=== PATIENT | male | born 1955 | race Hispanic/Latino ===

== ENCOUNTER 2017-06-01 12:07 | Day surgery (SDC) | payer BC ==
[2017-05-31 14:52] VITALS: BMI 38.9
[2017-06-01] MEDS ORDERED: Propofol 200 MG/20 ML VIAL ONE (16:36)
[2017-06-01] MEDS ORDERED: Lidocaine 1% PF 5 ML VIAL ONE (16:36)
--- NOTE | 2017-06-01 17:24 | OP ---
DATE OF PROCEDURE: 06/01/2017 PROCEDURE: Esophagogastroduodenoscopy with banding ligation of esophageal varices. PHYSICIAN: Woo Parisi M.D. ANESTHESIA: Given by Anesthesiology department. PREOPERATIVE DIAGNOSES: 1. History of esophageal varices. 2. Cirrhosis. POSTOPERATIVE DIAGNOSES: 1. Grade 2-3 lower esophageal varices. 2. Diffuse portal gastropathy. 3. Hypertrophic folds in the gastric antrum. 4. No gastric varices. PROCEDURE IN DETAIL: Written consent was obtained prior to the procedure. After adequate sedation, the forward-viewing endoscope was advanced down the stomach under direct vision to the third portion of the duodenum. The duodenum including the duodenal bulb appeared normal. Pylorus was patent. Michelle ear erosive hypertrophic exuberant folds were noted in the gastric antrum. Severe diffuse portal gas tropathy was noted. Retroflexion did not show any gastric varices. The esophagogastric junction was noted at approximately 40 cm. A grade II-III esophageal varices in 4 distinct columns were noted fr om GE junction up to 30 cm from the incisors. The endoscope was then removed. The multiband ligator kit was then affixed to the endoscope. Repeat endoscopy was performed. A total of five bands were deployed with good ligation of the varices. There was no complication noted. The patient tolerated the procedure well. ASSESSMENT: 1. Severe portal gastropathy. 2. Grade 2-3 esophageal varices, status post banding ligation. 3. No gastric varices. PLAN: 1. Continue with nadolol. 2. Repeat upper endoscopy in 6 weeks.
== END 2017-06-01 16:00 | disposition home or self-care (01) ==
LOC: SDC 12:07
PROVIDERS: ATTEND Internal Medicine Gastroenterology
PROC: 06L38CZ Occlusion of Esophageal Vein with Extraluminal Device, Via Natural or Artificial Opening Endoscopic (ICD-10-PCS; principal; 2017-06-01)
DX: I85.00 Esophageal varices without bleeding (principal); K74.60 Unspecified cirrhosis of liver; K31.89 Other diseases of stomach and duodenum; B18.2 Chronic viral hepatitis C; I10 Essential (primary) hypertension; E11.9 Type 2 diabetes mellitus without complications; E03.9 Hypothyroidism, unspecified; Z79.4 Long term (current) use of insulin; Z79.899 Other long term (current) drug therapy; Z87.891 Personal history of nicotine dependence
CPT/HCPCS: 36416; J2001; J2704

== ENCOUNTER 2018-09-27 10:00 | Outpatient (CLI) | payer BC ==
--- NOTE | 2018-09-27 10:28 | RAD ---
CHEST 2 VIEWS: Date: 09/27/18 HISTORY: Cough for 2 weeks with dyspnea. COMPARISON: 02/21/13. FINDINGS: Heart size is normal. The lungs are clear. IMPRESSION: No acute intrathoracic disease. Stable from prior study. POS: C
== END 2018-09-27 10:01 | disposition home or self-care (01) ==
LOC: BICRAD 10:00
PROVIDERS: ATTEND Family Medicine
DX: R05 Cough (principal); E11.65 Type 2 diabetes mellitus with hyperglycemia; E03.9 Hypothyroidism, unspecified; I10 Essential (primary) hypertension; Z86.19 Personal history of other infectious and parasitic diseases
CPT/HCPCS: 36415; 71046; 80053; 80061; 82043; 83036; 84443; 85025

== ENCOUNTER 2019-06-27 08:23 | Outpatient (CLI) | payer BC ==
--- NOTE | 2019-06-27 09:11 | ULT ---
Hepatic Doppler ultrasound: 06/27/2019 HISTORY: Cirrhosis, ascites, hepatitis C, abnormal liver function tests TECHNIQUE: Multiplanar grayscale sonographic imaging of the right upper quadrant obtained with Dopple r interrogation of the hepatic and splenic vasculature, including color flow and spectral analysis FINDINGS: Imaged pancreas unremarkable. The hepatic parenchyma is heterogeneous, echogenic, and demonstrates a peripheral lobulated contour, consistent with cirrhosis. Shadowing echogenic gallstones are noted within the gallbladder lumen. Nonspecific gallbladder wall thickening is noted, likely on the basis of hepatocellular disease. If t here is concern for cholecystitis, hepatobiliary scan suggested. Common bile duct measures 2 mm, within normal limits. Main portal vein, right portal vein, left portal vein, hepatic artery, middle hepatic vein, right hep atic vein, and left hepatic vein are patent and demonstrate normal flow direction and waveforms. Inferior vena cava patent and unremarkable as well. Spleen is enlarged measuring at least 19.1 cm. Sp lenic artery and splenic vein are patent and demonstrate appropriate waveforms. The electric motor assembler reports a negative Hidalgo's sign. Trace ascites noted in the right upper quadrant. IMPRESSION: Cirrhotic appearance of the liver. Hepatic and splenic vasculature patent. Splenomegaly s uggest portal hypertension. Gallstones with gallbladder wall thickening as above.
== END 2019-06-27 08:24 | disposition home or self-care (01) ==
LOC: ULT 08:23
PROVIDERS: ATTEND Internal Medicine
DX: K74.60 Unspecified cirrhosis of liver (principal); I85.00 Esophageal varices without bleeding; B18.2 Chronic viral hepatitis C; R18.8 Other ascites; R94.5 Abnormal results of liver function studies; K80.20 Calculus of gallbladder without cholecystitis without obstruction; K82.8 Other specified diseases of gallbladder; R16.1 Splenomegaly, not elsewhere classified
CPT/HCPCS: 76705; 93306

== ENCOUNTER 2019-07-23 09:26 | Observation (INO) | payer BC ==
[2019-07-23 10:00] LABS: #Eosinphils 0.1 thou/uL (0.0-0.7); #Lymphocytes 0.4 thou/uL (1.20-3.40); #Monocytes 0.3 thou/uL (0.11-0.59); #Neutrophils 1.9 thou/uL (1.40-6.50); %Eosinophils 2.4 % (0.0-10.0); %Lymphocytes 15.4 % (21.0-51.0); %Monocytes 10.9 % (0.0-10.0); %Neutrophils 70.4 % (42.0-75.0); Hemoglobin 11.8 g/dL (14.0-18.0); Mean Corpuscular HGB CONC 31.7 g/dL (32.0-36.0); Mean Corpuscular Hemoglobin 30.5 pg (27.0-31.0); Mean Platelet Volume 7.9 fL (7.4-10.4); Platelet Count 58 thou/uL (130-400); RBC Distribution Width 13.9 % (11.5-14.5); Red Blood Cell (RBC) Count 3.87 mill/uL (4.70-6.10); White Blood Cell (WBC) Count 2.6 thou/uL (4.8-10.8)
[2019-07-23 10:08] LABS: ALT (SGPT) 49 U/L (8-55); AST (SGOT) 42 U/L (5-34); Albumin 3.1 g/dL (3.4-4.8); Alkaline Phosphatase 246 U/L (40-110); Anion Gap 11 mmol/L (10-20); BUN (Urea Nitrogen) 45 mg/dL (8.4-25.7); Bilirubin, Total 0.9 mg/dL (0.2-1.2); Calc. Creatinine Clearance 0 mL/min (70-130); Calcium 8.9 mg/dL (7.8-10.44); Carbon Dioxide 23 mmol/L (23-31); Chloride 104 mmol/L (98-107); Estimated GFR-MDRD 57; Globulin 4.6 g/dL (2.4-3.5); Glucose 320 mg/dL (80-115); Potassium 6.2 mmol/L (3.5-5.1); Protein, Total 7.7 g/dL (5.8-8.1); Sodium 132 mmol/L (136-145)
[2019-07-23] MEDS ORDERED: Furosemide 40 MG/4 ML VIAL ONE (11:12)
[2019-07-23 11:19] LABS: Bilirubin Negative (Negative); Blood, Urine Negative (Negative); Clarity Clear (Clear); Glucose, Urine (Dipstick) Normal (Negative); Leukocyte Negative Leu/uL (Negative); Nitrite Negative (Negative); Protein, Urine (Dipstick) Negative (Neg-Trace); Urobilinogen Normal mg/dL (Less than 2)
[2019-07-23] MEDS ORDERED: Ondansetron PF 4 MG/2 ML Vial IVP PRN (12:20)
[2019-07-23] MEDS ORDERED: Acetaminophen 325 MG TAB PO PRN (12:20)
--- NOTE | 2019-07-23 13:50 | PDOC.HHP ---
Hospitalist HPI - History of Present Illness Hyperkalemia History of Present Illness: 64 YO HM with a PMH of liver cirrhosis, chronic untreated Hep C, DM2 who was asked to come to the ER by his PCP due to findings of severe Hyperkalemia of >7.0. Pt apparently was d/c 3 weeks after a diagnosis of sepsis, PNA and endocarditis. He was d/c with a PICC line and has been getting IV abx at home. This will be his 3rd week. He had gone to the PCP for a follow up yday and got some blood work done. Pt was called this morning by his PCP, to come to the ER due to high K levels of about 7. Pt denied any symps however. Upon presentation to our ER, K was 6.2. Pt was therefore admitted for further evaluation and mgt. Hospitalist ROS - Review of Systems Constitutional: denies: fever, chills, sweats, weakness, malaise, other Eyes: denies: pain, vision change, conjunctivae inflammation, eyelid inflammation, redness, other ENT: denies: ear pain, ear discharge, nose pain, nose discharge, nose congestion , mouth pain, mouth swelling, throat pain, throat swelling, other Respiratory: denies: cough, dry, shortness of breath, hemoptysis, SOB with excertion, pleuritic pain, sputum, wheezing, other Cardiovascular: denies: chest pain, palpitations, orthopnea, paroxysmal noc. dyspnea, edema, light headedness, other Gastrointestinal: denies: nausea, vomiting, abdominal pain, diarrhea, constipation, melena, hematochezia, other Genitourinary: denies: dysuria, frequency, incontinence, hematuria, retention, other Musculoskeletal: denies: neck pain, shoulder pain, arm pain, back pain, hand pain, leg pain, foot pain, other Skin: denies: rash, lesions, jody, bruising, other Neurological: denies: weakness, numbness, incoordination, change in speech, confusion, seizures, other Hospitalist History - Past Medical History Infectious Disease: reports: Other (Hep C. Endocarditis.) Endocrine: reports: Diabetes - Family History Family History: reports: hypertension - Social History Smoking Status: Never smoker Alcohol: reports: None Living Situation: With Family Activity level: independent ambulation - Exam General Appearance: NAD, awake alert Eye: PERRL, anicteric sclera ENT: normocephalic atraumatic, moist mucosa Neck: supple, symmetric, no JVD, no thyromegaly, no lymphadenopathy Heart: RRR, no murmur, no gallops, no rubs, normal peripheral pulses Respiratory: CTAB, no wheezes, no rales, no ronchi Gastrointestinal: soft, non-tender, non-distended, normal bowel sounds Extremities: no cyanosis, no clubbing, no edema Skin: no rashes Neurological: cranial nerve grossly intact, no focal deficits Hospitalist Results - Labs Result Diagrams: 07/23/19 09:41 07/23/19 09:41 Lab results: WBC 2.6 thou/uL (4.8-10.8) L 07/23/19 09:41 Hgb 11.8 g/dL (14.0-18.0) L 07/23/19 09:41 Hct 37.1 % (42.0-52.0) L 07/23/19 09:41 MCV 96.0 fL (78.0-98.0) 07/23/19 09:41 Plt Count 58 thou/uL (130-400) L 07/23/19 09:41 Neutrophils % 70.4 % (42.0-75.0) 07/23/19 09:41 Sodium 132 mmol/L (136-145) L 07/23/19 09:41 Potassium 6.2 mmol/L (3.5-5.1) H 07/23/19 09:41 Chloride 104 mmol/L (98-107) 07/23/19 09:41 Carbon Dioxide 23 mmol/L (23-31) 07/23/19 09:41 BUN 45 mg/dL (8.4-25.7) H 07/23/19 09:41 Creatinine 1.28 mg/dL (0.7-1.3) 07/23/19 09:41 Glucose 320 mg/dL (80-115) H 07/23/19 09:41 Calcium 8.9 mg/dL (7.8-10.44) 07/23/19 09:41 Total Bilirubin 0.9 mg/dL (0.2-1.2) 07/23/19 09:41 AST 42 U/L (5-34) H 07/23/19 09:41 ALT 49 U/L (8-55) 07/23/19 09:41 Alkaline Phosphatase 246 U/L (40-110) H 07/23/19 09:41 Troponin I 0.013 ng/mL (< 0.028) 07/23/19 09:41 Serum Total Protein 7.7 g/dL (5.8-8.1) 07/23/19 09:41 Albumin 3.1 g/dL (3.4-4.8) L 07/23/19 09:41 Urine Ketones Negative mg/dL (Negative) 07/23/19 11:05 Urine Blood Negative (Negative) 07/23/19 11:05 Urine Nitrite Negative (Negative) 07/23/19 11:05 Ur Leukocyte Esterase Negative Alvaro/uL (Negative) 07/23/19 11:05 Hospitalist H&P A/P - Problem (1) Hyperkalemia Code(s): E87.5 - HYPERKALEMIA Status: Acute Assessment and Plan: Likely due to high dose Aldactone. Pt will be given Kayexalate. Will monitor K levels. Will also decrease dose of Aldactone to 50 mg daily. (2) Ascites due to alcoholic cirrhosis Code(s): K70.31 - ALCOHOLIC CIRRHOSIS OF LIVER WITH ASCITES Status: Acute Assessment and Plan: Will get USS paracentesis (3) Endocarditis Code(s): I38 - ENDOCARDITIS, VALVE UNSPECIFIED Status: Acute Qualifiers: Endocarditis type: infective Infective endocarditis organism: bacterial Chronicity: acute Qualified Code(s): I33.0 - Acute and subacute infective endocarditis Assessment and Plan: Pt was diagnosed with endocarditis 3 weeks ago and is still on abx for this. Will cont abx while in patient. (4) Diabetes Code(s): E11.9 - TYPE 2 DIABETES MELLITUS WITHOUT COMPLICATIONS Status: Acute Qualifiers: Diabetes mellitus type: type 2 Diabetes mellitus chcf insulin use: unspecified paraplanner insulin use status Diabetes mellitus complication status : without complication Qualified Code(s): E11.9 - Type 2 diabetes mellitus without complications Assessment and Plan: Will resume home meds, monitor BG, cover with SSI. (5) Pancytopenia Code(s): D61.818 - OTHER PANCYTOPENIA Status: Acute Assessment and Plan: Likely due to cirrhosis. Will hold anticoagulation. - Plan Plan: PPx: SCDs. CODE: FULL> Dispo: Admit as Observation.
[2019-07-23] MEDS ORDERED: (Dulaglutide [Trulicity] 1.5 MG) SC SCH (15:00)
[2019-07-23] MEDS ORDERED: cefTRIAXone\\ROCEPHIN 2 GM VIAL IVPB SCH (15:00)
[2019-07-23] MEDS ORDERED: Dextrose 50% Abboject 50 ML SYRINGE IVP PRN (15:56)
[2019-07-23] MEDS ORDERED: Dextrose 5% in Water 1,000 ML IV PRN (15:56)
[2019-07-23] MEDS ORDERED: HumaLOG 300 UNITS/3 ML VIAL SC PRN (15:56)
[2019-07-23] MEDS ORDERED: HumuLIN 70/30 (300 UNITS/3 ML VIAL) SC SCH ×2 (16:00→21:00)
[2019-07-23] MEDS: Floranex Packet PO SCH (17:27)
[2019-07-24 05:10] LABS: #Lymphocytes 0.4 thou/uL (1.20-3.40); #Monocytes 0.3 thou/uL (0.11-0.59); #Neutrophils 1.7 thou/uL (1.40-6.50); %Basophils 0.4 % (0.0-1.0); %Eosinophils 2.1 % (0.0-10.0); %Lymphocytes 14.7 % (21.0-51.0); %Monocytes 13.4 % (0.0-10.0); %Neutrophils 69.4 % (42.0-75.0); Hemoglobin 11.3 g/dL (14.0-18.0); Mean Corpuscular HGB CONC 32.4 g/dL (32.0-36.0); Mean Corpuscular Hemoglobin 30.6 pg (27.0-31.0); Mean Corpuscular Volume 94.6 fL (78.0-98.0); Mean Platelet Volume 8.4 fL (7.4-10.4); Platelet Count 58 thou/uL (130-400); RBC Distribution Width 13.9 % (11.5-14.5); Red Blood Cell (RBC) Count 3.69 mill/uL (4.70-6.10); White Blood Cell (WBC) Count 2.4 thou/uL (4.8-10.8)
[2019-07-24 05:23] LABS: Anion Gap 10 mmol/L (10-20); BUN (Urea Nitrogen) 41 mg/dL (8.4-25.7); Calc. Creatinine Clearance 88 mL/min (70-130); Calcium 8.8 mg/dL (7.8-10.44); Carbon Dioxide 25 mmol/L (23-31); Chloride 106 mmol/L (98-107); Estimated GFR-MDRD 79; Glucose 72 mg/dL (80-115); Sodium 136 mmol/L (136-145)
[2019-07-24] MEDS ORDERED: Levothyroxine Sodium 100 MCG TAB PO SCH (06:00)
[2019-07-24] MEDS ORDERED: cefTRIAXone\\ROCEPHIN 2 GM VIAL IVPB SCH (08:00)
[2019-07-24] MEDS: Floranex Packet PO SCH ×2 (08:46→11:54)
[2019-07-24] MEDS ORDERED: metFORMIN 500 MG TAB PO SCH (09:00)
[2019-07-24] MEDS ORDERED: Enoxaparin Sodium 40 MG/0.4 ML SYRINGE SC SCH (09:00)
[2019-07-24] MEDS ORDERED: Nadolol 40 MG TAB PO SCH (09:00)
[2019-07-24] MEDS ORDERED: Furosemide 40 MG TAB PO SCH (09:00)
[2019-07-24] MEDS ORDERED: HumuLIN 70/30 (300 UNITS/3 ML VIAL) SC SCH (09:00)
[2019-07-24 11:45] VITALS: BP 111/58; TEMP 98.2
[2019-07-24 15:06] VITALS: BMI 33.0
--- NOTE | 2019-07-24 15:31 | ULT ---
EXAM: US Abdomen Limited PROVIDED CLINICAL HISTORY: Cirrhosis, ascites. COMPARISON: Hepatic Doppler ultrasound examination on 06/27/2019. FINDINGS: Limited sonographic evaluation of the 4 quadrants of the abdomen as well as in the midline was perfor med. A small to moderate amount of intraperitoneal free fluid is seen in the abdomen. Largest pocket of fluid is seen in the right lower quadrant. Limited visualized portions of the liver demonst rate nodular peripheral contour suggesting cirrhosis. IMPRESSION: 1. Ascites. 2. Cirrhotic appearance of the limited visualized liver.
--- NOTE | 2019-07-25 14:33 | DIS ---
DATE OF ADMISSION: 07/23/2019 DATE OF DISCHARGE: 07/24/2019 HOSPITAL COURSE: Mr. Joe is a 64-year-old male with medical history of liver cirrhosis, chronic untreated hepatitis C, and type 2 diabetes, who was referred by his PCP to the ED because of severe hyperkalemia of greater than 7.0. Upon presentation to the ED, potassium was 6.2, and there were mild EKG changes that were more consistent with hyperkalemia, so he was admitted to the telemetry floor. He was treated for hyperkalemia, which was most likely due to his high dose Aldactone, and potassium level returned to normal limits prior to discharge. The patient was discharged home, asymptomatic with instructions to stop using Aldactone until he sees his primary care physician again. PHYSICAL EXAMINATION: VITAL SIGNS: Unremarkable on exam. GENERAL: He was in no apparent distress. Alert and oriented x3. CARDIAC: Regular rate and rhythm. No murmurs and no gallops. LUNGS: Clear to auscultation bilaterally. No rales, rhonchi, or wheezing. ABDOMEN: Moderately distended. No tenderness. No guarding. Mild ascites. EXTREMITIES: Mild bilateral pitting edema up to knee level. PSYCHIATRIC: Proper affect and mood. Alert and oriented x3. ASSESSMENT AND PLAN: Mr. Joe is a 64-year-old, who presented with hyperkalemia due to high Aldactone dosage. 1. Hyperkalemia. a. Due to high dose of Aldactone, the patient was treated and returned within normal limits levels of potassium. b. He was discharged after instructed to stop using Aldactone, pending appointment with PCP. 2. Ascites due to alcoholic cirrhosis. a. The patient had an ultrasound that revealed mild to moderate amount of ascites. b. No suspicion of peritonitis considering elevated white count and no tenderness. c. The patient was discharged with followup with PCP with instructions to return to the ED in case ascitic fluid impedes respiration or he develops abdominal pain for paracentesis. 3. Endocarditis. a. The patient was previously diagnosed with endocarditis as an inpatient, his treatment was continued with antibiotics, he was discharged on the last time. 4. Diabetes. The patient's blood glucose was well controlled with his home medications, which were continued during his inpatient stay. 5. Pancytopenia. a. Likely due to his cirrhosis. b. No overt bleeding and stable hemoglobin levels. Job ID: [id number]
== END 2019-07-24 16:30 | disposition home or self-care (01) ==
LOC: ERS 09:26 → 2SW 13:28
PROVIDERS: ADMIT Hospitalist; ATTEND Emergency Medicine
DX: E87.5 Hyperkalemia (principal); T50.0X5A Adverse effect of mineralocorticoids and their antagonists, initial encounter; K70.31 Alcoholic cirrhosis of liver with ascites; I38 Endocarditis, valve unspecified; E11.9 Type 2 diabetes mellitus without complications; Z79.4 Long term (current) use of insulin; Z79.899 Other long term (current) drug therapy
CPT/HCPCS: 36415; 36416; 76705; 80048; 80053; 81003; 84484; 85025; 93005; 96365; 96374; 96375; G0378; J0696; J1815; J1940

== ENCOUNTER 2020-01-13 07:23 | Outpatient (CLI) | payer BC ==
--- NOTE | 2020-01-13 08:03 | ULT ---
Exam: Hepatic Doppler HISTORY: Cirrhosis. COMPARISON: 06/27/2019, 07/24/2019. TECHNIQUE: Grayscale, color flow, Doppler imaging and spectral waveform analysis of the liver FINDINGS: Heterogeneous liver with nodularity, compatible with cirrhosis. Right hepatic lobe measures 19.7 cm. Spleen is enlarged measuring 18.4 cm. There is evidence of ascites. Pancreas is obscured by bowel gas. Sonographic evidence of cholelithiasis. Gallbladder wall is thickened, measuring 0.4 cm. Negative Mur phy's sign. Common bile duct diameter 0.5 cm. Hepatic Doppler: There is patency and appropriate directional flow of the left hepatic vein, middle h epatic vein, right hepatic vein, main portal vein, left portal vein, right portal vein and hepatic artery. Splenic vein and artery are also patent. IMPRESSION: 1. Hepatosplenomegaly. 2. Sonographic evidence of cholelithiasis without evidence of cholecystitis. 3. Normal hepatic Doppler. 4. Ascites. Transcribed Date/Time: 01/13/2020 8:08 AM
== END 2020-01-13 07:24 | disposition home or self-care (01) ==
LOC: BICULT 07:23
PROVIDERS: ATTEND Internal Medicine Gastroenterology
DX: B18.2 Chronic viral hepatitis C (principal); R18.8 Other ascites; K74.60 Unspecified cirrhosis of liver; E87.5 Hyperkalemia; K80.20 Calculus of gallbladder without cholecystitis without obstruction; R16.2 Hepatomegaly with splenomegaly, not elsewhere classified
CPT/HCPCS: 76705

== ENCOUNTER 2020-01-30 07:17 | Day surgery (SDC) | payer BC ==
[2020-01-29 13:25] VITALS: BMI 30.1
[2020-01-30 07:57] LABS: INR-International Normal Ratio 1.2; PTT 27.1 sec (22.9-36.1); Prothrombin Time 15.3 sec (12.0-14.7)
[2020-01-30 08:20] LABS: #Eosinphils 0.1 thou/uL (0.0-0.7); #Lymphocytes 0.3 thou/uL (1.20-3.40); #Monocytes 0.2 thou/uL (0.11-0.59); #Neutrophils 1.2 thou/uL (1.40-6.50); %Eosinophils 3.1 % (0.0-10.0); %Lymphocytes 17.8 % (21.0-51.0); %Monocytes 13.2 % (0.0-10.0); %Neutrophils 65.9 % (42.0-75.0); Mean Corpuscular HGB CONC 33.2 g/dL (32.0-36.0); Mean Corpuscular Hemoglobin 31.2 pg (27.0-31.0); Platelet Count 46 thou/uL (130-400); RBC Distribution Width 12.9 % (11.5-14.5); Red Blood Cell (RBC) Count 4.16 mill/uL (4.70-6.10); White Blood Cell (WBC) Count 1.8 thou/uL (4.8-10.8)
[2020-01-30 08:22] LABS: MDiff Complete? YES
[2020-01-30 08:24] LABS: Reflex for Review?? NO
[2020-01-30 08:41] VITALS: BP 121/76; TEMP 98.7
[2020-01-30] MEDS ORDERED: Lidocaine 1% PF 5 ML VIAL ONE (08:43)
[2020-01-30] MEDS ORDERED: Sodium Bicarbonate 2.5 MEQ/5 ML VIAL ONE (08:43)
[2020-01-30] MEDS ORDERED: Fentanyl 100 MCG/2 ML VIAL ONE (08:43)
[2020-01-30] MEDS ORDERED: Ondansetron PF 4 MG/2 ML Vial ONE (08:43)
[2020-01-30] MEDS ORDERED: Midazolam HCl 2 mg/2 ml Vial ONE (08:43)
[2020-01-30 09:27] LABS: Platelet Morphology Comment Appears Decreased
[2020-01-30] MEDS ORDERED: Sodium Chloride 0.9% 0 ML ONE (10:25)
--- NOTE | 2020-01-30 12:11 | ULT ---
Ultrasound-guided hepatic biopsy random Moderate sedation: 01/30/2020: HISTORY: 64-year-old male with hepatitis C and cirrhosis presents with rapidly rising liver enzymes after antwon tment for hepatitis C. Evaluate cause of that rapid rise. TECHNIQUE: Signed informed consent obtained. Serum platelets were lower than 50,000. Therefore, one pack of plat elets were infused IV during the procedure and after. Patient requested medication for his anxiety. He immediately prior to the procedure, 1 myelogram Versed was administered IV by radiology nurse, who monitored the patient throughout the procedure and afterwards. Radiologist present during the procedure for more than 20 minutes. Anterior approach selected. Skin over epigastric and prepared and draped in usual sterile fashion. 25-gauge needle used to apply buffered lidocaine superficially. Entire procedure performed under standard sterile technique under ultrasound guidance. 17-gauge intro ducer needle advanced under ultrasound guidance to anterior surface of left lobe of liver, a voiding any free intraperitoneal fluid that was present around the right lobe of liver. Buffered lido gian applied along liver capsule through the introducer needle. 18-gauge biopsy needle advanced in coaxial fashion through the introducer needle. Biopsy gun fired, yielding a 3.3 cm long hepatic tissu e sample, which was placed in formalin. Introducer needle removed. Manual compression applied for 5 minutes. No hemorrhage or any other complication. Patient tolerated the procedure well. FINDINGS: Hepatic margins are diffusely nodular. Hepatic parenchymal echotexture is diffusely heterogeneous and coarse. Small amount of perihepatic free fluid is visualized around the right lobe of liver. Multiple gallstones are noted. Later images demonstrate biopsy needle penetrating at least 3 cm into the left lobe of liver. IMPRESSION: 1.) Successful random hepatic biopsy: 18-gauge 3.3 cm liver core tissue biopsy sample x1. 2. Hepatic cirrhosis. 3. Cholelithiasis. 4.) At least mild ascites.
== END 2020-01-30 13:12 | disposition home or self-care (01) ==
LOC: ULT 07:17
PROVIDERS: ATTEND Internal Medicine Gastroenterology
PROC: BF45ZZZ Ultrasonography of Liver (ICD-10-PCS; principal; 2020-01-30)
PROC: 0FB23ZX Excision of Left Lobe Liver, Percutaneous Approach, Diagnostic (ICD-10-PCS; principal; 2020-01-30)
DX: B17.10 Acute hepatitis C without hepatic coma (principal); B18.2 Chronic viral hepatitis C; K74.60 Unspecified cirrhosis of liver; R18.8 Other ascites; K76.0 Fatty (change of) liver, not elsewhere classified; K80.20 Calculus of gallbladder without cholecystitis without obstruction; I85.10 Secondary esophageal varices without bleeding; J45.909 Unspecified asthma, uncomplicated; E11.9 Type 2 diabetes mellitus without complications; I10 Essential (primary) hypertension; E03.9 Hypothyroidism, unspecified; Z87.891 Personal history of nicotine dependence; Z79.4 Long term (current) use of insulin; Z79.899 Other long term (current) drug therapy
CPT/HCPCS: 36415; 36430; 47000; 76942; 85025; 85610; 85730; 86850; 86900; 86901; 88307; 88313; J2250; J2405; J3010; P9035

== ENCOUNTER 2020-04-16 07:11 | Outpatient (CLI) | payer BC ==
--- NOTE | 2020-04-16 12:31 | MRI ---
MRI ABDOMEN WITH AND WITHOUT IV CONTRAST: HISTORY: Cirrhosis of liver and hepatitis C. FINDINGS: The liver demonstrates an irregular surface consistent with cirrhosis. No enhancing liver mass or ab normal biliary ductal dilatation is seen. There is a 2 cm enhancing lesion in the aly hepatis seen on the arterial images consistent with a reactive lymph node. The spleen is enlarged measuring 22 c m. No portal splenic thrombosis is noted. There is moderate ascites. There are gallstones. There is irregular dilatation of the pancreatic duct with multiple cystic outp uchings of the ductal system with debris in the pancreatic duct. These findings are consistent with sequlae ofchronic pancreatitis. The adrenal glands and kidneys are normal. The bone marrow signal is normal. IMPRESSION: 1. Cirrhosis of the liver without evidence of enhancing mass to suggest HCC. 2. Splenomegaly. 3. Ascites. 4. Chronic pancreatitis. 5. LIRADS 1. POS: [facility]
[2020-04-16] MEDS ORDERED: Magnevist 469MG/ML 20 ML VIAL ONE (14:46)
== END 2020-04-16 07:12 | disposition home or self-care (01) ==
LOC: BICMRI 07:11
PROVIDERS: ATTEND Internal Medicine
DX: B18.2 Chronic viral hepatitis C (principal); K74.60 Unspecified cirrhosis of liver; R94.5 Abnormal results of liver function studies; R16.1 Splenomegaly, not elsewhere classified; R18.8 Other ascites; K85.90 Acute pancreatitis without necrosis or infection, unspecified
CPT/HCPCS: 74183; 82565; A9579

== ENCOUNTER 2020-10-23 22:04 | Emergency (ER) | payer BC | END 2020-10-23 22:56 | disposition home or self-care (01) | LOC: ERS 22:04 | DX: K74.60 Unspecified cirrhosis of liver (principal); R06.02 Shortness of breath; E11.9 Type 2 diabetes mellitus without complications; I10 Essential (primary) hypertension; Z79.899 Other long term (current) drug therapy; Z79.4 Long term (current) use of insulin | CPT/HCPCS: 99283 ==

== ENCOUNTER 2020-10-26 09:23 | Day surgery (SDC) | payer BC ==
[2020-10-23 11:24] VITALS: BMI 32.9
[2020-10-26 10:02] LABS: INR-International Normal Ratio 1.3; PTT 24.5 sec (22.9-36.1)
[2020-10-26] MEDS ORDERED: Lidocaine 1% PF 5 ML VIAL ONE (10:11)
[2020-10-26] MEDS ORDERED: Sodium Bicarbonate 2.5 MEQ/5 ML VIAL ONE (10:11)
[2020-10-26 10:28] LABS: #Eosinphils 0.1 thou/uL (0.0-0.7); #Lymphocytes 0.6 thou/uL (1.20-3.40); #Monocytes 0.5 thou/uL (0.11-0.59); #Neutrophils 4.5 thou/uL (1.40-6.50); %Basophils 0.2 % (0.0-1.0); %Eosinophils 1.1 % (0.0-10.0); %Lymphocytes 11.2 % (21.0-51.0); %Monocytes 8.8 % (0.0-10.0); %Neutrophils 78.8 % (42.0-75.0); Hemoglobin 12.2 g/dL (14.0-18.0); Mean Corpuscular HGB CONC 32.9 g/dL (32.0-36.0); Mean Corpuscular Hemoglobin 29.7 pg (27.0-31.0); Mean Corpuscular Volume 90.4 fL (78.0-98.0); Mean Platelet Volume 7.6 fL (7.4-10.4); Platelet Count 55 thou/uL (130-400); RBC Distribution Width 13.9 % (11.5-14.5); Red Blood Cell (RBC) Count 4.09 mill/uL (4.70-6.10); White Blood Cell (WBC) Count 5.7 thou/uL (4.8-10.8)
[2020-10-26] MEDS ORDERED: Albumin 25% 100 ML ONE (11:54)
[2020-10-26 12:26] LABS: Fluid, Amylase 7 U/L (Not Available); Fluid, Triglycerides 77 mg/dL (Not Available)
[2020-10-26 12:28] LABS: Albumin Less than 1.0 g/dL (3.4-4.8); Protein, Total 1.5 g/dL (5.8-8.1)
[2020-10-26 12:41] LABS: RBC Count-Automated (BF) 4320 /cu.mm; WBC/Nucleated-Auto (BF) 363 uL
[2020-10-26 12:48] LABS: Body Fluid Source Ascites Body Fluid; Tube # EDTA
[2020-10-26 12:49] LABS: BF Color Yellow; Clarity Cloudy/Turbid (Clear)
[2020-10-26 13:18] LABS: BF Segmented Neutrophils 12 %; Cell Count Non Hematic 55 %; Lymphocytes 33 %
[2020-10-26 13:34] VITALS: BP 133/64; TEMP 97.8
== END 2020-10-26 11:20 | disposition home or self-care (01) ==
LOC: ULT 09:23
PROVIDERS: ATTEND Internal Medicine Gastroenterology
DX: K74.60 Unspecified cirrhosis of liver (principal); R18.8 Other ascites; E11.9 Type 2 diabetes mellitus without complications; E03.9 Hypothyroidism, unspecified; E78.5 Hyperlipidemia, unspecified; Z79.4 Long term (current) use of insulin; Z79.899 Other long term (current) drug therapy
CPT/HCPCS: 49083; 82040; 82150; 84155; 84478; 85025; 85060; 85384; 85610; 85730; 87070; 87205; 88112; 88305; 89051; P9047

== ENCOUNTER 2020-11-06 08:09 | Outpatient (CLI) | payer BC ==
[2020-11-06] MEDS ORDERED: Magnevist 469MG/ML 20 ML VIAL ONE (12:00)
== END 2020-11-06 08:10 | disposition home or self-care (01) ==
LOC: BICMRI 08:09
PROVIDERS: ATTEND Internal Medicine
DX: K74.60 Unspecified cirrhosis of liver (principal); R94.5 Abnormal results of liver function studies; R18.8 Other ascites; K76.9 Liver disease, unspecified; K80.20 Calculus of gallbladder without cholecystitis without obstruction; K55.059 Acute (reversible) ischemia of intestine, part and extent unspecified; K86.89 Other specified diseases of pancreas; K76.6 Portal hypertension
CPT/HCPCS: 74183; 82565; A9579

== ENCOUNTER 2020-11-16 09:45 | Day surgery (SDC) | payer BC ==
[2020-11-12 12:28] VITALS: BMI 32.9
[2020-11-16 10:41] LABS: PTT 28.7 sec (22.9-36.1)
[2020-11-16] MEDS ORDERED: Lidocaine 1% PF 5 ML VIAL ONE (11:09)
[2020-11-16] MEDS ORDERED: Albumin 25% 100 ML ONE (11:09)
[2020-11-16] MEDS ORDERED: Sodium Bicarbonate 2.5 MEQ/5 ML VIAL ONE (11:09)
[2020-11-16 12:28] VITALS: BP 117/61; TEMP 98.6
[2020-11-16 13:50] LABS: Fluid, Protein 1.4 g/dL (Not Available)
[2020-11-16 14:16] LABS: RBC Count-Automated (BF) 5653 /cu.mm; WBC/Nucleated-Auto (BF) 176 uL
[2020-11-16 14:26] LABS: BF Color Yellow; Body Fluid Source Ascites Body Fluid; Clarity Cloudy/Turbid (Clear); Tube # EDTA
[2020-11-16 14:42] LABS: BF Segmented Neutrophils 4 %; Cell Count Non Hematic 54 %; Lymphocytes 42 %
== END 2020-11-16 11:45 | disposition home or self-care (01) ==
LOC: ULT 09:45
PROVIDERS: ATTEND Internal Medicine Gastroenterology
PROC: 0W9G3ZX Drainage of Peritoneal Cavity, Percutaneous Approach, Diagnostic (ICD-10-PCS; principal; 2020-11-16)
DX: K74.60 Unspecified cirrhosis of liver (principal); R18.8 Other ascites; E11.9 Type 2 diabetes mellitus without complications; E03.9 Hypothyroidism, unspecified; B18.2 Chronic viral hepatitis C; Z79.4 Long term (current) use of insulin; Z79.899 Other long term (current) drug therapy
CPT/HCPCS: 49083; 82042; 82150; 84157; 84478; 85060; 85384; 85730; 87070; 87205; 88112; 88305; 89051; P9047

== ENCOUNTER 2020-12-03 09:31 | Day surgery (SDC) | payer BC ==
[2020-12-02 13:25] VITALS: BMI 32.9
[2020-12-03] MEDS ORDERED: Sodium Bicarbonate 2.5 MEQ/5 ML VIAL ONE (10:10)
[2020-12-03] MEDS ORDERED: Albumin 25% 100 ML ONE (10:10)
[2020-12-03] MEDS ORDERED: Lidocaine 1% PF 5 ML VIAL ONE (10:10)
[2020-12-03] MEDS ORDERED: Sodium Chloride 0.9% 0 ML ONE (10:17)
[2020-12-03 10:21] LABS: INR-International Normal Ratio 1.1; PTT 26.6 sec (22.9-36.1); Prothrombin Time 14.6 sec (12.0-14.7)
[2020-12-03 10:47] LABS: Eosinophils 3 % (0-10); Hemoglobin 11.8 g/dL (14.0-18.0); Lymphocytes 21 % (21-51); MDiff Complete? YES; Mean Corpuscular HGB CONC 33.4 g/dL (32.0-36.0); Mean Corpuscular Hemoglobin 30.7 pg (27.0-31.0); Mean Platelet Volume 6.9 fL (7.4-10.4); Monocytes 16 % (0-10); Neutrophil 60 % (42-75); Platelet Count 58 thou/uL (130-400); Platelet Morphology Comment Appears Decreased; RBC Distribution Width 15.2 % (11.5-14.5); Red Blood Cell (RBC) Count 3.83 mill/uL (4.70-6.10); White Blood Cell (WBC) Count 2.1 thou/uL (4.8-10.8)
[2020-12-03 13:05] LABS: Fluid, Protein 1.3 g/dL (Not Available)
[2020-12-03 13:40] VITALS: BP 142/72; TEMP 98
[2020-12-03 13:42] LABS: RBC Count-Automated (BF) 5208 /cu.mm; WBC/Nucleated-Auto (BF) 309 uL
[2020-12-03 13:51] LABS: BF Color Yellow; Body Fluid Source Paracentesis Fluid; Clarity Cloudy/Turbid (Clear); Tube # EDTA
[2020-12-03 13:53] LABS: BF Segmented Neutrophils 6 %; Cell Count Non Hematic 55 %; Lymphocytes 39 %
== END 2020-12-03 11:25 | disposition home or self-care (01) ==
LOC: ULT 09:31
PROVIDERS: ATTEND Internal Medicine Gastroenterology
PROC: BW40ZZZ Ultrasonography of Abdomen (ICD-10-PCS; principal; 2020-12-03)
PROC: 0W9G3ZZ Drainage of Peritoneal Cavity, Percutaneous Approach (ICD-10-PCS; principal; 2020-12-03)
DX: K74.60 Unspecified cirrhosis of liver (principal); I85.10 Secondary esophageal varices without bleeding; R18.8 Other ascites; E11.9 Type 2 diabetes mellitus without complications; E03.9 Hypothyroidism, unspecified; E87.5 Hyperkalemia; I38 Endocarditis, valve unspecified; Z79.4 Long term (current) use of insulin; Z79.899 Other long term (current) drug therapy
CPT/HCPCS: 49083; 82042; 82150; 84157; 84478; 85025; 85060; 85384; 85610; 85730; 87070; 87205; 88112; 89051; P9047

== ENCOUNTER 2020-12-24 09:52 | Day surgery (SDC) | payer BC ==
[2020-12-22 13:48] VITALS: BMI 32.9
[2020-12-24] MEDS ORDERED: Sodium Bicarbonate 2.5 MEQ/5 ML VIAL ONE (10:07)
[2020-12-24] MEDS ORDERED: Lidocaine 1% PF 5 ML VIAL ONE (10:07)
[2020-12-24 10:22] LABS: PTT 27.8 sec (22.9-36.1)
[2020-12-24] MEDS ORDERED: Albumin 25% 100 ML ONE (10:32)
[2020-12-24 12:39] VITALS: BP 144/84
[2020-12-24 12:53] LABS: Fluid, Protein 1.3 g/dL (Not Available)
[2020-12-24 14:33] LABS: RBC Count-Automated (BF) 2036 /cu.mm; WBC/Nucleated-Auto (BF) 1371 uL
[2020-12-24 16:25] LABS: BF Color Yellow; Body Fluid Source Paracentesis Fluid; Clarity Hazy (Clear); Tube # EDTA
[2020-12-24 16:28] LABS: BF Segmented Neutrophils 7 %; Cell Count Non Hematic 55 %; Lymphocytes 38 %
== END 2020-12-24 11:35 | disposition home or self-care (01) ==
LOC: ULT 09:52
PROVIDERS: ATTEND Internal Medicine Gastroenterology
PROC: 0W9G3ZZ Drainage of Peritoneal Cavity, Percutaneous Approach (ICD-10-PCS; principal; 2020-12-24)
DX: K74.60 Unspecified cirrhosis of liver (principal); R18.8 Other ascites; E11.9 Type 2 diabetes mellitus without complications; Z79.4 Long term (current) use of insulin; Z79.899 Other long term (current) drug therapy; Z87.891 Personal history of nicotine dependence
CPT/HCPCS: 49083; 82042; 82150; 84157; 84478; 85060; 85384; 85730; 87070; 87205; 89051; P9047

== ENCOUNTER 2021-01-21 10:20 | Day surgery (SDC) | payer BC ==
[2021-01-20 12:55] VITALS: BMI 32.9
[2021-01-21] MEDS ORDERED: Lidocaine 1% PF 5 ML VIAL ONE (10:39)
[2021-01-21] MEDS ORDERED: Sodium Bicarbonate 2.5 MEQ/5 ML VIAL ONE (10:39)
[2021-01-21] MEDS ORDERED: Albumin 25% 100 ML ONE (10:46)
[2021-01-21 11:08] VITALS: BP 127/72; TEMP 97.7
[2021-01-21 13:18] LABS: Protein, Total 1.4 g/dL (5.8-8.1)
[2021-01-21 13:26] LABS: RBC Count-Automated (BF) 6740 /cu.mm; WBC/Nucleated-Auto (BF) 180 uL
[2021-01-21 13:34] LABS: BF Color Pink; Body Fluid Source Ascites Body Fluid; Clarity Hazy (Clear); Tube # EDTA
[2021-01-21 14:14] LABS: BF Segmented Neutrophils 3 %; Cell Count Non Hematic 74 %; Lymphocytes 23 %
== END 2021-01-21 11:55 | disposition home or self-care (01) ==
LOC: ULT 10:20
PROVIDERS: ATTEND Internal Medicine Gastroenterology
PROC: 0W9G3ZX Drainage of Peritoneal Cavity, Percutaneous Approach, Diagnostic (ICD-10-PCS; principal; 2021-01-21)
DX: K74.60 Unspecified cirrhosis of liver (principal); R18.8 Other ascites; E11.9 Type 2 diabetes mellitus without complications; E03.9 Hypothyroidism, unspecified; Z79.4 Long term (current) use of insulin; Z79.899 Other long term (current) drug therapy
CPT/HCPCS: 49083; 82042; 84155; 84478; 85060; 87070; 87205; 88112; 88305; 89051; P9047

== ENCOUNTER 2021-02-05 07:37 | Outpatient (CLI) | payer BC ==
[2021-02-05] MEDS ORDERED: Magnevist 469MG/ML 20 ML VIAL ONE (09:45)
== END 2021-02-05 07:38 | disposition home or self-care (01) ==
LOC: BICMRI 07:37
PROVIDERS: ATTEND Internal Medicine
DX: C22.0 Liver cell carcinoma (principal); R94.5 Abnormal results of liver function studies; R18.8 Other ascites; K80.20 Calculus of gallbladder without cholecystitis without obstruction; K76.9 Liver disease, unspecified; K55.059 Acute (reversible) ischemia of intestine, part and extent unspecified; K76.6 Portal hypertension
CPT/HCPCS: 74183; 82565; A9579

== ENCOUNTER 2021-02-18 09:54 | Day surgery (SDC) | payer BC ==
[2021-02-17 14:01] VITALS: BMI 32.9
[2021-02-18] MEDS ORDERED: Lidocaine 1% PF 5 ML VIAL ONE (10:54)
[2021-02-18] MEDS ORDERED: Sodium Bicarbonate 2.5 MEQ/5 ML VIAL ONE (10:54)
[2021-02-18] MEDS ORDERED: Albumin 25% 25 GM/100 ML BOT IVPB ONE (12:00)
[2021-02-18 12:08] VITALS: BP 123/57
[2021-02-18 14:18] LABS: RBC Count-Automated (BF) 4881 /cu.mm; WBC/Nucleated-Auto (BF) 245 uL
[2021-02-18 14:30] LABS: Body Fluid Source Ascites Body Fluid; Tube # EDTA
[2021-02-18 14:31] LABS: BF Color Yellow; Clarity Hazy (Clear)
[2021-02-18 14:46] LABS: BF Segmented Neutrophils 4 %; Cell Count Non Hematic 61 %; Lymphocytes 35 %
== END 2021-02-18 12:15 | disposition home or self-care (01) ==
LOC: ULT 09:54
PROVIDERS: ATTEND Internal Medicine Gastroenterology
PROC: 0W9G3ZX Drainage of Peritoneal Cavity, Percutaneous Approach, Diagnostic (ICD-10-PCS; principal; 2021-02-18)
DX: B19.20 Unspecified viral hepatitis C without hepatic coma (principal); K74.69 Other cirrhosis of liver; R18.8 Other ascites
CPT/HCPCS: 49083; 84155; 85060; 87070; 87205; 89051; P9047

== ENCOUNTER 2021-02-25 09:17 | Day surgery (SDC) | payer BC ==
[2021-02-24 13:24] VITALS: BMI 31.8
[2021-02-25 11:29] VITALS: BP 137/74; TEMP 97.8
[2021-02-25 12:28] LABS: RBC Count-Automated (BF) 5782 /cu.mm; WBC/Nucleated-Auto (BF) 441 uL
[2021-02-25 12:58] LABS: Body Fluid Source Ascites Body Fluid; Tube # EDTA
[2021-02-25 12:59] LABS: BF Color Yellow; Clarity Hazy (Clear)
[2021-02-25 13:04] LABS: BF Segmented Neutrophils 16 %; Cell Count Non Hematic 52 %; Lymphocytes 32 %
== END 2021-02-25 11:10 | disposition home or self-care (01) ==
LOC: ULT 09:17
PROVIDERS: ATTEND Internal Medicine Gastroenterology
PROC: 0W9G3ZX Drainage of Peritoneal Cavity, Percutaneous Approach, Diagnostic (ICD-10-PCS; principal; 2021-02-25)
DX: K74.60 Unspecified cirrhosis of liver (principal); R18.8 Other ascites; E11.9 Type 2 diabetes mellitus without complications; C22.0 Liver cell carcinoma; E03.9 Hypothyroidism, unspecified; B18.2 Chronic viral hepatitis C; I85.10 Secondary esophageal varices without bleeding; Z87.891 Personal history of nicotine dependence; Z79.4 Long term (current) use of insulin; Z79.899 Other long term (current) drug therapy
CPT/HCPCS: 49083; 84155; 85060; 87070; 87205; 89051

== ENCOUNTER → 2021-03-04 | Day surgery (SDC) | payer BC ==
[2021-03-03 08:41] VITALS: BMI 29.2
[~2021-03-04] MED LIST: Lidocaine 1% PF 5 ML VIAL ONE; Sodium Bicarbonate 2.5 MEQ/5 ML VIAL ONE
[2021-03-04 10:01] LABS: INR-International Normal Ratio 1.3; Prothrombin Time 16.5 sec (12.0-14.7)
[2021-03-04 10:02] LABS: PTT 32.2 sec (22.9-36.1)
[2021-03-04 12:10] VITALS: BP 140/59
[2021-03-04 13:17] LABS: RBC Count-Automated (BF) 5611 /cu.mm; WBC/Nucleated-Auto (BF) 686 uL
[2021-03-04 13:53] LABS: BF Color Pink; Body Fluid Source Ascites Body Fluid; Clarity Hazy (Clear); Tube # EDTA
[2021-03-04 13:57] LABS: BF Segmented Neutrophils 29 %; Cell Count Non Hematic 48 %; Eosinophils 1 %; Lymphocytes 18 %
== END ==
LOC: ULT 09:34
PROVIDERS: ATTEND Internal Medicine Gastroenterology
PROC: 0W9G3ZX Drainage of Peritoneal Cavity, Percutaneous Approach, Diagnostic (ICD-10-PCS; principal; 2021-03-04)
DX: K74.60 Unspecified cirrhosis of liver (principal); R18.8 Other ascites; C22.0 Liver cell carcinoma; B18.2 Chronic viral hepatitis C; E11.9 Type 2 diabetes mellitus without complications; Z87.891 Personal history of nicotine dependence; Z79.4 Long term (current) use of insulin; Z79.899 Other long term (current) drug therapy
CPT/HCPCS: 36415; 49083; 84157; 85060; 85610; 85730; 87070; 87205; 89051; P9047

== ENCOUNTER 2021-03-11 09:42 | Day surgery (SDC) | payer BC ==
[2021-03-10 12:46] VITALS: BMI 32.9
[2021-03-11] MEDS ORDERED: Albumin 25% 100 ML ONE (09:55)
[2021-03-11] MEDS ORDERED: Sodium Bicarbonate 2.5 MEQ/5 ML VIAL ONE (09:55)
[2021-03-11] MEDS ORDERED: Lidocaine 1% PF 5 ML VIAL ONE (09:55)
[2021-03-11] MEDS ORDERED: Albumin 25% 25 GM/100 ML BOT IVPB SCH (11:15)
[2021-03-11 11:26] VITALS: BP 132/60
[2021-03-11 12:38] LABS: Fluid, Amylase 7 U/L (Not Available); Fluid, Triglycerides 27 mg/dL (Not Available)
== END 2021-03-11 11:30 | disposition home or self-care (01) ==
LOC: ULT 09:42
PROVIDERS: ATTEND Internal Medicine Gastroenterology
PROC: 0W9G3ZX Drainage of Peritoneal Cavity, Percutaneous Approach, Diagnostic (ICD-10-PCS; principal; 2021-03-11)
DX: B18.2 Chronic viral hepatitis C (principal); K74.69 Other cirrhosis of liver; R18.8 Other ascites; C22.0 Liver cell carcinoma; E11.9 Type 2 diabetes mellitus without complications; Z87.891 Personal history of nicotine dependence; Z79.4 Long term (current) use of insulin; Z79.899 Other long term (current) drug therapy
CPT/HCPCS: 49083; 82042; 82150; 84155; 84478; 87070; 87205; 88112; 88305; P9047

== ENCOUNTER 2021-03-18 09:47 | Day surgery (SDC) | payer BC ==
[2021-03-17 14:27] VITALS: BMI 32.9
[2021-03-18] MEDS ORDERED: Sodium Bicarbonate 2.5 MEQ/5 ML VIAL ONE (09:53)
[2021-03-18] MEDS ORDERED: Lidocaine 1% PF 5 ML VIAL ONE (09:53)
[2021-03-18] MEDS ORDERED: Albumin 25% 100 ML ONE (09:53)
[2021-03-18 10:43] VITALS: TEMP 97.6
[2021-03-18 11:43] VITALS: BP 136/68
[2021-03-18 12:06] LABS: Albumin Less than 1.0 g/dL (3.4-4.8); Protein, Total 1.4 g/dL (5.8-8.1); Triglycerides 38 mg/dL (Less than 150)
[2021-03-18 12:17] LABS: RBC Count-Automated (BF) 2194 /cu.mm; WBC/Nucleated-Auto (BF) 257 uL
[2021-03-18 12:24] LABS: BF Color Yellow; Body Fluid Source Ascites Body Fluid; Clarity Hazy (Clear); Tube # EDTA
[2021-03-18 13:09] LABS: BF Segmented Neutrophils 16 %; Cell Count Non Hematic 39 %; Lymphocytes 45 %
== END 2021-03-18 11:04 | disposition home or self-care (01) ==
LOC: ULT 09:47
PROVIDERS: ATTEND Internal Medicine Gastroenterology
PROC: 0W9G3ZX Drainage of Peritoneal Cavity, Percutaneous Approach, Diagnostic (ICD-10-PCS; principal; 2021-03-18)
DX: K74.60 Unspecified cirrhosis of liver (principal); R18.8 Other ascites; B18.2 Chronic viral hepatitis C; C22.0 Liver cell carcinoma; E11.9 Type 2 diabetes mellitus without complications; Z87.891 Personal history of nicotine dependence; Z79.4 Long term (current) use of insulin; Z79.899 Other long term (current) drug therapy
CPT/HCPCS: 49083; 82040; 82150; 84155; 84478; 85060; 87070; 87205; 89051; P9047

== ENCOUNTER 2021-03-25 10:12 | Day surgery (SDC) | payer BC ==
[2021-03-25] MEDS ORDERED: Sodium Bicarbonate 2.5 MEQ/5 ML VIAL ONE (10:42)
[2021-03-25] MEDS ORDERED: Lidocaine 1% PF 5 ML VIAL ONE (10:42)
[2021-03-25] MEDS ORDERED: Albumin 25% 100 ML ONE (10:42)
[2021-03-25 11:37] VITALS: TEMP 97.8
[2021-03-25 13:09] LABS: Fluid, Amylase 5 U/L (Not Available); Fluid, Triglycerides 25 mg/dL (Not Available)
[2021-03-25 13:20] LABS: RBC Count-Automated (BF) 2164 /cu.mm; WBC/Nucleated-Auto (BF) 860 uL
[2021-03-25 13:28] VITALS: BP 130/65
[2021-03-25 13:30] LABS: BF Color Yellow; Body Fluid Source Ascites Body Fluid; Clarity Cloudy/Turbid (Clear); Tube # EDTA
[2021-03-25 13:32] LABS: BF Segmented Neutrophils 32 %; Cell Count Non Hematic 49 %; Lymphocytes 19 %
== END 2021-03-25 11:47 | disposition home or self-care (01) ==
LOC: ULT 10:12
PROVIDERS: ATTEND Internal Medicine Gastroenterology
PROC: 0W9G3ZZ Drainage of Peritoneal Cavity, Percutaneous Approach (ICD-10-PCS; principal; 2021-03-25)
DX: K74.60 Unspecified cirrhosis of liver (principal); R18.8 Other ascites; I85.10 Secondary esophageal varices without bleeding; C78.7 Secondary malignant neoplasm of liver and intrahepatic bile duct; E11.9 Type 2 diabetes mellitus without complications; Z98.890 Other specified postprocedural states; Z79.4 Long term (current) use of insulin; Z79.899 Other long term (current) drug therapy; Z87.891 Personal history of nicotine dependence
CPT/HCPCS: 49083; 82042; 82150; 84157; 84478; 85060; 87070; 87205; 89051; P9047

== ENCOUNTER 2021-04-01 09:51 | Day surgery (SDC) | payer BC ==
[2021-03-31 16:39] VITALS: BMI 32.9
[2021-04-01] MEDS ORDERED: Albumin 25% 100 ML ONE (10:08)
[2021-04-01] MEDS ORDERED: Sodium Bicarbonate 2.5 MEQ/5 ML VIAL ONE (10:08)
[2021-04-01] MEDS ORDERED: Lidocaine 1% PF 5 ML VIAL ONE (10:09)
[2021-04-01 12:06] VITALS: BP 120/86; TEMP 97.8
[2021-04-01 13:51] LABS: Protein, Total 1.4 g/dL (5.8-8.1)
[2021-04-01 14:04] LABS: RBC Count-Automated (BF) 2856 /cu.mm; WBC/Nucleated-Auto (BF) 1146 uL
[2021-04-01 14:31] LABS: Body Fluid Source Ascites Body Fluid
[2021-04-01 14:32] LABS: BF Color Yellow; Clarity Hazy (Clear); Tube # EDTA
[2021-04-01 15:08] LABS: BF Segmented Neutrophils 45 %; Cell Count Non Hematic 34 %; Lymphocytes 19 %
== END 2021-04-01 11:25 | disposition home or self-care (01) ==
LOC: ULT 09:51
PROVIDERS: ATTEND Internal Medicine Gastroenterology
PROC: 0W9G3ZX Drainage of Peritoneal Cavity, Percutaneous Approach, Diagnostic (ICD-10-PCS; principal; 2021-04-01)
DX: K74.60 Unspecified cirrhosis of liver (principal); R18.8 Other ascites; C22.0 Liver cell carcinoma; K80.20 Calculus of gallbladder without cholecystitis without obstruction; E11.9 Type 2 diabetes mellitus without complications; Z79.4 Long term (current) use of insulin; Z87.891 Personal history of nicotine dependence; Z79.899 Other long term (current) drug therapy
CPT/HCPCS: 49083; 82042; 82150; 84155; 84478; 85060; 87070; 87205; 88112; 88305; 89051; P9047

== ENCOUNTER 2021-04-08 09:55 | Day surgery (SDC) | payer BC ==
[2021-04-08] MEDS ORDERED: Lidocaine 1% PF 5 ML VIAL ONE (10:11)
[2021-04-08] MEDS ORDERED: Sodium Bicarbonate 2.5 MEQ/5 ML VIAL ONE (10:11)
[2021-04-08] MEDS ORDERED: Sodium Chloride 0.9% 20 ML ONE (10:12)
[2021-04-08 10:18] LABS: INR-International Normal Ratio 1.3; Prothrombin Time 16.2 sec (12.0-14.7)
[2021-04-08 10:22] LABS: #Lymphocytes 0.3 thou/uL (1.20-3.40); #Monocytes 0.3 thou/uL (0.11-0.59); %Basophils 0.3 % (0.0-1.0); %Eosinophils 1.5 % (0.0-10.0); %Lymphocytes 12.2 % (21.0-51.0); %Monocytes 11.3 % (0.0-10.0); %Neutrophils 74.7 % (42.0-75.0); Hemoglobin 12.4 g/dL (14.0-18.0); Mean Corpuscular Hemoglobin 30.2 pg (27.0-31.0); Mean Corpuscular Volume 88.9 fL (78.0-98.0); Mean Platelet Volume 6.9 fL (7.4-10.4); Platelet Count 63 thou/uL (130-400); RBC Distribution Width 17.3 % (11.5-14.5); White Blood Cell (WBC) Count 2.6 thou/uL (4.8-10.8)
[2021-04-08 12:27] VITALS: BP 122/76; TEMP 98.4; BMI 329.4
[2021-04-08 13:21] LABS: RBC Count-Automated (BF) 889 /cu.mm; WBC/Nucleated-Auto (BF) 356 uL
[2021-04-08 13:29] LABS: BF Color Yellow; Body Fluid Source Paracentesis Fluid; Clarity Hazy (Clear); Tube # EDTA
[2021-04-08 13:32] LABS: BF Segmented Neutrophils 10 %
[2021-04-08 13:33] LABS: Cell Count Non Hematic 50 %; Lymphocytes 40 %
[2021-04-08] MEDS ORDERED: FLU VACC QS2021-22(6MOS UP)/PF 60 MCG/0.5 ML SYRINGE IM ONE (15:30)
[2021-04-09] MEDS ORDERED: FLU VACC QS2021-22(6MOS UP)/PF 60 MCG/0.5 ML SYRINGE IM ONE (13:15)
== END 2021-04-08 11:25 | disposition home or self-care (01) ==
LOC: ULT 09:55
PROVIDERS: ATTEND Internal Medicine Gastroenterology
PROC: 0W9G3ZX Drainage of Peritoneal Cavity, Percutaneous Approach, Diagnostic (ICD-10-PCS; principal; 2021-04-08)
DX: K74.60 Unspecified cirrhosis of liver (principal); R18.8 Other ascites; E03.9 Hypothyroidism, unspecified; E11.9 Type 2 diabetes mellitus without complications; C22.0 Liver cell carcinoma; K80.20 Calculus of gallbladder without cholecystitis without obstruction; Z87.891 Personal history of nicotine dependence; Z79.4 Long term (current) use of insulin; Z79.84 Long term (current) use of oral hypoglycemic drugs; Z79.899 Other long term (current) drug therapy
CPT/HCPCS: 49083; 82042; 85025; 85060; 85610; 85730; 87070; 87205; 89051; 90471; 90686; G0008; J1642

== ENCOUNTER 2021-04-10 11:50 | Inpatient (IN) | payer BC ==
[2021-04-10 13:40] LABS: #Lymphocytes 0.3 thou/uL (1.20-3.40); #Monocytes 0.2 thou/uL (0.11-0.59); #Neutrophils 4.6 thou/uL (1.40-6.50); %Eosinophils 0.2 % (0.0-10.0); %Lymphocytes 6.4 % (21.0-51.0); %Monocytes 4.5 % (0.0-10.0); Hemoglobin 14.3 g/dL (14.0-18.0); Mean Corpuscular HGB CONC 33.7 g/dL (32.0-36.0); Mean Corpuscular Hemoglobin 30.3 pg (27.0-31.0); Mean Corpuscular Volume 89.8 fL (78.0-98.0); Mean Platelet Volume 7.1 fL (7.4-10.4); Platelet Count 80 thou/uL (130-400); RBC Distribution Width 17.7 % (11.5-14.5); Red Blood Cell (RBC) Count 4.72 mill/uL (4.70-6.10); White Blood Cell (WBC) Count 5.1 thou/uL (4.8-10.8)
[2021-04-10] MEDS ORDERED: Morphine 4 MG/ML VIAL ONE (13:42)
[2021-04-10] MEDS ORDERED: Ondansetron PF 4 MG/2 ML Vial ONE (13:42)
[2021-04-10 13:58] LABS: ALT (SGPT) 44 U/L (8-55); AST (SGOT) 40 U/L (5-34); Albumin 2.8 g/dL (3.4-4.8); Alkaline Phosphatase 208 U/L (40-110); Anion Gap 15 mmol/L (10-20); BUN (Urea Nitrogen) 32 mg/dL (8.4-25.7); Bilirubin, Total 2.4 mg/dL (0.2-1.2); Calc. Creatinine Clearance 0 mL/min (70-130); Calcium 8.3 mg/dL (7.8-10.44); Carbon Dioxide 21 mmol/L (23-31); Chloride 101 mmol/L (98-107); Globulin 4.1 g/dL (2.4-3.5); Glucose 256 mg/dL (80-115); Magnesium 1.9 mg/dL (1.6-2.6); Potassium 4.8 mmol/L (3.5-5.1); Protein, Total 6.9 g/dL (5.8-8.1); Sodium 132 mmol/L (136-145)
[2021-04-10 15:30] LABS: RBC Count-Automated (BF) 1169 /cu.mm; WBC/Nucleated-Auto (BF) 9541 uL
[2021-04-10 15:53] LABS: Body Fluid Source Ascites Body Fluid; Tube # EDTA
[2021-04-10 15:54] LABS: BF Color Yellow; Clarity Cloudy/Turbid (Clear)
[2021-04-10 15:58] LABS: BF Segmented Neutrophils 64 %; Cell Count Non Hematic 31 %; Lymphocytes 5 %
[2021-04-10] MEDS ORDERED: cefTRIAXone\\ROCEPHIN 2 GM VIAL ONE (16:37)
[2021-04-10] MEDS ORDERED: Albumin 25% 25 GM/100 ML BOT IVPB SCH (16:45)
[2021-04-10 17:06] LABS: Lactic Acid 2.4 mmol/L (0.5-2.2)
[2021-04-10] MEDS ORDERED: Dextrose 5% in Water 1,000 ML IV PRN (17:28)
[2021-04-10] MEDS ORDERED: Dextrose 50% Abboject 50 ML SYRINGE SLOW IVP PRN (17:28)
[2021-04-10] MEDS ORDERED: HumaLOG 300 UNITS/3 ML VIAL SC PRN (17:28)
[2021-04-10] MEDS ORDERED: Ondansetron PF 4 MG/2 ML Vial IVP PRN (17:32)
[2021-04-10] MEDS ORDERED: Ondansetron ODT 4 MG TAB PO PRN (17:32)
[2021-04-10] MEDS ORDERED: Albuterol Sulfate 2.5 mg/3 ml Neb NEB PRN (17:35)
[2021-04-10] MEDS ORDERED: traMADol HCl 50 MG TAB PO PRN (18:02)
[2021-04-10] MEDS: Albumin 25% 25 GM/100 ML BOT IVPB SCH (21:19)
[2021-04-10 23:24] LABS: SARS-CoV-2 PCR by NAA Not Detected (NotDetected)
[2021-04-11] MEDS ORDERED: Non-Formulary Item 1 EACH (Albuterol Sulfate [Proair Hfa] 8.5 GM Hfa.Aer.Ad) INH PRN (06:53)
[2021-04-11] MEDS ORDERED: Artificial Tear Sol 15 ML BOT EA EYE PRN (06:55)
[2021-04-11] MEDS ORDERED: Sodium Chloride 0.65% Nasal 44 ML BOT EA NARE PRN (06:55)
[2021-04-11] MEDS ORDERED: Senokot S 8.6-50 MG TAB PO PRN (06:55)
[2021-04-11] MEDS ORDERED: Calcium Carbonate 500 MG ChewTAB PO PRN (06:55)
[2021-04-11] MEDS ORDERED: Hydrocerin (Eucerin) Cream 120 gm Jar TOP PRN (06:55)
[2021-04-11] MEDS ORDERED: hydrALAZINE 20 MG/ML VIAL SLOW IVP PRN (06:55)
[2021-04-11] MEDS ORDERED: Loratadine 10 MG TAB PO PRN (06:55)
[2021-04-11] MEDS ORDERED: Cepastat Lozenges 1 LOZ PO PRN (06:55)
[2021-04-11] MEDS ORDERED: GUAIFENESIN SF SOLN 200 MG/10 ML UDCUP PO PRN (06:55)
[2021-04-11] MEDS ORDERED: Albuterol 200 PUFF (6.7GM INHALER) INH PRN (07:04)
[2021-04-11] MEDS: Albumin 25% 25 GM/100 ML BOT IVPB SCH ×3 (08:02→21:37)
[2021-04-11 08:09] LABS: ALT (SGPT) 28 U/L (8-55); AST (SGOT) 17 U/L (5-34); Albumin 2.8 g/dL (3.4-4.8); Alkaline Phosphatase 112 U/L (40-110); Anion Gap 11 mmol/L (10-20); BUN (Urea Nitrogen) 39 mg/dL (8.4-25.7); Bilirubin, Total 2.3 mg/dL (0.2-1.2); Calc. Creatinine Clearance 46 mL/min (70-130); Calcium 7.9 mg/dL (7.8-10.44); Carbon Dioxide 24 mmol/L (23-31); Chloride 95 mmol/L (98-107); Globulin 2.9 g/dL (2.4-3.5); Glucose 544 mg/dL (80-115); Potassium 5.3 mmol/L (3.5-5.1); Protein, Total 5.7 g/dL (5.8-8.1); Sodium 125 mmol/L (136-145)
[2021-04-11 08:15] LABS: #Lymphocytes 0.3 thou/uL (1.20-3.40); #Monocytes 0.3 thou/uL (0.11-0.59); #Neutrophils 4.1 thou/uL (1.40-6.50); %Basophils 0.2 % (0.0-1.0); %Eosinophils 0.2 % (0.0-10.0); %Lymphocytes 6.1 % (21.0-51.0); %Monocytes 7.1 % (0.0-10.0); %Neutrophils 86.3 % (42.0-75.0); Hemoglobin 10.9 g/dL (14.0-18.0); MDiff Complete? YES; Mean Corpuscular Hemoglobin 30.7 pg (27.0-31.0); Platelet Count 35 thou/uL (130-400); Platelet Morphology Comment Appears Decreased; RBC Distribution Width 17.2 % (11.5-14.5); Red Blood Cell (RBC) Count 3.56 mill/uL (4.70-6.10); White Blood Cell (WBC) Count 4.7 thou/uL (4.8-10.8)
[2021-04-11] MEDS ORDERED: Non-Formulary Item 1 EACH (Nadolol [Corgard] 20 MG Tab) PO SCH (09:00)
[2021-04-11] MEDS ORDERED: Prevnar 13-Val Conj/PF 0.5 ML SYRINGE IM ONE (09:00)
[2021-04-11] MEDS ORDERED: Nadolol 40 MG TAB PO SCH (09:00)
[2021-04-11] MEDS ORDERED: Non-Formulary Item 1 EACH (Insulin Aspart Prot/Insuln Asp [Novolog Mix 70-30 Flexpen] 100 SQ SCH (09:00)
[2021-04-11] MEDS ORDERED: Spironolactone 25 MG TAB PO SCH (09:00)
[2021-04-11] MEDS ORDERED: Non-Formulary Item 1 EACH (Spironolactone [Spironolactone] 50 MG Tablet) PO SCH (09:00)
[2021-04-11] MEDS ORDERED: Furosemide 20 MG TAB PO SCH (09:00)
[2021-04-11] MEDS ORDERED: SORAFENIB TOSYLATE 200 MG PO SCH ×2 (09:00)
[2021-04-11] MEDS ORDERED: FLU VACC QS2021-22(6MOS UP)/PF 60 MCG/0.5 ML SYRINGE IM ONE (09:00)
[2021-04-11] MEDS ORDERED: Non-Formulary Item 1 EACH (Spironolactone [Spironolactone] 50 MG) PO SCH (09:00)
[2021-04-11] MEDS: HumuLIN 70/30 (300 UNITS/3 ML VIAL) SC SCH (09:39)
[2021-04-11] MEDS: Ursodiol 300 MG CAP PO SCH (11:00)
[2021-04-11] MEDS: HumaLOG 300 UNITS/3 ML VIAL SC PRN ×2 (12:13→17:12)
[2021-04-11] MEDS: Sodium Chloride 0.9% 1,000 ML IV SCH (13:50)
[2021-04-11] MEDS ORDERED: cefTRIAXone\\ROCEPHIN 1 GM in Sodium Chloride 0.9% 100 ML IVPB SCH (17:00)
[2021-04-11] MEDS ORDERED: Non-Formulary Item 1 EACH (Insulin Aspart [Novolog] 100 UNIT/ML Vial) SQ SCH (21:00)
[2021-04-11] MEDS: HumaLOG 300 UNITS/3 ML VIAL SC SCH (21:37)
[2021-04-11] MEDS: NEXAVAR 200 MG PO SCH (21:39)
[2021-04-12] MEDS: Sodium Chloride 0.9% 1,000 ML IV SCH ×2 (04:18→17:36)
[2021-04-12] MEDS: Levothyroxine Sodium 112 MCG TAB PO SCH (04:54)
[2021-04-12 05:05] LABS: ALT (SGPT) 21 U/L (8-55); AST (SGOT) 16 U/L (5-34); Alkaline Phosphatase 96 U/L (40-110); Anion Gap 6 mmol/L (10-20); BUN (Urea Nitrogen) 32 mg/dL (8.4-25.7); Bilirubin, Total 1.4 mg/dL (0.2-1.2); Calc. Creatinine Clearance 69 mL/min (70-130); Carbon Dioxide 26 mmol/L (23-31); Chloride 102 mmol/L (98-107); Globulin 2.6 g/dL (2.4-3.5); Potassium 4.2 mmol/L (3.5-5.1); Protein, Total 5.6 g/dL (5.8-8.1); Sodium 130 mmol/L (136-145)
[2021-04-12 05:33] LABS: Glucose 58 mg/dL (80-115); Phosphorus 1.5 mg/dL (2.3-4.7)
[2021-04-12] MEDS ORDERED: Electrolyte Replacement Protocol 1 EACH FS PRN (05:58)
[2021-04-12] MEDS: PHOS-NAK 1 PKT PACK PO SCH ×4 (06:09→17:48)
[2021-04-12] MEDS ORDERED: Magnesium 2 GM/50 ML 2 GM in Premix Bag 1 BAG IVPB SCH (06:15)
[2021-04-12 06:33] LABS: Hemoglobin 9.6 g/dL (14.0-18.0); Mean Corpuscular HGB CONC 33.5 g/dL (32.0-36.0); Mean Corpuscular Hemoglobin 30.3 pg (27.0-31.0); Mean Corpuscular Volume 90.5 fL (78.0-98.0); Mean Platelet Volume 7.6 fL (7.4-10.4); Platelet Count 30 thou/uL (130-400); Red Blood Cell (RBC) Count 3.16 mill/uL (4.70-6.10); White Blood Cell (WBC) Count 3.7 thou/uL (4.8-10.8)
[2021-04-12 06:41] LABS: Anisocytosis SLIGHT = 6-15 cells (100X) (0-5/hpf); Band 18 % (5-11); Lymphocytes 6 % (21-51); MDiff Complete? YES; Monocytes 9 % (0-10); Neutrophil 67 % (42-75); Platelet Morphology Comment Appears Decreased
[2021-04-12] MEDS: Cyanocobalamin (Vitamin B-12) 1,000 MCG TAB PO SCH (08:40)
[2021-04-12] MEDS: Multivitamin W/ Minerals 1 TAB PO SCH (08:40)
[2021-04-12] MEDS: Ursodiol 300 MG CAP PO SCH (08:41)
[2021-04-12] MEDS: Thiamine 100 MG TAB PO SCH (08:41)
[2021-04-12] MEDS: HumuLIN 70/30 (300 UNITS/3 ML VIAL) SC SCH (08:41)
[2021-04-12] MEDS: Folic Acid 1 MG TAB PO SCH (08:42)
[2021-04-12] MEDS: NEXAVAR 200 MG PO SCH ×2 (08:43→21:05)
[2021-04-12] MEDS: Albumin 25% 25 GM/100 ML BOT IVPB SCH ×4 (09:40→21:03)
[2021-04-12] MEDS: HumaLOG 300 UNITS/3 ML VIAL SC PRN ×2 (12:04→16:51)
[2021-04-12] MEDS ORDERED: Lidocaine 1% PF 5 ML VIAL ONE (14:00)
[2021-04-12] MEDS ORDERED: Sodium Bicarbonate 2.5 MEQ/5 ML VIAL ONE (14:00)
[2021-04-12 14:33] VITALS: BMI 26.9
[2021-04-12 15:40] LABS: RBC Count-Automated (BF) 5131 /cu.mm; WBC/Nucleated-Auto (BF) 7530 uL
[2021-04-12 15:51] LABS: Body Fluid Source Peritoneal Fluid; Tube # EDTA
[2021-04-12 15:52] LABS: BF Color Yellow; Clarity Cloudy/Turbid (Clear)
[2021-04-12 15:53] LABS: Lymphocytes 3 %
[2021-04-12 15:54] LABS: BF Segmented Neutrophils 48 %; Cell Count Non Hematic 49 %
[2021-04-12] MEDS: HumaLOG 300 UNITS/3 ML VIAL SC SCH (21:04)
[2021-04-13] MEDS: HumaLOG 300 UNITS/3 ML VIAL SC PRN ×2 (00:41→05:25)
[2021-04-13] MEDS: Levothyroxine Sodium 112 MCG TAB PO SCH (05:23)
[2021-04-13 07:04] LABS: Hemoglobin 9.9 g/dL (14.0-18.0); Mean Corpuscular HGB CONC 33.6 g/dL (32.0-36.0); Mean Corpuscular Hemoglobin 30.8 pg (27.0-31.0); Mean Corpuscular Volume 91.5 fL (78.0-98.0); Mean Platelet Volume 7.5 fL (7.4-10.4); Platelet Count 24 thou/uL (130-400); RBC Distribution Width 16.8 % (11.5-14.5); Red Blood Cell (RBC) Count 3.22 mill/uL (4.70-6.10); White Blood Cell (WBC) Count 1.2 thou/uL (4.8-10.8)
[2021-04-13 07:37] LABS: ALT (SGPT) 20 U/L (8-55); AST (SGOT) 17 U/L (5-34); Albumin 3.4 g/dL (3.4-4.8); Alkaline Phosphatase 122 U/L (40-110); Anion Gap 11 mmol/L (10-20); BUN (Urea Nitrogen) 23 mg/dL (8.4-25.7); Bilirubin, Total 1.4 mg/dL (0.2-1.2); Calc. Creatinine Clearance 70 mL/min (70-130); Calcium 7.9 mg/dL (7.8-10.44); Carbon Dioxide 23 mmol/L (23-31); Chloride 100 mmol/L (98-107); Globulin 2.5 g/dL (2.4-3.5); Glucose 278 mg/dL (80-115); Phosphorus 2.3 mg/dL (2.3-4.7); Potassium 4.5 mmol/L (3.5-5.1); Protein, Total 5.9 g/dL (5.8-8.1); Sodium 129 mmol/L (136-145)
[2021-04-13 07:43] LABS: Anisocytosis SLIGHT = 6-15 cells (100X) (0-5/hpf); Band 3 % (5-11); Eosinophils 2 % (0-10); Lymphocytes 12 % (21-51); MDiff Complete? YES; Monocytes 8 % (0-10); Neutrophil 75 % (42-75); Ovalocytes SLIGHT = 2-5 cells (100X) (0-1/hpf); Platelet Morphology Comment Appears Decreased; Polychromasia SLIGHT = 2-3 cells (100X) (0-2/hpf)
[2021-04-13 08:29] VITALS: TEMP 98.3
[2021-04-13] MEDS: Ursodiol 300 MG CAP PO SCH (08:31)
[2021-04-13] MEDS: NEXAVAR 200 MG PO SCH (08:31)
[2021-04-13] MEDS: Folic Acid 1 MG TAB PO SCH (08:31)
[2021-04-13] MEDS: Thiamine 100 MG TAB PO SCH (08:31)
[2021-04-13] MEDS: Multivitamin W/ Minerals 1 TAB PO SCH (08:31)
[2021-04-13] MEDS: Cyanocobalamin (Vitamin B-12) 1,000 MCG TAB PO SCH (08:31)
[2021-04-13] MEDS: HumuLIN 70/30 (300 UNITS/3 ML VIAL) SC SCH (08:32)
[2021-04-13] MEDS: Albumin 25% 25 GM/100 ML BOT IVPB SCH (09:26)
[2021-04-13 11:19] VITALS: BP 120/75
== END 2021-04-13 11:41 | disposition home or self-care (01) | DRG 372 ==
LOC: ERS 11:50 → T4-A 16:45
PROVIDERS: ADMIT Internal Medicine; ATTEND Internal Medicine
PROC: 0W9G3ZX Drainage of Peritoneal Cavity, Percutaneous Approach, Diagnostic (ICD-10-PCS; 2021-04-08)
PROC: 0W9G30Z Drainage of Peritoneal Cavity with Drainage Device, Percutaneous Approach (ICD-10-PCS; principal; 2021-04-12)
DX: K65.2 Spontaneous bacterial peritonitis (principal); E87.1 Hypo-osmolality and hyponatremia; C22.0 Liver cell carcinoma; N17.9 Acute kidney failure, unspecified; D61.818 Other pancytopenia; K80.00 Calculus of gallbladder with acute cholecystitis without obstruction; E11.9 Type 2 diabetes mellitus without complications; K21.9 Gastro-esophageal reflux disease without esophagitis; K70.31 Alcoholic cirrhosis of liver with ascites; E88.09 Other disorders of plasma-protein metabolism, not elsewhere classified; E03.9 Hypothyroidism, unspecified; E86.0 Dehydration; Z20.822 Contact with and (suspected) exposure to COVID-19; E87.5 Hyperkalemia; Z79.4 Long term (current) use of insulin; Z79.899 Other long term (current) drug therapy; Z92.21 Personal history of antineoplastic chemotherapy; Z79.84 Long term (current) use of oral hypoglycemic drugs
CPT/HCPCS: 36415; 36416; 49083; 71045; 80053; 82042; 82140; 82945; 83605; 83735; 83880; 84100; 84157; 85025; 85060; 85610; 85730; 87070; 87077; 87205; 89051; 90471; 90686; 96365; 96375; G0008; J0696; J0744; J1642; J1815; J2270; J2405; J3475; J7050; P9047; U0003; U0005

== ENCOUNTER 2021-04-15 09:19 | Day surgery (SDC) | payer BC ==
[2021-04-15] MEDS ORDERED: Lidocaine 1% PF 5 ML VIAL ONE (10:00)
[2021-04-15] MEDS ORDERED: Sodium Bicarbonate 2.5 MEQ/5 ML VIAL ONE (10:00)
[2021-04-15] MEDS ORDERED: Albumin 25% 100 ML ONE (10:00)
[2021-04-15 13:35] LABS: RBC Count-Automated (BF) 7867 /cu.mm; WBC/Nucleated-Auto (BF) 791 uL
[2021-04-15 13:45] LABS: BF Color Yellow; Body Fluid Source Ascites Body Fluid; Clarity Cloudy/Turbid (Clear); Tube # EDTA
[2021-04-15 14:01] LABS: BF Segmented Neutrophils 17 %; Cell Count Non Hematic 48 %; Eosinophils 2 %; Lymphocytes 31 %
[2021-04-15 16:59] VITALS: BP 140/69
== END 2021-04-15 12:15 | disposition home or self-care (01) ==
LOC: ULT 09:19
PROVIDERS: ATTEND Internal Medicine Gastroenterology
PROC: 0W9G3ZX Drainage of Peritoneal Cavity, Percutaneous Approach, Diagnostic (ICD-10-PCS; principal; 2021-04-15)
DX: K74.60 Unspecified cirrhosis of liver (principal); I85.10 Secondary esophageal varices without bleeding; R18.8 Other ascites; B18.2 Chronic viral hepatitis C; E11.9 Type 2 diabetes mellitus without complications; K80.20 Calculus of gallbladder without cholecystitis without obstruction; Z79.4 Long term (current) use of insulin; Z79.899 Other long term (current) drug therapy; Z87.891 Personal history of nicotine dependence
CPT/HCPCS: 49083; 82042; 85060; 87070; 87205; 89051; P9047

== ENCOUNTER 2021-04-19 09:22 | Day surgery (SDC) | payer BC ==
[2021-04-19] MEDS ORDERED: Lidocaine 1% PF 5 ML VIAL ONE (09:27)
[2021-04-19] MEDS ORDERED: Sodium Bicarbonate 2.5 MEQ/5 ML VIAL ONE (09:27)
[2021-04-19 11:27] VITALS: TEMP 97.8
[2021-04-19 11:43] VITALS: BP 108/48
[2021-04-19 13:24] LABS: RBC Count-Automated (BF) 5246 /cu.mm; WBC/Nucleated-Auto (BF) 375 uL
[2021-04-19 13:38] LABS: Body Fluid Source Ascites Body Fluid; Clarity Cloudy/Turbid (Clear); Tube # EDTA
[2021-04-19 13:39] LABS: BF Color Yellow
[2021-04-19 13:50] LABS: BF Segmented Neutrophils 11 %; Cell Count Non Hematic 56 %; Lymphocytes 33 %
[2021-04-19] MEDS ORDERED: FLU VACC QS2021-22(6MOS UP)/PF 60 MCG/0.5 ML SYRINGE IM ONE (14:00)
== END 2021-04-19 10:32 | disposition home or self-care (01) ==
LOC: ULT 09:22
PROVIDERS: ATTEND Internal Medicine Gastroenterology
PROC: 0W9G3ZZ Drainage of Peritoneal Cavity, Percutaneous Approach (ICD-10-PCS; principal; 2021-04-19)
DX: K74.60 Unspecified cirrhosis of liver (principal); R18.8 Other ascites; C22.0 Liver cell carcinoma; E11.9 Type 2 diabetes mellitus without complications; B18.2 Chronic viral hepatitis C; E03.9 Hypothyroidism, unspecified; Z87.891 Personal history of nicotine dependence; Z79.2 Long term (current) use of antibiotics; Z79.4 Long term (current) use of insulin; Z79.84 Long term (current) use of oral hypoglycemic drugs; Z79.899 Other long term (current) drug therapy
CPT/HCPCS: 49083; 85060; 89051

== ENCOUNTER 2021-04-26 09:16 | Day surgery (SDC) | payer BC ==
[2021-04-23 15:57] VITALS: BMI 27.6
[~2021-04-26 09:16] MED LIST changes: +Albumin 25% 100 ML ONE; -Lidocaine 1% PF 5 ML VIAL ONE; -Sodium Bicarbonate 2.5 MEQ/5 ML VIAL ONE
[2021-04-26] MEDS ORDERED: Albumin 25% 100 ML ONE (10:25)
[2021-04-26] MEDS ORDERED: Sodium Bicarbonate 2.5 MEQ/5 ML VIAL ONE (10:26)
[2021-04-26] MEDS ORDERED: Lidocaine 1% PF 5 ML VIAL ONE (10:26)
[2021-04-26 12:37] VITALS: BP 128/73; TEMP 98.1
[2021-04-26 13:00] LABS: RBC Count-Automated (BF) 3804 /cu.mm; WBC/Nucleated-Auto (BF) 100 uL
[2021-04-26 13:02] LABS: BF Color Pink; Body Fluid Source Ascites Body Fluid; Clarity Cloudy/Turbid (Clear); Tube # EDTA
[2021-04-26 13:35] LABS: Lymphocytes 46 %
[2021-04-26 13:36] LABS: BF Segmented Neutrophils 4 %; Cell Count Non Hematic 50 %
== END 2021-04-26 11:55 | disposition home or self-care (01) ==
LOC: ULT 09:16
PROVIDERS: ATTEND Internal Medicine Gastroenterology
PROC: 0W9G3ZZ Drainage of Peritoneal Cavity, Percutaneous Approach (ICD-10-PCS; principal; 2021-04-26)
DX: K74.60 Unspecified cirrhosis of liver (principal); R18.8 Other ascites; J45.909 Unspecified asthma, uncomplicated; E11.9 Type 2 diabetes mellitus without complications; I10 Essential (primary) hypertension; E03.9 Hypothyroidism, unspecified; C22.0 Liver cell carcinoma; Z79.2 Long term (current) use of antibiotics; Z79.4 Long term (current) use of insulin; Z79.84 Long term (current) use of oral hypoglycemic drugs; Z79.899 Other long term (current) drug therapy
CPT/HCPCS: 49083; 82042; 85060; 87070; 87205; 89051; P9047

== ENCOUNTER 2021-05-03 09:45 | Day surgery (SDC) | payer BC ==
[2021-04-30 09:07] VITALS: BMI 32.9
[2021-05-03] MEDS ORDERED: Lidocaine 1% PF 5 ML VIAL ONE (09:56)
[2021-05-03] MEDS ORDERED: Sodium Bicarbonate 2.5 MEQ/5 ML VIAL ONE (09:56)
[2021-05-03] MEDS ORDERED: Albumin 25% 100 ML ONE (09:57)
[2021-05-03 11:45] VITALS: BP 134/77; TEMP 98
[2021-05-03 12:54] LABS: RBC Count-Automated (BF) 4231 /cu.mm; WBC/Nucleated-Auto (BF) 154 /cu.mm
[2021-05-03 13:04] LABS: BF Color Pink; Body Fluid Source Ascites Body Fluid; Clarity Hazy (Clear); Tube # EDTA
[2021-05-03 13:09] LABS: BF Segmented Neutrophils 11 %; Cell Count Non Hematic 56 %; Eosinophils 1 %; Lymphocytes 32 %
== END 2021-05-03 11:45 | disposition home or self-care (01) ==
LOC: ULT 09:45
PROVIDERS: ATTEND Internal Medicine Gastroenterology
PROC: 0W9G3ZX Drainage of Peritoneal Cavity, Percutaneous Approach, Diagnostic (ICD-10-PCS; principal; 2021-05-03)
DX: K74.60 Unspecified cirrhosis of liver (principal); R18.8 Other ascites; C22.0 Liver cell carcinoma; Z79.2 Long term (current) use of antibiotics; Z79.4 Long term (current) use of insulin; Z79.84 Long term (current) use of oral hypoglycemic drugs; Z79.899 Other long term (current) drug therapy
CPT/HCPCS: 49083; 82042; 85060; 87070; 87205; 89051; P9047

== ENCOUNTER 2021-05-10 08:59 | Day surgery (SDC) | payer BC ==
[2021-05-07 08:37] VITALS: BMI 32.9
[2021-05-10] MEDS ORDERED: Albumin 25% 100 ML ONE (09:57)
[2021-05-10] MEDS ORDERED: Lidocaine 1% PF 5 ML VIAL ONE (09:57)
[2021-05-10] MEDS ORDERED: Sodium Bicarbonate 2.5 MEQ/5 ML VIAL ONE (09:57)
[2021-05-10] MEDS ORDERED: Sodium Chloride 0.9% 10 ML ONE (09:57)
== END 2021-05-10 11:10 | disposition home or self-care (01) ==
LOC: ULT 08:59
PROVIDERS: ATTEND Internal Medicine Gastroenterology
PROC: 0W9G3ZZ Drainage of Peritoneal Cavity, Percutaneous Approach (ICD-10-PCS; principal; 2021-05-10)
DX: K74.60 Unspecified cirrhosis of liver (principal); R18.8 Other ascites; C22.0 Liver cell carcinoma
CPT/HCPCS: 49083; P9047

== ENCOUNTER 2021-05-17 09:02 | Day surgery (SDC) | payer BC ==
[2021-05-14 11:33] VITALS: BMI 27.6
[~2021-05-17 09:02] MED LIST changes: -Albumin 25% 100 ML ONE; +FLU VACC QS2021-22(6MOS UP)/PF 60 MCG/0.5 ML SYRINGE IM ONE
[2021-05-17 09:27] LABS: #Lymphocytes 0.2 thou/uL (1.20-3.40); #Monocytes 0.2 thou/uL (0.11-0.59); #Neutrophils 1.5 thou/uL (1.40-6.50); %Eosinophils 1.5 % (0.0-10.0); %Lymphocytes 11.5 % (21.0-51.0); Hemoglobin 12.2 g/dL (14.0-18.0); Mean Corpuscular HGB CONC 33.9 g/dL (32.0-36.0); Mean Corpuscular Hemoglobin 30.8 pg (27.0-31.0); Mean Platelet Volume 7.5 fL (7.4-10.4); Platelet Count 34 thou/uL (130-400); RBC Distribution Width 16.4 % (11.5-14.5); Red Blood Cell (RBC) Count 3.95 mill/uL (4.70-6.10); White Blood Cell (WBC) Count 1.9 thou/uL (4.8-10.8)
[2021-05-17] MEDS ORDERED: Lidocaine 1% PF 5 ML VIAL ONE (09:33)
[2021-05-17] MEDS ORDERED: Albumin 25% 100 ML ONE (09:33)
[2021-05-17] MEDS ORDERED: Sodium Bicarbonate 2.5 MEQ/5 ML VIAL ONE (09:33)
[2021-05-17 09:44] LABS: INR-International Normal Ratio 1.3; Prothrombin Time 16.1 sec (12.0-14.7)
[2021-05-17 09:45] LABS: PTT 27.6 sec (22.9-36.1)
[2021-05-17] MEDS ORDERED: Sodium Chloride 0.9% 20 ML ONE (10:42)
[2021-05-17 11:47] VITALS: BP 141/79; TEMP 97.7
[2021-05-17 12:19] LABS: RBC Count-Automated (BF) 5710 /cu.mm; WBC/Nucleated-Auto (BF) 91 /cu.mm
[2021-05-17 12:54] LABS: BF Color Pink; Body Fluid Source Ascites Body Fluid; Clarity Cloudy/Turbid (Clear); Tube # EDTA
[2021-05-17 13:00] LABS: BF Segmented Neutrophils 8 %; Cell Count Non Hematic 56 %; Lymphocytes 36 %
== END 2021-05-17 11:20 | disposition home or self-care (01) ==
LOC: ULT 09:02
PROVIDERS: ATTEND Internal Medicine Gastroenterology
PROC: 0W9G3ZX Drainage of Peritoneal Cavity, Percutaneous Approach, Diagnostic (ICD-10-PCS; principal; 2021-05-17)
DX: K74.60 Unspecified cirrhosis of liver (principal); R18.8 Other ascites; C22.0 Liver cell carcinoma; Z87.891 Personal history of nicotine dependence; Z79.2 Long term (current) use of antibiotics; Z79.4 Long term (current) use of insulin; Z79.84 Long term (current) use of oral hypoglycemic drugs; Z79.899 Other long term (current) drug therapy
CPT/HCPCS: 49083; 82042; 85025; 85060; 85610; 85730; 87070; 87205; 89051; P9047

== ENCOUNTER 2021-05-24 09:36 | Day surgery (SDC) | payer BC ==
[2021-05-24] MEDS ORDERED: Sodium Bicarbonate 2.5 MEQ/5 ML VIAL ONE (11:25)
[2021-05-24] MEDS ORDERED: Sodium Chloride 0.9% 10 ML ONE (11:25)
[2021-05-24] MEDS ORDERED: Lidocaine 1% PF 5 ML VIAL ONE (11:25)
[2021-05-24 13:16] VITALS: BP 143/69; TEMP 98
== END 2021-05-24 12:30 | disposition home or self-care (01) ==
LOC: ULT 09:36
PROVIDERS: ATTEND Internal Medicine Gastroenterology
PROC: 0W9G3ZZ Drainage of Peritoneal Cavity, Percutaneous Approach (ICD-10-PCS; principal; 2021-05-24)
DX: K74.60 Unspecified cirrhosis of liver (principal); R18.8 Other ascites; C22.0 Liver cell carcinoma; E11.9 Type 2 diabetes mellitus without complications; Z87.891 Personal history of nicotine dependence; Z79.4 Long term (current) use of insulin; Z79.84 Long term (current) use of oral hypoglycemic drugs; Z79.899 Other long term (current) drug therapy
CPT/HCPCS: 49083

== ENCOUNTER 2021-05-31 09:52 | Day surgery (SDC) | payer BC ==
[2021-05-31] MEDS ORDERED: Albumin 25% 100 ML ONE (10:10)
[2021-05-31] MEDS ORDERED: Sodium Bicarbonate 2.5 MEQ/5 ML VIAL ONE (10:10)
[2021-05-31] MEDS ORDERED: Lidocaine 1% PF 5 ML VIAL ONE (10:10)
[2021-05-31 12:03] VITALS: BP 132/82; TEMP 98.1; BMI 32.9
[2021-05-31 12:14] LABS: RBC Count-Automated (BF) 3294 /cu.mm; WBC/Nucleated-Auto (BF) 55 /cu.mm
[2021-05-31 12:15] LABS: BF Color Yellow; Body Fluid Source Ascites Body Fluid; Clarity Hazy (Clear); Tube # EDTA
[2021-05-31 12:25] LABS: BF Segmented Neutrophils 1 %; Cell Count Non Hematic 76 %; Lymphocytes 23 %
== END 2021-05-31 11:45 | disposition home or self-care (01) ==
LOC: ULT 09:52
PROVIDERS: ATTEND Internal Medicine Gastroenterology
PROC: 0W9G3ZX Drainage of Peritoneal Cavity, Percutaneous Approach, Diagnostic (ICD-10-PCS; principal; 2021-05-31)
DX: K74.60 Unspecified cirrhosis of liver (principal); R18.8 Other ascites; Z79.2 Long term (current) use of antibiotics; Z79.4 Long term (current) use of insulin; Z79.84 Long term (current) use of oral hypoglycemic drugs; Z79.899 Other long term (current) drug therapy
CPT/HCPCS: 49083; 82042; 85060; 87070; 87205; 89051; P9047

== ENCOUNTER 2021-06-07 09:26 | Day surgery (SDC) | payer BC ==
[2021-06-07] MEDS ORDERED: Lidocaine 1% PF 5 ML VIAL ONE (10:13)
[2021-06-07] MEDS ORDERED: Albumin 25% 100 ML ONE (10:13)
[2021-06-07] MEDS ORDERED: Sodium Bicarbonate 2.5 MEQ/5 ML VIAL ONE (10:13)
[2021-06-07] MEDS ORDERED: Albumin 25% 25 GM/100 ML BOT IVPB SCH (10:45)
[2021-06-07 11:50] VITALS: BP 147/79
[2021-06-07 13:19] LABS: RBC Count-Automated (BF) 2956 /cu.mm; WBC/Nucleated-Auto (BF) 119 /cu.mm
[2021-06-07 17:24] LABS: Body Fluid Source Ascites Body Fluid; Tube # EDTA
[2021-06-07 17:25] LABS: BF Color Yellow; Clarity Cloudy/Turbid (Clear)
[2021-06-07 17:28] LABS: BF Segmented Neutrophils 8 %; Cell Count Non Hematic 70 %; Eosinophils 1 %; Lymphocytes 21 %
== END 2021-06-07 11:45 | disposition home or self-care (01) ==
LOC: ULT 09:26
PROVIDERS: ATTEND Internal Medicine Gastroenterology
PROC: 0W9G3ZX Drainage of Peritoneal Cavity, Percutaneous Approach, Diagnostic (ICD-10-PCS; principal; 2021-06-07)
DX: K74.60 Unspecified cirrhosis of liver (principal); R18.8 Other ascites; C22.0 Liver cell carcinoma; E11.9 Type 2 diabetes mellitus without complications; Z79.4 Long term (current) use of insulin; Z79.899 Other long term (current) drug therapy; Z87.891 Personal history of nicotine dependence
CPT/HCPCS: 49083; 85060; 87070; 87205; 89051; P9047

== ENCOUNTER 2021-06-14 09:07 | Day surgery (SDC) | payer BC ==
[2021-06-11 10:57] VITALS: BMI 32.9
[2021-06-14] MEDS ORDERED: Albumin 25% 100 ML ONE (09:13)
[2021-06-14 10:32] VITALS: BP 123/78
[2021-06-14 11:57] LABS: RBC Count-Automated (BF) 1374 /cu.mm; WBC/Nucleated-Auto (BF) 165 /cu.mm
[2021-06-14] MEDS ORDERED: Albumin 25% 25 GM/100 ML BOT IVPB ONE (12:00)
[2021-06-14 12:18] LABS: BF Color Yellow; Body Fluid Source Ascites Body Fluid; Clarity Cloudy/Turbid (Clear); Tube # EDTA
[2021-06-14 12:20] LABS: BF Segmented Neutrophils 3 %; Cell Count Non Hematic 78 %; Lymphocytes 19 %
== END 2021-06-14 10:45 | disposition home or self-care (01) ==
LOC: ULT 09:07
PROVIDERS: ATTEND Internal Medicine Gastroenterology
PROC: 0W9G3ZX Drainage of Peritoneal Cavity, Percutaneous Approach, Diagnostic (ICD-10-PCS; principal; 2021-06-14)
DX: K70.31 Alcoholic cirrhosis of liver with ascites (principal)
CPT/HCPCS: 49083; 85060; 87070; 87205; 89051; P9047

== ENCOUNTER 2021-06-21 09:14 | Day surgery (SDC) | payer BC ==
[2021-06-18 09:08] VITALS: BMI 28.3
[2021-06-21] MEDS ORDERED: Albumin 25% 100 ML ONE (09:53)
[2021-06-21] MEDS ORDERED: Lidocaine 1% PF 5 ML VIAL ONE (09:53)
[2021-06-21] MEDS ORDERED: Sodium Bicarbonate 2.5 MEQ/5 ML VIAL ONE (09:53)
[2021-06-21 10:05] LABS: INR-International Normal Ratio 1.3; Prothrombin Time 16.2 sec (12.0-14.7)
[2021-06-21 10:06] LABS: PTT 30.1 sec (22.9-36.1)
[2021-06-21 10:17] LABS: #Lymphocytes 0.2 thou/uL (1.20-3.40); #Monocytes 0.2 thou/uL (0.11-0.59); #Neutrophils 1.2 thou/uL (1.40-6.50); %Eosinophils 1.1 % (0.0-10.0); %Lymphocytes 13.3 % (21.0-51.0); %Monocytes 14.2 % (0.0-10.0); %Neutrophils 71.4 % (42.0-75.0); Hemoglobin 11.5 g/dL (14.0-18.0); Mean Corpuscular HGB CONC 31.7 g/dL (32.0-36.0); Mean Corpuscular Hemoglobin 29.3 pg (27.0-31.0); Mean Corpuscular Volume 92.3 fL (78.0-98.0); Mean Platelet Volume 7.9 fL (7.4-10.4); Platelet Count 37 thou/uL (130-400); RBC Distribution Width 15.5 % (11.5-14.5); Red Blood Cell (RBC) Count 3.91 mill/uL (4.70-6.10); White Blood Cell (WBC) Count 1.7 thou/uL (4.8-10.8)
[2021-06-21 11:06] VITALS: BP 136/81; TEMP 97.8
[2021-06-21 13:16] LABS: RBC Count-Automated (BF) 2153 /cu.mm; WBC/Nucleated-Auto (BF) 242 /cu.mm
[2021-06-21 13:20] LABS: BF Color Yellow; Body Fluid Source Ascites Body Fluid; Clarity Cloudy/Turbid (Clear); Tube # EDTA
[2021-06-21 14:05] LABS: BF Segmented Neutrophils 3 %; Cell Count Non Hematic 61 %; Lymphocytes 36 %
== END 2021-06-21 10:49 | disposition home or self-care (01) ==
LOC: ULT 09:14
PROVIDERS: ATTEND Internal Medicine Gastroenterology
PROC: 0W9G3ZX Drainage of Peritoneal Cavity, Percutaneous Approach, Diagnostic (ICD-10-PCS; principal; 2021-06-21)
DX: K74.60 Unspecified cirrhosis of liver (principal); R18.8 Other ascites; B18.2 Chronic viral hepatitis C
CPT/HCPCS: 49083; 85025; 85060; 85610; 85730; 87070; 87205; 89051; P9047

== ENCOUNTER 2021-06-28 09:12 | Day surgery (SDC) | payer BC ==
[2021-06-28] MEDS ORDERED: Albumin 25% 100 ML ONE (10:18)
[2021-06-28] MEDS ORDERED: Lidocaine 1% PF 5 ML VIAL ONE (10:18)
[2021-06-28] MEDS ORDERED: Sodium Bicarbonate 2.5 MEQ/5 ML VIAL ONE (10:18)
[2021-06-28] MEDS ORDERED: Albumin 25% 25 GM/100 ML BOT IVPB SCH (11:00)
[2021-06-28 12:19] VITALS: TEMP 97.9
[2021-06-28 12:33] VITALS: BP 135/80
[2021-06-28 14:29] LABS: RBC Count-Automated (BF) 2140 /cu.mm; WBC/Nucleated-Auto (BF) 984 /cu.mm
[2021-06-28 15:23] LABS: BF Color Pink; Body Fluid Source Ascites Body Fluid; Clarity Hazy (Clear); Tube # EDTA
[2021-06-28 15:25] LABS: BF Segmented Neutrophils 33 %; Cell Count Non Hematic 51 %; Lymphocytes 16 %
== END 2021-06-28 11:30 | disposition home or self-care (01) ==
LOC: ULT 09:12
PROVIDERS: ATTEND Internal Medicine Gastroenterology
PROC: 0W9G3ZX Drainage of Peritoneal Cavity, Percutaneous Approach, Diagnostic (ICD-10-PCS; principal; 2021-06-28)
DX: K74.60 Unspecified cirrhosis of liver (principal); R18.8 Other ascites; C22.0 Liver cell carcinoma; B18.2 Chronic viral hepatitis C; E11.9 Type 2 diabetes mellitus without complications; Z87.891 Personal history of nicotine dependence; Z79.4 Long term (current) use of insulin; Z79.84 Long term (current) use of oral hypoglycemic drugs; Z79.899 Other long term (current) drug therapy
CPT/HCPCS: 49083; 85060; 87070; 87077; 87205; 89051; P9047

== ENCOUNTER 2021-06-29 09:59 | Outpatient (CLI) | payer BC | END 2021-06-29 10:00 | disposition home or self-care (01) | LOC: MRI 09:59 | DX: C22.8 Malignant neoplasm of liver, primary, unspecified as to type (principal); K74.60 Unspecified cirrhosis of liver; K86.2 Cyst of pancreas; K80.20 Calculus of gallbladder without cholecystitis without obstruction; K86.89 Other specified diseases of pancreas | CPT/HCPCS: 74183 ==

== ENCOUNTER 2021-06-30 20:00 | Inpatient (IN) | payer BC, MEDICARE ==
[2021-06-30] MEDS ORDERED: Vancomycin 1 GM/200 ML BAG ONE (21:50)
[2021-06-30] MEDS ORDERED: Morphine 4 MG/ML VIAL ONE (21:50)
[2021-06-30] MEDS ORDERED: cefTRIAXone\\ROCEPHIN 2 GM VIAL ONE (21:50)
[2021-06-30 22:11] LABS: Hemoglobin 11.6 g/dL (14.0-18.0); Mean Corpuscular Hemoglobin 31.6 pg (27.0-31.0); Mean Corpuscular Volume 90.1 fL (78.0-98.0); Mean Platelet Volume 7.3 fL (7.4-10.4); Platelet Count 33 thou/uL (130-400); RBC Distribution Width 14.9 % (11.5-14.5); Red Blood Cell (RBC) Count 3.68 mill/uL (4.70-6.10); White Blood Cell (WBC) Count 1.7 thou/uL (4.8-10.8)
[2021-06-30 22:34] LABS: Hypochromia SLIGHT = 6-15 cells (100X) (0-5/hpf); Lymphocytes 12 % (21-51); MDiff Complete? YES; Monocytes 10 % (0-10); Neutrophil 78 % (42-75); Platelet Morphology Comment Appears Decreased
[2021-06-30 23:03] LABS: ALT (SGPT) 51 U/L (8-55); AST (SGOT) 43 U/L (5-34); Albumin 2.9 g/dL (3.4-4.8); Alkaline Phosphatase 299 U/L (40-110); Anion Gap 11 mmol/L (10-20); BUN (Urea Nitrogen) 52 mg/dL (8.4-25.7); Bilirubin, Total 0.9 mg/dL (0.2-1.2); Calc. Creatinine Clearance 0 mL/min (70-130); Calcium 8.7 mg/dL (7.8-10.44); Carbon Dioxide 22 mmol/L (23-31); Chloride 105 mmol/L (98-107); Globulin 4.1 g/dL (2.4-3.5); Glucose 65 mg/dL (80-115); Lipase 12 U/L (8-78); Potassium 3.8 mmol/L (3.5-5.1); Sodium 134 mmol/L (136-145)
[2021-07-01 00:19] LABS: Bilirubin Negative (Negative); Blood, Urine Negative (Negative); Clarity Clear (Clear); Glucose, Urine (Dipstick) Normal (Negative); Ketone, Urine Negative (Negative); Leukocyte Negative Leu/uL (Negative); Nitrite Negative (Negative); Protein, Urine (Dipstick) Negative (Neg-Trace); Specific Gravity, Urine 1.012 (1.002-1.036); Urobilinogen Normal mg/dL (Less than 2)
[2021-07-01 00:30] VITALS: BMI 31.0
[2021-07-01] MEDS ORDERED: Dextrose 5% in Water 1,000 ML IV PRN (00:32)
[2021-07-01] MEDS ORDERED: Dextrose 50% Abboject 50 ML SYRINGE SLOW IVP PRN (00:32)
[2021-07-01] MEDS ORDERED: traMADol HCl 50 MG TAB PO PRN (00:37)
[2021-07-01] MEDS ORDERED: Vancomycin HCl 500 MG in Sodium Chloride 0.9% 100 ML IVPB SCH (01:30)
[2021-07-01 01:41] LABS: Lactic Acid 1.7 mmol/L (0.5-2.2)
[2021-07-01 02:02] LABS: SARS-CoV-2 NAA Rapid Test Not Detected (NotDetected)
[2021-07-01 06:01] LABS: Anion Gap 12 mmol/L (10-20); BUN (Urea Nitrogen) 50 mg/dL (8.4-25.7); Calc. Creatinine Clearance 54 mL/min (70-130); Calcium 8.5 mg/dL (7.8-10.44); Carbon Dioxide 19 mmol/L (23-31); Chloride 106 mmol/L (98-107); Glucose 120 mg/dL (80-115); Potassium 4.1 mmol/L (3.5-5.1); Sodium 133 mmol/L (136-145)
[2021-07-01 06:04] LABS: Hemoglobin 11.6 g/dL (14.0-18.0); Hypochromia SLIGHT = 6-15 cells (100X) (0-5/hpf); Lymphocytes 26 % (21-51); MDiff Complete? YES; Mean Corpuscular HGB CONC 34.8 g/dL (32.0-36.0); Mean Corpuscular Hemoglobin 31.2 pg (27.0-31.0); Mean Corpuscular Volume 89.7 fL (78.0-98.0); Mean Platelet Volume 7.7 fL (7.4-10.4); Neutrophil 74 % (42-75); Platelet Count 32 thou/uL (130-400); Platelet Morphology Comment Appears Decreased; Red Blood Cell (RBC) Count 3.71 mill/uL (4.70-6.10); White Blood Cell (WBC) Count 1.3 thou/uL (4.8-10.8)
[2021-07-01] MEDS ORDERED: Lidocaine 1% PF 5 ML VIAL ONE (07:37)
[2021-07-01] MEDS ORDERED: Sodium Bicarbonate 2.5 MEQ/5 ML VIAL ONE (07:37)
[2021-07-01] MEDS: HumaLOG 300 UNITS/3 ML VIAL SC PRN (17:15)
[2021-07-01] MEDS ORDERED: Albuterol Sulfate 1.25 MG/3 ML NEB INH PRN (19:29)
[2021-07-01] MEDS ORDERED: Furosemide 40 MG TAB PO SCH (20:00)
[2021-07-01] MEDS: cefTRIAXone\\ROCEPHIN 1 GM in Sodium Chloride 0.9% 100 ML IVPB SCH (20:09)
[2021-07-01] MEDS ORDERED: Albumin 25% 25 GM/100 ML BOT IVPB SCH (21:30)
[2021-07-01] MEDS ORDERED: Vancomycin 1 GM in Premix Bag 1 BAG IVPB SCH (22:00)
[2021-07-02 05:18] LABS: Hemoglobin 9.3 g/dL (14.0-18.0); Mean Corpuscular HGB CONC 35.6 g/dL (32.0-36.0); Mean Corpuscular Hemoglobin 31.8 pg (27.0-31.0); Mean Corpuscular Volume 89.3 fL (78.0-98.0); Mean Platelet Volume 7.5 fL (7.4-10.4); Platelet Count 27 thou/uL (130-400); RBC Distribution Width 14.8 % (11.5-14.5); Red Blood Cell (RBC) Count 2.93 mill/uL (4.70-6.10); White Blood Cell (WBC) Count 0.6 thou/uL (4.8-10.8)
[2021-07-02 05:23] LABS: ALT (SGPT) 39 U/L (8-55); AST (SGOT) 33 U/L (5-34); Albumin 3.1 g/dL (3.4-4.8); Alkaline Phosphatase 210 U/L (40-110); Anion Gap 11 mmol/L (10-20); BUN (Urea Nitrogen) 47 mg/dL (8.4-25.7); Bilirubin, Total 0.8 mg/dL (0.2-1.2); Calc. Creatinine Clearance 53 mL/min (70-130); Calcium 8.6 mg/dL (7.8-10.44); Carbon Dioxide 22 mmol/L (23-31); Chloride 104 mmol/L (98-107); Globulin 2.9 g/dL (2.4-3.5); Glucose 327 mg/dL (80-115); Potassium 4.1 mmol/L (3.5-5.1); Sodium 133 mmol/L (136-145)
[2021-07-02 05:41] LABS: Band 4 % (5-11); Eosinophils 4 % (0-10); Lymphocytes 30 % (21-51); MDiff Complete? YES; Monocytes 20 % (0-10); Neutrophil 42 % (42-75); Platelet Morphology Comment Appears Decreased
[2021-07-02] MEDS: Levothyroxine Sodium 112 MCG TAB PO SCH (05:51)
[2021-07-02] MEDS: HumuLIN 70/30 (300 UNITS/3 ML VIAL) FS SCH (08:33)
[2021-07-02] MEDS: Nadolol 40 MG TAB PO SCH (08:34)
[2021-07-02] MEDS: Spironolactone 25 MG TAB PO SCH (08:35)
[2021-07-02] MEDS: Furosemide 40 MG TAB PO SCH ×2 (08:35→17:17)
[2021-07-02] MEDS: HumaLOG 300 UNITS/3 ML VIAL SC PRN (12:23)
[2021-07-02] MEDS: cefTRIAXone\\ROCEPHIN 1 GM in Sodium Chloride 0.9% 100 ML IVPB SCH (21:32)
[2021-07-02] MEDS: Insulin Regular 300 UNITS/3 ML VIAL SC PRN (21:44)
[2021-07-03 05:15] LABS: ALT (SGPT) 45 U/L (8-55); AST (SGOT) 39 U/L (5-34); Albumin 2.9 g/dL (3.4-4.8); Alkaline Phosphatase 283 U/L (40-110); Anion Gap 11 mmol/L (10-20); BUN (Urea Nitrogen) 44 mg/dL (8.4-25.7); Bilirubin, Total 0.7 mg/dL (0.2-1.2); Calc. Creatinine Clearance 53 mL/min (70-130); Calcium 8.7 mg/dL (7.8-10.44); Carbon Dioxide 23 mmol/L (23-31); Chloride 105 mmol/L (98-107); Globulin 3.2 g/dL (2.4-3.5); Glucose 320 mg/dL (80-115); Potassium 3.9 mmol/L (3.5-5.1); Protein, Total 6.1 g/dL (5.8-8.1); Sodium 135 mmol/L (136-145)
[2021-07-03 05:51] LABS: Platelet Count 28 thou/uL (130-400)
[2021-07-03] MEDS: Levothyroxine Sodium 112 MCG TAB PO SCH (06:01)
[2021-07-03] MEDS: HumaLOG 300 UNITS/3 ML VIAL SC PRN (06:02)
[2021-07-03 07:38] LABS: Hemoglobin 10.2 g/dL (14.0-18.0); Mean Corpuscular HGB CONC 32.7 g/dL (32.0-36.0); Mean Corpuscular Hemoglobin 29.5 pg (27.0-31.0); Mean Corpuscular Volume 90.2 fL (78.0-98.0); Mean Platelet Volume 7.6 fL (7.4-10.4); RBC Distribution Width 14.7 % (11.5-14.5); Red Blood Cell (RBC) Count 3.44 mill/uL (4.70-6.10)
[2021-07-03 07:39] LABS: Anisocytosis SLIGHT = 6-15 cells (100X) (0-5/hpf); Band 18 % (5-11); Lymphocytes 22 % (21-51); MDiff Complete? YES; Monocytes 16 % (0-10); Neutrophil 44 % (42-75); Platelet Morphology Comment Appears Decreased
[2021-07-03] MEDS: Spironolactone 25 MG TAB PO SCH (07:59)
[2021-07-03] MEDS ORDERED: Folic Acid 1 MG TAB PO SCH (09:00)
[2021-07-03] MEDS: Furosemide 40 MG TAB PO SCH ×2 (09:53→13:29)
[2021-07-03] MEDS: Nadolol 40 MG TAB PO SCH (09:53)
[2021-07-03] MEDS: HumuLIN 70/30 (300 UNITS/3 ML VIAL) FS SCH (09:55)
[2021-07-03] MEDS: cefTRIAXone\\ROCEPHIN 1 GM in Sodium Chloride 0.9% 100 ML IVPB SCH (17:14)
[2021-07-03] MEDS: Insulin Regular 300 UNITS/3 ML VIAL SC PRN (21:17)
[2021-07-04] MEDS: Levothyroxine Sodium 112 MCG TAB PO SCH (05:52)
[2021-07-04] MEDS: HumaLOG 300 UNITS/3 ML VIAL SC PRN (05:53)
[2021-07-04] MEDS: Spironolactone 25 MG TAB PO SCH (07:39)
[2021-07-04] MEDS ORDERED: HumaLOG 300 UNITS/3 ML VIAL SC PRN ×3 (07:58→10:26)
[2021-07-04] MEDS ORDERED: NPH, Human Insulin Isophane 300 UNIT/3 ML VIAL SC SCH ×2 (09:00→17:00)
[2021-07-04] MEDS: Nadolol 40 MG TAB PO SCH (09:33)
[2021-07-04] MEDS: Furosemide 40 MG TAB PO SCH ×2 (09:34→13:14)
[2021-07-04] MEDS: Folic Acid 1 MG TAB PO SCH (09:34)
[2021-07-04] MEDS: cefTRIAXone\\ROCEPHIN 1 GM in Sodium Chloride 0.9% 100 ML IVPB SCH (18:04)
[2021-07-05 05:33] LABS: INR-International Normal Ratio 1.3; Prothrombin Time 16.3 sec (12.0-14.7)
[2021-07-05] MEDS: Levothyroxine Sodium 112 MCG TAB PO SCH (05:33)
[2021-07-05 05:34] LABS: PTT 29.8 sec (22.9-36.1)
[2021-07-05 05:51] LABS: ALT (SGPT) 53 U/L (8-55); AST (SGOT) 48 U/L (5-34); Albumin 2.8 g/dL (3.4-4.8); Alkaline Phosphatase 303 U/L (40-110); Anion Gap 11 mmol/L (10-20); BUN (Urea Nitrogen) 43 mg/dL (8.4-25.7); Bilirubin, Total 0.6 mg/dL (0.2-1.2); Calc. Creatinine Clearance 54 mL/min (70-130); Calcium 8.3 mg/dL (7.8-10.44); Carbon Dioxide 24 mmol/L (23-31); Chloride 108 mmol/L (98-107); Globulin 3.4 g/dL (2.4-3.5); Glucose 168 mg/dL (80-115); Potassium 3.9 mmol/L (3.5-5.1); Protein, Total 6.2 g/dL (5.8-8.1); Sodium 139 mmol/L (136-145)
[2021-07-05 06:26] LABS: Hemoglobin 10.6 g/dL (14.0-18.0); Mean Corpuscular HGB CONC 33.5 g/dL (32.0-36.0); Mean Corpuscular Hemoglobin 30.1 pg (27.0-31.0); Mean Platelet Volume 7.9 fL (7.4-10.4); Platelet Count 30 thou/uL (130-400); RBC Distribution Width 14.9 % (11.5-14.5); Red Blood Cell (RBC) Count 3.52 mill/uL (4.70-6.10); White Blood Cell (WBC) Count 1.2 thou/uL (4.8-10.8)
[2021-07-05] MEDS ORDERED: NPH, Human Insulin Isophane 300 UNIT/3 ML VIAL SC SCH ×2 (07:30→12:15)
[2021-07-05] MEDS ORDERED: Sodium Bicarbonate 2.5 MEQ/5 ML VIAL ONE (08:27)
[2021-07-05] MEDS ORDERED: Lidocaine 1% PF 5 ML VIAL ONE (08:27)
[2021-07-05 11:02] LABS: Band 12 % (5-11); Lymphocytes 24 % (21-51); MDiff Complete? YES; Monocytes 14 % (0-10); Neutrophil 50 % (42-75); Platelet Morphology Comment Appears Decreased; Polychromasia SLIGHT = 2-3 cells (100X) (0-2/hpf)
[2021-07-05] MEDS: Nadolol 40 MG TAB PO SCH (11:10)
[2021-07-05] MEDS: Furosemide 40 MG TAB PO SCH ×2 (11:11→14:21)
[2021-07-05] MEDS: Folic Acid 1 MG TAB PO SCH (11:11)
[2021-07-05] MEDS: Spironolactone 25 MG TAB PO SCH (11:12)
[2021-07-05] MEDS: HumaLOG 300 UNITS/3 ML VIAL SC PRN ×2 (12:14→17:11)
[2021-07-05 13:22] LABS: RBC Count-Automated (BF) 3452 /cu.mm; WBC/Nucleated-Auto (BF) 209 /cu.mm
[2021-07-05] MEDS ORDERED: Albumin 25% 25 GM/100 ML BOT IVPB SCH (13:30)
[2021-07-05] MEDS ORDERED: cefTRIAXone\\ROCEPHIN 1 GM in Sodium Chloride 0.9% 100 ML IVPB SCH (13:30)
[2021-07-05 13:40] LABS: BF Color Red; Body Fluid Source Ascites Body Fluid; Clarity Hazy (Clear); Tube # EDTA
[2021-07-05 13:42] LABS: BF Segmented Neutrophils 3 %; Cell Count Non Hematic 77 %; Lymphocytes 20 %
[2021-07-05 16:24] VITALS: BP 130/78; TEMP 97.8
== END 2021-07-05 17:24 | disposition home or self-care (01) | DRG 371 ==
LOC: ERS 20:00 → SURG A 23:10
PROVIDERS: ADMIT Internal Medicine; ATTEND Internal Medicine
PROC: 0W9G3ZZ Drainage of Peritoneal Cavity, Percutaneous Approach (ICD-10-PCS; principal; 2021-07-01)
PROC: 30233J1 Transfusion of Nonautologous Serum Albumin into Peripheral Vein, Percutaneous Approach (ICD-10-PCS; 2021-07-01)
PROC: 0W9G3ZZ Drainage of Peritoneal Cavity, Percutaneous Approach (ICD-10-PCS; 2021-07-05)
DX: K65.2 Spontaneous bacterial peritonitis (principal); D61.810 Antineoplastic chemotherapy induced pancytopenia; C22.8 Malignant neoplasm of liver, primary, unspecified as to type; N17.9 Acute kidney failure, unspecified; E87.1 Hypo-osmolality and hyponatremia; K86.2 Cyst of pancreas; K21.9 Gastro-esophageal reflux disease without esophagitis; E11.649 Type 2 diabetes mellitus with hypoglycemia without coma; I10 Essential (primary) hypertension; T45.1X5A Adverse effect of antineoplastic and immunosuppressive drugs, initial encounter; K70.31 Alcoholic cirrhosis of liver with ascites; B95.4 Other streptococcus as the cause of diseases classified elsewhere; B18.2 Chronic viral hepatitis C; Z20.822 Contact with and (suspected) exposure to COVID-19; E11.22 Type 2 diabetes mellitus with diabetic chronic kidney disease; N18.30 Chronic kidney disease, stage 3 unspecified; E66.9 Obesity, unspecified; Z68.31 Body mass index [BMI] 31.0-31.9, adult; Z79.4 Long term (current) use of insulin; Z79.899 Other long term (current) drug therapy; Z79.51 Long term (current) use of inhaled steroids; K80.20 Calculus of gallbladder without cholecystitis without obstruction; K86.89 Other specified diseases of pancreas
CPT/HCPCS: 0240U; 36415; 36416; 49083; 71045; 74183; 80048; 80053; 81003; 83605; 83690; 85025; 85060; 85610; 85730; 86850; 86870; 86900; 86901; 86922; 87040; 87070; 87077; 87086; 87186; 87205; 89051; A9579; J0696; J1815; J2270; J3370; J3490; P9047

== ENCOUNTER 2021-07-12 08:25 | Day surgery (SDC) | payer BC ==
[2021-07-09 10:54] VITALS: BMI 28.3
[2021-07-12] MEDS ORDERED: Lidocaine 1% PF 5 ML VIAL ONE (08:47)
[2021-07-12] MEDS ORDERED: Sodium Bicarbonate 2.5 MEQ/5 ML VIAL ONE (08:47)
[2021-07-12] MEDS ORDERED: Albumin 25% 100 ML ONE (08:47)
[2021-07-12] MEDS ORDERED: Albumin 25% 25 GM/100 ML BOT IVPB SCH (09:00)
[2021-07-12 10:29] VITALS: TEMP 97.7
[2021-07-12 10:31] VITALS: BP 129/90
[2021-07-12 13:48] LABS: RBC Count-Automated (BF) 5517 /cu.mm; WBC/Nucleated-Auto (BF) 159 /cu.mm
[2021-07-12 13:49] LABS: BF Color Pink; Body Fluid Source Ascites Body Fluid; Clarity Hazy (Clear); Tube # EDTA
[2021-07-12 14:18] LABS: BF Segmented Neutrophils 8 %; Cell Count Non Hematic 68 %; Lymphocytes 24 %
== END 2021-07-12 10:15 | disposition home or self-care (01) ==
LOC: ULT 08:25
PROVIDERS: ATTEND Internal Medicine Gastroenterology
PROC: 0W9G3ZZ Drainage of Peritoneal Cavity, Percutaneous Approach (ICD-10-PCS; principal; 2021-07-12)
DX: K74.60 Unspecified cirrhosis of liver (principal); R18.8 Other ascites; C22.0 Liver cell carcinoma; E11.9 Type 2 diabetes mellitus without complications; K21.9 Gastro-esophageal reflux disease without esophagitis; D64.9 Anemia, unspecified; D69.6 Thrombocytopenia, unspecified; N17.9 Acute kidney failure, unspecified; E87.1 Hypo-osmolality and hyponatremia; Z79.4 Long term (current) use of insulin; Z79.84 Long term (current) use of oral hypoglycemic drugs; Z79.899 Other long term (current) drug therapy
CPT/HCPCS: 49083; 85060; 87070; 87205; 89051; P9047

== ENCOUNTER 2021-07-17 21:30 | Emergency (ER) | payer BC, MEDICARE ==
[2021-07-18 00:06] LABS: ALT (SGPT) 57 U/L (8-55); AST (SGOT) 49 U/L (5-34); Albumin 3.1 g/dL (3.4-4.8); Alkaline Phosphatase 311 U/L (40-110); Anion Gap 16 mmol/L (10-20); BUN (Urea Nitrogen) 64 mg/dL (8.4-25.7); Bilirubin, Total 1.1 mg/dL (0.2-1.2); Calc. Creatinine Clearance 0 mL/min (70-130); Calcium 8.9 mg/dL (7.8-10.44); Carbon Dioxide 20 mmol/L (23-31); Chloride 104 mmol/L (98-107); Globulin 4.2 g/dL (2.4-3.5); Glucose 166 mg/dL (80-115); Lipase 17 U/L (8-78); Potassium 4.5 mmol/L (3.5-5.1); Protein, Total 7.3 g/dL (5.8-8.1); Sodium 135 mmol/L (136-145)
[2021-07-18 00:10] LABS: Mean Corpuscular HGB CONC 33.5 g/dL (32.0-36.0); Mean Corpuscular Hemoglobin 30.1 pg (27.0-31.0); Mean Corpuscular Volume 89.9 fL (78.0-98.0); RBC Distribution Width 15.5 % (11.5-14.5); White Blood Cell (WBC) Count 2.9 thou/uL (4.8-10.8)
[2021-07-18 00:27] LABS: #Lymphocytes 0.3 thou/uL (1.20-3.40); #Monocytes 0.3 thou/uL (0.11-0.59); #Neutrophils 2.3 thou/uL (1.40-6.50); %Basophils 0.3 % (0.0-1.0); %Eosinophils 1.1 % (0.0-10.0); %Lymphocytes 9.3 % (21.0-51.0); %Monocytes 10.7 % (0.0-10.0); %Neutrophils 78.6 % (42.0-75.0); Mean Platelet Volume 7.6 fL (7.4-10.4); Platelet Count 36 thou/uL (130-400); Platelet Morphology Comment Appears Decreased
[2021-07-18 02:39] LABS: Lactic Acid 1.8 mmol/L (0.5-2.2)
[2021-07-18 04:12] LABS: RBC Count-Automated (BF) 5542 /cu.mm; WBC/Nucleated-Auto (BF) 99 /cu.mm
[2021-07-18 04:29] LABS: BF Color Yellow; Body Fluid Source Paracentesis Fluid; Clarity Hazy (Clear); Tube # 1
[2021-07-18 06:11] LABS: Cell Count Non Hematic 49 %; Lymphocytes 51 %
== END 2021-07-18 05:10 | disposition home or self-care (01) ==
LOC: ERS 21:30
DX: R18.8 Other ascites (principal); R10.84 Generalized abdominal pain; I10 Essential (primary) hypertension; E11.9 Type 2 diabetes mellitus without complications
CPT/HCPCS: 36415; 49083; 80053; 83605; 83690; 85025; 85060; 89051

== ENCOUNTER 2021-07-19 09:45 | Day surgery (SDC) | payer BC ==
[2021-07-19] MEDS ORDERED: Lidocaine 1% PF 5 ML VIAL ONE (10:47)
[2021-07-19] MEDS ORDERED: Sodium Bicarbonate 2.5 MEQ/5 ML VIAL ONE (10:47)
[2021-07-19] MEDS ORDERED: hydrALAZINE 20 MG/ML VIAL ONE (10:47)
[2021-07-19] MEDS ORDERED: Albumin 25% 100 ML ONE (10:47)
[2021-07-19 12:10] VITALS: BMI 28.3
[2021-07-19 14:11] LABS: RBC Count-Automated (BF) 3499 /cu.mm; WBC/Nucleated-Auto (BF) 178 /cu.mm
[2021-07-19 14:55] LABS: BF Color Red; Body Fluid Source Ascites Body Fluid; Clarity Hazy (Clear); Tube # EDTA
[2021-07-19 14:58] LABS: BF Segmented Neutrophils 4 %; Cell Count Non Hematic 68 %; Lymphocytes 28 %
== END 2021-07-19 12:15 | disposition home or self-care (01) ==
LOC: ULT 09:45
PROVIDERS: ATTEND Internal Medicine Gastroenterology
PROC: 0W9G3ZX Drainage of Peritoneal Cavity, Percutaneous Approach, Diagnostic (ICD-10-PCS; principal; 2021-07-19)
DX: K74.60 Unspecified cirrhosis of liver (principal); R18.8 Other ascites; C22.0 Liver cell carcinoma; E11.9 Type 2 diabetes mellitus without complications; K21.9 Gastro-esophageal reflux disease without esophagitis; Z79.2 Long term (current) use of antibiotics; Z79.4 Long term (current) use of insulin; Z79.84 Long term (current) use of oral hypoglycemic drugs; Z79.899 Other long term (current) drug therapy
CPT/HCPCS: 49083; 85060; 87070; 87205; 89051; J0360; P9047

== ENCOUNTER 2021-07-21 09:37 | Emergency (ER) | payer BC ==
[2021-07-21] MEDS ORDERED: Ondansetron PF 4 MG/2 ML Vial ONE ×2 (11:55→13:35)
[2021-07-21 12:31] LABS: #Lymphocytes 0.2 thou/uL (1.20-3.40); #Monocytes 0.4 thou/uL (0.11-0.59); %Basophils 0.6 % (0.0-1.0); %Eosinophils 1.2 % (0.0-10.0); %Lymphocytes 9.1 % (21.0-51.0); %Monocytes 14.8 % (0.0-10.0); %Neutrophils 74.3 % (42.0-75.0); Hemoglobin 12.7 g/dL (14.0-18.0); Mean Corpuscular HGB CONC 33.7 g/dL (32.0-36.0); Mean Corpuscular Hemoglobin 30.5 pg (27.0-31.0); Mean Corpuscular Volume 90.5 fL (78.0-98.0); Mean Platelet Volume 7.8 fL (7.4-10.4); Platelet Count 47 thou/uL (130-400); RBC Distribution Width 15.6 % (11.5-14.5); Red Blood Cell (RBC) Count 4.15 mill/uL (4.70-6.10); White Blood Cell (WBC) Count 2.7 thou/uL (4.8-10.8)
[2021-07-21 12:40] LABS: ALT (SGPT) 60 U/L (8-55); AST (SGOT) 49 U/L (5-34); Albumin 3.3 g/dL (3.4-4.8); Alkaline Phosphatase 329 U/L (40-110); Anion Gap 14 mmol/L (10-20); BUN (Urea Nitrogen) 72 mg/dL (8.4-25.7); Bilirubin, Total 1.2 mg/dL (0.2-1.2); Calc. Creatinine Clearance 0 mL/min (70-130); Calcium 8.9 mg/dL (7.8-10.44); Carbon Dioxide 22 mmol/L (23-31); Chloride 101 mmol/L (98-107); Globulin 3.9 g/dL (2.4-3.5); Glucose 215 mg/dL (80-115); Potassium 5.2 mmol/L (3.5-5.1); Protein, Total 7.2 g/dL (5.8-8.1); Sodium 132 mmol/L (136-145)
[2021-07-21 23:50] LABS: SARS-CoV-2 PCR by NAA Not Detected (NotDetected)
== END 2021-07-21 15:17 | disposition home or self-care (01) ==
LOC: ERS 09:37
DX: R11.2 Nausea with vomiting, unspecified (principal); Z20.822 Contact with and (suspected) exposure to COVID-19; I10 Essential (primary) hypertension; E11.9 Type 2 diabetes mellitus without complications
CPT/HCPCS: 36415; 71045; 80053; 83880; 84484; 85025; 96374; 96376; J2405; U0003; U0005

== ENCOUNTER 2021-07-26 09:21 | Day surgery (SDC) | payer BC ==
[2021-07-23 09:51] VITALS: BMI 28.3
[2021-07-26] MEDS ORDERED: Albumin 25% 100 ML ONE (09:37)
[2021-07-26] MEDS ORDERED: Sodium Bicarbonate 2.5 MEQ/5 ML VIAL ONE (09:37)
[2021-07-26] MEDS ORDERED: Albumin 25% 25 GM/100 ML BOT IVPB SCH (10:00)
[2021-07-26 11:50] VITALS: BP 135/62
[2021-07-26 15:35] LABS: RBC Count-Automated (BF) 2266 /cu.mm; WBC/Nucleated-Auto (BF) 1083 /cu.mm
[2021-07-26 15:38] LABS: BF Color Yellow; Body Fluid Source Ascites Body Fluid; Clarity Hazy (Clear); Tube # EDTA
[2021-07-26 15:47] LABS: BF Segmented Neutrophils 7 %; Cell Count Non Hematic 69 %; Eosinophils 1 %; Lymphocytes 22 %
== END 2021-07-26 11:10 | disposition home or self-care (01) ==
LOC: ULT 09:21
PROVIDERS: ATTEND Internal Medicine Gastroenterology
PROC: 0W9G3ZX Drainage of Peritoneal Cavity, Percutaneous Approach, Diagnostic (ICD-10-PCS; principal; 2021-07-26)
DX: K74.60 Unspecified cirrhosis of liver (principal); R18.8 Other ascites; C22.0 Liver cell carcinoma; E11.9 Type 2 diabetes mellitus without complications; K21.9 Gastro-esophageal reflux disease without esophagitis; Z79.4 Long term (current) use of insulin; Z79.84 Long term (current) use of oral hypoglycemic drugs; Z79.899 Other long term (current) drug therapy
CPT/HCPCS: 49083; 85060; 87070; 87205; 89051; 90471; 90732; G0009; P9047

== ENCOUNTER 2021-08-01 02:02 | Inpatient (IN) | payer BC, MEDICARE ==
[2021-08-01 02:57] LABS: Hemoglobin 12.1 g/dL (14.0-18.0); Mean Corpuscular Hemoglobin 30.6 pg (27.0-31.0); Mean Corpuscular Volume 90.3 fL (78.0-98.0); RBC Distribution Width 16.6 % (11.5-14.5); Red Blood Cell (RBC) Count 3.96 mill/uL (4.70-6.10); White Blood Cell (WBC) Count 2.8 thou/uL (4.8-10.8)
[2021-08-01 03:05] LABS: INR-International Normal Ratio 1.2; Prothrombin Time 15.8 sec (12.0-14.7)
[2021-08-01 03:07] LABS: D-Dimer Test 1.63 *mcg/mL (0.27-0.43)
[2021-08-01 03:14] LABS: ALT (SGPT) 55 U/L (8-55); AST (SGOT) 41 U/L (5-34); Albumin 3.1 g/dL (3.4-4.8); Alkaline Phosphatase 345 U/L (40-110); Anion Gap 15 mmol/L (10-20); BUN (Urea Nitrogen) 73 mg/dL (8.4-25.7); Bilirubin, Total 1.4 mg/dL (0.2-1.2); Calc. Creatinine Clearance 0 mL/min (70-130); Calcium 8.7 mg/dL (7.8-10.44); Carbon Dioxide 20 mmol/L (23-31); Chloride 102 mmol/L (98-107); Globulin 4.1 g/dL (2.4-3.5); Glucose 261 mg/dL (80-115); Potassium 5.3 mmol/L (3.5-5.1); Protein, Total 7.2 g/dL (5.8-8.1); Sodium 132 mmol/L (136-145)
[2021-08-01 03:28] LABS: #Lymphocytes 0.3 thou/uL (1.20-3.40); #Monocytes 0.4 thou/uL (0.11-0.59); #Neutrophils 2.1 thou/uL (1.40-6.50); %Basophils 0.7 % (0.0-1.0); %Eosinophils 1.5 % (0.0-10.0); %Lymphocytes 9.3 % (21.0-51.0); %Monocytes 14.2 % (0.0-10.0); %Neutrophils 74.3 % (42.0-75.0); Band 2 % (5-11); Lymphocytes 12 % (21-51); MDiff Complete? YES; Mean Platelet Volume 7.2 fL (7.4-10.4); Monocytes 12 % (0-10); Neutrophil 74 % (42-75); Platelet Count 49 thou/uL (130-400); Platelet Morphology Comment Appears Decreased
[2021-08-01] MEDS ORDERED: Lidocaine Viscous Sol 2% 15 ml UD Cup ONE (05:03)
[2021-08-01] MEDS ORDERED: Mag-Al 1200 mg/1200 mg/30 ML UDCUP ONE (05:03)
[2021-08-01 05:55] LABS: SARS-CoV-2 NAA Rapid Test Not Detected (NotDetected)
[2021-08-01 05:56] LABS: Troponin I Less than 0.010 ng/mL (< 0.028)
[2021-08-01] MEDS ORDERED: Furosemide 40 MG/4 ML VIAL ONE (06:34)
[2021-08-01 09:30] LABS: Troponin I Less than 0.010 ng/mL (< 0.028)
[2021-08-01] MEDS ORDERED: Acetaminophen 325 MG TAB PO PRN (10:44)
[2021-08-01] MEDS ORDERED: Ondansetron PF 4 MG/2 ML Vial IVP PRN (10:44)
[2021-08-01] MEDS ORDERED: hydrOXYzine Pamoate 25 mg Capsule ONE (11:04)
[2021-08-01] MEDS ORDERED: Dextrose 5% in Water 1,000 ML IV PRN (11:12)
[2021-08-01] MEDS ORDERED: Dextrose 50% Abboject 50 ML SYRINGE SLOW IVP PRN (11:12)
[2021-08-01] MEDS ORDERED: DULAGLUTIDE 1.5 MG/0.5 ML SC SCH (11:15)
[2021-08-01 11:43] LABS: White Blood Cell (WBC) Count 1.5 thou/uL (4.8-10.8)
[2021-08-01] MEDS ORDERED: Albumin 25% 25 GM/100 ML BOT IVPB SCH (11:45)
[2021-08-01] MEDS ORDERED: Octreotide Acetate 1,250 MCG in Sodium Chloride 0.9% 250 ML 250 ML IVPB SCH (12:00)
[2021-08-01] MEDS ORDERED: Sodium Chloride 0.9% 100 ML ONE (12:29)
[2021-08-01] MEDS ORDERED: cefTRIAXone\\ROCEPHIN 2 GM VIAL ONE (12:29)
[2021-08-01] MEDS: cefTRIAXone\\ROCEPHIN 2 GM in Sodium Chloride 0.9% 100 ML IVPB SCH (13:21)
[2021-08-01] MEDS ORDERED: Albuterol Sulfate 1.25 MG/3 ML NEB INH PRN (13:52)
[2021-08-01] MEDS: Midodrine HCl 5 MG TAB PO SCH ×2 (15:06→20:23)
[2021-08-01 17:26] VITALS: BMI 31.5
[2021-08-01] MEDS: Spironolactone 25 MG TAB PO SCH (17:59)
[2021-08-01] MEDS: HumaLOG 300 UNITS/3 ML VIAL SC PRN (18:00)
[2021-08-01] MEDS: Ursodiol 300 MG CAP PO SCH (20:23)
[2021-08-01] MEDS: SORAFENIB TOSYLATE 200 MG PO SCH (20:23)
[2021-08-01] MEDS ORDERED: Famotidine/PF 20 mg/2ml Vial SLOW IVP SCH (21:00)
[2021-08-01] MEDS ORDERED: HumaLOG 300 UNITS/3 ML VIAL SC PRN (21:06)
[2021-08-02 04:51] LABS: ALT (SGPT) 45 U/L (8-55); AST (SGOT) 31 U/L (5-34); Albumin 2.9 g/dL (3.4-4.8); Alkaline Phosphatase 229 U/L (40-110); Anion Gap 12 mmol/L (10-20); BUN (Urea Nitrogen) 66 mg/dL (8.4-25.7); Calc. Creatinine Clearance 37 mL/min (70-130); Calcium 8.7 mg/dL (7.8-10.44); Carbon Dioxide 20 mmol/L (23-31); Chloride 107 mmol/L (98-107); Globulin 3.7 g/dL (2.4-3.5); Glucose 326 mg/dL (80-115); Potassium 5.6 mmol/L (3.5-5.1); Protein, Total 6.6 g/dL (5.8-8.1); Sodium 133 mmol/L (136-145)
[2021-08-02] MEDS ORDERED: Levothyroxine Sodium 100 MCG TAB PO SCH (06:00)
[2021-08-02 06:12] LABS: Hemoglobin 11.1 g/dL (14.0-18.0); Mean Corpuscular HGB CONC 33.5 g/dL (32.0-36.0); Mean Corpuscular Hemoglobin 31.2 pg (27.0-31.0); Mean Corpuscular Volume 93.1 fL (78.0-98.0); Mean Platelet Volume 7.2 fL (7.4-10.4); Platelet Count 37 thou/uL (130-400); RBC Distribution Width 16.9 % (11.5-14.5); Red Blood Cell (RBC) Count 3.57 mill/uL (4.70-6.10); White Blood Cell (WBC) Count 1.4 thou/uL (4.8-10.8)
[2021-08-02] MEDS: HumaLOG 300 UNITS/3 ML VIAL SC PRN (06:17)
[2021-08-02 07:00] LABS: Anisocytosis SLIGHT = 6-15 cells (100X) (0-5/hpf); Band 7 % (5-11); Eosinophils 1 % (0-10); Lymphocytes 19 % (21-51); MDiff Complete? YES; Monocytes 9 % (0-10); Neutrophil 64 % (42-75); Platelet Morphology Comment Appears Decreased
[2021-08-02] MEDS: Midodrine HCl 5 MG TAB PO SCH (08:40)
[2021-08-02] MEDS: Spironolactone 25 MG TAB PO SCH ×2 (08:41→17:00)
[2021-08-02] MEDS: SORAFENIB TOSYLATE 200 MG PO SCH (08:41)
[2021-08-02] MEDS ORDERED: HumuLIN 70/30 (300 UNITS/3 ML VIAL) SC SCH (09:00)
[2021-08-02] MEDS ORDERED: Nadolol 40 MG TAB PO SCH (09:00)
[2021-08-02] MEDS: Ursodiol 300 MG CAP PO SCH (10:28)
[2021-08-02 11:03] LABS: Fluid, Protein 1.1 g/dL (Not Available)
[2021-08-02] MEDS ORDERED: Albumin 25% 25 GM/100 ML BOT IVPB SCH (11:15)
[2021-08-02 12:01] LABS: RBC Count-Automated (BF) 1013 /cu.mm; WBC/Nucleated-Auto (BF) 461 /cu.mm
[2021-08-02 12:26] LABS: Body Fluid Source Ascites Body Fluid; Clarity Cloudy/Turbid (Clear); Tube # EDTA
[2021-08-02 12:27] LABS: BF Color Yellow
[2021-08-02 12:30] LABS: BF Segmented Neutrophils 5 %; Cell Count Non Hematic 82 %; Eosinophils 2 %; Lymphocytes 11 %
[2021-08-02 12:48] VITALS: BP 140/74; TEMP 97.6
[2021-08-02] MEDS ORDERED: Lantus 1000 UNITS/10 ML VIAL SC SCH (13:30)
[2021-08-02 14:08] LABS: Anion Gap 12 mmol/L (10-20); BUN (Urea Nitrogen) 56 mg/dL (8.4-25.7); Calc. Creatinine Clearance 40 mL/min (70-130); Calcium 8.8 mg/dL (7.8-10.44); Carbon Dioxide 19 mmol/L (23-31); Chloride 108 mmol/L (98-107); Glucose 284 mg/dL (80-115); Potassium 5.1 mmol/L (3.5-5.1); Sodium 134 mmol/L (136-145)
[2021-08-02] MEDS: cefTRIAXone\\ROCEPHIN 2 GM in Sodium Chloride 0.9% 100 ML IVPB SCH (14:11)
== END 2021-08-02 17:00 | disposition home or self-care (01) | DRG 442 ==
LOC: ERS 02:02 → ERHOLD 05:04 → 2NO 15:20
PROVIDERS: ADMIT Student in an Organized Health Care Education/Training Program; ATTEND Physician Assistant Medical
PROC: 0W9G3ZZ Drainage of Peritoneal Cavity, Percutaneous Approach (ICD-10-PCS; principal; 2021-08-02)
DX: K72.00 Acute and subacute hepatic failure without coma (principal); E87.1 Hypo-osmolality and hyponatremia; N17.9 Acute kidney failure, unspecified; C22.0 Liver cell carcinoma; R18.8 Other ascites; K74.60 Unspecified cirrhosis of liver; E87.5 Hyperkalemia; K21.9 Gastro-esophageal reflux disease without esophagitis; B19.20 Unspecified viral hepatitis C without hepatic coma; D69.6 Thrombocytopenia, unspecified; D69.59 Other secondary thrombocytopenia; R79.89 Other specified abnormal findings of blood chemistry; E03.9 Hypothyroidism, unspecified; Z79.899 Other long term (current) drug therapy; Z79.84 Long term (current) use of oral hypoglycemic drugs; Z79.4 Long term (current) use of insulin; Z82.49 Family history of ischemic heart disease and other diseases of the circulatory system; Z82.3 Family history of stroke; E11.22 Type 2 diabetes mellitus with diabetic chronic kidney disease; E50.9 Vitamin A deficiency, unspecified; N18.9 Chronic kidney disease, unspecified
CPT/HCPCS: 36415; 36416; 49083; 71045; 80053; 82140; 82306; 82607; 82746; 82945; 83036; 83615; 84157; 84484; 85025; 85048; 85060; 85379; 85610; 85730; 87070; 87205; 88112; 89051; 93005; J0696; J1815; J1940; J2354; J2405; J3490; J7050; P9047; Q0177; U0002

== ENCOUNTER 2021-08-04 09:36 | Outpatient (CLI) | payer BC | END 2021-08-04 09:37 | disposition home or self-care (01) | LOC: CT 09:36 | PROVIDERS: ATTEND Physician Assistant Medical | DX: C22.0 Liver cell carcinoma (principal); N18.4 Chronic kidney disease, stage 4 (severe); R18.8 Other ascites; K74.69 Other cirrhosis of liver; K76.6 Portal hypertension; K80.20 Calculus of gallbladder without cholecystitis without obstruction; K86.89 Other specified diseases of pancreas | CPT/HCPCS: 71250 ==

== ENCOUNTER 2021-08-09 09:19 | Day surgery (SDC) | payer BC ==
[2021-08-06 10:12] VITALS: BMI 28.3
[2021-08-09] MEDS ORDERED: Sodium Bicarbonate 2.5 MEQ/5 ML VIAL ONE (10:11)
[2021-08-09] MEDS ORDERED: Albumin 25% 200 ML ONE (10:11)
[2021-08-09] MEDS ORDERED: Albumin 25% 25 GM/100 ML BOT IVPB SCH (11:00)
[2021-08-09 13:29] VITALS: BP 113/59
[2021-08-09 16:07] LABS: RBC Count-Automated (BF) 2226 /cu.mm; WBC/Nucleated-Auto (BF) 100 /cu.mm
[2021-08-09 16:13] LABS: BF Color Yellow; Body Fluid Source Ascites Body Fluid; Clarity Hazy (Clear); Tube # EDTA
[2021-08-09 16:20] LABS: BF Segmented Neutrophils 6 %; Cell Count Non Hematic 70 %; Eosinophils 1 %; Lymphocytes 22 %
== END 2021-08-09 11:50 | disposition home or self-care (01) ==
LOC: ULT 09:19
PROVIDERS: ATTEND Internal Medicine Gastroenterology
PROC: 0W9G3ZX Drainage of Peritoneal Cavity, Percutaneous Approach, Diagnostic (ICD-10-PCS; principal; 2021-08-09)
DX: K74.60 Unspecified cirrhosis of liver (principal); R18.8 Other ascites; J45.909 Unspecified asthma, uncomplicated; C22.0 Liver cell carcinoma; E11.22 Type 2 diabetes mellitus with diabetic chronic kidney disease; N18.4 Chronic kidney disease, stage 4 (severe); Z87.891 Personal history of nicotine dependence; Z79.4 Long term (current) use of insulin; Z79.84 Long term (current) use of oral hypoglycemic drugs; Z79.899 Other long term (current) drug therapy; C22.9 Malignant neoplasm of liver, not specified as primary or secondary; I85.00 Esophageal varices without bleeding; K65.2 Spontaneous bacterial peritonitis
CPT/HCPCS: 36415; 49083; 80048; 85060; 87070; 87205; 89051; P9047

== ENCOUNTER → 2021-08-12 | Day surgery (SDC) | payer BC ==
[2021-08-10 11:25] VITALS: BMI 28.3
[~2021-08-12] MED LIST changes: +Albumin 25% 200 ML ONE; -FLU VACC QS2021-22(6MOS UP)/PF 60 MCG/0.5 ML SYRINGE IM ONE; +Lidocaine 1% PF 5 ML VIAL ONE; +Sodium Bicarbonate 2.5 MEQ/5 ML VIAL ONE
== END ==
LOC: ULT 09:37
PROVIDERS: ATTEND Internal Medicine Gastroenterology
PROC: 0W9G3ZZ Drainage of Peritoneal Cavity, Percutaneous Approach (ICD-10-PCS; principal; 2021-08-12)
DX: K74.60 Unspecified cirrhosis of liver (principal); R18.8 Other ascites; C22.0 Liver cell carcinoma; E11.22 Type 2 diabetes mellitus with diabetic chronic kidney disease; N18.4 Chronic kidney disease, stage 4 (severe); J45.909 Unspecified asthma, uncomplicated; Z87.891 Personal history of nicotine dependence; Z79.2 Long term (current) use of antibiotics; Z79.4 Long term (current) use of insulin; Z79.84 Long term (current) use of oral hypoglycemic drugs; Z79.899 Other long term (current) drug therapy
CPT/HCPCS: 49083; P9047

== ENCOUNTER 2021-08-16 09:38 | Day surgery (SDC) | payer BC ==
[2021-08-12 12:51] VITALS: BMI 28.3
[2021-08-16] MEDS ORDERED: Sodium Bicarbonate 2.5 MEQ/5 ML VIAL ONE (10:08)
[2021-08-16] MEDS ORDERED: Lidocaine 1% PF 5 ML VIAL ONE (10:08)
[2021-08-16] MEDS ORDERED: Albumin 25% 200 ML ONE (10:08)
[2021-08-16] MEDS ORDERED: Albumin 25% 25 GM/100 ML BOT IVPB SCH (10:30)
[2021-08-16 11:23] VITALS: BP 125/71
[2021-08-16 13:08] LABS: RBC Count-Automated (BF) 4590 /cu.mm; WBC/Nucleated-Auto (BF) 86 /cu.mm
[2021-08-16 13:10] LABS: BF Color Pink; Body Fluid Source Ascites Body Fluid; Clarity Hazy (Clear); Tube # EDTA
[2021-08-16 13:18] LABS: BF Segmented Neutrophils 2 %; Cell Count Non Hematic 77 %; Lymphocytes 21 %
== END 2021-08-16 11:30 | disposition home or self-care (01) ==
LOC: ULT 09:38
PROVIDERS: ATTEND Internal Medicine Gastroenterology
PROC: 0W9G3ZX Drainage of Peritoneal Cavity, Percutaneous Approach, Diagnostic (ICD-10-PCS; principal; 2021-08-16)
DX: K74.60 Unspecified cirrhosis of liver (principal); R18.8 Other ascites; J45.909 Unspecified asthma, uncomplicated; C22.0 Liver cell carcinoma; E11.22 Type 2 diabetes mellitus with diabetic chronic kidney disease; N18.4 Chronic kidney disease, stage 4 (severe); Z87.891 Personal history of nicotine dependence; Z79.4 Long term (current) use of insulin; Z79.84 Long term (current) use of oral hypoglycemic drugs; Z79.899 Other long term (current) drug therapy
CPT/HCPCS: 49083; 85060; 87070; 87205; 89051; P9047

== ENCOUNTER 2021-08-23 09:36 | Day surgery (SDC) | payer BC ==
[2021-08-19 13:36] VITALS: BMI 28.3
[2021-08-23 11:13] VITALS: BP 125/72; TEMP 97.9
[2021-08-23 12:48] LABS: RBC Count-Automated (BF) 5136 /cu.mm; WBC/Nucleated-Auto (BF) 65 /cu.mm
[2021-08-23 12:50] LABS: BF Color Pink; Body Fluid Source Ascites Body Fluid; Clarity Hazy (Clear); Tube # EDTA
[2021-08-23 12:54] LABS: BF Segmented Neutrophils 3 %; Cell Count Non Hematic 82 %; Lymphocytes 15 %
== END 2021-08-23 12:30 | disposition home or self-care (01) ==
LOC: ULT 09:36
PROVIDERS: ATTEND Internal Medicine Gastroenterology
PROC: 0W9G3ZZ Drainage of Peritoneal Cavity, Percutaneous Approach (ICD-10-PCS; principal; 2021-08-23)
DX: K74.60 Unspecified cirrhosis of liver (principal); R18.8 Other ascites; C22.0 Liver cell carcinoma; E11.22 Type 2 diabetes mellitus with diabetic chronic kidney disease; N18.4 Chronic kidney disease, stage 4 (severe); K21.9 Gastro-esophageal reflux disease without esophagitis; J45.909 Unspecified asthma, uncomplicated; Z87.891 Personal history of nicotine dependence; Z79.4 Long term (current) use of insulin; Z79.84 Long term (current) use of oral hypoglycemic drugs; Z79.899 Other long term (current) drug therapy
CPT/HCPCS: 49083; 85060; 87070; 87205; 89051

== ENCOUNTER 2021-08-30 09:27 | Day surgery (SDC) | payer BC, MEDICARE ==
[2021-08-27 09:41] VITALS: BMI 28.3
[2021-08-30 11:46] VITALS: BP 125/76; TEMP 97.9
[2021-08-30 12:23] LABS: RBC Count-Automated (BF) 2019 /cu.mm; WBC/Nucleated-Auto (BF) 864 /cu.mm
[2021-08-30 12:34] LABS: BF Color Yellow; Body Fluid Source Ascites Body Fluid; Clarity Cloudy/Turbid (Clear); Tube # EDTA
[2021-08-30 12:36] LABS: BF Segmented Neutrophils 2 %; Cell Count Non Hematic 83 %; Lymphocytes 15 %
== END 2021-08-30 11:10 | disposition home or self-care (01) ==
LOC: ULT 09:27
PROVIDERS: ATTEND Internal Medicine Gastroenterology
PROC: 0W9G3ZX Drainage of Peritoneal Cavity, Percutaneous Approach, Diagnostic (ICD-10-PCS; principal; 2021-08-30)
DX: R18.8 Other ascites (principal)
CPT/HCPCS: 36415; 49083; 80048; 85060; 87070; 87077; 87186; 87205; 89051

== ENCOUNTER 2021-08-31 17:23 | Inpatient (IN) | payer BC, MEDICARE ==
[2021-08-31 18:30] LABS: #Lymphocytes 0.2 thou/uL (1.20-3.40); #Monocytes 0.3 thou/uL (0.11-0.59); #Neutrophils 1.8 thou/uL (1.40-6.50); %Basophils 0.5 % (0.0-1.0); %Eosinophils 1.1 % (0.0-10.0); %Lymphocytes 7.7 % (21.0-51.0); %Monocytes 11.7 % (0.0-10.0); %Neutrophils 79.1 % (42.0-75.0); Hemoglobin 10.6 g/dL (14.0-18.0); Mean Corpuscular HGB CONC 32.8 g/dL (32.0-36.0); Mean Corpuscular Hemoglobin 30.8 pg (27.0-31.0); Mean Corpuscular Volume 93.8 fL (78.0-98.0); Mean Platelet Volume 7.8 fL (7.4-10.4); Platelet Count 31 thou/uL (130-400); Red Blood Cell (RBC) Count 3.45 mill/uL (4.70-6.10); White Blood Cell (WBC) Count 2.2 thou/uL (4.8-10.8)
[2021-08-31] MEDS ORDERED: Cefepime 2 GM VIAL ONE (18:31)
[2021-08-31 18:44] LABS: ALT (SGPT) 41 U/L (8-55); AST (SGOT) 38 U/L (5-34); Albumin 3.4 g/dL (3.4-4.8); Alkaline Phosphatase 241 U/L (40-110); Anion Gap 12 mmol/L (10-20); BUN (Urea Nitrogen) 38 mg/dL (8.4-25.7); Bilirubin, Total 1.4 mg/dL (0.2-1.2); Calc. Creatinine Clearance 0 mL/min (70-130); Calcium 8.5 mg/dL (7.8-10.44); Carbon Dioxide 19 mmol/L (23-31); Chloride 107 mmol/L (98-107); Globulin 3.1 g/dL (2.4-3.5); Glucose 198 mg/dL (80-115); Potassium 4.7 mmol/L (3.5-5.1); Protein, Total 6.5 g/dL (5.8-8.1); Sodium 133 mmol/L (136-145)
[2021-08-31 19:37] LABS: Bilirubin Negative (Negative); Blood, Urine 2+ (Negative); Clarity Turbid (Clear); Glucose, Urine (Dipstick) Normal (Negative); Ketone, Urine Negative (Negative); Leukocyte 500 Leu/uL (Negative); Nitrite Negative (Negative); Protein, Urine (Dipstick) 70 mg/dL (Neg-Trace); Specific Gravity, Urine 1.016 (1.002-1.036); Urobilinogen Normal mg/dL (Less than 2); pH, Urine 5.5 (5.0-9.0)
[2021-08-31 19:48] LABS: Bacteria/HPF 3+ HPF (None Seen); RBC/HPF 21-50 HPF (0-3)
[2021-08-31 21:12] VITALS: BMI 31.2
[2021-08-31] MEDS ORDERED: Ondansetron PF 4 MG/2 ML Vial IVP PRN (22:34)
[2021-08-31] MEDS ORDERED: Acetaminophen 325 MG TAB PO PRN (22:34)
[2021-08-31] MEDS ORDERED: Acetaminophen 650 MG Suppository PR PRN (22:34)
[2021-08-31] MEDS ORDERED: Ondansetron ODT 4 MG TAB PO PRN (22:34)
[2021-08-31] MEDS ORDERED: Dexamethasone 4 mg/ml Vial SLOW IVP SCH (22:45)
[2021-08-31] MEDS ORDERED: Vancomycin 1.5 GRAM/300 ML BAG 1.5 GM in Premix Bag 1 BAG IVPB SCH (23:00)
[2021-09-01] MEDS ORDERED: Dextrose 50% Abboject 50 ML SYRINGE SLOW IVP PRN (01:15)
[2021-09-01] MEDS ORDERED: Dextrose 5% in Water 1,000 ML IV PRN (01:15)
[2021-09-01] MEDS: HumaLOG 300 UNITS/3 ML VIAL SC PRN ×4 (05:45→21:16)
[2021-09-01 06:27] LABS: #Lymphocytes 0.2 thou/uL (1.20-3.40); #Monocytes 0.3 thou/uL (0.11-0.59); #Neutrophils 1.5 thou/uL (1.40-6.50); %Lymphocytes 9.6 % (21.0-51.0); %Monocytes 12.9 % (0.0-10.0); %Neutrophils 76.5 % (42.0-75.0); Hemoglobin 9.8 g/dL (14.0-18.0); Mean Corpuscular HGB CONC 33.4 g/dL (32.0-36.0); Mean Corpuscular Hemoglobin 31.2 pg (27.0-31.0); Mean Corpuscular Volume 93.5 fL (78.0-98.0); Mean Platelet Volume 7.5 fL (7.4-10.4); Platelet Count 25 thou/uL (130-400); RBC Distribution Width 14.9 % (11.5-14.5); Red Blood Cell (RBC) Count 3.14 mill/uL (4.70-6.10)
[2021-09-01 06:45] LABS: Anion Gap 13 mmol/L (10-20); BUN (Urea Nitrogen) 39 mg/dL (8.4-25.7); Calc. Creatinine Clearance 46 mL/min (70-130); Calcium 8.4 mg/dL (7.8-10.44); Carbon Dioxide 19 mmol/L (23-31); Chloride 106 mmol/L (98-107); Glucose 271 mg/dL (80-115); Potassium 4.1 mmol/L (3.5-5.1); Sodium 134 mmol/L (136-145)
[2021-09-01] MEDS ORDERED: Enoxaparin Sodium 40 MG/0.4 ML SYRINGE SC SCH (09:00)
[2021-09-01 12:39] LABS: SARS-CoV-2 PCR by NAA Not Detected (NotDetected)
[2021-09-01] MEDS: AMOXicillin 250 MG CAP PO SCH ×2 (16:05→21:12)
[2021-09-01] MEDS: Albumin 25% 25 GM/100 ML BOT IVPB SCH ×2 (17:36→21:13)
[2021-09-01] MEDS ORDERED: Albuterol 200 PUFF (6.7GM INHALER) INH PRN (18:30)
[2021-09-01] MEDS ORDERED: NPH, Human Insulin Isophane 300 UNIT/3 ML VIAL SC SCH (18:30)
[2021-09-01] MEDS: Spironolactone 25 MG TAB PO SCH (21:12)
[2021-09-01] MEDS: Furosemide 40 MG TAB PO SCH (21:12)
[2021-09-01] MEDS ORDERED: VANCOMYCIN 1.25 GM/250 ML BAG 1.25 GM in Premix Bag 1 BAG IVPB SCH (22:38)
[2021-09-01] MEDS ORDERED: Vancomycin HCl 750 MG in Sodium Chloride 0.9% 250 ML 250 ML IVPB SCH (23:00)
[2021-09-02] MEDS: HumaLOG 300 UNITS/3 ML VIAL SC PRN ×3 (05:11→21:06)
[2021-09-02] MEDS: Levothyroxine Sodium 100 MCG TAB PO SCH (05:11)
[2021-09-02 07:07] LABS: Anion Gap 10 mmol/L (10-20); BUN (Urea Nitrogen) 37 mg/dL (8.4-25.7); Calc. Creatinine Clearance 48 mL/min (70-130); Calcium 8.4 mg/dL (7.8-10.44); Carbon Dioxide 19 mmol/L (23-31); Chloride 108 mmol/L (98-107); Glucose 298 mg/dL (80-115); Potassium 4.1 mmol/L (3.5-5.1); Sodium 133 mmol/L (136-145)
[2021-09-02] MEDS: AMOXicillin 250 MG CAP PO SCH ×3 (08:10→21:02)
[2021-09-02] MEDS: Albumin 25% 25 GM/100 ML BOT IVPB SCH ×2 (08:10→19:16)
[2021-09-02] MEDS: Furosemide 40 MG TAB PO SCH (08:11)
[2021-09-02] MEDS: Spironolactone 25 MG TAB PO SCH (08:11)
[2021-09-02] MEDS: Nadolol 40 MG TAB PO SCH (08:11)
[2021-09-02] MEDS ORDERED: NPH, Human Insulin Isophane 300 UNIT/3 ML VIAL SC SCH ×3 (09:00→21:00)
[2021-09-02] MEDS ORDERED: HumaLOG 300 UNITS/3 ML VIAL SC PRN (13:15)
[2021-09-02 20:47] VITALS: BP 126/73; TEMP 97.7
[2021-09-03] MEDS: Albumin 25% 25 GM/100 ML BOT IVPB SCH ×2 (01:51→08:03)
[2021-09-03] MEDS: Levothyroxine Sodium 100 MCG TAB PO SCH (05:27)
[2021-09-03] MEDS ORDERED: NPH, Human Insulin Isophane 300 UNIT/3 ML VIAL SC SCH (08:00)
[2021-09-03] MEDS: Nadolol 40 MG TAB PO SCH (08:04)
[2021-09-03] MEDS: AMOXicillin 250 MG CAP PO SCH (08:04)
== END 2021-09-03 11:58 | disposition home or self-care (01) | DRG 371 ==
LOC: ERS 17:23 → T4-B 19:45 → OBSVTOIN 09-02 09:49
PROVIDERS: ADMIT Student in an Organized Health Care Education/Training Program; ATTEND Internal Medicine
PROC: 0W9G3ZX Drainage of Peritoneal Cavity, Percutaneous Approach, Diagnostic (ICD-10-PCS; principal; 2021-08-30)
DX: K65.2 Spontaneous bacterial peritonitis (principal); D61.810 Antineoplastic chemotherapy induced pancytopenia; D61.818 Other pancytopenia; D68.4 Acquired coagulation factor deficiency; R18.8 Other ascites; E87.1 Hypo-osmolality and hyponatremia; C22.0 Liver cell carcinoma; N39.0 Urinary tract infection, site not specified; Z20.822 Contact with and (suspected) exposure to COVID-19; B95.7 Other staphylococcus as the cause of diseases classified elsewhere; N18.30 Chronic kidney disease, stage 3 unspecified; E11.22 Type 2 diabetes mellitus with diabetic chronic kidney disease; N18.9 Chronic kidney disease, unspecified; I12.9 Hypertensive chronic kidney disease with stage 1 through stage 4 chronic kidney disease, or unspecified chronic kidney disease; K74.60 Unspecified cirrhosis of liver; B18.2 Chronic viral hepatitis C; T45.1X5A Adverse effect of antineoplastic and immunosuppressive drugs, initial encounter; K80.80 Other cholelithiasis without obstruction; Z79.899 Other long term (current) drug therapy; Z79.84 Long term (current) use of oral hypoglycemic drugs; Z79.4 Long term (current) use of insulin; Z79.890 Hormone replacement therapy
CPT/HCPCS: 36415; 36416; 49083; 80048; 80053; 81003; 81015; 83605; 85025; 85060; 87040; 87070; 87077; 87186; 87205; 89051; 96365; 96374; 96375; 96376; G0378; J0692; J1815; J3370; P9047; U0003; U0005

== ENCOUNTER 2021-09-06 09:20 | Day surgery (SDC) | payer BC, MEDICARE ==
[2021-09-03 08:50] VITALS: BMI 29.2
[2021-09-06 13:07] VITALS: BP 143/79; TEMP 97.9
[2021-09-06 13:46] LABS: BF Color Yellow; Body Fluid Source Ascites Body Fluid; Clarity Hazy (Clear); RBC Count-Automated (BF) 1274 /cu.mm; Tube # EDTA; WBC/Nucleated-Auto (BF) 151 /cu.mm
[2021-09-06 14:26] LABS: BF Segmented Neutrophils 2 %; Cell Count Non Hematic 82 %; Lymphocytes 16 %
== END 2021-09-06 12:35 | disposition home or self-care (01) ==
LOC: ULT 09:20
PROVIDERS: ATTEND Internal Medicine Gastroenterology
PROC: 0W9G3ZX Drainage of Peritoneal Cavity, Percutaneous Approach, Diagnostic (ICD-10-PCS; principal; 2021-09-06)
DX: K74.60 Unspecified cirrhosis of liver (principal); R18.8 Other ascites; C22.0 Liver cell carcinoma; I12.9 Hypertensive chronic kidney disease with stage 1 through stage 4 chronic kidney disease, or unspecified chronic kidney disease; E11.22 Type 2 diabetes mellitus with diabetic chronic kidney disease; N18.9 Chronic kidney disease, unspecified; E87.1 Hypo-osmolality and hyponatremia; Z79.4 Long term (current) use of insulin; Z79.84 Long term (current) use of oral hypoglycemic drugs; Z79.899 Other long term (current) drug therapy
CPT/HCPCS: 49083; 85060; 87070; 87205; 89051

== ENCOUNTER 2021-09-17 08:19 | Outpatient (CLI) | payer BC, MEDICARE | END 2021-09-17 08:20 | disposition home or self-care (01) | LOC: MRI 08:19 | PROVIDERS: ATTEND Internal Medicine Medical Oncology | DX: C22.0 Liver cell carcinoma (principal); K74.60 Unspecified cirrhosis of liver; K76.6 Portal hypertension; K80.20 Calculus of gallbladder without cholecystitis without obstruction; K86.2 Cyst of pancreas | CPT/HCPCS: 74183 ==

== ENCOUNTER 2021-10-25 09:39 | Day surgery (SDC) | payer BC, MEDICARE ==
[2021-10-25] MEDS ORDERED: Albumin 25% 200 ML ONE (09:46)
[2021-10-25] MEDS ORDERED: Sodium Bicarbonate 2.5 MEQ/5 ML VIAL ONE (09:46)
[2021-10-25] MEDS ORDERED: Lidocaine 1% PF 5 ML VIAL ONE (09:46)
[2021-10-25 09:48] LABS: #Lymphocytes 0.2 thou/uL (1.20-3.40); #Monocytes 0.3 thou/uL (0.11-0.59); #Neutrophils 1.5 thou/uL (1.40-6.50); %Basophils 0.3 % (0.0-1.0); %Eosinophils 1.9 % (0.0-10.0); %Lymphocytes 9.9 % (21.0-51.0); %Monocytes 12.6 % (0.0-10.0); %Neutrophils 75.3 % (42.0-75.0); Hemoglobin 10.7 g/dL (14.0-18.0); Mean Corpuscular HGB CONC 33.4 g/dL (32.0-36.0); Mean Platelet Volume 7.3 fL (7.4-10.4); Platelet Count 33 thou/uL (130-400); RBC Distribution Width 16.2 % (11.5-14.5); Red Blood Cell (RBC) Count 3.35 mill/uL (4.70-6.10)
[2021-10-25 09:53] LABS: INR-International Normal Ratio 1.3; PTT 29.3 sec (22.9-36.1); Prothrombin Time 16.3 sec (12.0-14.7)
[2021-10-25 10:16] LABS: ALT (SGPT) 54 U/L (8-55); AST (SGOT) 52 U/L (5-34); Albumin 3.4 g/dL (3.4-4.8); Alkaline Phosphatase 295 U/L (40-110); Anion Gap 13 mmol/L (10-20); BUN (Urea Nitrogen) 53 mg/dL (8.4-25.7); Bilirubin, Total 1.5 mg/dL (0.2-1.2); Calc. Creatinine Clearance 0 mL/min (70-130); Calcium 8.9 mg/dL (7.8-10.44); Carbon Dioxide 23 mmol/L (23-31); Chloride 104 mmol/L (98-107); Globulin 3.8 g/dL (2.4-3.5); Glucose 149 mg/dL (80-115); Potassium 4.8 mmol/L (3.5-5.1); Protein, Total 7.2 g/dL (5.8-8.1); Sodium 135 mmol/L (136-145)
[2021-10-25 11:52] VITALS: BP 126/69; TEMP 98.2
[2021-10-25 12:25] LABS: RBC Count-Automated (BF) 856 /cu.mm; WBC/Nucleated-Auto (BF) 827 /cu.mm
[2021-10-25 13:21] LABS: BF Color Yellow; Body Fluid Source Ascites Body Fluid; Clarity Hazy (Clear); Tube # EDTA
[2021-10-25 13:22] LABS: BF Segmented Neutrophils 4 %; Cell Count Non Hematic 81 %; Eosinophils 1 %; Lymphocytes 14 %
== END 2021-10-25 11:31 | disposition home or self-care (01) ==
LOC: ULT 09:39
PROVIDERS: ATTEND Internal Medicine Gastroenterology
PROC: 0W9G3ZX Drainage of Peritoneal Cavity, Percutaneous Approach, Diagnostic (ICD-10-PCS; principal; 2021-10-25)
DX: K74.60 Unspecified cirrhosis of liver (principal); R18.8 Other ascites; C22.0 Liver cell carcinoma; E11.22 Type 2 diabetes mellitus with diabetic chronic kidney disease; N18.9 Chronic kidney disease, unspecified; J45.909 Unspecified asthma, uncomplicated; Z87.891 Personal history of nicotine dependence; Z79.4 Long term (current) use of insulin; Z79.84 Long term (current) use of oral hypoglycemic drugs; Z79.890 Hormone replacement therapy; Z79.899 Other long term (current) drug therapy
CPT/HCPCS: 49083; 80053; 85025; 85060; 85610; 85730; 87070; 87205; 89051; P9047

== ENCOUNTER 2021-11-01 09:09 | Day surgery (SDC) | payer BC, MEDICARE ==
[2021-10-29 07:11] VITALS: BMI 28.3
[2021-11-01] MEDS ORDERED: Sodium Bicarbonate 2.5 MEQ/5 ML VIAL ONE (10:23)
[2021-11-01] MEDS ORDERED: Albumin 25% 200 ML ONE (10:23)
[2021-11-01] MEDS ORDERED: Lidocaine 1% PF 5 ML VIAL ONE (10:23)
[2021-11-01 11:23] VITALS: BP 135/74
[2021-11-01 13:06] LABS: RBC Count-Automated (BF) 959 /cu.mm; WBC/Nucleated-Auto (BF) 921 /cu.mm
[2021-11-01 13:35] LABS: BF Color Yellow; Body Fluid Source Ascites Body Fluid; Clarity Cloudy/Turbid (Clear); Tube # EDTA
[2021-11-01 13:40] LABS: BF Segmented Neutrophils 6 %; Cell Count Non Hematic 71 %; Eosinophils 1 %; Lymphocytes 22 %
== END 2021-11-01 11:50 | disposition home or self-care (01) ==
LOC: ULT 09:09
PROVIDERS: ATTEND Internal Medicine Gastroenterology
PROC: 0W9G3ZX Drainage of Peritoneal Cavity, Percutaneous Approach, Diagnostic (ICD-10-PCS; principal; 2021-11-01)
DX: K74.60 Unspecified cirrhosis of liver (principal); R18.8 Other ascites; C22.0 Liver cell carcinoma; E11.22 Type 2 diabetes mellitus with diabetic chronic kidney disease; N18.9 Chronic kidney disease, unspecified; Z87.891 Personal history of nicotine dependence; Z79.2 Long term (current) use of antibiotics; Z79.4 Long term (current) use of insulin; Z79.84 Long term (current) use of oral hypoglycemic drugs; Z79.890 Hormone replacement therapy; Z79.899 Other long term (current) drug therapy
CPT/HCPCS: 49083; 85060; 87070; 87205; 89051; P9047

== ENCOUNTER 2021-11-04 08:40 | Outpatient (CLI) | payer BC, MEDICARE | END 2021-11-04 08:41 | disposition home or self-care (01) | LOC: MRI 08:40 | PROVIDERS: ATTEND Internal Medicine Medical Oncology | DX: C22.0 Liver cell carcinoma (principal); K72.90 Hepatic failure, unspecified without coma; K74.69 Other cirrhosis of liver; I85.00 Esophageal varices without bleeding | CPT/HCPCS: 74183 ==

== ENCOUNTER 2021-11-08 09:17 | Day surgery (SDC) | payer BC, MEDICARE ==
[2021-11-05 16:26] VITALS: BMI 28.3
[2021-11-08] MEDS ORDERED: Albumin 25% 200 ML ONE (10:44)
[2021-11-08] MEDS ORDERED: Sodium Bicarbonate 2.5 MEQ/5 ML VIAL ONE (10:44)
[2021-11-08] MEDS ORDERED: Lidocaine 1% PF 5 ML VIAL ONE (10:44)
[2021-11-08] MEDS ORDERED: Albumin 25% 25 GM/100 ML BOT IVPB SCH (12:45)
[2021-11-08 12:46] VITALS: BP 132/61
[2021-11-08 13:59] LABS: RBC Count-Automated (BF) 4432 /cu.mm; WBC/Nucleated-Auto (BF) 1035 /cu.mm
[2021-11-08 14:27] LABS: BF Color Red; Body Fluid Source Ascites Body Fluid; Clarity Hazy (Clear); Tube # EDTA
[2021-11-08 14:28] LABS: Cell Count Non Hematic 89 %; Lymphocytes 11 %
== END 2021-11-08 11:50 | disposition home or self-care (01) ==
LOC: ULT 09:17
PROVIDERS: ATTEND Internal Medicine Gastroenterology
PROC: 0W9G3ZX Drainage of Peritoneal Cavity, Percutaneous Approach, Diagnostic (ICD-10-PCS; principal; 2021-11-08)
DX: K74.60 Unspecified cirrhosis of liver (principal); R18.8 Other ascites; C22.0 Liver cell carcinoma; E11.22 Type 2 diabetes mellitus with diabetic chronic kidney disease; N18.9 Chronic kidney disease, unspecified; Z87.891 Personal history of nicotine dependence
CPT/HCPCS: 49083; 85060; 87070; 87205; 89051; P9047

== ENCOUNTER → 2021-11-15 | Day surgery (SDC) | payer BC, MEDICARE ==
[2021-11-15 11:15] VITALS: BP 145/67; TEMP 97.9
[2021-11-15 11:30] VITALS: BMI 28.3
[2021-11-15 12:05] LABS: RBC Count-Automated (BF) 1037 /cu.mm; WBC/Nucleated-Auto (BF) 1009 /cu.mm
[2021-11-15 12:15] LABS: BF Color Yellow; Body Fluid Source Ascites Body Fluid; Clarity Hazy (Clear); Tube # EDTA
[2021-11-15 12:17] LABS: BF Segmented Neutrophils 33 %; Cell Count Non Hematic 62 %; Lymphocytes 5 %
== END | disposition home or self-care (01) ==
LOC: ULT 09:24
PROVIDERS: ATTEND Internal Medicine Gastroenterology
PROC: 0W9G3ZX Drainage of Peritoneal Cavity, Percutaneous Approach, Diagnostic (ICD-10-PCS; principal; 2021-11-15)
DX: K74.60 Unspecified cirrhosis of liver (principal); R18.8 Other ascites; K65.2 Spontaneous bacterial peritonitis; C22.0 Liver cell carcinoma; E11.22 Type 2 diabetes mellitus with diabetic chronic kidney disease; N18.9 Chronic kidney disease, unspecified; Z79.2 Long term (current) use of antibiotics; Z79.4 Long term (current) use of insulin; Z79.84 Long term (current) use of oral hypoglycemic drugs; Z79.899 Other long term (current) drug therapy; Z79.890 Hormone replacement therapy
CPT/HCPCS: 49083; 85060; 87070; 87205; 89051; P9047

== ENCOUNTER 2021-11-21 11:17 | Inpatient (IN) | payer BC, MEDICARE ==
[2021-11-21 12:12] LABS: ALT (SGPT) 53 U/L (8-55); AST (SGOT) 47 U/L (5-34); Albumin 3.4 g/dL (3.4-4.8); Alkaline Phosphatase 316 U/L (40-110); Anion Gap 15 mmol/L (10-20); BUN (Urea Nitrogen) 68 mg/dL (8.4-25.7); Bilirubin, Total 1.7 mg/dL (0.2-1.2); Calc. Creatinine Clearance 0 mL/min (70-130); Calcium 8.8 mg/dL (7.8-10.44); Carbon Dioxide 18 mmol/L (23-31); Chloride 105 mmol/L (98-107); Globulin 3.9 g/dL (2.4-3.5); Glucose 166 mg/dL (80-115); Lipase 10 U/L (8-78); Potassium 4.7 mmol/L (3.5-5.1); Protein, Total 7.3 g/dL (5.8-8.1); Sodium 133 mmol/L (136-145)
[2021-11-21 12:22] LABS: Bacteria/HPF 1+ HPF (None Seen); Bilirubin Negative (Negative); Blood, Urine Negative (Negative); Clarity Clear (Clear); Glucose, Urine (Dipstick) Normal (Negative); Ketone, Urine Negative (Negative); Leukocyte 250 Leu/uL (Negative); Nitrite Negative (Negative); Protein, Urine (Dipstick) 10 mg/dL (Neg-Trace); RBC/HPF 0-3 HPF (0-3); Specific Gravity, Urine 1.018 (1.002-1.036); Squamous Epithelial 0-3 HPF (0-3); Urobilinogen Normal mg/dL (Less than 2); pH, Urine 5.5 (5.0-9.0)
[2021-11-21 12:25] LABS: Anisocytosis SLIGHT = 6-15 cells (100X) (0-5/hpf); Band 21 % (5-11); Hemoglobin 12.9 g/dL (14.0-18.0); Lymphocytes 22 % (21-51); MDiff Complete? YES; Mean Corpuscular HGB CONC 32.8 g/dL (32.0-36.0); Mean Corpuscular Hemoglobin 30.6 pg (27.0-31.0); Mean Corpuscular Volume 93.3 fL (78.0-98.0); Mean Platelet Volume 7.1 fL (7.4-10.4); Monocytes 1 % (0-10); Neutrophil 56 % (42-75); Platelet Count 65 thou/uL (130-400); Platelet Morphology Comment Appears Decreased; RBC Distribution Width 15.3 % (11.5-14.5); Red Blood Cell (RBC) Count 4.22 mill/uL (4.70-6.10); White Blood Cell (WBC) Count 1.4 thou/uL (4.8-10.8)
[2021-11-21] MEDS ORDERED: Albumin 25% 25 GM/100 ML BOT IVPB SCH ×2 (12:30→12:45)
[2021-11-21] MEDS ORDERED: Xylocaine 1% w/ Epi 1:100K 10 ML VIAL ONE (13:59)
[2021-11-21] MEDS ORDERED: Morphine 2 MG/ML VIAL ONE (13:59)
[2021-11-21] MEDS ORDERED: cefTRIAXone\\ROCEPHIN 1 GM VIAL ONE (14:10)
[2021-11-21] MEDS ORDERED: Vancomycin 1 GM/200 ML BAG ONE (16:02)
[2021-11-21] MEDS ORDERED: Sodium Chloride 0.9% 500 ML IV SCH (16:15)
[2021-11-21 16:20] LABS: INR-International Normal Ratio 1.2; PTT 29.2 sec (22.9-36.1); Prothrombin Time 15.6 sec (12.0-14.7)
[2021-11-21 19:52] LABS: Lactic Acid 1.8 mmol/L (0.5-2.2)
[2021-11-21] MEDS ORDERED: Acetaminophen 325 MG TAB PO PRN (21:36)
[2021-11-21] MEDS ORDERED: Dextrose 50% Abboject 50 ML SYRINGE SLOW IVP PRN (21:36)
[2021-11-21] MEDS ORDERED: Dextrose 5% in Water 1,000 ML IV PRN (21:36)
[2021-11-21] MEDS ORDERED: hydrALAZINE 20 MG/ML VIAL SLOW IVP PRN (21:36)
[2021-11-21] MEDS: HumaLOG 300 UNITS/3 ML VIAL SC PRN (22:30)
[2021-11-21] MEDS: cefTRIAXone\\ROCEPHIN 1 GM in Sodium Chloride 0.9% 100 ML IVPB SCH (22:34)
[2021-11-21 23:42] VITALS: BMI 28.9
[2021-11-22] MEDS: Albumin 25% 25 GM/100 ML BOT IVPB SCH ×4 (00:08→22:50)
[2021-11-22 04:47] LABS: Anion Gap 17 mmol/L (10-20); BUN (Urea Nitrogen) 67 mg/dL (8.4-25.7); Calc. Creatinine Clearance 29 mL/min (70-130); Calcium 8.2 mg/dL (7.8-10.44); Carbon Dioxide 12 mmol/L (23-31); Chloride 105 mmol/L (98-107); Glucose 447 mg/dL (80-115); Potassium 5.1 mmol/L (3.5-5.1); Sodium 129 mmol/L (136-145)
[2021-11-22] MEDS: HumaLOG 300 UNITS/3 ML VIAL SC PRN ×2 (06:49→11:55)
[2021-11-22] MEDS: Levothyroxine Sodium 100 MCG TAB PO SCH (06:53)
[2021-11-22 06:57] LABS: #Lymphocytes 0.1 thou/uL (1.20-3.40); #Monocytes 0.4 thou/uL (0.11-0.59); #Neutrophils 3.4 thou/uL (1.40-6.50); %Basophils 0.5 % (0.0-1.0); %Eosinophils 0.1 % (0.0-10.0); %Lymphocytes 3.4 % (21.0-51.0); %Monocytes 9.3 % (0.0-10.0); %Neutrophils 86.6 % (42.0-75.0); Anisocytosis SLIGHT = 6-15 cells (100X) (0-5/hpf); Hemoglobin 9.8 g/dL (14.0-18.0); MDiff Complete? YES; Mean Corpuscular HGB CONC 31.4 g/dL (32.0-36.0); Mean Corpuscular Hemoglobin 30.2 pg (27.0-31.0); Mean Platelet Volume 7.6 fL (7.4-10.4); Platelet Count 33 thou/uL (130-400); Platelet Morphology Comment Appears Decreased; RBC Distribution Width 15.2 % (11.5-14.5); Red Blood Cell (RBC) Count 3.24 mill/uL (4.70-6.10); White Blood Cell (WBC) Count 3.9 thou/uL (4.8-10.8)
[2021-11-22 08:04] LABS: RBC Count-Automated (BF) 1243 /cu.mm; WBC/Nucleated-Auto (BF) 3236 /cu.mm
[2021-11-22 08:20] LABS: BF Color Yellow; Body Fluid Source Peritoneal Fluid; Clarity Hazy (Clear); Tube # EDTA
[2021-11-22 08:21] LABS: BF Segmented Neutrophils 90 %; Cell Count Non Hematic 8 %; Lymphocytes 2 %
[2021-11-22] MEDS ORDERED: Non-Formulary Item 1 EACH (Insulin Aspart Prot/Insuln Asp [Novolog Mix 70-30 Flexpen] 100 SQ SCH ×2 (09:00→21:00)
[2021-11-22] MEDS ORDERED: Non-Formulary Item 1 EACH (Lactulose 10 Gm/15ml Oral Sol 10 GM/15 ML Ml) PO SCH (09:00)
[2021-11-22] MEDS ORDERED: Non-Formulary Item 1 EACH (Lactulose [Lactulose] 10 GM/15 ML Solution) PO SCH (09:00)
[2021-11-22] MEDS: Nadolol 40 MG TAB PO SCH (09:45)
[2021-11-22] MEDS: Spironolactone 25 MG TAB PO SCH ×2 (09:46→21:33)
[2021-11-22] MEDS: Ergocalciferol 1.25 MG(50,000 UNITS) CAP PO SCH (09:46)
[2021-11-22] MEDS: metFORMIN 500 MG TAB PO SCH ×2 (09:46→16:26)
[2021-11-22] MEDS: HumuLIN 70/30 (300 UNITS/3 ML VIAL) SC SCH ×2 (09:47→21:34)
[2021-11-22] MEDS: Furosemide 40 MG TAB PO SCH ×2 (09:49→21:33)
[2021-11-22 12:08] LABS: SARS-CoV-2 PCR by NAA Not Detected (NotDetected)
[2021-11-22] MEDS ORDERED: cefTRIAXone\\ROCEPHIN 1 GM in Sodium Chloride 0.9% 100 ML IVPB SCH (13:00)
[2021-11-22] MEDS: cefTRIAXone\\ROCEPHIN 1 GM in Sodium Chloride 0.9% 100 ML IVPB SCH (21:35)
[2021-11-23] MEDS: HumaLOG 300 UNITS/3 ML VIAL SC PRN ×2 (06:02→20:51)
[2021-11-23] MEDS: Levothyroxine Sodium 100 MCG TAB PO SCH (06:02)
[2021-11-23 06:20] LABS: Mean Corpuscular HGB CONC 33.6 g/dL (32.0-36.0); Mean Corpuscular Hemoglobin 31.6 pg (27.0-31.0); Mean Platelet Volume 7.5 fL (7.4-10.4); Platelet Count 26 thou/uL (130-400); RBC Distribution Width 15.2 % (11.5-14.5); Red Blood Cell (RBC) Count 2.84 mill/uL (4.70-6.10); White Blood Cell (WBC) Count 3.3 thou/uL (4.8-10.8)
[2021-11-23 06:25] LABS: Anion Gap 12 mmol/L (10-20); BUN (Urea Nitrogen) 65 mg/dL (8.4-25.7); Calc. Creatinine Clearance 28 mL/min (70-130); Calcium 8.3 mg/dL (7.8-10.44); Carbon Dioxide 16 mmol/L (23-31); Chloride 107 mmol/L (98-107); Glucose 250 mg/dL (80-115); Potassium 4.2 mmol/L (3.5-5.1); Sodium 131 mmol/L (136-145)
[2021-11-23 06:40] LABS: Band 15 % (5-11); Eosinophils 1 % (0-10); Lymphocytes 4 % (21-51); MDiff Complete? YES; Monocytes 17 % (0-10); Neutrophil 63 % (42-75); Platelet Morphology Comment Appears Decreased
[2021-11-23] MEDS: metFORMIN 500 MG TAB PO SCH (07:53)
[2021-11-23] MEDS: Spironolactone 25 MG TAB PO SCH (07:54)
[2021-11-23] MEDS: Nadolol 40 MG TAB PO SCH (07:54)
[2021-11-23] MEDS: Furosemide 40 MG TAB PO SCH (07:54)
[2021-11-23] MEDS: HumuLIN 70/30 (300 UNITS/3 ML VIAL) SC SCH ×2 (07:57→19:51)
[2021-11-23] MEDS: cefTRIAXone\\ROCEPHIN 2 GM in Sodium Chloride 0.9% 100 ML IVPB SCH (08:02)
[2021-11-23] MEDS: Albumin 25% 25 GM/100 ML BOT IVPB SCH (17:41)
[2021-11-23] MEDS: Midodrine HCl 5 MG TAB PO SCH (19:55)
[2021-11-24] MEDS: Albumin 25% 25 GM/100 ML BOT IVPB SCH ×3 (00:07→16:05)
[2021-11-24] MEDS: Levothyroxine Sodium 100 MCG TAB PO SCH (05:32)
[2021-11-24 06:37] LABS: Hemoglobin 9.8 g/dL (14.0-18.0); Mean Corpuscular HGB CONC 31.5 g/dL (32.0-36.0); Mean Corpuscular Hemoglobin 30.5 pg (27.0-31.0); Mean Corpuscular Volume 96.7 fL (78.0-98.0); Mean Platelet Volume 8.2 fL (7.4-10.4); Platelet Count 28 thou/uL (130-400); RBC Distribution Width 15.3 % (11.5-14.5); White Blood Cell (WBC) Count 2.2 thou/uL (4.8-10.8)
[2021-11-24 06:59] LABS: ALT (SGPT) 28 U/L (8-55); AST (SGOT) 27 U/L (5-34); Albumin 3.6 g/dL (3.4-4.8); Alkaline Phosphatase 204 U/L (40-110); Anion Gap 13 mmol/L (10-20); BUN (Urea Nitrogen) 63 mg/dL (8.4-25.7); Bilirubin, Total 1.3 mg/dL (0.2-1.2); Calc. Creatinine Clearance 31 mL/min (70-130); Calcium 8.5 mg/dL (7.8-10.44); Carbon Dioxide 16 mmol/L (23-31); Chloride 110 mmol/L (98-107); Globulin 2.9 g/dL (2.4-3.5); Glucose 167 mg/dL (80-115); Potassium 4.2 mmol/L (3.5-5.1); Protein, Total 6.5 g/dL (5.8-8.1); Sodium 135 mmol/L (136-145)
[2021-11-24] MEDS: HumuLIN 70/30 (300 UNITS/3 ML VIAL) SC SCH ×2 (08:23→19:53)
[2021-11-24] MEDS: cefTRIAXone\\ROCEPHIN 2 GM in Sodium Chloride 0.9% 100 ML IVPB SCH (08:23)
[2021-11-24] MEDS: Midodrine HCl 5 MG TAB PO SCH ×3 (08:24→19:50)
[2021-11-24 08:47] LABS: Band 16 % (5-11); Lymphocytes 14 % (21-51); MDiff Complete? YES; Monocytes 8 % (0-10); Neutrophil 62 % (42-75); Platelet Morphology Comment Appears Decreased; Polychromasia SLIGHT = 2-3 cells (100X) (0-2/hpf)
[2021-11-24] MEDS ORDERED: Meropenem 1 GM in Sodium Chloride 0.9% 100 ML IVPB SCH ×3 (10:45→20:00)
[2021-11-24] MEDS: HumaLOG 300 UNITS/3 ML VIAL SC PRN ×2 (12:11→21:54)
[2021-11-24] MEDS ORDERED: Lidocaine 1% PF 5 ML VIAL ONE (14:48)
[2021-11-24] MEDS ORDERED: Sodium Bicarbonate 2.5 MEQ/5 ML VIAL ONE (14:48)
[2021-11-24] MEDS: Meropenem 500 MG in Sodium Chloride 0.9% 100 ML IVPB SCH (19:50)
[2021-11-24 21:15] LABS: Body Fluid Source Ascites Body Fluid
[2021-11-24 21:16] LABS: BF Color Yellow; Clarity Cloudy/Turbid (Clear); Tube # EDTA
[2021-11-24 21:17] LABS: BF RBC Count - Manual 2960 /cu.mm; BF WBC/Nonhematics Ct.-Manual 2320 /cu.mm
[2021-11-24 21:22] LABS: BF Segmented Neutrophils 56 %; Cell Count Non Hematic 41 %; Lymphocytes 3 %
[2021-11-25] MEDS: Levothyroxine Sodium 100 MCG TAB PO SCH (05:32)
[2021-11-25 07:18] LABS: #Lymphocytes 0.1 thou/uL (1.20-3.40); #Monocytes 0.2 thou/uL (0.11-0.59); #Neutrophils 1.6 thou/uL (1.40-6.50); %Basophils 1.7 % (0.0-1.0); %Eosinophils 0.9 % (0.0-10.0); %Lymphocytes 4.6 % (21.0-51.0); %Monocytes 11.5 % (0.0-10.0); %Neutrophils 81.3 % (42.0-75.0); Hemoglobin 9.8 g/dL (14.0-18.0); Mean Corpuscular HGB CONC 31.9 g/dL (32.0-36.0); Mean Corpuscular Hemoglobin 30.3 pg (27.0-31.0); Platelet Count 34 thou/uL (130-400); RBC Distribution Width 15.1 % (11.5-14.5); Red Blood Cell (RBC) Count 3.23 mill/uL (4.70-6.10)
[2021-11-25 07:29] LABS: Anion Gap 13 mmol/L (10-20); BUN (Urea Nitrogen) 56 mg/dL (8.4-25.7); Calc. Creatinine Clearance 37 mL/min (70-130); Calcium 8.5 mg/dL (7.8-10.44); Carbon Dioxide 17 mmol/L (23-31); Chloride 110 mmol/L (98-107); Glucose 199 mg/dL (80-115); Potassium 4.6 mmol/L (3.5-5.1); Sodium 135 mmol/L (136-145)
[2021-11-25] MEDS: Midodrine HCl 5 MG TAB PO SCH ×3 (08:32→20:26)
[2021-11-25] MEDS: Meropenem 500 MG in Sodium Chloride 0.9% 100 ML IVPB SCH (08:32)
[2021-11-25] MEDS: HumuLIN 70/30 (300 UNITS/3 ML VIAL) SC SCH ×2 (08:32→20:27)
[2021-11-25] MEDS: HumaLOG 300 UNITS/3 ML VIAL SC PRN ×3 (11:45→20:26)
[2021-11-25] MEDS ORDERED: MEROPENEM 1 GM/50 ML 1 GM in Premix Bag 1 BAG IVPB SCH (20:00)
[2021-11-25] MEDS: Meropenem 1 GM in Sodium Chloride 0.9% 100 ML IVPB SCH (20:25)
[2021-11-25] MEDS: Chlorhexidine Gluconate 15 ML UDCUP SSP SCH (20:26)
[2021-11-26] MEDS: HumaLOG 300 UNITS/3 ML VIAL SC PRN ×3 (05:11→20:11)
[2021-11-26] MEDS: Levothyroxine Sodium 100 MCG TAB PO SCH (05:11)
[2021-11-26 07:30] LABS: #Lymphocytes 0.1 thou/uL (1.20-3.40); #Monocytes 0.3 thou/uL (0.11-0.59); #Neutrophils 1.8 thou/uL (1.40-6.50); %Basophils 0.5 % (0.0-1.0); %Eosinophils 0.8 % (0.0-10.0); %Lymphocytes 5.2 % (21.0-51.0); %Monocytes 12.4 % (0.0-10.0); %Neutrophils 81.1 % (42.0-75.0); Hemoglobin 10.3 g/dL (14.0-18.0); Mean Corpuscular Hemoglobin 30.7 pg (27.0-31.0); Mean Corpuscular Volume 95.9 fL (78.0-98.0); Mean Platelet Volume 7.3 fL (7.4-10.4); Platelet Count 36 thou/uL (130-400); RBC Distribution Width 15.1 % (11.5-14.5); Red Blood Cell (RBC) Count 3.35 mill/uL (4.70-6.10); White Blood Cell (WBC) Count 2.2 thou/uL (4.8-10.8)
[2021-11-26 07:48] LABS: Anion Gap 12 mmol/L (10-20); BUN (Urea Nitrogen) 54 mg/dL (8.4-25.7); Calc. Creatinine Clearance 38 mL/min (70-130); Calcium 8.4 mg/dL (7.8-10.44); Carbon Dioxide 17 mmol/L (23-31); Chloride 107 mmol/L (98-107); Glucose 343 mg/dL (80-115); Potassium 4.4 mmol/L (3.5-5.1); Sodium 132 mmol/L (136-145)
[2021-11-26] MEDS ORDERED: HumuLIN 70/30 (300 UNITS/3 ML VIAL) SC SCH (08:30)
[2021-11-26] MEDS: Chlorhexidine Gluconate 15 ML UDCUP SSP SCH ×2 (08:45→20:10)
[2021-11-26] MEDS: Midodrine HCl 5 MG TAB PO SCH ×3 (08:45→20:10)
[2021-11-26] MEDS: Meropenem 1 GM in Sodium Chloride 0.9% 100 ML IVPB SCH ×2 (08:46→19:41)
[2021-11-26] MEDS: HumuLIN 70/30 (300 UNITS/3 ML VIAL) SC SCH (15:28)
[2021-11-27] MEDS: Levothyroxine Sodium 100 MCG TAB PO SCH (06:03)
[2021-11-27] MEDS: HumaLOG 300 UNITS/3 ML VIAL SC PRN ×2 (06:30→12:11)
[2021-11-27 07:21] LABS: Chloride 107 mmol/L (98-107); Potassium 4.7 mmol/L (3.5-5.1); Sodium 129 mmol/L (136-145)
[2021-11-27 07:22] LABS: Calcium 8.3 mg/dL (7.8-10.44); Glucose 403 mg/dL (80-115)
[2021-11-27 07:23] LABS: Anion Gap 12 mmol/L (10-20); Carbon Dioxide 15 mmol/L (23-31)
[2021-11-27 07:25] LABS: Calc. Creatinine Clearance 35 mL/min (70-130)
[2021-11-27 07:26] LABS: BUN (Urea Nitrogen) 70 mg/dL (8.4-25.7)
[2021-11-27 07:31] LABS: Hemoglobin 10.6 g/dL (14.0-18.0); Mean Corpuscular HGB CONC 31.5 g/dL (32.0-36.0); Mean Corpuscular Volume 95.2 fL (78.0-98.0); Red Blood Cell (RBC) Count 3.54 mill/uL (4.70-6.10)
[2021-11-27 08:12] LABS: Anisocytosis SLIGHT = 6-15 cells (100X) (0-5/hpf); Eosinophils 2 % (0-10); Lymphocytes 2 % (21-51); MDiff Complete? YES; Mean Platelet Volume 7.8 fL (7.4-10.4); Monocytes 16 % (0-10); Neutrophil 79 % (42-75); Platelet Count 34 thou/uL (130-400); Platelet Morphology Comment Appears Decreased; Vacuoles SLIGHT; White Blood Cell (WBC) Count 2.3 thou/uL (4.8-10.8)
[2021-11-27] MEDS: Spironolactone 25 MG TAB PO SCH ×2 (08:50→20:11)
[2021-11-27] MEDS: Chlorhexidine Gluconate 15 ML UDCUP SSP SCH ×2 (08:50→20:07)
[2021-11-27] MEDS: Furosemide 40 MG TAB PO SCH ×2 (08:51→20:11)
[2021-11-27] MEDS: Midodrine HCl 5 MG TAB PO SCH ×3 (08:51→20:11)
[2021-11-27] MEDS: HumuLIN 70/30 (300 UNITS/3 ML VIAL) SC SCH ×2 (08:52→20:20)
[2021-11-27] MEDS: Meropenem 1 GM in Sodium Chloride 0.9% 100 ML IVPB SCH (08:53)
[2021-11-27] MEDS: Meropenem 500 MG in Sodium Chloride 0.9% 100 ML IVPB SCH (20:07)
[2021-11-28] MEDS: Levothyroxine Sodium 100 MCG TAB PO SCH (05:22)
[2021-11-28 07:10] LABS: Hemoglobin 9.8 g/dL (14.0-18.0); Mean Corpuscular HGB CONC 32.2 g/dL (32.0-36.0); Mean Corpuscular Hemoglobin 30.7 pg (27.0-31.0); Mean Corpuscular Volume 95.4 fL (78.0-98.0); RBC Distribution Width 14.7 % (11.5-14.5)
[2021-11-28 07:22] LABS: Anion Gap 13 mmol/L (10-20); BUN (Urea Nitrogen) 77 mg/dL (8.4-25.7); Calc. Creatinine Clearance 34 mL/min (70-130); Calcium 8.7 mg/dL (7.8-10.44); Carbon Dioxide 17 mmol/L (23-31); Chloride 108 mmol/L (98-107); Glucose 166 mg/dL (80-115); Potassium 4.6 mmol/L (3.5-5.1); Sodium 133 mmol/L (136-145)
[2021-11-28 08:51] LABS: Eosinophils 2 % (0-10); Lymphocytes 20 % (21-51); MDiff Complete? YES; Monocytes 18 % (0-10); Neutrophil 60 % (42-75); Platelet Morphology Comment PLT clumps seen-LOW; White Blood Cell (WBC) Count 2.5 thou/uL (4.8-10.8)
[2021-11-28] MEDS: Meropenem 500 MG in Sodium Chloride 0.9% 100 ML IVPB SCH ×2 (09:39→19:29)
[2021-11-28] MEDS: Furosemide 40 MG TAB PO SCH ×2 (09:42→20:14)
[2021-11-28] MEDS: Midodrine HCl 5 MG TAB PO SCH ×3 (09:42→20:14)
[2021-11-28] MEDS: Chlorhexidine Gluconate 15 ML UDCUP SSP SCH ×2 (09:42→20:13)
[2021-11-28] MEDS: Spironolactone 25 MG TAB PO SCH ×2 (09:44→20:14)
[2021-11-28] MEDS: HumuLIN 70/30 (300 UNITS/3 ML VIAL) SC SCH ×2 (09:46→20:12)
[2021-11-29] MEDS: Levothyroxine Sodium 100 MCG TAB PO SCH (05:25)
[2021-11-29 06:23] LABS: #Basophils 0.1 thou/uL (0.0-0.2); #Eosinphils 0.1 thou/uL (0.0-0.7); #Lymphocytes 0.2 thou/uL (1.20-3.40); #Monocytes 0.4 thou/uL (0.11-0.59); #Neutrophils 3.2 thou/uL (1.40-6.50); %Basophils 1.5 % (0.0-1.0); %Eosinophils 1.4 % (0.0-10.0); %Lymphocytes 4.9 % (21.0-51.0); %Monocytes 10.3 % (0.0-10.0); %Neutrophils 81.9 % (42.0-75.0); Hemoglobin 10.6 g/dL (14.0-18.0); Mean Corpuscular HGB CONC 31.9 g/dL (32.0-36.0); Mean Corpuscular Hemoglobin 30.6 pg (27.0-31.0); Mean Platelet Volume 6.8 fL (7.4-10.4); Platelet Count 46 thou/uL (130-400); RBC Distribution Width 14.8 % (11.5-14.5); Red Blood Cell (RBC) Count 3.46 mill/uL (4.70-6.10)
[2021-11-29 06:45] LABS: Anion Gap 15 mmol/L (10-20); BUN (Urea Nitrogen) 71 mg/dL (8.4-25.7); Calc. Creatinine Clearance 34 mL/min (70-130); Calcium 8.6 mg/dL (7.8-10.44); Carbon Dioxide 13 mmol/L (23-31); Chloride 109 mmol/L (98-107); Glucose 123 mg/dL (80-115); Potassium 4.2 mmol/L (3.5-5.1); Sodium 133 mmol/L (136-145)
[2021-11-29] MEDS ORDERED: Albumin 25% 25 GM/100 ML BOT IVPB SCH (08:00)
[2021-11-29] MEDS: Meropenem 500 MG in Sodium Chloride 0.9% 100 ML IVPB SCH ×2 (08:46→20:14)
[2021-11-29] MEDS: Ergocalciferol 1.25 MG(50,000 UNITS) CAP PO SCH (08:47)
[2021-11-29] MEDS: Chlorhexidine Gluconate 15 ML UDCUP SSP SCH ×2 (08:48→20:14)
[2021-11-29] MEDS: Midodrine HCl 5 MG TAB PO SCH ×3 (08:48→20:15)
[2021-11-29] MEDS: Spironolactone 25 MG TAB PO SCH ×2 (08:48→20:15)
[2021-11-29] MEDS: Furosemide 40 MG TAB PO SCH ×2 (08:48→20:15)
[2021-11-29] MEDS: HumuLIN 70/30 (300 UNITS/3 ML VIAL) SC SCH ×2 (09:36→20:15)
[2021-11-29 17:02] LABS: SARS-CoV-2 PCR by NAA Not Detected (NotDetected)
[2021-11-30] MEDS: Levothyroxine Sodium 100 MCG TAB PO SCH (05:47)
[2021-11-30 06:19] LABS: #Eosinphils 0.1 thou/uL (0.0-0.7); #Lymphocytes 0.3 thou/uL (1.20-3.40); #Monocytes 0.5 thou/uL (0.11-0.59); #Neutrophils 3.2 thou/uL (1.40-6.50); %Basophils 0.3 % (0.0-1.0); %Eosinophils 1.4 % (0.0-10.0); %Lymphocytes 7.1 % (21.0-51.0); %Monocytes 11.5 % (0.0-10.0); %Neutrophils 79.7 % (42.0-75.0); Hemoglobin 11.1 g/dL (14.0-18.0); Mean Corpuscular Hemoglobin 30.8 pg (27.0-31.0); Mean Corpuscular Volume 96.4 fL (78.0-98.0); Mean Platelet Volume 7.3 fL (7.4-10.4); Platelet Count 55 thou/uL (130-400)
[2021-11-30 06:22] LABS: INR-International Normal Ratio 1.3; Prothrombin Time 16.6 sec (12.0-14.7)
[2021-11-30 06:23] LABS: PTT 36.9 sec (22.9-36.1)
[2021-11-30 06:28] LABS: Anion Gap 13 mmol/L (10-20); BUN (Urea Nitrogen) 67 mg/dL (8.4-25.7); Calc. Creatinine Clearance 31 mL/min (70-130); Calcium 8.5 mg/dL (7.8-10.44); Carbon Dioxide 18 mmol/L (23-31); Chloride 109 mmol/L (98-107); Glucose 71 mg/dL (80-115); Potassium 4.3 mmol/L (3.5-5.1); Sodium 136 mmol/L (136-145)
[2021-11-30 08:31] VITALS: BP 124/82; TEMP 98.2
[2021-11-30] MEDS: Chlorhexidine Gluconate 15 ML UDCUP SSP SCH (08:51)
[2021-11-30] MEDS: Midodrine HCl 5 MG TAB PO SCH ×2 (08:51→14:53)
[2021-11-30] MEDS: HumuLIN 70/30 (300 UNITS/3 ML VIAL) SC SCH (08:54)
[2021-11-30] MEDS: Meropenem 500 MG in Sodium Chloride 0.9% 100 ML IVPB SCH (08:54)
[2021-11-30] MEDS ORDERED: Sodium Bicarbonate 2.5 MEQ/5 ML VIAL ONE (10:09)
[2021-11-30] MEDS ORDERED: Lidocaine 1% PF 5 ML VIAL ONE (10:09)
[2021-11-30] MEDS ORDERED: Albumin 25% 25 GM/100 ML BOT IVPB SCH (10:30)
[2021-11-30] MEDS: Mupirocin 2% Ointment 22 GM Tube TOP SCH ×2 (11:00→14:55)
[2021-11-30] MEDS: Furosemide 40 MG TAB PO SCH (11:05)
[2021-11-30] MEDS: Spironolactone 25 MG TAB PO SCH (11:05)
[2021-11-30] MEDS ORDERED: Albumin 25% 25 GM/100 ML BOT ONE (11:08)
[2021-11-30 13:20] LABS: RBC Count-Automated (BF) 1237 /cu.mm; WBC/Nucleated-Auto (BF) 112 /cu.mm
[2021-11-30 13:51] LABS: BF Color Yellow; Body Fluid Source Ascites Body Fluid; Clarity Hazy (Clear); Tube # EDTA
[2021-11-30 14:15] LABS: BF Segmented Neutrophils 20 %; Cell Count Non Hematic 46 %; Eosinophils 1 %; Lymphocytes 32 %
[2021-11-30] MEDS ORDERED: HumuLIN 70/30 (300 UNITS/3 ML VIAL) SC SCH (21:00)
== END 2021-11-30 16:13 | disposition home or self-care (01) | DRG 371 ==
LOC: ERS 11:17 → 2NO 16:10 → T4-B 11-22 13:05
PROVIDERS: ADMIT Internal Medicine; ATTEND Internal Medicine
PROC: 0W9G3ZZ Drainage of Peritoneal Cavity, Percutaneous Approach (ICD-10-PCS; principal; 2021-11-24)
PROC: 0W9G3ZZ Drainage of Peritoneal Cavity, Percutaneous Approach (ICD-10-PCS; 2021-11-30)
DX: K65.2 Spontaneous bacterial peritonitis (principal); D61.810 Antineoplastic chemotherapy induced pancytopenia; R18.8 Other ascites; E87.1 Hypo-osmolality and hyponatremia; C22.0 Liver cell carcinoma; N18.4 Chronic kidney disease, stage 4 (severe); N17.9 Acute kidney failure, unspecified; N39.0 Urinary tract infection, site not specified; Z16.20 Resistance to unspecified antibiotic; Z20.822 Contact with and (suspected) exposure to COVID-19; K74.69 Other cirrhosis of liver; B18.2 Chronic viral hepatitis C; E11.22 Type 2 diabetes mellitus with diabetic chronic kidney disease; I12.9 Hypertensive chronic kidney disease with stage 1 through stage 4 chronic kidney disease, or unspecified chronic kidney disease; K72.90 Hepatic failure, unspecified without coma; B95.4 Other streptococcus as the cause of diseases classified elsewhere; T45.1X5A Adverse effect of antineoplastic and immunosuppressive drugs, initial encounter; B96.20 Unspecified Escherichia coli [E. coli] as the cause of diseases classified elsewhere; Z79.51 Long term (current) use of inhaled steroids; Z79.899 Other long term (current) drug therapy; Z79.890 Hormone replacement therapy; Z79.84 Long term (current) use of oral hypoglycemic drugs; Z79.4 Long term (current) use of insulin; Z82.3 Family history of stroke; Z82.49 Family history of ischemic heart disease and other diseases of the circulatory system; Z90.49 Acquired absence of other specified parts of digestive tract; Z98.890 Other specified postprocedural states
CPT/HCPCS: 36415; 36416; 49083; 80048; 80053; 81003; 81015; 83605; 83690; 83735; 84484; 85025; 85060; 85610; 85730; 87040; 87070; 87077; 87086; 87186; 87205; 89051; 93005; 96361; 96365; 96366; 96367; 96375; G0306; J0696; J1815; J1956; J2185; J2270; J3370; J3490; P9047; U0003; U0005

== ENCOUNTER 2021-12-06 09:21 | Day surgery (SDC) | payer BC, MEDICARE ==
[2021-12-02 09:22] VITALS: BMI 28.3
[2021-12-06] MEDS ORDERED: Sodium Bicarbonate 2.5 MEQ/5 ML VIAL ONE (09:27)
[2021-12-06] MEDS ORDERED: Albumin 25% 200 ML ONE (09:27)
[2021-12-06] MEDS ORDERED: Lidocaine 1% PF 5 ML VIAL ONE (09:27)
[2021-12-06] MEDS ORDERED: Albumin 25% 25 GM/100 ML BOT IVPB SCH (09:45)
[2021-12-06 11:42] VITALS: BP 154/68; TEMP 97.8
[2021-12-06 12:13] LABS: RBC Count-Automated (BF) 1012 /cu.mm; WBC/Nucleated-Auto (BF) 247 /cu.mm
[2021-12-06 12:14] LABS: BF Color Yellow; Body Fluid Source Ascites Body Fluid; Clarity Hazy (Clear); Tube # EDTA
[2021-12-06 12:52] LABS: BF Segmented Neutrophils 5 %; Cell Count Non Hematic 77 %; Lymphocytes 18 %
== END 2021-12-06 11:43 | disposition home or self-care (01) ==
LOC: ULT 09:21
PROVIDERS: ATTEND Internal Medicine Gastroenterology
PROC: 0W9G3ZX Drainage of Peritoneal Cavity, Percutaneous Approach, Diagnostic (ICD-10-PCS; principal; 2021-12-06)
DX: K74.60 Unspecified cirrhosis of liver (principal); R18.8 Other ascites; K65.2 Spontaneous bacterial peritonitis; K72.90 Hepatic failure, unspecified without coma; I12.9 Hypertensive chronic kidney disease with stage 1 through stage 4 chronic kidney disease, or unspecified chronic kidney disease; E11.22 Type 2 diabetes mellitus with diabetic chronic kidney disease; N18.9 Chronic kidney disease, unspecified; Z79.2 Long term (current) use of antibiotics; Z79.4 Long term (current) use of insulin; Z79.84 Long term (current) use of oral hypoglycemic drugs; Z79.899 Other long term (current) drug therapy
CPT/HCPCS: 49083; 85060; 87070; 87205; 89051; P9047

== ENCOUNTER 2021-12-13 09:04 | Day surgery (SDC) | payer BC, MEDICARE ==
[2021-12-13 11:34] VITALS: BP 126/66; TEMP 97.6
== END 2021-12-13 11:15 | disposition home or self-care (01) ==
LOC: ULT 09:04
PROVIDERS: ATTEND Internal Medicine Gastroenterology
PROC: 0W9G3ZZ Drainage of Peritoneal Cavity, Percutaneous Approach (ICD-10-PCS; principal; 2021-12-13)
DX: B18.2 Chronic viral hepatitis C (principal); K74.60 Unspecified cirrhosis of liver; R18.8 Other ascites; C22.0 Liver cell carcinoma; D61.818 Other pancytopenia; E11.9 Type 2 diabetes mellitus without complications; I10 Essential (primary) hypertension; Z79.84 Long term (current) use of oral hypoglycemic drugs; Z79.4 Long term (current) use of insulin; Z79.899 Other long term (current) drug therapy; Z79.2 Long term (current) use of antibiotics
CPT/HCPCS: 49083

== ENCOUNTER 2021-12-16 11:12 | Day surgery (SDC) | payer BC, MEDICARE ==
[2021-12-13 11:42] VITALS: BMI 28.3
[2021-12-16 13:55] VITALS: BP 127/64; TEMP 98.1
== END 2021-12-16 12:50 | disposition home or self-care (01) ==
LOC: ULT 11:12
PROVIDERS: ATTEND Internal Medicine Gastroenterology
PROC: 0W9G3ZX Drainage of Peritoneal Cavity, Percutaneous Approach, Diagnostic (ICD-10-PCS; principal; 2021-12-16)
PROC: BW40ZZZ Ultrasonography of Abdomen (ICD-10-PCS; principal; 2021-12-16)
DX: K74.60 Unspecified cirrhosis of liver (principal); R18.8 Other ascites; B18.2 Chronic viral hepatitis C; E11.9 Type 2 diabetes mellitus without complications; D61.818 Other pancytopenia; Z79.4 Long term (current) use of insulin; Z79.84 Long term (current) use of oral hypoglycemic drugs; Z79.890 Hormone replacement therapy; Z79.899 Other long term (current) drug therapy
CPT/HCPCS: 49083

== ENCOUNTER 2021-12-20 08:59 | Day surgery (SDC) | payer BC, MEDICARE ==
[2021-12-20] MEDS ORDERED: Lidocaine 1% PF 5 ML VIAL ONE (10:00)
[2021-12-20] MEDS ORDERED: Albumin 25% 200 ML ONE (10:00)
[2021-12-20] MEDS ORDERED: Sodium Bicarbonate 2.5 MEQ/5 ML VIAL ONE (10:00)
[2021-12-20] MEDS ORDERED: Albumin 25% 25 GM/100 ML BOT IVPB SCH (10:15)
[2021-12-20 12:39] VITALS: BP 119/48
[2021-12-20 13:35] LABS: RBC Count-Automated (BF) 1087 /cu.mm; WBC/Nucleated-Auto (BF) 2351 /cu.mm
[2021-12-20 14:08] LABS: BF Color Yellow; Body Fluid Source Ascites Body Fluid; Clarity Hazy (Clear); Tube # EDTA
[2021-12-20 14:11] LABS: BF Segmented Neutrophils 5 %; Cell Count Non Hematic 79 %; Lymphocytes 16 %
== END 2021-12-20 11:45 | disposition home or self-care (01) ==
LOC: ULT 08:59
PROVIDERS: ATTEND Internal Medicine Gastroenterology
PROC: BW40ZZZ Ultrasonography of Abdomen (ICD-10-PCS; principal; 2021-12-20)
PROC: 0W9G3ZZ Drainage of Peritoneal Cavity, Percutaneous Approach (ICD-10-PCS; principal; 2021-12-20)
DX: K74.60 Unspecified cirrhosis of liver (principal); R18.8 Other ascites
CPT/HCPCS: 49083; 85060; 87070; 87205; 89051; P9047

== ENCOUNTER 2021-12-27 09:04 | Day surgery (SDC) | payer BC, MEDICARE ==
[2021-12-24 13:05] VITALS: BMI 28.3
[2021-12-27 09:26] LABS: INR-International Normal Ratio 1.3; PTT 28.9 sec (22.9-36.1); Prothrombin Time 16.3 sec (12.0-14.7)
[2021-12-27] MEDS ORDERED: Lidocaine 1% PF 5 ML VIAL ONE (09:38)
[2021-12-27] MEDS ORDERED: Albumin 25% 200 ML ONE (09:38)
[2021-12-27] MEDS ORDERED: Sodium Bicarbonate 2.5 MEQ/5 ML VIAL ONE (09:38)
[2021-12-27 11:33] LABS: RBC Count-Automated (BF) 1019 /cu.mm; WBC/Nucleated-Auto (BF) 900 /cu.mm
[2021-12-27 11:49] VITALS: BP 121/61; TEMP 97.4
[2021-12-27 11:50] LABS: BF Color Yellow; Body Fluid Source Ascites Body Fluid; Clarity Cloudy/Turbid (Clear); Tube # EDTA
[2021-12-27 11:53] LABS: BF Segmented Neutrophils 6 %; Cell Count Non Hematic 81 %; Lymphocytes 13 %
== END 2021-12-27 11:00 | disposition home or self-care (01) ==
LOC: ULT 09:04
PROVIDERS: ATTEND Internal Medicine Gastroenterology
PROC: 0W9G3ZX Drainage of Peritoneal Cavity, Percutaneous Approach, Diagnostic (ICD-10-PCS; principal; 2021-12-27)
DX: K74.60 Unspecified cirrhosis of liver (principal); R18.8 Other ascites; B18.2 Chronic viral hepatitis C; D61.818 Other pancytopenia; C22.0 Liver cell carcinoma; E11.9 Type 2 diabetes mellitus without complications; I10 Essential (primary) hypertension; Z79.4 Long term (current) use of insulin; Z79.84 Long term (current) use of oral hypoglycemic drugs; Z79.890 Hormone replacement therapy; Z79.899 Other long term (current) drug therapy
CPT/HCPCS: 49083; 85025; 85060; 85610; 85730; 87070; 87205; 89051; P9047

== ENCOUNTER 2022-01-04 11:24 | Day surgery (SDC) | payer BC, MEDICARE ==
[2022-01-04 13:17] VITALS: BP 126/64; TEMP 97.9; BMI 28.3
[2022-01-04 14:30] LABS: RBC Count-Automated (BF) 813 /cu.mm; WBC/Nucleated-Auto (BF) 130 /cu.mm
[2022-01-04 14:49] LABS: BF Color Yellow; Body Fluid Source Ascites Body Fluid; Clarity Hazy (Clear); Tube # EDTA
[2022-01-04 14:50] LABS: BF Segmented Neutrophils 3 %; Cell Count Non Hematic 82 %; Lymphocytes 15 %
== END 2022-01-04 11:55 | disposition home or self-care (01) ==
LOC: ULT 11:24
PROVIDERS: ATTEND Internal Medicine Gastroenterology
PROC: 0W9G3ZX Drainage of Peritoneal Cavity, Percutaneous Approach, Diagnostic (ICD-10-PCS; principal; 2022-01-04)
DX: K74.60 Unspecified cirrhosis of liver (principal); R18.8 Other ascites; Z79.2 Long term (current) use of antibiotics; Z79.4 Long term (current) use of insulin; Z79.890 Hormone replacement therapy; Z79.899 Other long term (current) drug therapy
CPT/HCPCS: 49083; 85060; 87070; 87205; 89051

== ENCOUNTER 2022-01-10 09:12 | Day surgery (SDC) | payer BC, MEDICARE ==
[2022-01-06 11:12] VITALS: BMI 28.3
[2022-01-10] MEDS ORDERED: Albumin 25% 200 ML ONE (09:15)
[2022-01-10] MEDS ORDERED: Sodium Bicarbonate 2.5 MEQ/5 ML VIAL ONE (09:16)
[2022-01-10] MEDS ORDERED: Lidocaine 1% PF 5 ML VIAL ONE (09:16)
[2022-01-10 09:50] LABS: #Eosinphils 0.1 thou/uL (0.0-0.7); #Lymphocytes 0.3 thou/uL (1.20-3.40); #Monocytes 0.3 thou/uL (0.11-0.59); #Neutrophils 2.4 thou/uL (1.40-6.50); %Lymphocytes 9.2 % (21.0-51.0); %Monocytes 10.1 % (0.0-10.0); %Neutrophils 78.8 % (42.0-75.0); Mean Corpuscular HGB CONC 32.8 g/dL (32.0-36.0); Mean Corpuscular Hemoglobin 31.6 pg (27.0-31.0); Mean Corpuscular Volume 96.6 fL (78.0-98.0); Mean Platelet Volume 7.7 fL (7.4-10.4); Platelet Count 44 thou/uL (130-400); RBC Distribution Width 16.3 % (11.5-14.5); Red Blood Cell (RBC) Count 3.48 mill/uL (4.70-6.10)
[2022-01-10 09:54] LABS: ALT (SGPT) 38 U/L (8-55); AST (SGOT) 38 U/L (5-34); Albumin 3.3 g/dL (3.4-4.8); Alkaline Phosphatase 330 U/L (40-110); Anion Gap 14 mmol/L (10-20); BUN (Urea Nitrogen) 71 mg/dL (8.4-25.7); Bilirubin, Total 1.8 mg/dL (0.2-1.2); Calc. Creatinine Clearance 24 mL/min (70-130); Calcium 8.8 mg/dL (7.8-10.44); Carbon Dioxide 18 mmol/L (23-31); Chloride 109 mmol/L (98-107); Estimated GFR 22; Globulin 3.9 g/dL (2.4-3.5); Glucose 266 mg/dL (80-115); Potassium 4.8 mmol/L (3.5-5.1); Protein, Total 7.2 g/dL (5.8-8.1); Sodium 136 mmol/L (136-145)
[2022-01-10 10:36] VITALS: BP 119/62; TEMP 97.5
[2022-01-10 12:01] LABS: RBC Count-Automated (BF) 1085 /cu.mm; WBC/Nucleated-Auto (BF) 119 /cu.mm
[2022-01-10 12:40] LABS: BF Color Pink; Body Fluid Source Ascites Body Fluid; Clarity Hazy (Clear); Tube # EDTA
[2022-01-10 12:42] LABS: BF Segmented Neutrophils 2 %; Cell Count Non Hematic 91 %; Lymphocytes 7 %
== END 2022-01-10 11:00 | disposition home or self-care (01) ==
LOC: ULT 09:12
PROVIDERS: ATTEND Internal Medicine Gastroenterology
PROC: 0W9G3ZZ Drainage of Peritoneal Cavity, Percutaneous Approach (ICD-10-PCS; principal; 2022-01-10)
DX: K74.60 Unspecified cirrhosis of liver (principal); R18.8 Other ascites; K65.2 Spontaneous bacterial peritonitis; C22.0 Liver cell carcinoma; E11.22 Type 2 diabetes mellitus with diabetic chronic kidney disease; N18.9 Chronic kidney disease, unspecified; Z87.891 Personal history of nicotine dependence; Z79.2 Long term (current) use of antibiotics; Z79.4 Long term (current) use of insulin; Z79.84 Long term (current) use of oral hypoglycemic drugs; Z79.890 Hormone replacement therapy; Z79.899 Other long term (current) drug therapy
CPT/HCPCS: 36415; 49083; 80053; 85025; 85060; 87070; 87205; 89051; P9047

== ENCOUNTER 2022-01-17 09:32 | Day surgery (SDC) | payer BC, MEDICARE ==
[2022-01-17] MEDS ORDERED: Sodium Bicarbonate 2.5 MEQ/5 ML VIAL ONE (09:45)
[2022-01-17] MEDS ORDERED: Albumin 25% 200 ML ONE (09:45)
[2022-01-17] MEDS ORDERED: Lidocaine 1% PF 5 ML VIAL ONE (09:46)
[2022-01-17 12:13] VITALS: BP 131/69; TEMP 97.5; BMI 29.7
[2022-01-17 12:20] LABS: RBC Count-Automated (BF) 1453 /cu.mm; WBC/Nucleated-Auto (BF) 76 /cu.mm
[2022-01-17 12:23] LABS: BF Color Yellow; Body Fluid Source Ascites Body Fluid; Clarity Hazy (Clear); Tube # EDTA
[2022-01-17 12:25] LABS: BF Segmented Neutrophils 3 %; Cell Count Non Hematic 79 %; Lymphocytes 18 %
== END 2022-01-17 11:45 | disposition home or self-care (01) ==
LOC: ULT 09:32
PROVIDERS: ATTEND Internal Medicine Gastroenterology
PROC: BW40ZZZ Ultrasonography of Abdomen (ICD-10-PCS; principal; 2022-01-17)
PROC: 0W9G3ZZ Drainage of Peritoneal Cavity, Percutaneous Approach (ICD-10-PCS; principal; 2022-01-17)
DX: K74.60 Unspecified cirrhosis of liver (principal); I85.10 Secondary esophageal varices without bleeding; R18.8 Other ascites; J45.909 Unspecified asthma, uncomplicated; E11.9 Type 2 diabetes mellitus without complications; Z79.4 Long term (current) use of insulin; Z79.84 Long term (current) use of oral hypoglycemic drugs; Z79.890 Hormone replacement therapy; Z79.899 Other long term (current) drug therapy; Z87.891 Personal history of nicotine dependence
CPT/HCPCS: 49083; 85060; 87070; 87205; 89051; P9047

== ENCOUNTER → 2022-01-24 | Day surgery (SDC) | payer BC, MEDICARE ==
[2022-01-17 12:34] VITALS: BMI 29.7
[~2022-01-24] MED LIST changes: +Albumin 25% 100 ML ONE; -Albumin 25% 200 ML ONE; +Albumin 25% 25 GM/100 ML BOT IVPB SCH
[2022-01-24 13:23] VITALS: BP 106/48
[2022-01-24 14:40] LABS: RBC Count-Automated (BF) 1210 /cu.mm; WBC/Nucleated-Auto (BF) 76 /cu.mm
[2022-01-24 14:41] LABS: BF Color Yellow; Body Fluid Source Ascites Body Fluid; Clarity Hazy (Clear); Tube # EDTA
[2022-01-24 14:43] LABS: BF Segmented Neutrophils 5 %; Cell Count Non Hematic 77 %; Lymphocytes 18 %
== END | disposition home or self-care (01) ==
LOC: ULT 09:33
PROVIDERS: ATTEND Internal Medicine Gastroenterology
PROC: 0W9G3ZX Drainage of Peritoneal Cavity, Percutaneous Approach, Diagnostic (ICD-10-PCS; principal; 2022-01-24)
DX: K74.60 Unspecified cirrhosis of liver (principal); R18.8 Other ascites; Z79.2 Long term (current) use of antibiotics; Z79.4 Long term (current) use of insulin; Z79.84 Long term (current) use of oral hypoglycemic drugs; Z79.890 Hormone replacement therapy; Z79.899 Other long term (current) drug therapy
CPT/HCPCS: 49083; 85060; 87070; 87205; 89051; P9047

== ENCOUNTER 2022-01-27 04:16 | Inpatient (IN) | payer BC, MEDICARE ==
[2022-01-27] MEDS ORDERED: Ondansetron PF 4 MG/2 ML Vial ONE (05:16)
[2022-01-27] MEDS ORDERED: Morphine 4 MG/ML VIAL ONE (05:16)
[2022-01-27] MEDS ORDERED: cefTRIAXone\\ROCEPHIN 2 GM VIAL ONE (05:16)
[2022-01-27 05:20] LABS: #Eosinphils 0.1 thou/uL (0.0-0.7); #Lymphocytes 0.2 thou/uL (1.20-3.40); #Monocytes 0.3 thou/uL (0.11-0.59); #Neutrophils 2.1 thou/uL (1.40-6.50); %Basophils 0.3 % (0.0-1.0); %Eosinophils 2.5 % (0.0-10.0); %Monocytes 12.7 % (0.0-10.0); %Neutrophils 76.6 % (42.0-75.0); Mean Corpuscular HGB CONC 32.5 g/dL (32.0-36.0); Mean Corpuscular Hemoglobin 31.2 pg (27.0-31.0); Mean Corpuscular Volume 95.8 fL (78.0-98.0); Platelet Count 32 thou/uL (130-400); RBC Distribution Width 14.8 % (11.5-14.5); Red Blood Cell (RBC) Count 3.19 mill/uL (4.70-6.10); White Blood Cell (WBC) Count 2.7 thou/uL (4.8-10.8)
[2022-01-27 05:24] LABS: ALT (SGPT) 32 U/L (8-55); AST (SGOT) 31 U/L (5-34); Albumin 3.1 g/dL (3.4-4.8); Alkaline Phosphatase 375 U/L (40-110); Anion Gap 13 mmol/L (10-20); BUN (Urea Nitrogen) 78 mg/dL (8.4-25.7); Bilirubin, Total 1.4 mg/dL (0.2-1.2); Calc. Creatinine Clearance 0 mL/min (70-130); Calcium 8.5 mg/dL (7.8-10.44); Carbon Dioxide 15 mmol/L (23-31); Chloride 108 mmol/L (98-107); Estimated GFR 22; Globulin 3.2 g/dL (2.4-3.5); Glucose 439 mg/dL (80-115); Lipase 16 U/L (8-78); Potassium 4.8 mmol/L (3.5-5.1); Protein, Total 6.3 g/dL (5.8-8.1); Sodium 131 mmol/L (136-145)
[2022-01-27 06:04] LABS: Bilirubin Negative (Negative); Blood, Urine Negative (Negative); Clarity Clear (Clear); Glucose, Urine (Dipstick) >=1000 mg/dL (Negative); Ketone, Urine Negative (Negative); Leukocyte Negative Leu/uL (Negative); Nitrite Negative (Negative); Protein, Urine (Dipstick) Negative (Neg-Trace); Specific Gravity, Urine 1.014 (1.002-1.036); Urobilinogen Normal mg/dL (Less than 2); pH, Urine 5.5 (5.0-9.0)
[2022-01-27] MEDS ORDERED: Acetaminophen 500 MG TAB PO PRN (12:24)
[2022-01-27] MEDS ORDERED: Dextrose 50% Abboject 50 ML SYRINGE SLOW IVP PRN (12:24)
[2022-01-27] MEDS ORDERED: Dextrose 5% in Water 1,000 ML IV PRN (12:24)
[2022-01-27] MEDS ORDERED: HumaLOG 300 UNITS/3 ML VIAL SC PRN ×2 (12:24)
[2022-01-27] MEDS ORDERED: Morphine 4 MG/ML VIAL SLOW IVP PRN (12:24)
[2022-01-27] MEDS ORDERED: Ondansetron ODT 4 MG TAB PO PRN (12:24)
[2022-01-27] MEDS ORDERED: Ondansetron PF 4 MG/2 ML Vial IVP PRN (12:24)
[2022-01-27 13:41] VITALS: BMI 26.9
[2022-01-27 13:55] LABS: Creatinine, Urine 72.28 mg/dL (63-166); Sodium, Urine Less than 20 mmol/L (Not Available); Urea Nitrogen, Random Urine 686 mg/dl
[2022-01-27] MEDS: Sodium Bicarbonate Tab 325 MG TAB PO SCH ×2 (14:01→21:47)
[2022-01-27] MEDS: Albumin 25% 25 GM/100 ML BOT IVPB SCH ×2 (18:18→23:19)
[2022-01-27] MEDS ORDERED: Non-Formulary Item 1 EACH (Insulin Aspart Prot/Insuln Asp [Novolog Mix 70-30 Flexpen] 100 SQ SCH (21:00)
[2022-01-27] MEDS ORDERED: Non-Formulary Item 1 EACH (Lactulose 10 Gm/15ml Oral Sol 10 GM/15 ML Ml) PO SCH (21:00)
[2022-01-27] MEDS: HumuLIN 70/30 (300 UNITS/3 ML VIAL) SC SCH (21:50)
[2022-01-28 05:57] LABS: ALT (SGPT) 29 U/L (8-55); AST (SGOT) 27 U/L (5-34); Albumin 3.6 g/dL (3.4-4.8); Alkaline Phosphatase 256 U/L (40-110); Anion Gap 12 mmol/L (10-20); BUN (Urea Nitrogen) 72 mg/dL (8.4-25.7); Bilirubin, Total 1.5 mg/dL (0.2-1.2); Calc. Creatinine Clearance 28 mL/min (70-130); Calcium 8.8 mg/dL (7.8-10.44); Carbon Dioxide 17 mmol/L (23-31); Chloride 111 mmol/L (98-107); Estimated GFR 27; Globulin 2.9 g/dL (2.4-3.5); Glucose 108 mg/dL (80-115); Protein, Total 6.5 g/dL (5.8-8.1); Sodium 136 mmol/L (136-145)
[2022-01-28] MEDS ORDERED: cefTRIAXone\\ROCEPHIN 1 GM in Sodium Chloride 0.9% 100 ML IVPB SCH (06:00)
[2022-01-28] MEDS: Levothyroxine Sodium 112 MCG TAB PO SCH (06:00)
[2022-01-28] MEDS: Albumin 25% 25 GM/100 ML BOT IVPB SCH ×2 (06:00→11:06)
[2022-01-28 07:17] LABS: Hemoglobin 10.1 g/dL (14.0-18.0); Mean Corpuscular HGB CONC 33.6 g/dL (32.0-36.0); Mean Corpuscular Hemoglobin 31.7 pg (27.0-31.0); Mean Corpuscular Volume 94.6 fL (78.0-98.0); Mean Platelet Volume 7.5 fL (7.4-10.4); Platelet Count 32 thou/uL (130-400); RBC Distribution Width 14.8 % (11.5-14.5); Red Blood Cell (RBC) Count 3.18 mill/uL (4.70-6.10); White Blood Cell (WBC) Count 2.4 thou/uL (4.8-10.8)
[2022-01-28] MEDS: Sodium Bicarbonate Tab 325 MG TAB PO SCH ×3 (08:40→20:53)
[2022-01-28] MEDS: Nadolol 40 MG TAB PO SCH (08:40)
[2022-01-28] MEDS: HumuLIN 70/30 (300 UNITS/3 ML VIAL) SC SCH ×2 (08:41→20:54)
[2022-01-28] MEDS ORDERED: Levothyroxine Sodium 100 MCG TAB PO SCH (09:00)
[2022-01-28] MEDS ORDERED: Empagliflozin 10 MG TAB PO SCH (09:00)
[2022-01-28] MEDS ORDERED: Non-Formulary Item 1 EACH (Canagliflozin [Invokana] 100 MG Tablet) PO SCH (09:00)
[2022-01-28] MEDS ORDERED: SORAFENIB TOSYLATE 200 MG PO SCH (09:00)
[2022-01-28] MEDS ORDERED: Non-Formulary Item 1 EACH (Nadolol [Corgard] 20 MG Tab) PO SCH (09:00)
[2022-01-28 09:49] LABS: Band 3 % (5-11); Eosinophils 9 % (0-10); Lymphocytes 22 % (21-51); MDiff Complete? YES; Monocytes 6 % (0-10); Neutrophil 60 % (42-75); Platelet Morphology Comment Appears Decreased; Polychromasia SLIGHT = 2-3 cells (100X) (0-2/hpf)
[2022-01-28 13:47] LABS: INR-International Normal Ratio 1.4; Prothrombin Time 17.5 sec (12.0-14.7)
[2022-01-28 21:24] LABS: RBC Count-Automated (BF) 2809 /cu.mm; WBC/Nucleated-Auto (BF) 32 /cu.mm
[2022-01-28 21:34] LABS: BF Color Yellow; Body Fluid Source Ascites Body Fluid; Tube # EDTA
[2022-01-28 21:35] LABS: Clarity Hazy (Clear)
[2022-01-28 21:37] LABS: BF Segmented Neutrophils 6 %; Cell Count Non Hematic 71 %; Lymphocytes 23 %
[2022-01-29] MEDS: Levothyroxine Sodium 112 MCG TAB PO SCH (05:32)
[2022-01-29] MEDS ORDERED: Albumin 25% 25 GM/100 ML BOT IVPB SCH ×2 (07:15→12:00)
[2022-01-29] MEDS: Sodium Bicarbonate Tab 325 MG TAB PO SCH (08:31)
[2022-01-29] MEDS: Nadolol 40 MG TAB PO SCH (08:31)
[2022-01-29] MEDS: HumuLIN 70/30 (300 UNITS/3 ML VIAL) SC SCH (08:32)
[2022-01-29 08:54] LABS: Albumin 3.6 g/dL (3.4-4.8); Anion Gap 12 mmol/L (10-20); BUN (Urea Nitrogen) 67 mg/dL (8.4-25.7); BUN/Creatinine Ratio 26.91; Calc. Creatinine Clearance 29 mL/min (70-130); Calcium 8.4 mg/dL (7.8-10.44); Carbon Dioxide 20 mmol/L (23-31); Chloride 110 mmol/L (98-107); Estimated GFR 28; Glucose 175 mg/dL (80-115); Phosphorus 5.1 mg/dL (2.3-4.7); Potassium 4.2 mmol/L (3.5-5.1); Sodium 138 mmol/L (136-145)
[2022-01-29 10:44] VITALS: BP 108/70; TEMP 97.7
[2022-01-29] MEDS: SORAFENIB TOSYLATE 200 MG DT SCH (10:45)
== END 2022-01-29 10:41 | disposition home or self-care (01) | DRG 432 ==
LOC: ERS 04:16 → ERHOLD 06:51 → OBSVTOIN 12:24 → T4-B 13:25
PROVIDERS: ADMIT Internal Medicine; ATTEND Internal Medicine
PROC: 0W9G3ZX Drainage of Peritoneal Cavity, Percutaneous Approach, Diagnostic (ICD-10-PCS; principal; 2022-01-28)
DX: K74.60 Unspecified cirrhosis of liver (principal); Z20.822 Contact with and (suspected) exposure to COVID-19; K76.7 Hepatorenal syndrome; C22.0 Liver cell carcinoma; D61.818 Other pancytopenia; N17.9 Acute kidney failure, unspecified; E87.2 Acidosis; E87.1 Hypo-osmolality and hyponatremia; R18.8 Other ascites; B18.2 Chronic viral hepatitis C; N18.9 Chronic kidney disease, unspecified; E11.22 Type 2 diabetes mellitus with diabetic chronic kidney disease; I12.9 Hypertensive chronic kidney disease with stage 1 through stage 4 chronic kidney disease, or unspecified chronic kidney disease; E86.9 Volume depletion, unspecified; Z79.899 Other long term (current) drug therapy; Z79.4 Long term (current) use of insulin; Z79.890 Hormone replacement therapy
CPT/HCPCS: 36415; 36416; 80053; 80069; 81003; 82570; 83690; 84300; 84540; 85025; 85060; 85610; 85730; 87040; 87070; 87205; 89051; 93005; G0378; J0696; J1815; J2270; J2405; J3490; P9047; U0003; U0005

== ENCOUNTER 2022-01-31 09:10 | Day surgery (SDC) | payer BC, MEDICARE ==
[2022-01-31] MEDS ORDERED: Albumin 25% 200 ML ONE (09:38)
[2022-01-31] MEDS ORDERED: Lidocaine 1% PF 5 ML VIAL ONE (09:38)
[2022-01-31] MEDS ORDERED: Sodium Bicarbonate 2.5 MEQ/5 ML VIAL ONE (09:38)
[2022-01-31 11:13] VITALS: BP 124/71; TEMP 97.6
== END 2022-01-31 10:48 | disposition home or self-care (01) ==
LOC: ULT 09:10
PROVIDERS: ATTEND Internal Medicine Gastroenterology
PROC: 0W9G3ZZ Drainage of Peritoneal Cavity, Percutaneous Approach (ICD-10-PCS; principal; 2022-01-31)
DX: K74.60 Unspecified cirrhosis of liver (principal); R18.8 Other ascites; C22.9 Malignant neoplasm of liver, not specified as primary or secondary; N18.9 Chronic kidney disease, unspecified; K65.2 Spontaneous bacterial peritonitis
CPT/HCPCS: 36415; 49083; 80048; P9047

== ENCOUNTER 2022-02-07 08:47 | Day surgery (SDC) | payer BC, MEDICARE ==
[2022-02-07 13:02] VITALS: BP 132/68; TEMP 97.9; BMI 31.3
[2022-02-07 13:31] LABS: BF Color Yellow; Body Fluid Source Ascites Body Fluid; Clarity Hazy (Clear); RBC Count-Automated (BF) 2658 /cu.mm; Tube # EDTA; WBC/Nucleated-Auto (BF) 65 /cu.mm
[2022-02-07 14:05] LABS: BF Segmented Neutrophils 2 %; Cell Count Non Hematic 83 %; Lymphocytes 15 %
== END 2022-02-07 12:40 | disposition home or self-care (01) ==
LOC: ULT 08:47
PROVIDERS: ATTEND Internal Medicine Gastroenterology
PROC: 0W9G3ZX Drainage of Peritoneal Cavity, Percutaneous Approach, Diagnostic (ICD-10-PCS; principal; 2022-02-07)
DX: K74.60 Unspecified cirrhosis of liver (principal); R18.8 Other ascites; I12.9 Hypertensive chronic kidney disease with stage 1 through stage 4 chronic kidney disease, or unspecified chronic kidney disease; E11.22 Type 2 diabetes mellitus with diabetic chronic kidney disease; N18.9 Chronic kidney disease, unspecified; Z79.4 Long term (current) use of insulin; Z79.84 Long term (current) use of oral hypoglycemic drugs; Z79.890 Hormone replacement therapy; Z79.899 Other long term (current) drug therapy
CPT/HCPCS: 49083; 85060; 87070; 87205; 89051

== ENCOUNTER 2022-02-10 23:18 | Inpatient (IN) | payer BC, MEDICARE ==
[2022-02-11 00:04] LABS: Hemoglobin 10.4 g/dL (14.0-18.0); Mean Corpuscular HGB CONC 33.6 g/dL (32.0-36.0); Mean Corpuscular Hemoglobin 31.7 pg (27.0-31.0); Mean Corpuscular Volume 94.3 fL (78.0-98.0); Red Blood Cell (RBC) Count 3.27 mill/uL (4.70-6.10); White Blood Cell (WBC) Count 2.4 thou/uL (4.8-10.8)
[2022-02-11 00:21] LABS: Mean Platelet Volume 7.7 fL (7.4-10.4); Platelet Count 38 thou/uL (130-400)
[2022-02-11 00:22] LABS: Band 2 % (5-11); Lymphocytes 12 % (21-51); MDiff Complete? YES; Monocytes 20 % (0-10); Neutrophil 66 % (42-75); Platelet Morphology Comment Appears Decreased
[2022-02-11 00:29] LABS: ALT (SGPT) 39 U/L (8-55); AST (SGOT) 49 U/L (5-34); Albumin 3.6 g/dL (3.4-4.8); Alkaline Phosphatase 365 U/L (40-110); Anion Gap 14 mmol/L (10-20); BUN (Urea Nitrogen) 71 mg/dL (8.4-25.7); Bilirubin, Total 0.9 mg/dL (0.2-1.2); Calc. Creatinine Clearance 0 mL/min (70-130); Calcium 8.3 mg/dL (7.8-10.44); Carbon Dioxide 17 mmol/L (23-31); Chloride 112 mmol/L (98-107); Estimated GFR 19; Glucose 135 mg/dL (80-115); Potassium 4.5 mmol/L (3.5-5.1); Protein, Total 6.6 g/dL (5.8-8.1); Sodium 138 mmol/L (136-145)
[2022-02-11 00:49] LABS: CKMB 1.7 ng/mL (0-6.6)
[2022-02-11] MEDS ORDERED: Aspirin 325 MG TAB ONE (01:24)
[2022-02-11] MEDS ORDERED: Ondansetron ODT 4 MG TAB SL PRN (02:45)
[2022-02-11] MEDS ORDERED: Acetaminophen 325 MG TAB PO PRN (02:45)
[2022-02-11] MEDS ORDERED: Albumin 25% 25 GM/100 ML BOT IVPB SCH (02:45)
[2022-02-11] MEDS ORDERED: Ondansetron PF 4 MG/2 ML Vial IVP PRN (02:45)
[2022-02-11] MEDS ORDERED: Dextrose 50% Abboject 50 ML SYRINGE SLOW IVP PRN (02:47)
[2022-02-11] MEDS ORDERED: HumaLOG 300 UNITS/3 ML VIAL SC PRN (02:47)
[2022-02-11] MEDS ORDERED: Dextrose 5% in Water 1,000 ML IV PRN (02:47)
[2022-02-11 04:35] LABS: Anion Gap 12 mmol/L (10-20); BUN (Urea Nitrogen) 72 mg/dL (8.4-25.7); Calc. Creatinine Clearance 0 mL/min (70-130); Calcium 8.3 mg/dL (7.8-10.44); Carbon Dioxide 17 mmol/L (23-31); Chloride 113 mmol/L (98-107); Estimated GFR 20; Glucose 134 mg/dL (80-115); Potassium 4.3 mmol/L (3.5-5.1); Sodium 138 mmol/L (136-145)
[2022-02-11] MEDS ORDERED: Acetaminophen 500 MG TAB ONE (04:52)
[2022-02-11] MEDS ORDERED: cefTRIAXone\\ROCEPHIN 1 GM VIAL ONE (04:52)
[2022-02-11 04:53] LABS: Hemoglobin 8.9 g/dL (14.0-18.0); Mean Corpuscular HGB CONC 33.2 g/dL (32.0-36.0); Mean Corpuscular Hemoglobin 31.5 pg (27.0-31.0); Mean Corpuscular Volume 94.8 fL (78.0-98.0); Mean Platelet Volume 7.7 fL (7.4-10.4); Platelet Count 28 thou/uL (130-400); RBC Distribution Width 13.9 % (11.5-14.5); Red Blood Cell (RBC) Count 2.83 mill/uL (4.70-6.10); White Blood Cell (WBC) Count 1.7 thou/uL (4.8-10.8)
[2022-02-11 04:55] LABS: #Lymphocytes 0.2 thou/uL (1.20-3.40); #Monocytes 0.3 thou/uL (0.11-0.59); #Neutrophils 1.2 thou/uL (1.40-6.50); %Eosinophils 2.1 % (0.0-10.0); %Lymphocytes 11.5 % (21.0-51.0); %Monocytes 14.5 % (0.0-10.0); Platelet Morphology Comment Appears Decreased
[2022-02-11] MEDS: cefTRIAXone\\ROCEPHIN 1 GM in Sodium Chloride 0.9% 100 ML IVPB SCH (04:56)
[2022-02-11] MEDS: Acetaminophen 500 MG TAB PO PRN (04:56)
[2022-02-11] MEDS ORDERED: Morphine 2 MG/ML VIAL SLOW IVP SCH (06:00)
[2022-02-11] MEDS ORDERED: Morphine 2 MG/ML VIAL ONE (06:04)
[2022-02-11 06:05] LABS: Troponin I Less than 0.010 ng/mL (< 0.028)
[2022-02-11 06:45] LABS: SARS-CoV-2 NAA Rapid Test Not Detected (NotDetected)
[2022-02-11] MEDS: Nadolol 40 MG TAB PO SCH (09:11)
[2022-02-11] MEDS ORDERED: Lidocaine 1% PF 5 ML VIAL ONE (09:33)
[2022-02-11] MEDS ORDERED: Sodium Bicarbonate 2.5 MEQ/5 ML VIAL ONE (09:33)
[2022-02-11 09:41] LABS: Iron 41 ug/dL (65-175); Iron Binding Capacity, Total 140 mcg/dL (261-462)
[2022-02-11 11:39] LABS: RBC Count-Automated (BF) 3371 /cu.mm; WBC/Nucleated-Auto (BF) 140 /cu.mm
[2022-02-11 11:52] LABS: BF Color Yellow; Body Fluid Source Ascites Body Fluid; Clarity Hazy (Clear); Tube # EDTA
[2022-02-11 11:54] LABS: BF Segmented Neutrophils 2 %; Cell Count Non Hematic 82 %; Lymphocytes 16 %
[2022-02-11 12:27] VITALS: BMI 27.3
[2022-02-11] MEDS: Sodium Bicarbonate Tab 325 MG TAB PO SCH ×2 (12:46→21:11)
[2022-02-11] MEDS: Albumin 25% 25 GM/100 ML BOT IVPB SCH ×2 (12:46→16:59)
[2022-02-11] MEDS: Spironolactone 25 MG TAB PO SCH (12:47)
[2022-02-11] MEDS: HumaLOG 300 UNITS/3 ML VIAL SC PRN (16:57)
[2022-02-12] MEDS: Acetaminophen 500 MG TAB PO PRN (00:09)
[2022-02-12] MEDS: Albumin 25% 25 GM/100 ML BOT IVPB SCH ×5 (00:09→23:30)
[2022-02-12 01:11] LABS: Glucose 669 mg/dL (80-115)
[2022-02-12] MEDS: HumaLOG 300 UNITS/3 ML VIAL SC PRN (01:26)
[2022-02-12] MEDS ORDERED: HumaLOG 300 UNITS/3 ML VIAL SC SCH (01:30)
[2022-02-12] MEDS ORDERED: traMADol HCl 50 MG TAB PO SCH (03:45)
[2022-02-12] MEDS: cefTRIAXone\\ROCEPHIN 1 GM in Sodium Chloride 0.9% 100 ML IVPB SCH (03:46)
[2022-02-12 04:44] LABS: Hemoglobin 8.1 g/dL (14.0-18.0); Mean Corpuscular HGB CONC 33.2 g/dL (32.0-36.0); Mean Corpuscular Hemoglobin 31.7 pg (27.0-31.0); Mean Corpuscular Volume 95.6 fL (78.0-98.0); Mean Platelet Volume 8.1 fL (7.4-10.4); Platelet Count 21 thou/uL (130-400); RBC Distribution Width 13.6 % (11.5-14.5); Red Blood Cell (RBC) Count 2.54 mill/uL (4.70-6.10); White Blood Cell (WBC) Count 1.1 thou/uL (4.8-10.8)
[2022-02-12 04:57] LABS: Anion Gap 14 mmol/L (10-20); BUN (Urea Nitrogen) 68 mg/dL (8.4-25.7); Calc. Creatinine Clearance 24 mL/min (70-130); Calcium 8.2 mg/dL (7.8-10.44); Carbon Dioxide 16 mmol/L (23-31); Chloride 109 mmol/L (98-107); Estimated GFR 23; Potassium 4.6 mmol/L (3.5-5.1); Sodium 134 mmol/L (136-145)
[2022-02-12 05:07] LABS: Glucose 669 mg/dL (80-115)
[2022-02-12 05:12] LABS: Band 2 % (5-11); Eosinophils 2 % (0-10); Lymphocytes 16 % (21-51); MDiff Complete? YES; Neutrophil 80 % (42-75); Platelet Morphology Comment Appears Decreased
[2022-02-12] MEDS ORDERED: HumaLOG 300 UNITS/3 ML VIAL SC PRN (05:45)
[2022-02-12] MEDS: Levothyroxine Sodium 112 MCG TAB PO SCH (05:57)
[2022-02-12] MEDS ORDERED: Insulin Regular 300 UNITS/3 ML VIAL IVP SCH (06:00)
[2022-02-12] MEDS ORDERED: HumuLIN 70/30 (300 UNITS/3 ML VIAL) SC SCH ×3 (08:00→21:00)
[2022-02-12] MEDS: Spironolactone 25 MG TAB PO SCH (10:02)
[2022-02-12] MEDS: Nadolol 40 MG TAB PO SCH (10:03)
[2022-02-12] MEDS: Sodium Bicarbonate Tab 325 MG TAB PO SCH ×2 (10:03→20:11)
[2022-02-12] MEDS: Insulin Glargine 30 UNITS/0.3 ML VIAL SC SCH (10:03)
[2022-02-12] MEDS ORDERED: Albumin 25% 25 GM/100 ML BOT IVPB SCH (11:00)
[2022-02-12] MEDS: Insulin Regular 300 UNITS/3 ML VIAL SC PRN ×3 (12:49→21:04)
[2022-02-13 04:57] LABS: Hemoglobin 9.7 g/dL (14.0-18.0); Mean Corpuscular HGB CONC 33.6 g/dL (32.0-36.0); Mean Corpuscular Hemoglobin 32.3 pg (27.0-31.0); Mean Platelet Volume 7.9 fL (7.4-10.4); Platelet Count 28 thou/uL (130-400); RBC Distribution Width 13.5 % (11.5-14.5); Red Blood Cell (RBC) Count 3.01 mill/uL (4.70-6.10); White Blood Cell (WBC) Count 1.4 thou/uL (4.8-10.8)
[2022-02-13 05:10] LABS: Anion Gap 14 mmol/L (10-20); BUN (Urea Nitrogen) 74 mg/dL (8.4-25.7); Calc. Creatinine Clearance 26 mL/min (70-130); Calcium 9.1 mg/dL (7.8-10.44); Carbon Dioxide 17 mmol/L (23-31); Chloride 111 mmol/L (98-107); Estimated GFR 25; Glucose 260 mg/dL (80-115); Potassium 4.2 mmol/L (3.5-5.1); Sodium 138 mmol/L (136-145)
[2022-02-13 05:20] LABS: Band 10 % (5-11); Lymphocytes 15 % (21-51); MDiff Complete? YES; Monocytes 16 % (0-10); Neutrophil 59 % (42-75); Platelet Morphology Comment Appears Decreased
[2022-02-13] MEDS: Levothyroxine Sodium 112 MCG TAB PO SCH (05:48)
[2022-02-13] MEDS: Insulin Regular 300 UNITS/3 ML VIAL SC PRN ×3 (05:48→17:51)
[2022-02-13] MEDS: Albumin 25% 25 GM/100 ML BOT IVPB SCH ×5 (05:48→18:27)
[2022-02-13] MEDS: Insulin Glargine 30 UNITS/0.3 ML VIAL SC SCH (08:59)
[2022-02-13] MEDS: Sodium Bicarbonate Tab 325 MG TAB PO SCH ×2 (09:00→20:25)
[2022-02-13] MEDS: Spironolactone 25 MG TAB PO SCH (09:00)
[2022-02-13] MEDS: Nadolol 40 MG TAB PO SCH (10:02)
[2022-02-14] MEDS: Albumin 25% 25 GM/100 ML BOT IVPB SCH ×5 (00:48→18:24)
[2022-02-14 05:07] LABS: Hemoglobin 9.5 g/dL (14.0-18.0); Mean Corpuscular HGB CONC 33.1 g/dL (32.0-36.0); Mean Corpuscular Hemoglobin 31.3 pg (27.0-31.0); Mean Corpuscular Volume 94.6 fL (78.0-98.0); Mean Platelet Volume 7.8 fL (7.4-10.4); Platelet Count 28 thou/uL (130-400); RBC Distribution Width 13.6 % (11.5-14.5); Red Blood Cell (RBC) Count 3.05 mill/uL (4.70-6.10); White Blood Cell (WBC) Count 1.6 thou/uL (4.8-10.8)
[2022-02-14 05:24] LABS: Anion Gap 16 mmol/L (10-20); BUN (Urea Nitrogen) 72 mg/dL (8.4-25.7); Calc. Creatinine Clearance 27 mL/min (70-130); Calcium 9.8 mg/dL (7.8-10.44); Carbon Dioxide 17 mmol/L (23-31); Chloride 112 mmol/L (98-107); Estimated GFR 26; Glucose 228 mg/dL (80-115); Potassium 4.3 mmol/L (3.5-5.1); Sodium 141 mmol/L (136-145)
[2022-02-14 05:28] LABS: #Lymphocytes 0.1 thou/uL (1.20-3.40); #Monocytes 0.2 thou/uL (0.11-0.59); #Neutrophils 1.2 thou/uL (1.40-6.50); %Basophils 1.9 % (0.0-1.0); %Eosinophils 2.1 % (0.0-10.0); %Lymphocytes 8.2 % (21.0-51.0); %Neutrophils 75.9 % (42.0-75.0); Platelet Morphology Comment Appears Decreased
[2022-02-14] MEDS: Levothyroxine Sodium 112 MCG TAB PO SCH (06:08)
[2022-02-14] MEDS: Insulin Regular 300 UNITS/3 ML VIAL SC PRN ×2 (06:08→12:32)
[2022-02-14] MEDS: Insulin Glargine 30 UNITS/0.3 ML VIAL SC SCH (09:01)
[2022-02-14] MEDS: Spironolactone 25 MG TAB PO SCH (09:01)
[2022-02-14] MEDS: Sodium Bicarbonate Tab 325 MG TAB PO SCH ×2 (09:03→15:49)
[2022-02-14] MEDS: Nadolol 40 MG TAB PO SCH (09:03)
[2022-02-14] MEDS ORDERED: Iron, Sodium Ferric Gluconate 250 MG in Sodium Chloride 0.9% 250 ML 250 ML IVPB SCH (10:00)
[2022-02-14] MEDS ORDERED: Lidocaine 1% PF 5 ML VIAL ONE (11:11)
[2022-02-14] MEDS ORDERED: Sodium Bicarbonate 2.5 MEQ/5 ML VIAL ONE (11:11)
[2022-02-14 17:18] VITALS: BP 155/70; TEMP 98.2
== END 2022-02-14 17:50 | disposition home or self-care (01) | DRG 432 ==
LOC: ERS 23:18 → ERHOLD 02-11 02:34 → 2SW 02-11 12:25 → OBSVTOIN 02-12 09:13
PROVIDERS: ADMIT Internal Medicine; ATTEND Internal Medicine
PROC: 0W9G3ZZ Drainage of Peritoneal Cavity, Percutaneous Approach (ICD-10-PCS; principal; 2022-02-11)
PROC: 0W9G3ZZ Drainage of Peritoneal Cavity, Percutaneous Approach (ICD-10-PCS; 2022-02-14)
DX: K74.60 Unspecified cirrhosis of liver (principal); K76.7 Hepatorenal syndrome; N17.9 Acute kidney failure, unspecified; D61.818 Other pancytopenia; R18.8 Other ascites; E87.2 Acidosis; Z20.822 Contact with and (suspected) exposure to COVID-19; E11.22 Type 2 diabetes mellitus with diabetic chronic kidney disease; I12.9 Hypertensive chronic kidney disease with stage 1 through stage 4 chronic kidney disease, or unspecified chronic kidney disease; N18.30 Chronic kidney disease, stage 3 unspecified; B18.2 Chronic viral hepatitis C; E11.65 Type 2 diabetes mellitus with hyperglycemia; Z79.4 Long term (current) use of insulin; Z79.890 Hormone replacement therapy; Z79.899 Other long term (current) drug therapy; Z87.891 Personal history of nicotine dependence
CPT/HCPCS: 36415; 36416; 49083; 71045; 80048; 80053; 82553; 82728; 83540; 83550; 83880; 84484; 85025; 85060; 85652; 86140; 87070; 87205; 89051; 93005; 93306; 93970; 96365; 96374; 96375; 96376; G0378; J0696; J1815; J2270; J2916; J3490; J7050; P9047; U0002

== ENCOUNTER 2022-02-21 08:47 | Day surgery (SDC) | payer BC, MEDICARE ==
[2022-02-17 07:04] VITALS: BMI 31.3
[2022-02-21] MEDS ORDERED: Lidocaine 1% MPF 2 ML VIAL ONE ×3 (09:01→09:02)
[2022-02-21] MEDS ORDERED: Sodium Bicarbonate 2.5 MEQ/5 ML VIAL ONE (09:01)
[2022-02-21] MEDS ORDERED: Albumin 25% 25 GM/100 ML BOT IVPB SCH (09:30)
[2022-02-21 12:16] VITALS: BP 130/65
[2022-02-21 13:59] LABS: RBC Count-Automated (BF) 6243 /cu.mm; WBC/Nucleated-Auto (BF) 46 /cu.mm
[2022-02-21 14:22] LABS: BF Color Yellow; Body Fluid Source Ascites Body Fluid; Clarity Hazy (Clear); Tube # EDTA
[2022-02-21 14:24] LABS: BF Segmented Neutrophils 5 %; Cell Count Non Hematic 65 %; Lymphocytes 30 %
== END 2022-02-21 11:40 | disposition home or self-care (01) ==
LOC: ULT 08:47
PROVIDERS: ATTEND Internal Medicine Gastroenterology
PROC: 0W9G3ZX Drainage of Peritoneal Cavity, Percutaneous Approach, Diagnostic (ICD-10-PCS; principal; 2022-02-21)
DX: K74.60 Unspecified cirrhosis of liver (principal); R18.8 Other ascites; C22.0 Liver cell carcinoma; I12.9 Hypertensive chronic kidney disease with stage 1 through stage 4 chronic kidney disease, or unspecified chronic kidney disease; E11.22 Type 2 diabetes mellitus with diabetic chronic kidney disease; N18.9 Chronic kidney disease, unspecified; N17.9 Acute kidney failure, unspecified; K65.2 Spontaneous bacterial peritonitis; D61.818 Other pancytopenia; Z79.2 Long term (current) use of antibiotics; Z79.4 Long term (current) use of insulin; Z79.890 Hormone replacement therapy; Z79.899 Other long term (current) drug therapy
CPT/HCPCS: 36415; 49083; 80048; 85060; 87070; 87205; 89051; P9047

== ENCOUNTER 2022-02-22 07:47 | Outpatient (CLI) | payer BC, MEDICARE | END 2022-02-22 07:48 | disposition home or self-care (01) | LOC: MRI 07:47 | PROVIDERS: ATTEND Internal Medicine Medical Oncology | DX: C22.0 Liver cell carcinoma (principal); K72.90 Hepatic failure, unspecified without coma; K74.69 Other cirrhosis of liver; I85.00 Esophageal varices without bleeding; R18.8 Other ascites; R16.0 Hepatomegaly, not elsewhere classified; K55.059 Acute (reversible) ischemia of intestine, part and extent unspecified | CPT/HCPCS: 74183 ==

== ENCOUNTER 2022-02-26 17:57 | Inpatient (IN) | payer BC, MEDICARE ==
[2022-02-26 20:20] LABS: Hemoglobin 9.2 g/dL (14.0-18.0); Mean Corpuscular HGB CONC 35.3 g/dL (32.0-36.0); Mean Corpuscular Hemoglobin 33.4 pg (27.0-31.0); Mean Corpuscular Volume 94.6 fL (78.0-98.0); Mean Platelet Volume 7.9 fL (7.4-10.4); Platelet Count 24 thou/uL (130-400); RBC Distribution Width 13.3 % (11.5-14.5); Red Blood Cell (RBC) Count 2.76 mill/uL (4.70-6.10); White Blood Cell (WBC) Count 1.9 thou/uL (4.8-10.8)
[2022-02-26 20:24] LABS: INR-International Normal Ratio 1.5; PTT 32.2 sec (22.9-36.1); Prothrombin Time 17.9 sec (12.0-14.7)
[2022-02-26 20:35] LABS: Band 3 % (5-11); Eosinophils 3 % (0-10); Lymphocytes 9 % (21-51); MDiff Complete? YES; Monocytes 17 % (0-10); Neutrophil 65 % (42-75); Platelet Morphology Comment Appears Decreased; Polychromasia SLIGHT = 2-3 cells (100X) (0-2/hpf); Reactive Lymphocytes 3 % (0-10)
[2022-02-26 20:37] LABS: ALT (SGPT) 26 U/L (8-55); AST (SGOT) 31 U/L (5-34); Albumin 3.8 g/dL (3.4-4.8); Alkaline Phosphatase 328 U/L (40-110); Anion Gap 16 mmol/L (10-20); BUN (Urea Nitrogen) 55 mg/dL (8.4-25.7); Bilirubin, Total 1.2 mg/dL (0.2-1.2); Calc. Creatinine Clearance 0 mL/min (70-130); Calcium 8.4 mg/dL (7.8-10.44); Carbon Dioxide 18 mmol/L (23-31); Chloride 111 mmol/L (98-107); Estimated GFR 28; Globulin 2.2 g/dL (2.4-3.5); Glucose 230 mg/dL (80-115); Lipase 16 U/L (8-78); Potassium 4.9 mmol/L (3.5-5.1); Sodium 140 mmol/L (136-145)
[2022-02-26 20:38] LABS: Acetaminophen Less than 10.0 mcg/mL (10.0-30.0); Alcohol Less than 10 mg/dL (Less than 10); Salicylate Less than 8.0 mg/dL (15.0-30.0)
[2022-02-26] MEDS ORDERED: Morphine 2 MG/ML VIAL ONE (21:12)
[2022-02-26] MEDS ORDERED: Dextrose 50% Abboject 50 ML SYRINGE SLOW IVP PRN (23:26)
[2022-02-26] MEDS ORDERED: Ondansetron PF 4 MG/2 ML Vial IVP PRN (23:26)
[2022-02-26] MEDS ORDERED: Dextrose 5% in Water 1,000 ML IV PRN (23:26)
[2022-02-27 00:11] LABS: RBC Count-Automated (BF) 6893 /cu.mm; WBC/Nucleated-Auto (BF) 103 /cu.mm
[2022-02-27 00:14] LABS: BF Color Pink; Body Fluid Source Paracentesis Fluid; Clarity Cloudy/Turbid (Clear); Tube # EDTA
[2022-02-27] MEDS ORDERED: Furosemide 40 MG/4 ML VIAL SLOW IVP SCH (01:15)
[2022-02-27 01:16] VITALS: BMI 22.3
[2022-02-27 01:37] LABS: BF Segmented Neutrophils 2 %; Cell Count Non Hematic 70 %; Lymphocytes 28 %
[2022-02-27] MEDS ORDERED: Morphine 2 MG/ML VIAL SLOW IVP SCH (01:45)
[2022-02-27] MEDS ORDERED: Sodium Bicarbonate 50 MEQ in Sodium Chloride 0.45% 1,000 ML IV SCH (02:00)
[2022-02-27 04:24] LABS: Hemoglobin 8.9 g/dL (14.0-18.0); Mean Corpuscular Hemoglobin 32.2 pg (27.0-31.0); Mean Corpuscular Volume 94.9 fL (78.0-98.0); Mean Platelet Volume 8.4 fL (7.4-10.4); Platelet Count 24 thou/uL (130-400); RBC Distribution Width 13.3 % (11.5-14.5); Red Blood Cell (RBC) Count 2.76 mill/uL (4.70-6.10); White Blood Cell (WBC) Count 1.3 thou/uL (4.8-10.8)
[2022-02-27 04:44] LABS: ALT (SGPT) 26 U/L (8-55); AST (SGOT) 31 U/L (5-34); Albumin 3.6 g/dL (3.4-4.8); Alkaline Phosphatase 341 U/L (40-110); Anion Gap 16 mmol/L (10-20); BUN (Urea Nitrogen) 53 mg/dL (8.4-25.7); Bilirubin, Total 1.3 mg/dL (0.2-1.2); Calc. Creatinine Clearance 24 mL/min (70-130); Calcium 8.6 mg/dL (7.8-10.44); Carbon Dioxide 18 mmol/L (23-31); Chloride 112 mmol/L (98-107); Estimated GFR 29; Globulin 2.4 g/dL (2.4-3.5); Glucose 228 mg/dL (80-115); Potassium 4.8 mmol/L (3.5-5.1); Sodium 141 mmol/L (136-145)
[2022-02-27 05:05] LABS: Band 7 % (5-11); Eosinophils 2 % (0-10); Lymphocytes 17 % (21-51); MDiff Complete? YES; Monocytes 13 % (0-10); Neutrophil 61 % (42-75); Platelet Morphology Comment Appears Decreased
[2022-02-27] MEDS: Levothyroxine Sodium 112 MCG TAB PO SCH (05:11)
[2022-02-27] MEDS: HumaLOG 300 UNITS/3 ML VIAL SC PRN ×3 (06:35→17:26)
[2022-02-27] MEDS ORDERED: SORAFENIB TOSYLATE 200 MG PO SCH (09:00)
[2022-02-27] MEDS: Nadolol 40 MG TAB PO SCH (09:12)
[2022-02-27] MEDS: Sodium Bicarbonate Tab 325 MG TAB PO SCH ×3 (09:12→20:24)
[2022-02-28] MEDS: HumaLOG 300 UNITS/3 ML VIAL SC PRN ×4 (00:27→17:32)
[2022-02-28 05:08] LABS: ALT (SGPT) 33 U/L (8-55); AST (SGOT) 39 U/L (5-34); Albumin 3.7 g/dL (3.4-4.8); Alkaline Phosphatase 367 U/L (40-110); Anion Gap 17 mmol/L (10-20); BUN (Urea Nitrogen) 49 mg/dL (8.4-25.7); Bilirubin, Total 1.2 mg/dL (0.2-1.2); Calc. Creatinine Clearance 28 mL/min (70-130); Calcium 8.8 mg/dL (7.8-10.44); Carbon Dioxide 17 mmol/L (23-31); Chloride 109 mmol/L (98-107); Estimated GFR 26; Globulin 2.9 g/dL (2.4-3.5); Glucose 303 mg/dL (80-115); Potassium 4.6 mmol/L (3.5-5.1); Protein, Total 6.6 g/dL (5.8-8.1); Sodium 138 mmol/L (136-145)
[2022-02-28 05:13] LABS: Band 2 % (5-11); Eosinophils 2 % (0-10); Hemoglobin 10.3 g/dL (14.0-18.0); Lymphocytes 13 % (21-51); MDiff Complete? YES; Mean Corpuscular HGB CONC 33.9 g/dL (32.0-36.0); Mean Corpuscular Hemoglobin 32.7 pg (27.0-31.0); Mean Corpuscular Volume 96.2 fL (78.0-98.0); Mean Platelet Volume 8.8 fL (7.4-10.4); Monocytes 15 % (0-10); Neutrophil 68 % (42-75); Platelet Count 38 thou/uL (130-400); RBC Distribution Width 13.3 % (11.5-14.5); Red Blood Cell (RBC) Count 3.14 mill/uL (4.70-6.10); White Blood Cell (WBC) Count 1.5 thou/uL (4.8-10.8)
[2022-02-28] MEDS: Levothyroxine Sodium 112 MCG TAB PO SCH (05:26)
[2022-02-28] MEDS: Sodium Bicarbonate Tab 325 MG TAB PO SCH ×3 (09:37→20:37)
[2022-02-28] MEDS: Nadolol 40 MG TAB PO SCH (09:45)
[2022-03-01 03:44] LABS: Hemoglobin 8.6 g/dL (14.0-18.0); Mean Corpuscular HGB CONC 33.1 g/dL (32.0-36.0); Mean Corpuscular Hemoglobin 31.1 pg (27.0-31.0); Mean Corpuscular Volume 94.2 fL (78.0-98.0); Platelet Count 20 thou/uL (130-400); Red Blood Cell (RBC) Count 2.76 mill/uL (4.70-6.10); White Blood Cell (WBC) Count 1.1 thou/uL (4.8-10.8)
[2022-03-01 03:55] LABS: ALT (SGPT) 28 U/L (8-55); AST (SGOT) 27 U/L (5-34); Albumin 3.1 g/dL (3.4-4.8); Alkaline Phosphatase 369 U/L (40-110); Anion Gap 12 mmol/L (10-20); BUN (Urea Nitrogen) 46 mg/dL (8.4-25.7); Calc. Creatinine Clearance 30 mL/min (70-130); Calcium 7.9 mg/dL (7.8-10.44); Carbon Dioxide 22 mmol/L (23-31); Chloride 108 mmol/L (98-107); Estimated GFR 28; Globulin 2.3 g/dL (2.4-3.5); Glucose 419 mg/dL (80-115); Potassium 4.9 mmol/L (3.5-5.1); Protein, Total 5.4 g/dL (5.8-8.1); Sodium 137 mmol/L (136-145)
[2022-03-01 04:33] LABS: Band 9 % (5-11); Eosinophils 2 % (0-10); Lymphocytes 13 % (21-51); MDiff Complete? YES; Monocytes 14 % (0-10); Neutrophil 62 % (42-75); Platelet Morphology Comment Appears Decreased
[2022-03-01] MEDS: Levothyroxine Sodium 112 MCG TAB PO SCH (05:11)
[2022-03-01] MEDS: HumaLOG 300 UNITS/3 ML VIAL SC PRN (05:11)
[2022-03-01] MEDS: Sodium Bicarbonate Tab 325 MG TAB PO SCH (13:35)
[2022-03-01] MEDS: Nadolol 40 MG TAB PO SCH (13:35)
[2022-03-01] MEDS ORDERED: Lidocaine 1% MPF 2 ML VIAL ONE (14:22)
[2022-03-01] MEDS ORDERED: Sodium Bicarbonate 2.5 MEQ/5 ML VIAL ONE (14:22)
[2022-03-01] MEDS ORDERED: Albumin 25% 200 ML ONE (15:37)
[2022-03-01 16:13] VITALS: BP 131/60; TEMP 98.3
== END 2022-03-01 16:15 | disposition home or self-care (01) | DRG 441 ==
LOC: ERS 17:57 → 2NO 23:17
PROVIDERS: ADMIT Internal Medicine; ATTEND Internal Medicine
PROC: 0W9G3ZZ Drainage of Peritoneal Cavity, Percutaneous Approach (ICD-10-PCS; principal; 2022-03-01)
DX: K72.00 Acute and subacute hepatic failure without coma (principal); K76.7 Hepatorenal syndrome; D61.818 Other pancytopenia; R18.8 Other ascites; K76.6 Portal hypertension; N17.9 Acute kidney failure, unspecified; E87.2 Acidosis; Z20.822 Contact with and (suspected) exposure to COVID-19; K74.60 Unspecified cirrhosis of liver; E11.22 Type 2 diabetes mellitus with diabetic chronic kidney disease; N18.30 Chronic kidney disease, stage 3 unspecified; E11.65 Type 2 diabetes mellitus with hyperglycemia; E03.9 Hypothyroidism, unspecified; E86.9 Volume depletion, unspecified; Z79.899 Other long term (current) drug therapy; Z79.4 Long term (current) use of insulin; Z79.890 Hormone replacement therapy; Z82.49 Family history of ischemic heart disease and other diseases of the circulatory system; Z83.3 Family history of diabetes mellitus; Z87.891 Personal history of nicotine dependence
CPT/HCPCS: 36415; 36416; 49083; 70450; 74176; 80048; 80053; 80307; 81003; 82140; 83605; 83690; 84484; 85025; 85060; 85610; 85730; 87070; 87205; 89051; 93005; 96361; 96374; 96375; 96376; G0378; J1200; J1815; J1940; J2270; J2405; J3010; P9047; U0002; U0003; U0005

== ENCOUNTER 2022-03-03 11:07 | Inpatient (IN) | payer BC, MEDICARE ==
[2022-03-03 12:01] LABS: #Lymphocytes 0.2 thou/uL (1.20-3.40); #Monocytes 0.3 thou/uL (0.11-0.59); #Neutrophils 3.8 thou/uL (1.40-6.50); %Eosinophils 0.2 % (0.0-10.0); %Lymphocytes 4.8 % (21.0-51.0); Hemoglobin 9.8 g/dL (14.0-18.0); Mean Corpuscular HGB CONC 33.8 g/dL (32.0-36.0); Mean Corpuscular Hemoglobin 31.6 pg (27.0-31.0); Mean Corpuscular Volume 93.6 fL (78.0-98.0); Platelet Count 32 thou/uL (130-400); RBC Distribution Width 13.1 % (11.5-14.5); Red Blood Cell (RBC) Count 3.11 mill/uL (4.70-6.10); White Blood Cell (WBC) Count 4.3 thou/uL (4.8-10.8)
[2022-03-03 12:11] LABS: ALT (SGPT) 31 U/L (8-55); AST (SGOT) 32 U/L (5-34); Albumin 3.4 g/dL (3.4-4.8); Alkaline Phosphatase 319 U/L (40-110); Anion Gap 19 mmol/L (10-20); BUN (Urea Nitrogen) 56 mg/dL (8.4-25.7); Bilirubin, Total 2.1 mg/dL (0.2-1.2); Calc. Creatinine Clearance 0 mL/min (70-130); Calcium 8.7 mg/dL (7.8-10.44); Carbon Dioxide 16 mmol/L (23-31); Chloride 106 mmol/L (98-107); Estimated GFR 22; Globulin 2.5 g/dL (2.4-3.5); Glucose 332 mg/dL (80-115); Protein, Total 5.9 g/dL (5.8-8.1); Sodium 135 mmol/L (136-145)
[2022-03-03] MEDS ORDERED: LOKELMA 10 GM PACKET PO SCH (13:45)
[2022-03-03] MEDS ORDERED: Ondansetron PF 4 MG/2 ML Vial IVP PRN (14:29)
[2022-03-03] MEDS ORDERED: Ondansetron ODT 4 MG TAB PO PRN (14:29)
[2022-03-03] MEDS ORDERED: hydrALAZINE 20 MG/ML VIAL SLOW IVP PRN (14:29)
[2022-03-03] MEDS ORDERED: Albumin 25% 25 GM/100 ML BOT IVPB SCH (15:35)
[2022-03-03] MEDS ORDERED: Sodium Bicarbonate 150 MEQ in Dextrose 5% in Water 1,000 ML IV SCH (16:00)
[2022-03-03 17:14] VITALS: BMI 33.8
[2022-03-03 18:08] LABS: Potassium 4.6 mmol/L (3.5-5.1)
[2022-03-03] MEDS: cefTRIAXone\\ROCEPHIN 1 GM in Sodium Chloride 0.9% 100 ML IVPB SCH (20:34)
[2022-03-03] MEDS ORDERED: Morphine 2 MG/ML VIAL SLOW IVP PRN (23:11)
[2022-03-03] MEDS ORDERED: Acetaminophen 500 MG TAB PO PRN (23:11)
[2022-03-03] MEDS: HYDROcodone/Acetaminophen 5/325 mg Tablet PO PRN (23:33)
[2022-03-04 05:08] LABS: Hemoglobin 8.2 g/dL (14.0-18.0); Mean Corpuscular Hemoglobin 31.3 pg (27.0-31.0); Mean Corpuscular Volume 94.7 fL (78.0-98.0); Mean Platelet Volume 8.9 fL (7.4-10.4); Platelet Count 29 thou/uL (130-400); RBC Distribution Width 13.2 % (11.5-14.5); Red Blood Cell (RBC) Count 2.63 mill/uL (4.70-6.10); White Blood Cell (WBC) Count 4.4 thou/uL (4.8-10.8)
[2022-03-04 05:23] LABS: Anion Gap 17 mmol/L (10-20); BUN (Urea Nitrogen) 63 mg/dL (8.4-25.7); Calc. Creatinine Clearance 24 mL/min (70-130); Calcium 8.7 mg/dL (7.8-10.44); Carbon Dioxide 18 mmol/L (23-31); Chloride 101 mmol/L (98-107); Estimated GFR 21; Glucose 490 mg/dL (80-115); Potassium 5.2 mmol/L (3.5-5.1); Sodium 131 mmol/L (136-145)
[2022-03-04 05:37] LABS: Band 12 % (5-11); Lymphocytes 5 % (21-51); MDiff Complete? YES; Monocytes 11 % (0-10); Neutrophil 72 % (42-75); Platelet Morphology Comment Appears Decreased; RBC Morphology Normal
[2022-03-04] MEDS ORDERED: Lidocaine 1% MPF 2 ML VIAL ONE (08:18)
[2022-03-04] MEDS ORDERED: Sodium Bicarbonate 2.5 MEQ/5 ML VIAL ONE (08:18)
[2022-03-04] MEDS ORDERED: Dextrose 5% in Water 1,000 ML IV PRN (08:41)
[2022-03-04] MEDS ORDERED: Dextrose 50% Abboject 50 ML SYRINGE SLOW IVP PRN (08:41)
[2022-03-04] MEDS ORDERED: Non-Formulary Item 1 EACH (Lactulose 10 Gm/15ml Oral Sol 10 GM/15 ML Ml) PO SCH (09:00)
[2022-03-04] MEDS ORDERED: Non-Formulary Item 1 EACH (Nadolol [Corgard] 20 MG Tab) PO SCH (09:00)
[2022-03-04] MEDS ORDERED: SORAFENIB TOSYLATE 200 MG PO SCH (09:00)
[2022-03-04] MEDS ORDERED: Levothyroxine Sodium 100 MCG TAB PO SCH (09:00)
[2022-03-04] MEDS ORDERED: Albumin 25% 100 ML ONE (09:00)
[2022-03-04] MEDS: Nadolol 40 MG TAB PO SCH (09:57)
[2022-03-04] MEDS: HumaLOG 300 UNITS/3 ML VIAL SC PRN ×3 (11:13→20:59)
[2022-03-04] MEDS: SORAFENIB TOSYLATE 200 MG PO SCH ×2 (11:45→21:00)
[2022-03-04] MEDS: Albumin 25% 25 GM/100 ML BOT IVPB SCH ×2 (11:51→17:49)
[2022-03-04 14:07] LABS: RBC Count-Automated (BF) 5490 /cu.mm; WBC/Nucleated-Auto (BF) 9580 /cu.mm
[2022-03-04 14:53] LABS: BF Color Yellow; Body Fluid Source Ascites Body Fluid; Clarity Cloudy/Turbid (Clear); Tube # EDTA
[2022-03-04 14:55] LABS: Cell Count Non Hematic 33 %
[2022-03-04 14:56] LABS: BF Segmented Neutrophils 66 %; Lymphocytes 1 %
[2022-03-04] MEDS: cefTRIAXone\\ROCEPHIN 1 GM in Sodium Chloride 0.9% 100 ML IVPB SCH (16:17)
[2022-03-05 04:19] LABS: ALT (SGPT) 19 U/L (8-55); AST (SGOT) 21 U/L (5-34); Albumin 3.5 g/dL (3.4-4.8); Alkaline Phosphatase 206 U/L (40-110); Anion Gap 17 mmol/L (10-20); BUN (Urea Nitrogen) 68 mg/dL (8.4-25.7); Bilirubin, Total 1.9 mg/dL (0.2-1.2); Calc. Creatinine Clearance 25 mL/min (70-130); Calcium 7.7 mg/dL (7.8-10.44); Carbon Dioxide 16 mmol/L (23-31); Chloride 103 mmol/L (98-107); Estimated GFR 21; Globulin 1.8 g/dL (2.4-3.5); Glucose 351 mg/dL (80-115); Potassium 4.5 mmol/L (3.5-5.1); Protein, Total 5.3 g/dL (5.8-8.1); Sodium 131 mmol/L (136-145)
[2022-03-05 04:23] LABS: #Lymphocytes 0.2 thou/uL (1.20-3.40); #Monocytes 0.4 thou/uL (0.11-0.59); #Neutrophils 2.1 thou/uL (1.40-6.50); %Basophils 0.5 % (0.0-1.0); %Eosinophils 1.8 % (0.0-10.0); %Lymphocytes 7.7 % (21.0-51.0); %Monocytes 13.5 % (0.0-10.0); %Neutrophils 76.6 % (42.0-75.0); Hemoglobin 7.7 g/dL (14.0-18.0); Mean Corpuscular HGB CONC 33.8 g/dL (32.0-36.0); Mean Corpuscular Hemoglobin 31.8 pg (27.0-31.0); Mean Platelet Volume 8.9 fL (7.4-10.4); Platelet Count 26 thou/uL (130-400); RBC Distribution Width 13.1 % (11.5-14.5); Red Blood Cell (RBC) Count 2.43 mill/uL (4.70-6.10); White Blood Cell (WBC) Count 2.7 thou/uL (4.8-10.8)
[2022-03-05] MEDS: HumaLOG 300 UNITS/3 ML VIAL SC PRN ×3 (06:23→21:27)
[2022-03-05] MEDS: Levothyroxine Sodium 112 MCG TAB PO SCH (06:23)
[2022-03-05] MEDS: SORAFENIB TOSYLATE 200 MG PO SCH ×2 (08:51→21:25)
[2022-03-05] MEDS: Nadolol 40 MG TAB PO SCH (08:51)
[2022-03-05] MEDS: Albumin 25% 25 GM/100 ML BOT IVPB SCH ×3 (09:55→22:44)
[2022-03-05] MEDS ORDERED: Vancomycin Sliding Scale IVPB PRN (14:19)
[2022-03-05] MEDS ORDERED: VANCOMYCIN 1.75 GM/500 ML BAG 1.75 GM in Premix Bag 1 BAG IVPB SCH (14:30)
[2022-03-05] MEDS: Sodium Bicarbonate Tab 325 MG TAB PO SCH ×2 (15:43→21:25)
[2022-03-05] MEDS: cefTRIAXone\\ROCEPHIN 1 GM in Sodium Chloride 0.9% 100 ML IVPB SCH (16:41)
[2022-03-05] MEDS ORDERED: VANCOMYCIN 1.25 GM/250 ML BAG IVPB SCH (21:00)
[2022-03-06] MEDS: Albumin 25% 25 GM/100 ML BOT IVPB SCH (04:39)
[2022-03-06 04:55] LABS: Hemoglobin 7.5 g/dL (14.0-18.0); Mean Corpuscular HGB CONC 33.9 g/dL (32.0-36.0); Mean Corpuscular Hemoglobin 31.9 pg (27.0-31.0); Mean Corpuscular Volume 94.2 fL (78.0-98.0); Mean Platelet Volume 8.2 fL (7.4-10.4); Platelet Count 19 thou/uL (130-400); RBC Distribution Width 12.9 % (11.5-14.5); Red Blood Cell (RBC) Count 2.36 mill/uL (4.70-6.10); White Blood Cell (WBC) Count 1.2 thou/uL (4.8-10.8)
[2022-03-06 05:01] LABS: ALT (SGPT) 17 U/L (8-55); AST (SGOT) 21 U/L (5-34); Albumin 3.9 g/dL (3.4-4.8); Alkaline Phosphatase 257 U/L (40-110); Anion Gap 16 mmol/L (10-20); BUN (Urea Nitrogen) 68 mg/dL (8.4-25.7); Bilirubin, Total 1.5 mg/dL (0.2-1.2); Calc. Creatinine Clearance 24 mL/min (70-130); Calcium 8.2 mg/dL (7.8-10.44); Carbon Dioxide 19 mmol/L (23-31); Chloride 104 mmol/L (98-107); Estimated GFR 21; Glucose 346 mg/dL (80-115); Potassium 4.4 mmol/L (3.5-5.1); Protein, Total 5.9 g/dL (5.8-8.1); Sodium 135 mmol/L (136-145)
[2022-03-06 05:04] LABS: Band 2 % (5-11); Eosinophils 3 % (0-10); Lymphocytes 8 % (21-51); MDiff Complete? YES; Monocytes 7 % (0-10); Neutrophil 80 % (42-75); Platelet Morphology Comment Appears Decreased; RBC Morphology Normal
[2022-03-06] MEDS: Levothyroxine Sodium 112 MCG TAB PO SCH (06:00)
[2022-03-06] MEDS: HumaLOG 300 UNITS/3 ML VIAL SC PRN ×4 (06:21→21:46)
[2022-03-06] MEDS: Nadolol 40 MG TAB PO SCH (09:32)
[2022-03-06] MEDS: Sodium Bicarbonate Tab 325 MG TAB PO SCH ×3 (09:32→20:58)
[2022-03-06] MEDS: SORAFENIB TOSYLATE 200 MG PO SCH ×2 (09:33→21:02)
[2022-03-06] MEDS: cefTRIAXone\\ROCEPHIN 1 GM in Sodium Chloride 0.9% 100 ML IVPB SCH (14:24)
[2022-03-06 16:27] LABS: Vancomycin, Random 14.5 ug/mL (See Comment)
[2022-03-06] MEDS ORDERED: Vancomycin HCl 500 MG in Sodium Chloride 0.9% 100 ML IVPB SCH (17:00)
[2022-03-07 04:41] LABS: Hemoglobin 8.2 g/dL (14.0-18.0); Mean Corpuscular HGB CONC 34.3 g/dL (32.0-36.0); Mean Corpuscular Hemoglobin 32.4 pg (27.0-31.0); Mean Corpuscular Volume 94.4 fL (78.0-98.0); Mean Platelet Volume 8.7 fL (7.4-10.4); Platelet Count 27 thou/uL (130-400); RBC Distribution Width 13.1 % (11.5-14.5); Red Blood Cell (RBC) Count 2.55 mill/uL (4.70-6.10); White Blood Cell (WBC) Count 1.1 thou/uL (4.8-10.8)
[2022-03-07 05:06] LABS: Hypochromia SLIGHT = 6-15 cells (100X) (0-5/hpf); MDiff Complete? YES; Monocytes 36 % (0-10); Neutrophil 64 % (42-75); Platelet Morphology Comment Appears Decreased
[2022-03-07] MEDS: Levothyroxine Sodium 112 MCG TAB PO SCH (05:35)
[2022-03-07] MEDS: HumaLOG 300 UNITS/3 ML VIAL SC PRN ×4 (05:36→20:22)
[2022-03-07 07:52] LABS: Anion Gap 14 mmol/L (10-20); BUN (Urea Nitrogen) 63 mg/dL (8.4-25.7); Calc. Creatinine Clearance 28 mL/min (70-130); Calcium 8.6 mg/dL (7.8-10.44); Carbon Dioxide 19 mmol/L (23-31); Chloride 108 mmol/L (98-107); Estimated GFR 24; Glucose 321 mg/dL (80-115); Potassium 4.3 mmol/L (3.5-5.1); Sodium 137 mmol/L (136-145)
[2022-03-07] MEDS: Sodium Bicarbonate Tab 325 MG TAB PO SCH ×3 (09:09→20:11)
[2022-03-07] MEDS: Nadolol 40 MG TAB PO SCH (09:09)
[2022-03-07] MEDS: SORAFENIB TOSYLATE 200 MG PO SCH ×2 (10:38→20:22)
[2022-03-07] MEDS: cefTRIAXone\\ROCEPHIN 1 GM in Sodium Chloride 0.9% 100 ML IVPB SCH (14:05)
[2022-03-07 17:44] LABS: Vancomycin, Random 14.3 ug/mL (See Comment)
[2022-03-07] MEDS ORDERED: Vancomycin HCl 750 MG in Sodium Chloride 0.9% 250 ML 250 ML IVPB SCH (19:00)
[2022-03-08] MEDS: HumaLOG 300 UNITS/3 ML VIAL SC PRN ×3 (06:18→17:38)
[2022-03-08] MEDS: Levothyroxine Sodium 112 MCG TAB PO SCH (06:19)
[2022-03-08 07:05] LABS: #Lymphocytes 0.1 thou/uL (1.20-3.40); #Monocytes 0.2 thou/uL (0.11-0.59); #Neutrophils 1.2 thou/uL (1.40-6.50); %Basophils 1.1 % (0.0-1.0); %Eosinophils 1.5 % (0.0-10.0); %Lymphocytes 8.1 % (21.0-51.0); %Monocytes 10.8 % (0.0-10.0); %Neutrophils 78.4 % (42.0-75.0); Hemoglobin 8.3 g/dL (14.0-18.0); Mean Corpuscular HGB CONC 33.3 g/dL (32.0-36.0); Mean Corpuscular Hemoglobin 31.6 pg (27.0-31.0); Mean Platelet Volume 8.1 fL (7.4-10.4); Platelet Count 20 thou/uL (130-400); Red Blood Cell (RBC) Count 2.64 mill/uL (4.70-6.10); White Blood Cell (WBC) Count 1.5 thou/uL (4.8-10.8)
[2022-03-08 07:21] LABS: Anion Gap 17 mmol/L (10-20); BUN (Urea Nitrogen) 58 mg/dL (8.4-25.7); Calc. Creatinine Clearance 29 mL/min (70-130); Calcium 8.1 mg/dL (7.8-10.44); Carbon Dioxide 15 mmol/L (23-31); Chloride 107 mmol/L (98-107); Estimated GFR 26; Glucose 484 mg/dL (80-115); Sodium 134 mmol/L (136-145)
[2022-03-08 09:00] LABS: INR-International Normal Ratio 1.5; PTT 28.9 sec (22.9-36.1); Prothrombin Time 18.1 sec (12.0-14.7)
[2022-03-08] MEDS ORDERED: NPH, Human Insulin Isophane 300 UNIT/3 ML VIAL SC SCH (09:00)
[2022-03-08] MEDS ORDERED: Insulin Glargine 30 UNITS/0.3 ML VIAL SC SCH ×2 (09:15→16:30)
[2022-03-08] MEDS: Sodium Bicarbonate Tab 325 MG TAB PO SCH ×3 (11:22→21:08)
[2022-03-08] MEDS: Albumin 25% 25 GM/100 ML BOT IVPB SCH ×2 (11:22→14:23)
[2022-03-08] MEDS: Nadolol 40 MG TAB PO SCH (11:23)
[2022-03-08] MEDS: SORAFENIB TOSYLATE 200 MG PO SCH ×2 (11:25→21:01)
[2022-03-08 11:32] LABS: RBC Count-Automated (BF) 3956 /cu.mm; WBC/Nucleated-Auto (BF) 467 /cu.mm
[2022-03-08 11:54] LABS: BF Color Yellow; Body Fluid Source Ascites Body Fluid; Clarity Cloudy/Turbid (Clear); Tube # EDTA
[2022-03-08 11:59] LABS: BF Segmented Neutrophils 28 %; Cell Count Non Hematic 62 %; Lymphocytes 9 %
[2022-03-08] MEDS: cefTRIAXone\\ROCEPHIN 1 GM in Sodium Chloride 0.9% 100 ML IVPB SCH (14:23)
[2022-03-08 18:20] LABS: Vancomycin, Random 15.5 ug/mL (See Comment)
[2022-03-08] MEDS ORDERED: Vancomycin HCl 750 MG in Sodium Chloride 0.9% 250 ML 250 ML IVPB SCH (18:45)
[2022-03-08] MEDS: Chlorhexidine Gluconate 15 ML UDCUP SSP SCH (21:00)
[2022-03-08] MEDS: HYDROcodone/Acetaminophen 5/325 mg Tablet PO PRN (23:02)
[2022-03-09] MEDS: HumaLOG 300 UNITS/3 ML VIAL SC PRN ×4 (02:43→17:44)
[2022-03-09] MEDS: Levothyroxine Sodium 112 MCG TAB PO SCH (05:46)
[2022-03-09 06:26] LABS: Hemoglobin 8.8 g/dL (14.0-18.0); Mean Corpuscular HGB CONC 33.2 g/dL (32.0-36.0); Mean Corpuscular Hemoglobin 31.4 pg (27.0-31.0); Mean Corpuscular Volume 94.4 fL (78.0-98.0); Mean Platelet Volume 7.9 fL (7.4-10.4); Platelet Count 23 thou/uL (130-400); RBC Distribution Width 13.1 % (11.5-14.5); Red Blood Cell (RBC) Count 2.79 mill/uL (4.70-6.10); White Blood Cell (WBC) Count 1.7 thou/uL (4.8-10.8)
[2022-03-09 06:46] LABS: Anion Gap 13 mmol/L (10-20); BUN (Urea Nitrogen) 52 mg/dL (8.4-25.7); BUN/Creatinine Ratio 23.53; Calc. Creatinine Clearance 34 mL/min (70-130); Calcium 8.4 mg/dL (7.8-10.44); Carbon Dioxide 21 mmol/L (23-31); Chloride 110 mmol/L (98-107); Estimated GFR 32; Phosphorus 3.5 mg/dL (2.3-4.7); Potassium 4.1 mmol/L (3.5-5.1); Sodium 140 mmol/L (136-145)
[2022-03-09 06:53] LABS: Glucose 57 mg/dL (80-115)
[2022-03-09] MEDS: Nadolol 40 MG TAB PO SCH (08:13)
[2022-03-09] MEDS: Sodium Bicarbonate Tab 325 MG TAB PO SCH ×3 (08:14→20:36)
[2022-03-09] MEDS: Chlorhexidine Gluconate 15 ML UDCUP SSP SCH ×2 (08:14→20:36)
[2022-03-09] MEDS ORDERED: Insulin Glargine 30 UNITS/0.3 ML VIAL SC SCH ×3 (09:00)
[2022-03-09] MEDS ORDERED: Albumin 25% 25 GM/100 ML BOT IVPB SCH (09:00)
[2022-03-09] MEDS: SORAFENIB TOSYLATE 200 MG PO SCH (11:21)
[2022-03-09] MEDS: cefTRIAXone\\ROCEPHIN 1 GM in Sodium Chloride 0.9% 100 ML IVPB SCH (14:22)
[2022-03-09 19:06] LABS: Vancomycin, Random 18.2 ug/mL (See Comment)
[2022-03-09] MEDS ORDERED: Vancomycin HCl 750 MG in Sodium Chloride 0.9% 250 ML 250 ML IVPB SCH (20:00)
[2022-03-09] MEDS: Rifaximin 550 MG TAB PO SCH (20:36)
[2022-03-09] MEDS: Insulin Glargine 30 UNITS/0.3 ML VIAL SC SCH (20:37)
[2022-03-10] MEDS: Levothyroxine Sodium 112 MCG TAB PO SCH (05:38)
[2022-03-10] MEDS: HumaLOG 300 UNITS/3 ML VIAL SC PRN (05:39)
[2022-03-10 08:08] LABS: #Lymphocytes 0.2 thou/uL (1.20-3.40); #Monocytes 0.2 thou/uL (0.11-0.59); #Neutrophils 1.1 thou/uL (1.40-6.50); %Eosinophils 1.7 % (0.0-10.0); %Lymphocytes 9.9 % (21.0-51.0); %Monocytes 14.7 % (0.0-10.0); %Neutrophils 73.8 % (42.0-75.0); Mean Corpuscular HGB CONC 33.8 g/dL (32.0-36.0); Mean Corpuscular Hemoglobin 32.1 pg (27.0-31.0); Mean Corpuscular Volume 95.1 fL (78.0-98.0); Mean Platelet Volume 8.5 fL (7.4-10.4); Platelet Count 22 thou/uL (130-400); RBC Distribution Width 13.2 % (11.5-14.5); Red Blood Cell (RBC) Count 2.79 mill/uL (4.70-6.10); White Blood Cell (WBC) Count 1.5 thou/uL (4.8-10.8)
[2022-03-10] MEDS: Sodium Bicarbonate Tab 325 MG TAB PO SCH (08:24)
[2022-03-10] MEDS: Rifaximin 550 MG TAB PO SCH (08:25)
[2022-03-10] MEDS: Chlorhexidine Gluconate 15 ML UDCUP SSP SCH (08:25)
[2022-03-10] MEDS: Nadolol 40 MG TAB PO SCH (08:25)
[2022-03-10 08:26] LABS: ALT (SGPT) 26 U/L (8-55); AST (SGOT) 29 U/L (5-34); Albumin 3.7 g/dL (3.4-4.8); Alkaline Phosphatase 359 U/L (40-110); Anion Gap 15 mmol/L (10-20); BUN (Urea Nitrogen) 51 mg/dL (8.4-25.7); Bilirubin, Total 1.4 mg/dL (0.2-1.2); Calc. Creatinine Clearance 30 mL/min (70-130); Calcium 8.4 mg/dL (7.8-10.44); Carbon Dioxide 18 mmol/L (23-31); Chloride 109 mmol/L (98-107); Estimated GFR 27; Globulin 2.3 g/dL (2.4-3.5); Glucose 212 mg/dL (80-115); Potassium 4.5 mmol/L (3.5-5.1); Sodium 137 mmol/L (136-145)
[2022-03-10] MEDS: Insulin Glargine 30 UNITS/0.3 ML VIAL SC SCH (08:59)
[2022-03-10 11:01] VITALS: BP 153/83; TEMP 97.6
== END 2022-03-10 11:11 | disposition home or self-care (01) | DRG 371 ==
LOC: ERS 11:07 → ERHOLD 13:18 → 2NO 16:54 → T4-B 03-08 20:37
PROVIDERS: ADMIT Internal Medicine; ATTEND Internal Medicine
PROC: 0W9G3ZZ Drainage of Peritoneal Cavity, Percutaneous Approach (ICD-10-PCS; principal; 2022-03-03)
PROC: 30233R1 Transfusion of Nonautologous Platelets into Peripheral Vein, Percutaneous Approach (ICD-10-PCS; 2022-03-03)
PROC: 0W9G3ZZ Drainage of Peritoneal Cavity, Percutaneous Approach (ICD-10-PCS; 2022-03-08)
DX: K65.2 Spontaneous bacterial peritonitis (principal); D61.811 Other drug-induced pancytopenia; C22.0 Liver cell carcinoma; N17.9 Acute kidney failure, unspecified; E87.2 Acidosis; R18.0 Malignant ascites; N18.4 Chronic kidney disease, stage 4 (severe); K76.6 Portal hypertension; K74.60 Unspecified cirrhosis of liver; Z20.822 Contact with and (suspected) exposure to COVID-19; B18.2 Chronic viral hepatitis C; E78.5 Hyperlipidemia, unspecified; E11.40 Type 2 diabetes mellitus with diabetic neuropathy, unspecified; E11.22 Type 2 diabetes mellitus with diabetic chronic kidney disease; B95.4 Other streptococcus as the cause of diseases classified elsewhere; I12.9 Hypertensive chronic kidney disease with stage 1 through stage 4 chronic kidney disease, or unspecified chronic kidney disease; Z79.4 Long term (current) use of insulin; Z79.890 Hormone replacement therapy; Z79.899 Other long term (current) drug therapy; Z87.891 Personal history of nicotine dependence; T50.Z95A Adverse effect of other vaccines and biological substances, initial encounter
CPT/HCPCS: 36415; 36416; 36430; 49083; 74176; 80048; 80053; 80069; 80202; 82140; 84145; 85025; 85027; 85060; 85610; 85730; 86850; 86870; 86900; 86901; 86905; 86922; 87070; 87077; 87186; 87205; 89051; 93005; 94760; J0696; J1815; J3370; J3490; J7050; J7070; P9035; P9047

== ENCOUNTER 2022-03-14 09:17 | Day surgery (SDC) | payer BC, MEDICARE ==
[2022-03-11 08:14] VITALS: BMI 28.3
[2022-03-14] MEDS ORDERED: Sodium Bicarbonate 2.5 MEQ/5 ML VIAL ONE (09:23)
[2022-03-14] MEDS ORDERED: Albumin 25% 25 GM/100 ML BOT IVPB SCH (10:00)
[2022-03-14 12:01] VITALS: BP 131/80
[2022-03-14 12:26] LABS: RBC Count-Automated (BF) 2941 /cu.mm; WBC/Nucleated-Auto (BF) 137 /cu.mm
[2022-03-14 12:47] LABS: BF Color Yellow; Body Fluid Source Ascites Body Fluid; Clarity Hazy (Clear); Tube # EDTA
[2022-03-14 12:49] LABS: BF Segmented Neutrophils 2 %; Cell Count Non Hematic 79 %; Lymphocytes 19 %
== END 2022-03-14 11:30 | disposition home or self-care (01) ==
LOC: ULT 09:17
PROVIDERS: ATTEND Internal Medicine Gastroenterology
PROC: 0W9G3ZX Drainage of Peritoneal Cavity, Percutaneous Approach, Diagnostic (ICD-10-PCS; principal; 2022-03-14)
DX: K74.60 Unspecified cirrhosis of liver (principal); R18.8 Other ascites
CPT/HCPCS: 36415; 49083; 80048; 85060; 87070; 87205; 89051; P9047

== ENCOUNTER 2022-03-28 09:04 | Day surgery (SDC) | payer BC, MEDICARE ==
[2022-03-25 11:10] VITALS: BMI 28.3
[2022-03-28] MEDS ORDERED: Sodium Bicarbonate 2.5 MEQ/5 ML VIAL ONE (09:22)
[2022-03-28] MEDS ORDERED: Lidocaine 2% PF 5 ML VIAL ONE (09:22)
[2022-03-28 11:43] VITALS: BP 128/75; TEMP 98.8
[2022-03-28 12:37] LABS: RBC Count-Automated (BF) 4737 /cu.mm; WBC/Nucleated-Auto (BF) 33 /cu.mm
[2022-03-28 12:38] LABS: BF Color Yellow; Body Fluid Source Ascites Body Fluid; Clarity Clear (Clear); Tube # 1
[2022-03-28 13:03] LABS: BF Segmented Neutrophils 2 %; Cell Count Non Hematic 79 %; Lymphocytes 18 %
== END 2022-03-28 11:30 | disposition home or self-care (01) ==
LOC: ULT 09:04
PROVIDERS: ATTEND Internal Medicine Gastroenterology
PROC: 0W9G3ZX Drainage of Peritoneal Cavity, Percutaneous Approach, Diagnostic (ICD-10-PCS; principal; 2022-03-28)
DX: K74.60 Unspecified cirrhosis of liver (principal); R18.8 Other ascites; C22.9 Malignant neoplasm of liver, not specified as primary or secondary; N18.4 Chronic kidney disease, stage 4 (severe)
CPT/HCPCS: 36415; 49083; 80053; 85060; 87070; 87205; 89051; J2001; P9047

== ENCOUNTER 2022-03-30 00:49 | Inpatient (IN) | payer BC, MEDICARE ==
[2022-03-30 01:31] LABS: Hemoglobin 9.8 g/dL (14.0-18.0); Mean Corpuscular HGB CONC 32.8 g/dL (32.0-36.0); Mean Corpuscular Hemoglobin 30.9 pg (27.0-31.0); Mean Corpuscular Volume 94.4 fL (78.0-98.0); RBC Distribution Width 14.4 % (11.5-14.5); Red Blood Cell (RBC) Count 3.15 mill/uL (4.70-6.10); White Blood Cell (WBC) Count 1.8 thou/uL (4.8-10.8)
[2022-03-30 01:46] LABS: ALT (SGPT) 22 U/L (8-55); AST (SGOT) 27 U/L (5-34); Albumin 3.3 g/dL (3.4-4.8); Alkaline Phosphatase 393 U/L (40-110); Anion Gap 14 mmol/L (10-20); BUN (Urea Nitrogen) 63 mg/dL (8.4-25.7); Calc. Creatinine Clearance 0 mL/min (70-130); Calcium 8.1 mg/dL (7.8-10.44); Carbon Dioxide 20 mmol/L (23-31); Chloride 107 mmol/L (98-107); Estimated GFR 28; Globulin 2.9 g/dL (2.4-3.5); Glucose 361 mg/dL (80-115); Lipase 12 U/L (8-78); Protein, Total 6.2 g/dL (5.8-8.1); Sodium 137 mmol/L (136-145)
[2022-03-30 02:02] LABS: MDiff Complete? YES; Mean Platelet Volume 9.3 fL (7.4-10.4); Platelet Count 32 thou/uL (130-400)
[2022-03-30 02:03] LABS: Band 3 % (5-11); Eosinophils 4 % (0-10); Lymphocytes 12 % (21-51); Monocytes 15 % (0-10); Neutrophil 66 % (42-75); Platelet Morphology Comment Appears Decreased
[2022-03-30] MEDS ORDERED: Morphine 4 MG/ML VIAL ONE (02:16)
[2022-03-30] MEDS ORDERED: Ondansetron PF 4 MG/2 ML Vial ONE ×2 (02:16→12:42)
[2022-03-30] MEDS ORDERED: Fentanyl 100 MCG/2 ML VIAL ONE (03:29)
[2022-03-30] MEDS ORDERED: Lidocaine 1% PF 5 ML VIAL ONE (03:37)
[2022-03-30 03:58] LABS: Bilirubin Negative (Negative); Blood, Urine Negative (Negative); Clarity Clear (Clear); Glucose, Urine (Dipstick) Greater than 1000 mg/dL (Negative); Ketone, Urine Negative (Negative); Leukocyte Negative Leu/uL (Negative); Nitrite Negative (Negative); Protein, Urine (Dipstick) Negative (Neg-Trace); Specific Gravity, Urine 1.018 (1.002-1.036); Urobilinogen Normal mg/dL (Less than 2)
[2022-03-30] MEDS ORDERED: cefTRIAXone\\ROCEPHIN 2 GM VIAL ONE (03:58)
[2022-03-30 04:55] LABS: RBC Count-Automated (BF) 4585 /cu.mm; WBC/Nucleated-Auto (BF) 45 /cu.mm
[2022-03-30 04:56] LABS: BF Color Yellow; Body Fluid Source Ascites Body Fluid; Clarity Hazy (Clear); Tube # 2
[2022-03-30 04:57] LABS: SARS-CoV-2 NAA Rapid Test Not Detected (NotDetected)
[2022-03-30] MEDS ORDERED: Acetaminophen 325 MG TAB PO PRN (05:06)
[2022-03-30] MEDS ORDERED: Morphine 4 MG/ML VIAL SLOW IVP SCH (05:15)
[2022-03-30 05:24] LABS: BF Segmented Neutrophils 4 %; Cell Count Non Hematic 50 %; Lymphocytes 46 %
[2022-03-30] MEDS ORDERED: Morphine 2 MG/ML VIAL ONE ×2 (06:02→10:21)
[2022-03-30] MEDS: Levothyroxine Sodium 112 MCG TAB PO SCH (06:27)
[2022-03-30] MEDS: oxyCODONE 5 MG TAB PO PRN ×2 (06:28→10:32)
[2022-03-30] MEDS: HumuLIN 70/30 (300 UNITS/3 ML VIAL) SC SCH ×2 (07:46→16:50)
[2022-03-30] MEDS ORDERED: SORAFENIB PO SCH (09:00)
[2022-03-30] MEDS ORDERED: HumaLOG 300 UNITS/3 ML VIAL SC PRN (09:48)
[2022-03-30] MEDS ORDERED: Dextrose 50% Abboject 50 ML SYRINGE SLOW IVP PRN (09:48)
[2022-03-30] MEDS ORDERED: Dextrose 5% in Water 1,000 ML IV PRN (09:48)
[2022-03-30] MEDS: Cholecalciferol (Vitamin D3) 400 UNITS TAB PO SCH (10:07)
[2022-03-30] MEDS: Nadolol 40 MG TAB PO SCH (10:07)
[2022-03-30] MEDS: Sodium Bicarbonate Tab 325 MG TAB PO SCH ×3 (10:08→21:05)
[2022-03-30] MEDS: Morphine 4 MG/ML VIAL SLOW IVP PRN ×2 (10:22→17:28)
[2022-03-30] MEDS ORDERED: HumaLOG 300 UNITS/3 ML VIAL ONE (11:39)
[2022-03-30] MEDS: HumaLOG 300 UNITS/3 ML VIAL SC PRN ×2 (11:42→16:51)
[2022-03-30] MEDS ORDERED: Ondansetron PF 4 MG/2 ML Vial IVP PRN (11:51)
[2022-03-30 13:27] VITALS: BMI 26.5
[2022-03-30] MEDS: cefTRIAXone\\ROCEPHIN 2 GM in Sodium Chloride 0.9% 100 ML IVPB SCH (21:06)
[2022-03-31 05:23] LABS: #Eosinphils 0.1 thou/uL (0.0-0.7); #Lymphocytes 0.2 thou/uL (1.20-3.40); #Monocytes 0.3 thou/uL (0.11-0.59); #Neutrophils 4.3 thou/uL (1.40-6.50); %Basophils 0.2 % (0.0-1.0); %Eosinophils 2.1 % (0.0-10.0); %Lymphocytes 3.2 % (21.0-51.0); %Monocytes 6.3 % (0.0-10.0); %Neutrophils 88.2 % (42.0-75.0); Hemoglobin 10.5 g/dL (14.0-18.0); Mean Corpuscular HGB CONC 32.4 g/dL (32.0-36.0); Mean Corpuscular Hemoglobin 30.1 pg (27.0-31.0); Mean Corpuscular Volume 92.9 fL (78.0-98.0); Platelet Count 34 thou/uL (130-400); RBC Distribution Width 14.8 % (11.5-14.5); Red Blood Cell (RBC) Count 3.48 mill/uL (4.70-6.10); White Blood Cell (WBC) Count 4.8 thou/uL (4.8-10.8)
[2022-03-31 05:28] LABS: Anion Gap 13 mmol/L (10-20); BUN (Urea Nitrogen) 66 mg/dL (8.4-25.7); Calc. Creatinine Clearance 28 mL/min (70-130); Calcium 8.2 mg/dL (7.8-10.44); Carbon Dioxide 23 mmol/L (23-31); Chloride 105 mmol/L (98-107); Estimated GFR 27; Glucose 174 mg/dL (80-115); Potassium 4.1 mmol/L (3.5-5.1); Sodium 137 mmol/L (136-145)
[2022-03-31] MEDS: Levothyroxine Sodium 112 MCG TAB PO SCH (05:34)
[2022-03-31] MEDS: HumuLIN 70/30 (300 UNITS/3 ML VIAL) SC SCH ×2 (08:26→15:46)
[2022-03-31] MEDS: Cholecalciferol (Vitamin D3) 400 UNITS TAB PO SCH (08:27)
[2022-03-31] MEDS: Sodium Bicarbonate Tab 325 MG TAB PO SCH ×3 (08:27→20:25)
[2022-03-31] MEDS: Nadolol 40 MG TAB PO SCH (08:28)
[2022-03-31] MEDS: HumaLOG 300 UNITS/3 ML VIAL SC PRN (12:35)
[2022-03-31] MEDS ORDERED: Sodium Bicarbonate 2.5 MEQ/5 ML VIAL ONE (13:53)
[2022-03-31] MEDS ORDERED: Lidocaine 2% PF 5 ML VIAL ONE (13:53)
[2022-03-31] MEDS: Albumin 25% 25 GM/100 ML BOT IVPB SCH (19:00)
[2022-03-31 19:57] VITALS: BP 104/60
[2022-03-31] MEDS: cefTRIAXone\\ROCEPHIN 2 GM in Sodium Chloride 0.9% 100 ML IVPB SCH (20:25)
[2022-03-31] MEDS ORDERED: SORAFENIB TOSYLATE 200 MG PO SCH (21:00)
[2022-04-01] MEDS: Albumin 25% 25 GM/100 ML BOT IVPB SCH ×2 (00:22→05:59)
[2022-04-01 05:34] LABS: Anion Gap 14 mmol/L (10-20); BUN (Urea Nitrogen) 76 mg/dL (8.4-25.7); Calc. Creatinine Clearance 26 mL/min (70-130); Carbon Dioxide 20 mmol/L (23-31); Chloride 103 mmol/L (98-107); Estimated GFR 25; Glucose 371 mg/dL (80-115); Potassium 3.9 mmol/L (3.5-5.1); Sodium 133 mmol/L (136-145)
[2022-04-01] MEDS ORDERED: Levothyroxine Sodium 112 MCG TAB PO SCH (06:00)
[2022-04-01] MEDS: HumaLOG 300 UNITS/3 ML VIAL SC PRN (06:04)
[2022-04-01 06:12] VITALS: TEMP 99.6
[2022-04-01 06:38] LABS: Band 2 % (5-11); Eosinophils 2 % (0-10); Hemoglobin 7.8 g/dL (14.0-18.0); Lymphocytes 6 % (21-51); MDiff Complete? YES; Mean Corpuscular HGB CONC 33.9 g/dL (32.0-36.0); Mean Corpuscular Hemoglobin 31.4 pg (27.0-31.0); Mean Corpuscular Volume 92.7 fL (78.0-98.0); Mean Platelet Volume 8.2 fL (7.4-10.4); Monocytes 18 % (0-10); Neutrophil 72 % (42-75); Platelet Count 21 thou/uL (130-400); Platelet Morphology Comment Appears Decreased; RBC Distribution Width 14.8 % (11.5-14.5); RBC Morphology Normal; Red Blood Cell (RBC) Count 2.47 mill/uL (4.70-6.10); White Blood Cell (WBC) Count 1.2 thou/uL (4.8-10.8)
[2022-04-01] MEDS: Sodium Bicarbonate Tab 325 MG TAB PO SCH (08:08)
[2022-04-01] MEDS: HumuLIN 70/30 (300 UNITS/3 ML VIAL) SC SCH (08:10)
[2022-04-01] MEDS ORDERED: Ergocalciferol 1.25 MG(50,000 UNITS) CAP PO SCH (09:00)
[2022-04-01] MEDS ORDERED: Empagliflozin 25 MG TAB PO SCH (09:00)
[2022-04-01] MEDS ORDERED: Nadolol 40 MG TAB PO SCH (09:00)
== END 2022-04-01 11:21 | disposition home or self-care (01) | DRG 432 ==
LOC: ERS 00:49 → ERHOLD 04:02 → MSONC 17:12 → OBSVTOIN 03-31 16:30
PROVIDERS: ADMIT Hospitalist; ATTEND Hospitalist
PROC: 0W9G3ZZ Drainage of Peritoneal Cavity, Percutaneous Approach (ICD-10-PCS; principal; 2022-03-31)
DX: K74.60 Unspecified cirrhosis of liver (principal); D61.810 Antineoplastic chemotherapy induced pancytopenia; C22.0 Liver cell carcinoma; R18.8 Other ascites; N18.4 Chronic kidney disease, stage 4 (severe); E87.2 Acidosis; K76.6 Portal hypertension; I85.00 Esophageal varices without bleeding; Z20.822 Contact with and (suspected) exposure to COVID-19; I12.9 Hypertensive chronic kidney disease with stage 1 through stage 4 chronic kidney disease, or unspecified chronic kidney disease; E11.22 Type 2 diabetes mellitus with diabetic chronic kidney disease; K72.90 Hepatic failure, unspecified without coma; E03.9 Hypothyroidism, unspecified; T45.1X5A Adverse effect of antineoplastic and immunosuppressive drugs, initial encounter; Z86.19 Personal history of other infectious and parasitic diseases; Z87.891 Personal history of nicotine dependence; Z79.899 Other long term (current) drug therapy; Z79.4 Long term (current) use of insulin; Z83.3 Family history of diabetes mellitus; Z82.49 Family history of ischemic heart disease and other diseases of the circulatory system; Z98.890 Other specified postprocedural states
CPT/HCPCS: 36415; 36416; 49083; 74176; 80048; 80053; 81003; 82042; 82105; 82378; 83690; 84157; 85025; 85060; 87040; 87070; 87205; 89051; 96365; 96366; 96375; 96376; G0378; J0696; J1815; J2001; J2270; J2405; J3010; J3490; P9047; U0002

== ENCOUNTER 2022-04-08 09:30 | Day surgery (SDC) | payer BC, MEDICARE ==
[2022-04-06 14:29] VITALS: BMI 28.3
[~2022-04-08 09:30] MED LIST changes: -Albumin 25% 100 ML ONE; -Albumin 25% 25 GM/100 ML BOT IVPB SCH; -Lidocaine 1% PF 5 ML VIAL ONE; +Lidocaine 2% PF 5 ML VIAL ONE
[2022-04-08] MEDS ORDERED: Sodium Bicarbonate 2.5 MEQ/5 ML VIAL ONE (09:38)
[2022-04-08] MEDS ORDERED: Lidocaine 2% PF 5 ML VIAL ONE (09:38)
[2022-04-08 12:41] LABS: INR-International Normal Ratio 1.4; Prothrombin Time 17.2 sec (12.0-14.7)
[2022-04-08 12:42] LABS: PTT 31.1 sec (22.9-36.1)
[2022-04-08 13:18] LABS: RBC Count-Automated (BF) 4106 /cu.mm; WBC/Nucleated-Auto (BF) 67 /cu.mm
[2022-04-08 13:43] LABS: BF Color Yellow; Body Fluid Source Paracentesis Fluid; Clarity Hazy (Clear); Tube # EDTA
[2022-04-08 13:44] LABS: BF Segmented Neutrophils 5 %; Cell Count Non Hematic 73 %; Eosinophils 1 %; Lymphocytes 21 %
== END 2022-04-08 11:15 | disposition home or self-care (01) ==
LOC: ULT 09:30
PROVIDERS: ATTEND Internal Medicine Gastroenterology
PROC: 0W9G30Z Drainage of Peritoneal Cavity with Drainage Device, Percutaneous Approach (ICD-10-PCS; principal; 2022-04-08)
DX: R18.8 Other ascites (principal); K74.60 Unspecified cirrhosis of liver
CPT/HCPCS: 49083; 85060; 85610; 85730; 87070; 87205; 89051; J2001; P9047

== ENCOUNTER 2022-04-14 11:53 | Day surgery (SDC) | payer BC, MEDICARE ==
[2022-04-14] MEDS ORDERED: Sodium Bicarbonate 2.5 MEQ/5 ML VIAL ONE (12:26)
[2022-04-14] MEDS ORDERED: Lidocaine 2% PF 5 ML VIAL ONE (12:26)
[2022-04-14] MEDS ORDERED: Albumin 25% 25 GM/100 ML BOT IVPB SCH (13:00)
[2022-04-14 14:36] VITALS: BP 100/55
[2022-04-14 15:39] LABS: RBC Count-Automated (BF) 11847 /cu.mm; WBC/Nucleated-Auto (BF) 100 /cu.mm
[2022-04-14 16:21] LABS: Body Fluid Source Ascites Body Fluid; Tube # EDTA
[2022-04-14 16:22] LABS: BF Color Pink; Clarity Cloudy/Turbid (Clear)
[2022-04-14 16:25] LABS: BF Segmented Neutrophils 3 %; Cell Count Non Hematic 69 %; Eosinophils 1 %; Lymphocytes 27 %
== END 2022-04-14 14:00 | disposition home or self-care (01) ==
LOC: ULT 11:53
PROVIDERS: ATTEND Internal Medicine Gastroenterology
PROC: 0W9G30Z Drainage of Peritoneal Cavity with Drainage Device, Percutaneous Approach (ICD-10-PCS; principal; 2022-04-14)
DX: R18.8 Other ascites (principal); K74.60 Unspecified cirrhosis of liver
CPT/HCPCS: 49083; 85060; 87070; 87205; 89051; J2001; P9047

== ENCOUNTER 2022-04-17 00:45 | Inpatient (IN) | payer BC, MEDICARE ==
[2022-04-17 01:59] LABS: #Lymphocytes 0.1 thou/uL (1.20-3.40); #Monocytes 0.2 thou/uL (0.11-0.59); #Neutrophils 1.2 thou/uL (1.40-6.50); %Basophils 1.9 % (0.0-1.0); %Eosinophils 1.5 % (0.0-10.0); %Lymphocytes 7.6 % (21.0-51.0); %Monocytes 13.6 % (0.0-10.0); %Neutrophils 75.4 % (42.0-75.0); Hemoglobin 8.6 g/dL (14.0-18.0); Mean Corpuscular Hemoglobin 30.8 pg (27.0-31.0); Mean Corpuscular Volume 93.2 fL (78.0-98.0); Mean Platelet Volume 8.2 fL (7.4-10.4); Platelet Count 31 thou/uL (130-400); RBC Distribution Width 15.5 % (11.5-14.5); Red Blood Cell (RBC) Count 2.79 mill/uL (4.70-6.10); White Blood Cell (WBC) Count 1.6 thou/uL (4.8-10.8)
[2022-04-17 02:12] LABS: ALT (SGPT) 33 U/L (8-55); AST (SGOT) 29 U/L (5-34); Albumin 3.5 g/dL (3.4-4.8); Alkaline Phosphatase 389 U/L (40-110); Anion Gap 19 mmol/L (10-20); BUN (Urea Nitrogen) 112 mg/dL (8.4-25.7); Bilirubin, Total 1.4 mg/dL (0.2-1.2); Calc. Creatinine Clearance 0 mL/min (70-130); Calcium 8.4 mg/dL (7.8-10.44); Carbon Dioxide 19 mmol/L (23-31); Chloride 97 mmol/L (98-107); Estimated GFR 17; Globulin 2.8 g/dL (2.4-3.5); Glucose 402 mg/dL (80-115); Potassium 3.9 mmol/L (3.5-5.1); Protein, Total 6.3 g/dL (5.8-8.1); Sodium 131 mmol/L (136-145)
[2022-04-17] MEDS ORDERED: Lidocaine 1% PF 5 ML VIAL ONE (04:43)
[2022-04-17] MEDS ORDERED: Morphine 4 MG/ML VIAL ONE (05:46)
[2022-04-17] MEDS ORDERED: Ondansetron PF 4 MG/2 ML Vial ONE (05:47)
[2022-04-17] MEDS ORDERED: cefTRIAXone\\ROCEPHIN 1 GM VIAL ONE (05:47)
[2022-04-17 06:14] LABS: RBC Count-Automated (BF) 7595 /cu.mm; WBC/Nucleated-Auto (BF) 1157 /cu.mm
[2022-04-17 06:31] LABS: BF Color Pink; Body Fluid Source Ascites Body Fluid; Clarity Hazy (Clear); Tube # EDTA
[2022-04-17 06:33] LABS: BF Segmented Neutrophils 9 %; Cell Count Non Hematic 79 %; Lymphocytes 12 %
[2022-04-17] MEDS ORDERED: Albumin 25% 25 GM/100 ML BOT IVPB SCH (07:30)
[2022-04-17] MEDS ORDERED: Ondansetron PF 4 MG/2 ML Vial IVP PRN (09:02)
[2022-04-17] MEDS ORDERED: Senokot S 8.6-50 MG TAB PO PRN (09:02)
[2022-04-17] MEDS ORDERED: Ondansetron ODT 4 MG TAB PO PRN (09:02)
[2022-04-17] MEDS ORDERED: Dextrose 50% Abboject 50 ML SYRINGE SLOW IVP PRN (09:52)
[2022-04-17] MEDS ORDERED: HumaLOG 300 UNITS/3 ML VIAL SC PRN (09:52)
[2022-04-17] MEDS ORDERED: Dextrose 5% in Water 1,000 ML IV PRN (09:52)
[2022-04-17] MEDS ORDERED: Vancomycin Sliding Scale IVPB PRN (09:56)
[2022-04-17] MEDS ORDERED: VANCOMYCIN 1.25 GM/250 ML BAG 1.25 GM in Premix Bag 1 BAG IVPB SCH (10:00)
[2022-04-17] MEDS: Sodium Chloride 0.9% 1,000 ML IV SCH ×2 (11:26→23:48)
[2022-04-17] MEDS: Albumin 25% 25 GM/100 ML BOT IVPB SCH ×2 (11:30→22:05)
[2022-04-17] MEDS: HumaLOG 300 UNITS/3 ML VIAL SC PRN ×3 (11:30→22:05)
[2022-04-17] MEDS ORDERED: Morphine 2 MG/ML VIAL SLOW IVP PRN (11:38)
[2022-04-17 11:51] VITALS: BMI 33.4
[2022-04-17] MEDS: Sodium Bicarbonate Tab 325 MG TAB PO SCH ×2 (16:14→20:52)
[2022-04-17] MEDS ORDERED: SORAFENIB TOSYLATE 200 MG PO SCH (21:00)
[2022-04-17] MEDS: Morphine 4 MG/ML VIAL SLOW IVP PRN (22:04)
[2022-04-17] MEDS ORDERED: Insulin Regular 300 UNITS/3 ML VIAL IVP SCH (23:45)
[2022-04-18] MEDS: Sodium Chloride 0.9% 1,000 ML IV SCH (00:32)
[2022-04-18] MEDS: HumaLOG 300 UNITS/3 ML VIAL SC PRN ×3 (04:22→16:35)
[2022-04-18] MEDS: Levothyroxine Sodium 112 MCG TAB PO SCH (05:13)
[2022-04-18] MEDS ORDERED: cefTRIAXone\\ROCEPHIN 1 GM in Sodium Chloride 0.9% 100 ML IVPB SCH (06:00)
[2022-04-18 07:00] LABS: Anion Gap 17 mmol/L (10-20); BUN (Urea Nitrogen) 104 mg/dL (8.4-25.7); Calc. Creatinine Clearance 22 mL/min (70-130); Calcium 8.7 mg/dL (7.8-10.44); Carbon Dioxide 19 mmol/L (23-31); Chloride 103 mmol/L (98-107); Estimated GFR 20; Glucose 325 mg/dL (80-115); Potassium 3.1 mmol/L (3.5-5.1); Sodium 136 mmol/L (136-145)
[2022-04-18 07:06] LABS: Hemoglobin 8.3 g/dL (14.0-18.0); Mean Corpuscular HGB CONC 34.4 g/dL (32.0-36.0); Mean Corpuscular Hemoglobin 32.3 pg (27.0-31.0); Mean Corpuscular Volume 93.9 fL (78.0-98.0); Mean Platelet Volume 8.1 fL (7.4-10.4); Platelet Count 26 thou/uL (130-400); RBC Distribution Width 15.3 % (11.5-14.5); Red Blood Cell (RBC) Count 2.58 mill/uL (4.70-6.10); White Blood Cell (WBC) Count 1.4 thou/uL (4.8-10.8)
[2022-04-18] MEDS: Sodium Bicarbonate Tab 325 MG TAB PO SCH ×3 (08:23→20:54)
[2022-04-18] MEDS: Lactated Ringer's 1,000 ML IV SCH (08:26)
[2022-04-18] MEDS ORDERED: Nadolol 40 MG TAB PO SCH (09:00)
[2022-04-18] MEDS: Albumin 25% 25 GM/100 ML BOT IVPB SCH (09:33)
[2022-04-18] MEDS: Ergocalciferol 1.25 MG(50,000 UNITS) CAP PO SCH (09:33)
[2022-04-18] MEDS: Morphine 4 MG/ML VIAL SLOW IVP PRN (09:43)
[2022-04-18] MEDS ORDERED: Sodium Bicarbonate 2.5 MEQ/5 ML VIAL ONE (11:17)
[2022-04-18] MEDS ORDERED: Lidocaine 2% PF 5 ML VIAL ONE (11:17)
[2022-04-18 11:41] LABS: Band 8 % (5-11); Eosinophils 2 % (0-10); Lymphocytes 6 % (21-51); MDiff Complete? YES; Metamyelocyte 1 % (0-0); Monocytes 12 % (0-10); Myelocyte 1 % (0-0); Neutrophil 70 % (42-75); Platelet Morphology Comment Appears Decreased; Polychromasia SLIGHT = 2-3 cells (100X) (0-2/hpf)
[2022-04-18] MEDS ORDERED: Potassium Chloride 20 MEQ TAB PO SCH (12:00)
[2022-04-18] MEDS: Morphine 2 MG/ML VIAL SLOW IVP SCH ×2 (12:11→13:29)
[2022-04-18] MEDS ORDERED: Albumin 25% 25 GM/100 ML BOT IVPB SCH (12:15)
[2022-04-18] MEDS: HumuLIN 70/30 (300 UNITS/3 ML VIAL) SC SCH (13:17)
[2022-04-18] MEDS ORDERED: Morphine 4 MG/ML VIAL SLOW IVP SCH (13:30)
[2022-04-18 13:42] LABS: Vancomycin, Random 14.5 ug/mL (See Comment)
[2022-04-18] MEDS ORDERED: cefTRIAXone\\ROCEPHIN 2 GM in Sodium Chloride 0.9% 100 ML IVPB SCH (14:00)
[2022-04-18] MEDS ORDERED: Vancomycin HCl 500 MG in Sodium Chloride 0.9% 100 ML IV SCH (15:00)
[2022-04-18] MEDS ORDERED: Vancomycin Dose by Levels Sliding Scale (Wt <71) FS SCH (15:00)
[2022-04-18] MEDS: HumaLOG 300 UNITS/3 ML VIAL SC SCH (17:41)
[2022-04-19] MEDS: Lactated Ringer's 1,000 ML IV SCH ×2 (02:28→05:26)
[2022-04-19] MEDS: Levothyroxine Sodium 112 MCG TAB PO SCH (05:25)
[2022-04-19 05:56] LABS: Mean Corpuscular HGB CONC 32.7 g/dL (32.0-36.0); Mean Corpuscular Hemoglobin 31.2 pg (27.0-31.0); Mean Corpuscular Volume 95.3 fL (78.0-98.0); Mean Platelet Volume 8.5 fL (7.4-10.4); Platelet Count 29 thou/uL (130-400); RBC Distribution Width 15.3 % (11.5-14.5); Red Blood Cell (RBC) Count 2.57 mill/uL (4.70-6.10); White Blood Cell (WBC) Count 1.1 thou/uL (4.8-10.8)
[2022-04-19 06:01] LABS: ALT (SGPT) 23 U/L (8-55); AST (SGOT) 24 U/L (5-34); Albumin 3.7 g/dL (3.4-4.8); Alkaline Phosphatase 234 U/L (40-110); Anion Gap 18 mmol/L (10-20); BUN (Urea Nitrogen) 99 mg/dL (8.4-25.7); Bilirubin, Total 1.8 mg/dL (0.2-1.2); Calc. Creatinine Clearance 23 mL/min (70-130); Calcium 8.6 mg/dL (7.8-10.44); Carbon Dioxide 18 mmol/L (23-31); Chloride 105 mmol/L (98-107); Estimated GFR 20; Globulin 2.5 g/dL (2.4-3.5); Glucose 201 mg/dL (80-115); Potassium 4.1 mmol/L (3.5-5.1); Protein, Total 6.2 g/dL (5.8-8.1); Sodium 137 mmol/L (136-145)
[2022-04-19 06:06] LABS: INR-International Normal Ratio 1.5; PTT 35.4 sec (22.9-36.1); Prothrombin Time 18.3 sec (12.0-14.7)
[2022-04-19 06:26] LABS: Hypochromia SLIGHT = 6-15 cells (100X) (0-5/hpf); Lymphocytes 36 % (21-51); MDiff Complete? YES; Monocytes 20 % (0-10); Neutrophil 44 % (42-75); Platelet Morphology Comment Appears Decreased
[2022-04-19] MEDS: HumaLOG 300 UNITS/3 ML VIAL SC PRN ×2 (06:34→11:24)
[2022-04-19] MEDS: Albumin 25% 25 GM/100 ML BOT IVPB SCH ×3 (08:20→20:53)
[2022-04-19] MEDS: Sodium Bicarbonate Tab 325 MG TAB PO SCH ×3 (08:21→20:53)
[2022-04-19] MEDS: HumuLIN 70/30 (300 UNITS/3 ML VIAL) SC SCH ×2 (08:21→12:27)
[2022-04-19] MEDS: HumaLOG 300 UNITS/3 ML VIAL SC SCH ×3 (08:23→17:41)
[2022-04-19 14:31] LABS: Vancomycin, Random 14.2 ug/mL (See Comment)
[2022-04-20] MEDS: Lactated Ringer's 1,000 ML IV SCH (00:31)
[2022-04-20] MEDS: HumaLOG 300 UNITS/3 ML VIAL SC PRN ×4 (01:28→18:02)
[2022-04-20] MEDS: Levothyroxine Sodium 112 MCG TAB PO SCH (05:36)
[2022-04-20 06:14] LABS: Hemoglobin 7.2 g/dL (14.0-18.0); Mean Corpuscular HGB CONC 32.8 g/dL (32.0-36.0); Mean Corpuscular Hemoglobin 31.2 pg (27.0-31.0); Mean Corpuscular Volume 95.2 fL (78.0-98.0); Mean Platelet Volume 7.3 fL (7.4-10.4); Platelet Count 22 thou/uL (130-400); Red Blood Cell (RBC) Count 2.29 mill/uL (4.70-6.10); White Blood Cell (WBC) Count 0.8 thou/uL (4.8-10.8)
[2022-04-20 06:54] LABS: Anion Gap 15 mmol/L (10-20); BUN (Urea Nitrogen) 87 mg/dL (8.4-25.7); Calc. Creatinine Clearance 25 mL/min (70-130); Calcium 8.7 mg/dL (7.8-10.44); Carbon Dioxide 21 mmol/L (23-31); Chloride 103 mmol/L (98-107); Estimated GFR 23; Glucose 292 mg/dL (80-115); Potassium 3.8 mmol/L (3.5-5.1); Sodium 135 mmol/L (136-145)
[2022-04-20 07:09] LABS: Band 8 % (5-11); Bite Cells SLIGHT = 2-5 cells (100X) (0-1/hpf); Lymphocytes 4 % (21-51); MDiff Complete? YES; Monocytes 28 % (0-10); Neutrophil 60 % (42-75); Ovalocytes SLIGHT = 2-5 cells (100X) (0-1/hpf); Platelet Morphology Comment Appears Decreased; Polychromasia MODERATE = 3-4 cells (100X) (0-2/hpf)
[2022-04-20] MEDS: Sodium Bicarbonate Tab 325 MG TAB PO SCH ×3 (08:18→20:31)
[2022-04-20] MEDS: HumuLIN 70/30 (300 UNITS/3 ML VIAL) SC SCH ×2 (08:19→12:56)
[2022-04-20] MEDS: HumaLOG 300 UNITS/3 ML VIAL SC SCH ×3 (08:19→18:02)
[2022-04-20] MEDS: Ciprofloxacin 500 MG TAB PO SCH (16:04)
[2022-04-21] MEDS: Levothyroxine Sodium 112 MCG TAB PO SCH (05:37)
[2022-04-21] MEDS: HumaLOG 300 UNITS/3 ML VIAL SC PRN ×2 (05:40→12:10)
[2022-04-21 08:03] LABS: Hemoglobin 7.4 g/dL (14.0-18.0); Mean Corpuscular Hemoglobin 31.6 pg (27.0-31.0); Mean Corpuscular Volume 95.7 fL (78.0-98.0); Mean Platelet Volume 8.9 fL (7.4-10.4); Platelet Count 25 thou/uL (130-400); RBC Distribution Width 14.9 % (11.5-14.5); Red Blood Cell (RBC) Count 2.34 mill/uL (4.70-6.10); White Blood Cell (WBC) Count 1.1 thou/uL (4.8-10.8)
[2022-04-21 08:08] LABS: Anion Gap 15 mmol/L (10-20); BUN (Urea Nitrogen) 78 mg/dL (8.4-25.7); Calc. Creatinine Clearance 25 mL/min (70-130); Calcium 8.6 mg/dL (7.8-10.44); Carbon Dioxide 21 mmol/L (23-31); Chloride 102 mmol/L (98-107); Estimated GFR 24; Glucose 335 mg/dL (80-115); Potassium 3.8 mmol/L (3.5-5.1); Sodium 134 mmol/L (136-145)
[2022-04-21] MEDS: HumaLOG 300 UNITS/3 ML VIAL SC SCH ×3 (08:30→17:25)
[2022-04-21] MEDS: HumuLIN 70/30 (300 UNITS/3 ML VIAL) SC SCH ×2 (08:30→12:11)
[2022-04-21] MEDS: Ergocalciferol 1.25 MG(50,000 UNITS) CAP PO SCH (08:32)
[2022-04-21] MEDS: Sodium Bicarbonate Tab 325 MG TAB PO SCH ×3 (08:32→20:08)
[2022-04-21 08:38] LABS: Band 2 % (5-11); Eosinophils 1 % (0-10); Lymphocytes 4 % (21-51); MDiff Complete? YES; Monocytes 27 % (0-10); Neutrophil 62 % (42-75); Platelet Morphology Comment Appears Decreased; Polychromasia SLIGHT = 2-3 cells (100X) (0-2/hpf); Reactive Lymphocytes 4 % (0-10)
[2022-04-21] MEDS: Ciprofloxacin 500 MG TAB PO SCH (15:06)
[2022-04-22 00:01] VITALS: TEMP 98
[2022-04-22] MEDS: Levothyroxine Sodium 112 MCG TAB PO SCH (05:40)
[2022-04-22 06:57] LABS: Hemoglobin 8.9 g/dL (14.0-18.0); INR-International Normal Ratio 1.3; Mean Corpuscular HGB CONC 32.3 g/dL (32.0-36.0); Mean Corpuscular Hemoglobin 30.8 pg (27.0-31.0); Mean Corpuscular Volume 95.3 fL (78.0-98.0); Mean Platelet Volume 9.3 fL (7.4-10.4); PTT 28.8 sec (22.9-36.1); Platelet Count 34 thou/uL (130-400); Prothrombin Time 16.3 sec (12.0-14.7); RBC Distribution Width 14.8 % (11.5-14.5); White Blood Cell (WBC) Count 1.3 thou/uL (4.8-10.8)
[2022-04-22 07:11] LABS: Anion Gap 16 mmol/L (10-20); BUN (Urea Nitrogen) 78 mg/dL (8.4-25.7); Calc. Creatinine Clearance 25 mL/min (70-130); Carbon Dioxide 21 mmol/L (23-31); Chloride 100 mmol/L (98-107); Estimated GFR 23; Glucose 237 mg/dL (80-115); Potassium 3.6 mmol/L (3.5-5.1); Sodium 133 mmol/L (136-145)
[2022-04-22] MEDS: Albumin 25% 25 GM/100 ML BOT IVPB SCH ×3 (07:55→20:44)
[2022-04-22] MEDS: HumuLIN 70/30 (300 UNITS/3 ML VIAL) SC SCH ×2 (07:56→11:52)
[2022-04-22] MEDS: Sodium Bicarbonate Tab 325 MG TAB PO SCH ×3 (07:56→20:45)
[2022-04-22] MEDS: HumaLOG 300 UNITS/3 ML VIAL SC SCH ×3 (07:57→17:06)
[2022-04-22] MEDS ORDERED: Lidocaine 2% PF 5 ML VIAL ONE (08:59)
[2022-04-22] MEDS ORDERED: Sodium Bicarbonate 2.5 MEQ/5 ML VIAL ONE (08:59)
[2022-04-22] MEDS: Ciprofloxacin 500 MG TAB PO SCH (15:01)
[2022-04-22] MEDS: HumaLOG 300 UNITS/3 ML VIAL SC PRN (20:45)
[2022-04-23] MEDS: Levothyroxine Sodium 112 MCG TAB PO SCH (05:59)
[2022-04-23] MEDS: HumaLOG 300 UNITS/3 ML VIAL SC PRN (06:01)
[2022-04-23] MEDS: Sodium Bicarbonate Tab 325 MG TAB PO SCH (08:25)
[2022-04-23] MEDS: HumaLOG 300 UNITS/3 ML VIAL SC SCH (08:26)
[2022-04-23] MEDS: HumuLIN 70/30 (300 UNITS/3 ML VIAL) SC SCH (08:26)
[2022-04-23 09:09] LABS: Hemoglobin 7.9 g/dL (14.0-18.0); Mean Corpuscular HGB CONC 32.8 g/dL (32.0-36.0); Mean Corpuscular Volume 94.6 fL (78.0-98.0); Mean Platelet Volume 7.8 fL (7.4-10.4); Platelet Count 21 thou/uL (130-400); RBC Distribution Width 14.3 % (11.5-14.5); Red Blood Cell (RBC) Count 2.54 mill/uL (4.70-6.10)
[2022-04-23 09:21] LABS: Anion Gap 18 mmol/L (10-20); BUN (Urea Nitrogen) 69 mg/dL (8.4-25.7); BUN/Creatinine Ratio 23.55; Calc. Creatinine Clearance 25 mL/min (70-130); Calcium 8.9 mg/dL (7.8-10.44); Carbon Dioxide 20 mmol/L (23-31); Chloride 102 mmol/L (98-107); Estimated GFR 23; Glucose 373 mg/dL (80-115); Phosphorus 5.3 mg/dL (2.3-4.7); Potassium 3.6 mmol/L (3.5-5.1); Sodium 136 mmol/L (136-145)
[2022-04-23 09:36] LABS: Band 10 % (5-11); Eosinophils 2 % (0-10); Lymphocytes 12 % (21-51); MDiff Complete? YES; Monocytes 11 % (0-10); Neutrophil 64 % (42-75); Platelet Morphology Comment Appears Decreased; Polychromasia SLIGHT = 2-3 cells (100X) (0-2/hpf); Reactive Lymphocytes 1 % (0-10); Tear Drops SLIGHT = 2-5 cells (100X) (0-1/hpf)
[2022-04-25 10:55] VITALS: BP 115/74
== END 2022-04-23 11:11 | disposition home or self-care (01) | DRG 435 ==
LOC: ERS 00:45 → SUATTDRO 00:45 → T4-A 07:07
PROVIDERS: ADMIT Internal Medicine; ATTEND Internal Medicine
PROC: 0W9G30Z Drainage of Peritoneal Cavity with Drainage Device, Percutaneous Approach (ICD-10-PCS; 2022-04-14)
PROC: 0W9G3ZZ Drainage of Peritoneal Cavity, Percutaneous Approach (ICD-10-PCS; principal; 2022-04-17)
PROC: 30233R1 Transfusion of Nonautologous Platelets into Peripheral Vein, Percutaneous Approach (ICD-10-PCS; 2022-04-17)
PROC: 30233J1 Transfusion of Nonautologous Serum Albumin into Peripheral Vein, Percutaneous Approach (ICD-10-PCS; 2022-04-17)
PROC: 0W9G3ZZ Drainage of Peritoneal Cavity, Percutaneous Approach (ICD-10-PCS; 2022-04-18)
PROC: 0W9G3ZZ Drainage of Peritoneal Cavity, Percutaneous Approach (ICD-10-PCS; 2022-04-22)
DX: C22.0 Liver cell carcinoma (principal); K65.2 Spontaneous bacterial peritonitis; D61.818 Other pancytopenia; N17.9 Acute kidney failure, unspecified; E87.20 Acidosis, unspecified; N18.4 Chronic kidney disease, stage 4 (severe); E22.2 Syndrome of inappropriate secretion of antidiuretic hormone; K76.6 Portal hypertension; I85.00 Esophageal varices without bleeding; E87.6 Hypokalemia; B18.2 Chronic viral hepatitis C; E11.22 Type 2 diabetes mellitus with diabetic chronic kidney disease; I12.9 Hypertensive chronic kidney disease with stage 1 through stage 4 chronic kidney disease, or unspecified chronic kidney disease; K70.31 Alcoholic cirrhosis of liver with ascites; Z20.822 Contact with and (suspected) exposure to COVID-19; Z79.4 Long term (current) use of insulin; Z79.899 Other long term (current) drug therapy; K72.90 Hepatic failure, unspecified without coma
CPT/HCPCS: 36415; 36416; 36430; 49083; 74176; 80048; 80053; 80069; 80202; 85025; 85027; 85060; 85610; 85730; 86850; 86870; 86900; 86901; 86922; 87040; 87070; 87205; 89051; 96365; 96375; J0696; J1815; J2001; J2270; J2405; J3370; J3490; J7050; J7120; P9035; P9047; U0003; U0005

== ENCOUNTER → 2022-04-28 | Day surgery (SDC) | payer BC, MEDICARE ==
[2022-04-27 13:50] VITALS: BMI 28.3
[~2022-04-28] MED LIST changes: +FLU VACC QS2022-23(65YR UP)/PF 240 MCG/0.7 ML SYRINGE IM ONE
[2022-04-28 14:10] LABS: Hemoglobin 8.1 g/dL (14.0-18.0); Mean Corpuscular HGB CONC 32.4 g/dL (32.0-36.0); Mean Corpuscular Hemoglobin 31.2 pg (27.0-31.0); Mean Corpuscular Volume 96.2 fl (78.0-98.0); Mean Platelet Volume 7.8 fL (7.4-10.4); Platelet Count 33 thou/uL (130-400); RBC Distribution Width 14.8 % (11.5-14.5); Red Blood Cell (RBC) Count 2.61 mill/uL (4.70-6.10); White Blood Cell (WBC) Count 1.5 thou/uL (4.8-10.8)
[2022-04-28 14:11] LABS: INR-International Normal Ratio 1.5; Prothrombin Time 17.9 sec (12.0-14.7)
[2022-04-28 14:27] LABS: Anion Gap 17 mmol/L (10-20); BUN (Urea Nitrogen) 93 mg/dL (8.4-25.7); Calc. Creatinine Clearance 19 mL/min (70-130); Calcium 8.5 mg/dL (7.8-10.44); Carbon Dioxide 19 mmol/L (23-31); Chloride 100 mmol/L (98-107); Estimated GFR 16; Glucose 489 mg/dL (80-115); Potassium 3.6 mmol/L (3.5-5.1); Sodium 132 mmol/L (136-145)
[2022-04-28 14:41] LABS: Band 8 % (5-11); Lymphocytes 9 % (21-51); MDiff Complete? YES; Metamyelocyte 1 % (0-0); Monocytes 19 % (0-10); Neutrophil 61 % (42-75); Ovalocytes SLIGHT = 2-5 cells (100X) (0-1/hpf); Platelet Morphology Comment Appears Decreased; Polychromasia SLIGHT = 2-3 cells (100X) (0-2/hpf); Reactive Lymphocytes 2 % (0-10)
[2022-04-28 14:45] VITALS: BP 125/50; TEMP 97.5
[2022-04-28 16:06] LABS: RBC Count-Automated (BF) 9543 /cu.mm; WBC/Nucleated-Auto (BF) 144 /cu.mm
[2022-04-28 16:14] LABS: BF Color Yellow; Body Fluid Source Ascites Body Fluid; Clarity Cloudy/Turbid (Clear); Tube # EDTA
[2022-04-28 16:39] LABS: BF Segmented Neutrophils 2 %; Cell Count Non Hematic 65 %; Lymphocytes 33 %
== END ==
LOC: ULT 11:46
PROVIDERS: ATTEND Internal Medicine Gastroenterology
PROC: 0W9G3ZX Drainage of Peritoneal Cavity, Percutaneous Approach, Diagnostic (ICD-10-PCS; principal; 2022-04-28)
DX: R18.8 Other ascites (principal); Z79.2 Long term (current) use of antibiotics; Z79.4 Long term (current) use of insulin; Z79.890 Hormone replacement therapy; Z79.899 Other long term (current) drug therapy
CPT/HCPCS: 49083; 80048; 85025; 85060; 85610; 87070; 87205; 89051; J2001; P9047

== ENCOUNTER 2022-05-20 07:08 | Day surgery (SDC) | payer BC, MEDICARE ==
[2022-05-19 15:57] VITALS: BMI 25.8
[2022-05-20] MEDS ORDERED: Albumin 25% 200 ML ONE (07:45)
[2022-05-20] MEDS ORDERED: Lidocaine 2% PF 5 ML VIAL ONE (07:45)
[2022-05-20] MEDS ORDERED: Sodium Bicarbonate 2.5 MEQ/5 ML VIAL ONE ×2 (07:45→10:05)
[2022-05-20 08:55] VITALS: TEMP 97.5
[2022-05-20] MEDS ORDERED: Albumin 25% 25 GM/100 ML BOT IVPB SCH ×2 (11:15→11:30)
[2022-05-20] MEDS ORDERED: Albumin 25% 100 ML ONE (11:42)
[2022-05-20 11:48] LABS: RBC Count-Automated (BF) 16278 /cu.mm; WBC/Nucleated-Auto (BF) 162 /cu.mm
[2022-05-20 12:16] LABS: BF Color Yellow; Body Fluid Source Ascites Body Fluid; Clarity Hazy (Clear); Tube # EDTA
[2022-05-20 12:49] LABS: BF Segmented Neutrophils 12 %; Cell Count Non Hematic 68 %; Lymphocytes 20 %
[2022-05-20 13:05] VITALS: BP 125/65
== END 2022-05-20 12:45 | disposition home or self-care (01) ==
LOC: ULT 07:08
PROVIDERS: ATTEND Internal Medicine Gastroenterology
PROC: 07DR3ZX Extraction of Iliac Bone Marrow, Percutaneous Approach, Diagnostic (ICD-10-PCS; principal; 2022-05-20)
PROC: 0W9G3ZX Drainage of Peritoneal Cavity, Percutaneous Approach, Diagnostic (ICD-10-PCS; principal; 2022-05-20)
PROC: 079T3ZX Drainage of Bone Marrow, Percutaneous Approach, Diagnostic (ICD-10-PCS; principal; 2022-05-20)
DX: K74.60 Unspecified cirrhosis of liver (principal); R18.8 Other ascites; D61.818 Other pancytopenia; C22.0 Liver cell carcinoma; E11.22 Type 2 diabetes mellitus with diabetic chronic kidney disease; N18.9 Chronic kidney disease, unspecified; E03.9 Hypothyroidism, unspecified; K21.9 Gastro-esophageal reflux disease without esophagitis; I85.10 Secondary esophageal varices without bleeding; K76.82 Hepatic encephalopathy; Z79.2 Long term (current) use of antibiotics; Z79.4 Long term (current) use of insulin; Z79.890 Hormone replacement therapy; Z79.899 Other long term (current) drug therapy
CPT/HCPCS: 20225; 36430; 49083; 77002; 85060; 85097; 86850; 86870; 86900; 86901; 87070; 87205; 88184; 88237; 88305; 88311; 88313; 88341; 88342; 89051; J2001; P9035; P9047

== ENCOUNTER → 2022-05-25 | Day surgery (SDC) | payer BC, MEDICARE ==
[2022-05-24 11:18] VITALS: BMI 28.3
[~2022-05-25] MED LIST changes: -FLU VACC QS2022-23(65YR UP)/PF 240 MCG/0.7 ML SYRINGE IM ONE
[2022-05-25 11:09] LABS: Hemoglobin 9.7 g/dL (14.0-18.0); Mean Corpuscular HGB CONC 33.1 g/dL (32.0-36.0); Mean Corpuscular Hemoglobin 31.6 pg (27.0-31.0); Mean Corpuscular Volume 95.4 fl (78.0-98.0); Platelet Count 28 10x3/uL (130-400); RBC Distribution Width 14.7 % (11.5-14.5); Red Blood Cell (RBC) Count 3.05 mill/uL (4.70-6.10); White Blood Cell (WBC) Count 2.2 10x3/uL (4.8-10.8)
[2022-05-25 13:05] VITALS: BP 124/61; TEMP 97.5
[2022-05-25 13:56] LABS: RBC Count-Automated (BF) 10645 /cu.mm; WBC/Nucleated-Auto (BF) 119 /cu.mm
[2022-05-25 14:10] LABS: BF Color Pink; Body Fluid Source Ascites Body Fluid; Clarity Hazy (Clear); Tube # EDTA
[2022-05-25 14:20] LABS: BF Segmented Neutrophils 14 %; Cell Count Non Hematic 66 %; Lymphocytes 20 %
== END | disposition home or self-care (01) ==
LOC: ULT 10:53
PROVIDERS: ATTEND Internal Medicine Gastroenterology
PROC: 0W9G3ZX Drainage of Peritoneal Cavity, Percutaneous Approach, Diagnostic (ICD-10-PCS; principal; 2022-05-25)
DX: R18.8 Other ascites (principal)
CPT/HCPCS: 36415; 49083; 85025; 85060; 87070; 87205; 89051; J2001; P9047

== ENCOUNTER → 2022-06-02 | Day surgery (SDC) | payer BC, MEDICARE ==
[2022-06-01 13:51] VITALS: BMI 25.8
[~2022-06-02] MED LIST changes: +FLU VACC QS2022-23(65YR UP)/PF 240 MCG/0.7 ML SYRINGE IM ONE
[2022-06-02 10:15] LABS: #Lymphocytes 0.4 thou/uL (1.20-3.40); #Monocytes 0.6 thou/uL (0.11-0.59); #Neutrophils 3.9 thou/uL (1.40-6.50); %Basophils 0.3 % (0.0-1.0); %Eosinophils 0.9 % (0.0-10.0); %Lymphocytes 7.6 % (21.0-51.0); %Monocytes 11.5 % (0.0-10.0); %Neutrophils 79.7 % (42.0-75.0); Hemoglobin 8.9 g/dL (14.0-18.0); Mean Corpuscular HGB CONC 33.2 g/dL (32.0-36.0); Mean Corpuscular Hemoglobin 30.7 pg (27.0-31.0); Mean Corpuscular Volume 92.4 fl (78.0-98.0); Platelet Count 52 10x3/uL (130-400); Red Blood Cell (RBC) Count 2.89 mill/uL (4.70-6.10); White Blood Cell (WBC) Count 4.9 10x3/uL (4.8-10.8)
[2022-06-02 10:26] LABS: INR-International Normal Ratio 1.5; PTT 36.5 sec (22.9-36.1); Prothrombin Time 19.1 sec (12.0-14.7)
[2022-06-02 12:32] VITALS: BP 112/61; TEMP 97.5
[2022-06-02 12:54] LABS: RBC Count-Automated (BF) 3604 /cu.mm; WBC/Nucleated-Auto (BF) 638 /cu.mm
[2022-06-02 13:30] LABS: BF Color Yellow; Body Fluid Source Ascites Body Fluid; Clarity Hazy (Clear); Tube # EDTA
[2022-06-02 13:31] LABS: BF Segmented Neutrophils 27 %; Cell Count Non Hematic 63 %; Lymphocytes 10 %
== END | disposition home or self-care (01) ==
LOC: ULT 09:52
PROVIDERS: ATTEND Internal Medicine Gastroenterology
PROC: 0W9G3ZX Drainage of Peritoneal Cavity, Percutaneous Approach, Diagnostic (ICD-10-PCS; principal; 2022-06-02)
DX: R18.8 Other ascites (principal); Z79.2 Long term (current) use of antibiotics; Z79.4 Long term (current) use of insulin; Z79.890 Hormone replacement therapy; Z79.899 Other long term (current) drug therapy
CPT/HCPCS: 49083; 85025; 85060; 85610; 85730; 87070; 87205; 89051; J2001; P9047

== ENCOUNTER 2022-06-08 05:21 | Inpatient (IN) | payer OTHER, BC, MEDICARE ==
[2022-06-08 07:14] LABS: #Lymphocytes 0.4 thou/uL (1.20-3.40); #Monocytes 0.8 thou/uL (0.11-0.59); #Neutrophils 6.5 thou/uL (1.40-6.50); %Basophils 0.1 % (0.0-1.0); %Eosinophils 0.6 % (0.0-10.0); %Lymphocytes 5.2 % (21.0-51.0); %Monocytes 10.6 % (0.0-10.0); %Neutrophils 83.5 % (42.0-75.0); Hemoglobin 9.6 g/dL (14.0-18.0); Mean Corpuscular HGB CONC 34.3 g/dL (32.0-36.0); Mean Corpuscular Volume 90.2 fl (78.0-98.0); Mean Platelet Volume 7.5 fL (7.4-10.4); Platelet Count 54 10x3/uL (130-400); RBC Distribution Width 16.2 % (11.5-14.5); Red Blood Cell (RBC) Count 3.09 mill/uL (4.70-6.10); White Blood Cell (WBC) Count 7.7 10x3/uL (4.8-10.8)
[2022-06-08 07:23] LABS: INR-International Normal Ratio 1.7; Prothrombin Time 20.8 sec (12.0-14.7)
[2022-06-08 07:31] LABS: ALT (SGPT) 22 U/L (8-55); AST (SGOT) 21 U/L (5-34); Albumin 3.3 g/dL (3.4-4.8); Alkaline Phosphatase 330 U/L (40-110); Anion Gap 23 mmol/L (10-20); Calc. Creatinine Clearance 0 mL/min (70-130); Calcium 7.4 mg/dL (7.8-10.44); Carbon Dioxide 11 mmol/L (23-31); Chloride 102 mmol/L (98-107); Estimated GFR 5; Glucose 200 mg/dL (80-115); Potassium 3.8 mmol/L (3.5-5.1); Protein, Total 6.3 g/dL (5.8-8.1); Sodium 132 mmol/L (136-145)
[2022-06-08 08:04] LABS: CKMB 7.1 ng/mL (0-6.6)
[2022-06-08] MEDS ORDERED: Magnesium 2 GM/50 ML BAG (IN WATER) ONE (08:08)
[2022-06-08 08:33] LABS: BUN (Urea Nitrogen) 119 mg/dL (8.4-25.7)
[2022-06-08] MEDS ORDERED: Dextrose 5% in Water 1,000 ML IV PRN (08:51)
[2022-06-08] MEDS ORDERED: Dextrose 50% Abboject 50 ML SYRINGE SLOW IVP PRN (08:51)
[2022-06-08] MEDS ORDERED: Ondansetron ODT 4 MG TAB PO PRN (08:52)
[2022-06-08] MEDS ORDERED: Ondansetron PF 4 MG/2 ML Vial IVP PRN (08:52)
[2022-06-08] MEDS ORDERED: Moisturizing Cream (Eucerin) 113 GM JAR TOP PRN (08:54)
[2022-06-08] MEDS ORDERED: Artificial Tear Sol 15 ML BOT EA EYE PRN (08:54)
[2022-06-08] MEDS ORDERED: Ciprofloxacin 500 MG TAB PO SCH (09:00)
[2022-06-08] MEDS: Sodium Bicarbonate Tab 325 MG TAB PO SCH ×3 (10:16→22:41)
[2022-06-08 10:21] LABS: Troponin I 0.068 ng/mL (< 0.028)
[2022-06-08 10:36] LABS: HBSAB Concentration Less than 8.00 mIU/mL; HBSAg Index 0.31 S/CO (0-0.99); Hep B Core Total Ab Non-Reactive (NonReactive); Hep B Core Total Index 0.06 S/CO (0-0.79); Hep B Surf AB Non-Reactive (NonReactive); Hep B Surf Ag Non-Reactive S/CO (NonReactive)
[2022-06-08 10:38] LABS: Hep C IgG Ab Reflex HepC Qnt (NonReactive); Hep C Index 13.77 S/CO (0-0.79)
[2022-06-08] MEDS ORDERED: Dextrose 50% Abboject 50 ML SYRINGE SLOW IVP SCH (10:55)
[2022-06-08] MEDS ORDERED: Ciprofloxacin 500 MG TAB ONE (11:39)
[2022-06-08] MEDS ORDERED: Insulin Regular 300 UNITS/3 ML VIAL ONE (11:39)
[2022-06-08] MEDS: Insulin Regular 300 UNITS/3 ML VIAL IVP SCH ×2 (11:44→11:45)
[2022-06-08 13:22] LABS: Troponin I 0.057 ng/mL (< 0.028)
[2022-06-08] MEDS ORDERED: CEFAZOLIN 2 GM in Sodium Chloride 0.9% 100 ML IVPB SCH (15:15)
[2022-06-08] MEDS ORDERED: Bupivacaine/Epinephrine 0.25% 30 ML VIAL ONE (16:47)
[2022-06-08] MEDS ORDERED: Heparin 10,000 UNITS/ 10 ML VIAL ONE (16:47)
[2022-06-08] MEDS ORDERED: Lidocaine 1% (PF) 30 ML VIAL ONE (16:47)
[2022-06-08] MEDS ORDERED: Sodium Chloride 0.9% 100 ML ONE (17:04)
[2022-06-08] MEDS ORDERED: CEFAZOLIN 2 GM VIAL ONE (17:04)
[2022-06-08] MEDS ORDERED: Midazolam HCl 2 mg/2 ml Vial ONE (17:09)
[2022-06-08] MEDS ORDERED: fentaNYL PF 100 MCG/2 ML SYRINGE ONE (17:09)
[2022-06-08] MEDS ORDERED: PROPOFOL 200 MG/20 ML VIAL ONE (17:11)
[2022-06-08 17:36] LABS: SARS-CoV-2 NAA Rapid Test Not Detected (NotDetected)
[2022-06-08] MEDS ORDERED: Ondansetron HCl/PF 4 MG/2 ML Vial IVP PRN (17:47)
[2022-06-08] MEDS ORDERED: Promethazine HCl 25 MG/ML VIAL IM PRN (17:47)
[2022-06-08] MEDS ORDERED: Promethazine HCl 25 MG/ML VIAL IVPB PRN (17:47)
[2022-06-08] MEDS: HumuLIN 70/30 (300 UNITS/3 ML VIAL) SC SCH (22:22)
[2022-06-08] MEDS ORDERED: HYDROcodone/Acetaminophen 5/325 mg Tablet PO SCH (23:45)
[2022-06-09] MEDS: Benzonatate 100 MG CAP PO PRN ×3 (02:43→22:03)
[2022-06-09] MEDS ORDERED: traMADol HCl 50 MG TAB PO SCH (03:00)
[2022-06-09 05:34] LABS: #Eosinphils 0.1 thou/uL (0.0-0.7); #Lymphocytes 0.4 thou/uL (1.20-3.40); #Monocytes 0.8 thou/uL (0.11-0.59); %Basophils 0.1 % (0.0-1.0); %Eosinophils 0.9 % (0.0-10.0); %Lymphocytes 4.3 % (21.0-51.0); %Neutrophils 84.7 % (42.0-75.0); Hemoglobin 8.2 g/dL (14.0-18.0); Mean Corpuscular Volume 91.1 fl (78.0-98.0); Mean Platelet Volume 7.1 fL (7.4-10.4); PTT 38.2 sec (22.9-36.1); Platelet Count 57 10x3/uL (130-400); Prothrombin Time 23.3 sec (12.0-14.7); RBC Distribution Width 16.1 % (11.5-14.5); Red Blood Cell (RBC) Count 2.65 mill/uL (4.70-6.10); White Blood Cell (WBC) Count 8.3 10x3/uL (4.8-10.8)
[2022-06-09] MEDS: Levothyroxine Sodium 112 MCG TAB PO SCH (05:39)
[2022-06-09 05:42] LABS: ALT (SGPT) 19 U/L (8-55); AST (SGOT) 22 U/L (5-34); Albumin 2.9 g/dL (3.4-4.8); Alkaline Phosphatase 258 U/L (40-110); Anion Gap 19 mmol/L (10-20); BUN (Urea Nitrogen) 96 mg/dL (8.4-25.7); Bilirubin, Total 1.4 mg/dL (0.2-1.2); Calc. Creatinine Clearance 8 mL/min (70-130); Calcium 7.6 mg/dL (7.8-10.44); Carbon Dioxide 15 mmol/L (23-31); Chloride 103 mmol/L (98-107); Estimated GFR 6; Globulin 2.7 g/dL (2.4-3.5); Glucose 174 mg/dL (80-115); Potassium 3.4 mmol/L (3.5-5.1); Protein, Total 5.6 g/dL (5.8-8.1); Sodium 134 mmol/L (136-145)
[2022-06-09] MEDS ORDERED: Potassium Chloride 20 MEQ TAB PO SCH (07:00)
[2022-06-09] MEDS ORDERED: FLU VACC QS2022-23(65YR UP)/PF 240 MCG/0.7 ML SYRINGE IM ONE (08:15)
[2022-06-09] MEDS ORDERED: Potassium Bicarbonate/Cit Ac 20 MEQ TAB PO SCH (09:00)
[2022-06-09] MEDS: Albumin 25% 25 GM/100 ML BOT IVPB SCH ×4 (09:13→22:57)
[2022-06-09] MEDS: Sodium Bicarbonate Tab 325 MG TAB PO SCH ×3 (09:15→22:03)
[2022-06-09] MEDS: Acetaminophen 325 MG TAB PO PRN ×3 (09:16→22:04)
[2022-06-09] MEDS ORDERED: Ciprofloxacin 500 MG TAB PO SCH (10:00)
[2022-06-09] MEDS: Nadolol 40 MG TAB PO SCH ×2 (10:19→11:50)
[2022-06-09] MEDS ORDERED: Lidocaine 2% PF 5 ML VIAL ONE (13:24)
[2022-06-09] MEDS ORDERED: Sodium Bicarbonate 2.5 MEQ/5 ML VIAL ONE (13:24)
[2022-06-09] MEDS: HumuLIN 70/30 (300 UNITS/3 ML VIAL) SC SCH (14:33)
[2022-06-09] MEDS: HumaLOG 300 UNITS/3 ML VIAL SC PRN (16:12)
[2022-06-09 18:58] LABS: RBC Count-Automated (BF) 4465 /cu.mm; WBC/Nucleated-Auto (BF) 107 /cu.mm
[2022-06-09 18:59] LABS: BF Color Yellow; Body Fluid Source Ascites Body Fluid; Clarity Hazy (Clear); Tube # EDTA
[2022-06-09 19:03] LABS: BF Segmented Neutrophils 23 %; Cell Count Non Hematic 57 %; Lymphocytes 20 %
[2022-06-10] MEDS: Levothyroxine Sodium 112 MCG TAB PO SCH (04:43)
[2022-06-10] MEDS: Albumin 25% 25 GM/100 ML BOT IVPB SCH (04:43)
[2022-06-10 05:24] LABS: #Lymphocytes 0.2 thou/uL (1.20-3.40); #Monocytes 0.4 thou/uL (0.11-0.59); #Neutrophils 2.2 thou/uL (1.40-6.50); %Basophils 0.7 % (0.0-1.0); %Eosinophils 1.2 % (0.0-10.0); %Lymphocytes 6.6 % (21.0-51.0); %Monocytes 14.2 % (0.0-10.0); %Neutrophils 77.4 % (42.0-75.0); Hemoglobin 6.1 g/dL (14.0-18.0); Mean Corpuscular HGB CONC 34.1 g/dL (32.0-36.0); Mean Corpuscular Hemoglobin 31.1 pg (27.0-31.0); Mean Corpuscular Volume 91.3 fl (78.0-98.0); Mean Platelet Volume 7.5 fL (7.4-10.4); Platelet Count 22 10x3/uL (130-400); RBC Distribution Width 15.8 % (11.5-14.5); Red Blood Cell (RBC) Count 1.94 mill/uL (4.70-6.10); White Blood Cell (WBC) Count 2.9 10x3/uL (4.8-10.8)
[2022-06-10 05:33] LABS: INR-International Normal Ratio 2.3; PTT 38.7 sec (22.9-36.1); Prothrombin Time 26.7 sec (12.0-14.7)
[2022-06-10 05:49] LABS: ALT (SGPT) 11 U/L (8-55); AST (SGOT) 17 U/L (5-34); Albumin 3.7 g/dL (3.4-4.8); Alkaline Phosphatase 173 U/L (40-110); Anion Gap 24 mmol/L (10-20); BUN (Urea Nitrogen) 106 mg/dL (8.4-25.7); Bilirubin, Total 0.9 mg/dL (0.2-1.2); Calc. Creatinine Clearance 7 mL/min (70-130); Calcium 7.2 mg/dL (7.8-10.44); Carbon Dioxide 14 mmol/L (23-31); Chloride 101 mmol/L (98-107); Estimated GFR 5; Globulin 1.9 g/dL (2.4-3.5); Glucose 341 mg/dL (80-115); Potassium 3.8 mmol/L (3.5-5.1); Protein, Total 5.6 g/dL (5.8-8.1); Sodium 135 mmol/L (136-145)
[2022-06-10] MEDS: Midodrine HCl 5 MG TAB PO SCH ×4 (07:52→20:24)
[2022-06-10] MEDS: Acetaminophen 325 MG TAB PO PRN (07:53)
[2022-06-10] MEDS: Sodium Bicarbonate Tab 325 MG TAB PO SCH ×3 (07:53→20:23)
[2022-06-10] MEDS ORDERED: CEFAZOLIN 2 GM in Sodium Chloride 0.9% 100 ML IVPB SCH (08:45)
[2022-06-10] MEDS ORDERED: Heparin 10,000 UNITS/ 10 ML VIAL ONE (10:01)
[2022-06-10] MEDS ORDERED: NPH, Human Insulin Isophane 300 UNIT/3 ML VIAL SC SCH (13:15)
[2022-06-10] MEDS ORDERED: Insulin NPH Human Isophane 100 UNIT/ML (10 ML VIAL) SC SCH (13:30)
[2022-06-10 16:00] LABS: Hemoglobin 6.2 g/dL (14.0-18.0)
[2022-06-10] MEDS: Ciprofloxacin 500 MG TAB PO SCH (16:01)
[2022-06-10 16:13] LABS: Hep C PCR-Quant HCV Not Detected IU/mL (.)
[2022-06-10 16:14] LABS: Glucose 254 mg/dL (80-115)
[2022-06-10] MEDS: Benzonatate 100 MG CAP PO PRN ×2 (17:51→23:25)
[2022-06-10] MEDS: Insulin NPH Human Isophane 100 UNIT/ML (10 ML VIAL) SC SCH (20:31)
[2022-06-10] MEDS: HumaLOG 300 UNITS/3 ML VIAL SC PRN (20:31)
[2022-06-10] MEDS: Phytonadione 5 MG TAB PO SCH (20:35)
[2022-06-11] MEDS: HumaLOG 300 UNITS/3 ML VIAL SC PRN ×2 (05:47→16:31)
[2022-06-11] MEDS: Levothyroxine Sodium 112 MCG TAB PO SCH (05:47)
[2022-06-11 06:31] LABS: #Lymphocytes 0.2 thou/uL (1.20-3.40); #Monocytes 0.5 thou/uL (0.11-0.59); #Neutrophils 2.8 thou/uL (1.40-6.50); %Basophils 0.5 % (0.0-1.0); %Eosinophils 0.8 % (0.0-10.0); %Monocytes 14.4 % (0.0-10.0); %Neutrophils 79.4 % (42.0-75.0); Hemoglobin 8.5 g/dL (14.0-18.0); Mean Corpuscular HGB CONC 34.1 g/dL (32.0-36.0); Mean Corpuscular Volume 90.9 fl (78.0-98.0); Mean Platelet Volume 8.1 fL (7.4-10.4); Platelet Count 18 10x3/uL (130-400); Red Blood Cell (RBC) Count 2.75 mill/uL (4.70-6.10); White Blood Cell (WBC) Count 3.5 10x3/uL (4.8-10.8)
[2022-06-11 06:49] LABS: ALT (SGPT) 8 U/L (8-55); AST (SGOT) 21 U/L (5-34); Albumin 3.6 g/dL (3.4-4.8); Alkaline Phosphatase 202 U/L (40-110); Anion Gap 14 mmol/L (10-20); BUN (Urea Nitrogen) 49 mg/dL (8.4-25.7); Bilirubin, Total 2.4 mg/dL (0.2-1.2); Calc. Creatinine Clearance 0 mL/min (70-130); Calcium 7.4 mg/dL (7.8-10.44); Carbon Dioxide 24 mmol/L (23-31); Chloride 103 mmol/L (98-107); Estimated GFR 10; Globulin 1.9 g/dL (2.4-3.5); Glucose 264 mg/dL (80-115); Potassium 3.4 mmol/L (3.5-5.1); Protein, Total 5.5 g/dL (5.8-8.1); Sodium 138 mmol/L (136-145)
[2022-06-11] MEDS: Midodrine HCl 5 MG TAB PO SCH ×3 (08:30→20:28)
[2022-06-11] MEDS ORDERED: Insulin NPH Human Isophane 100 UNIT/ML (10 ML VIAL) SC SCH ×2 (09:00→21:00)
[2022-06-11] MEDS ORDERED: Heparin 10,000 UNITS/ 10 ML VIAL ONE (09:56)
[2022-06-11] MEDS ORDERED: EPOETIN ALFA-EPBX (ESRD) 10,000 UNIT/ML VIAL SC SCH (10:30)
[2022-06-11] MEDS: Sodium Bicarbonate Tab 325 MG TAB PO SCH ×3 (11:01→20:28)
[2022-06-11] MEDS: Insulin NPH Human Isophane 100 UNIT/ML (10 ML VIAL) SC SCH ×2 (13:00→20:31)
[2022-06-11] MEDS: Ciprofloxacin 500 MG TAB PO SCH (16:25)
[2022-06-11] MEDS ORDERED: predniSONE 20 MG TAB PO SCH (18:00)
[2022-06-11] MEDS ORDERED: Famotidine 20 MG TAB PO SCH (18:00)
[2022-06-11] MEDS ORDERED: Loratadine 10 MG TAB PO SCH (18:00)
[2022-06-11] MEDS: Acetaminophen 325 MG TAB PO PRN (20:27)
[2022-06-11] MEDS: Benzonatate 100 MG CAP PO PRN (20:27)
[2022-06-11] MEDS: Phytonadione 5 MG TAB PO SCH (20:28)
[2022-06-12] MEDS: Levothyroxine Sodium 112 MCG TAB PO SCH (05:41)
[2022-06-12] MEDS: Acetaminophen 325 MG TAB PO PRN (05:41)
[2022-06-12] MEDS: HumaLOG 300 UNITS/3 ML VIAL SC PRN ×3 (05:45→20:20)
[2022-06-12 06:10] LABS: #Lymphocytes 0.1 thou/uL (1.20-3.40); #Monocytes 0.2 thou/uL (0.11-0.59); #Neutrophils 3.1 thou/uL (1.40-6.50); %Basophils 1.4 % (0.0-1.0); %Eosinophils 0.2 % (0.0-10.0); %Lymphocytes 3.4 % (21.0-51.0); %Monocytes 6.1 % (0.0-10.0); %Neutrophils 88.9 % (42.0-75.0); Hemoglobin 8.3 g/dL (14.0-18.0); Mean Corpuscular HGB CONC 32.7 g/dL (32.0-36.0); Mean Corpuscular Hemoglobin 30.4 pg (27.0-31.0); Mean Corpuscular Volume 93.2 fl (78.0-98.0); Mean Platelet Volume 9.4 fL (7.4-10.4); Platelet Count 15 10x3/uL (130-400); RBC Distribution Width 16.2 % (11.5-14.5); Red Blood Cell (RBC) Count 2.74 mill/uL (4.70-6.10); White Blood Cell (WBC) Count 3.5 10x3/uL (4.8-10.8)
[2022-06-12 06:31] LABS: Anion Gap 14 mmol/L (10-20); BUN (Urea Nitrogen) 36 mg/dL (8.4-25.7); Calc. Creatinine Clearance 14 mL/min (70-130); Carbon Dioxide 24 mmol/L (23-31); Chloride 99 mmol/L (98-107); Estimated GFR 13; Potassium 4.5 mmol/L (3.5-5.1); Sodium 132 mmol/L (136-145)
[2022-06-12 06:36] LABS: Glucose 452 mg/dL (80-115)
[2022-06-12] MEDS ORDERED: Famotidine 20 MG TAB PO SCH ×2 (08:45→18:15)
[2022-06-12] MEDS: Midodrine HCl 5 MG TAB PO SCH ×3 (08:57→20:16)
[2022-06-12] MEDS: Sodium Bicarbonate Tab 325 MG TAB PO SCH ×3 (08:57→20:17)
[2022-06-12] MEDS: Benzonatate 100 MG CAP PO PRN ×2 (08:58→20:17)
[2022-06-12] MEDS ORDERED: Insulin NPH Human Isophane 100 UNIT/ML (10 ML VIAL) SC SCH (09:15)
[2022-06-12] MEDS ORDERED: Fioricet 325/50/40 mg Tablet PO SCH (10:15)
[2022-06-12] MEDS ORDERED: Albumin 25% 25 GM/100 ML BOT IVPB SCH (12:15)
[2022-06-12] MEDS: Ciprofloxacin 500 MG TAB PO SCH (15:37)
[2022-06-12] MEDS ORDERED: Loratadine 10 MG TAB PO SCH (18:15)
[2022-06-12] MEDS ORDERED: predniSONE 20 MG TAB PO SCH (18:15)
[2022-06-12] MEDS ORDERED: Acetaminophen 325 MG TAB PO SCH (18:15)
[2022-06-12] MEDS ORDERED: diphenhydrAMINE 25 MG CAP PO SCH (18:30)
[2022-06-12] MEDS: Insulin NPH Human Isophane 100 UNIT/ML (10 ML VIAL) SC SCH (20:16)
[2022-06-12] MEDS: Phytonadione 5 MG TAB PO SCH (20:17)
[2022-06-12] MEDS: Folic Acid/Vit B Comp W-C PO SCH (20:17)
[2022-06-12 21:53] LABS: Bacteria/HPF 4+ HPF (None Seen); Bilirubin Negative (Negative); Blood, Urine 3+ (Negative); CAUTI Indications for Culture Dysuria,urgency,freq; Clarity Turbid (Clear); Glucose, Urine (Dipstick) >=1000 mg/dL (Negative); Ketone, Urine Trace mg/dL (Negative); Leukocyte 250 Leu/uL (Negative); Nitrite Negative (Negative); Protein, Urine (Dipstick) 50 mg/dL (Neg-Trace); Specific Gravity, Urine 1.015 (1.002-1.036); Transitional Epithelial 0-3 HPF (None Seen); Urobilinogen Normal mg/dL (Less than 2)
[2022-06-12 21:56] LABS: Urine Culture Reflex No No
[2022-06-12] MEDS ORDERED: cefTRIAXone\\ROCEPHIN 1 GM in Sodium Chloride 0.9% 100 ML IVPB SCH (23:00)
[2022-06-12] MEDS ORDERED: Piperacillin/Tazobactam 3.375 GM in Sodium Chloride 0.9% 100 ML IVPB SCH (23:15)
[2022-06-13] MEDS ORDERED: Piperacillin/Tazobactam 3.375 GM in Sodium Chloride 0.9% 100 ML IVPB SCH (04:00)
[2022-06-13] MEDS: Levothyroxine Sodium 112 MCG TAB PO SCH (04:47)
[2022-06-13 05:35] LABS: #Lymphocytes 0.2 thou/uL (1.20-3.40); #Monocytes 0.3 thou/uL (0.11-0.59); %Eosinophils 0.2 % (0.0-10.0); %Lymphocytes 4.5 % (21.0-51.0); %Neutrophils 86.3 % (42.0-75.0); Hemoglobin 9.1 g/dL (14.0-18.0); Mean Corpuscular Hemoglobin 29.8 pg (27.0-31.0); Mean Corpuscular Volume 93.3 fl (78.0-98.0); Mean Platelet Volume 9.7 fL (7.4-10.4); Platelet Count 14 10x3/uL (130-400); RBC Distribution Width 16.2 % (11.5-14.5); Red Blood Cell (RBC) Count 3.06 mill/uL (4.70-6.10); White Blood Cell (WBC) Count 3.4 10x3/uL (4.8-10.8)
[2022-06-13 05:44] LABS: Anion Gap 15 mmol/L (10-20); BUN (Urea Nitrogen) 42 mg/dL (8.4-25.7); Calc. Creatinine Clearance 12 mL/min (70-130); Calcium 8.1 mg/dL (7.8-10.44); Carbon Dioxide 23 mmol/L (23-31); Chloride 97 mmol/L (98-107); Estimated GFR 11; Glucose 285 mg/dL (80-115); Magnesium 1.8 mg/dL (1.6-2.6); Sodium 131 mmol/L (136-145)
[2022-06-13] MEDS: HumaLOG 300 UNITS/3 ML VIAL SC PRN ×2 (05:53→13:37)
[2022-06-13] MEDS: Sodium Bicarbonate Tab 325 MG TAB PO SCH ×3 (10:35→21:12)
[2022-06-13] MEDS: Midodrine HCl 5 MG TAB PO SCH ×3 (10:35→21:11)
[2022-06-13] MEDS: Nadolol 40 MG TAB PO SCH (10:35)
[2022-06-13] MEDS: Insulin NPH Human Isophane 100 UNIT/ML (10 ML VIAL) SC SCH ×2 (10:37→21:14)
[2022-06-13] MEDS ORDERED: diphenhydrAMINE 25 MG CAP PO SCH (12:00)
[2022-06-13] MEDS ORDERED: predniSONE 20 MG TAB PO SCH (13:00)
[2022-06-13] MEDS ORDERED: Famotidine 20 MG TAB PO SCH (13:15)
[2022-06-13] MEDS ORDERED: Heparin 10,000 UNITS/ 10 ML VIAL ONE (14:01)
[2022-06-13] MEDS: Ciprofloxacin 500 MG TAB PO SCH (17:52)
[2022-06-13] MEDS: Folic Acid/Vit B Comp W-C PO SCH (21:11)
[2022-06-13] MEDS: Acetaminophen 325 MG TAB PO PRN (21:12)
[2022-06-13] MEDS: Phytonadione 5 MG TAB PO SCH (21:12)
[2022-06-13 21:36] LABS: Platelet Count 18 10x3/uL (130-400)
[2022-06-13] MEDS ORDERED: diphenhydrAMINE 25 MG CAP PO PRN (22:44)
[2022-06-13] MEDS ORDERED: Lidocaine 5% Patch TD SCH (22:45)
[2022-06-14] MEDS: FENTANYL 50 MCG/ML 1 ML VIAL SLOW IVP PRN ×8 (02:23→23:21)
[2022-06-14 04:18] LABS: #Lymphocytes 0.2 thou/uL (1.20-3.40); #Monocytes 0.6 thou/uL (0.11-0.59); #Neutrophils 3.4 thou/uL (1.40-6.50); %Basophils 0.4 % (0.0-1.0); %Eosinophils 0.1 % (0.0-10.0); %Lymphocytes 4.7 % (21.0-51.0); %Monocytes 13.3 % (0.0-10.0); %Neutrophils 81.5 % (42.0-75.0); Hemoglobin 7.8 g/dL (14.0-18.0); Mean Corpuscular HGB CONC 32.2 g/dL (32.0-36.0); Mean Corpuscular Hemoglobin 30.5 pg (27.0-31.0); Mean Corpuscular Volume 94.7 fl (78.0-98.0); Mean Platelet Volume 9.1 fL (7.4-10.4); Platelet Count 16 10x3/uL (130-400); RBC Distribution Width 16.9 % (11.5-14.5); Red Blood Cell (RBC) Count 2.57 mill/uL (4.70-6.10); White Blood Cell (WBC) Count 4.2 10x3/uL (4.8-10.8)
[2022-06-14 04:41] LABS: Anion Gap 14 mmol/L (10-20); BUN (Urea Nitrogen) 31 mg/dL (8.4-25.7); Calc. Creatinine Clearance 18 mL/min (70-130); Calcium 8.1 mg/dL (7.8-10.44); Carbon Dioxide 25 mmol/L (23-31); Chloride 100 mmol/L (98-107); Estimated GFR 17; Glucose 289 mg/dL (80-115); Potassium 4.1 mmol/L (3.5-5.1); Sodium 135 mmol/L (136-145)
[2022-06-14] MEDS: Levothyroxine Sodium 112 MCG TAB PO SCH (05:52)
[2022-06-14] MEDS: HumaLOG 300 UNITS/3 ML VIAL SC PRN ×2 (05:53→12:13)
[2022-06-14] MEDS: Midodrine HCl 5 MG TAB PO SCH ×3 (07:52→20:19)
[2022-06-14] MEDS: Sodium Bicarbonate Tab 325 MG TAB PO SCH ×3 (07:53→20:19)
[2022-06-14] MEDS ORDERED: Lidocaine 5% Patch TD SCH (09:00)
[2022-06-14] MEDS: Insulin NPH Human Isophane 100 UNIT/ML (10 ML VIAL) SC SCH ×2 (10:14→21:33)
[2022-06-14] MEDS: Transdermal Patch Removal TOP SCH (10:14)
[2022-06-14] MEDS: Acetaminophen 325 MG TAB PO PRN (10:28)
[2022-06-14 12:54] LABS: Hemoglobin 8.5 g/dL (14.0-18.0); Mean Corpuscular HGB CONC 32.6 g/dL (32.0-36.0); Mean Corpuscular Hemoglobin 30.8 pg (27.0-31.0); Mean Corpuscular Volume 94.7 fl (78.0-98.0); Mean Platelet Volume 8.4 fL (7.4-10.4); Platelet Count 22 10x3/uL (130-400); Red Blood Cell (RBC) Count 2.76 mill/uL (4.70-6.10); White Blood Cell (WBC) Count 6.9 10x3/uL (4.8-10.8)
[2022-06-14 13:12] LABS: Anisocytosis SLIGHT = 6-15 cells (100X) (0-5/hpf); Band 5 % (5-11); Basophilic Stippling SLIGHT = 1-2 cells (100X) (None Seen); Lymphocytes 5 % (21-51); MDiff Complete? YES; Monocytes 11 % (0-10); Neutrophil 79 % (42-75); Nucleated RBC 1 % (0); Platelet Morphology Comment Appears Decreased; Polychromasia SLIGHT = 2-3 cells (100X) (0-2/hpf); Spherocytes SLIGHT = 1-5 cells (100X) (None Seen)
[2022-06-14] MEDS ORDERED: Albumin 25% 25 GM/100 ML BOT IVPB SCH (13:45)
[2022-06-14] MEDS: Cipro 250 MG TAB PO SCH (16:25)
[2022-06-14] MEDS: Folic Acid/Vit B Comp W-C PO SCH (20:19)
[2022-06-14] MEDS: Lidocaine 5% Patch TD SCH (20:20)
[2022-06-14] MEDS ORDERED: Transdermal Patch Removal TOP SCH (21:00)
[2022-06-14] MEDS ORDERED: cefTRIAXone\\ROCEPHIN 1 GM in Sodium Chloride 0.9% 100 ML IVPB SCH (23:00)
[2022-06-15 00:42] LABS: #Eosinphils 0.1 thou/uL (0.0-0.7); #Lymphocytes 0.5 thou/uL (1.20-3.40); #Monocytes 1.1 thou/uL (0.11-0.59); #Neutrophils 6.1 thou/uL (1.40-6.50); %Basophils 0.1 % (0.0-1.0); %Eosinophils 0.7 % (0.0-10.0); %Lymphocytes 6.6 % (21.0-51.0); %Monocytes 14.1 % (0.0-10.0); %Neutrophils 78.5 % (42.0-75.0); Hemoglobin 8.2 g/dL (14.0-18.0); Mean Corpuscular HGB CONC 30.9 g/dL (32.0-36.0); Mean Corpuscular Hemoglobin 29.5 pg (27.0-31.0); Mean Corpuscular Volume 95.3 fl (78.0-98.0); Mean Platelet Volume 8.6 fL (7.4-10.4); Platelet Count 23 10x3/uL (130-400); RBC Distribution Width 17.1 % (11.5-14.5); Red Blood Cell (RBC) Count 2.77 mill/uL (4.70-6.10); White Blood Cell (WBC) Count 7.8 10x3/uL (4.8-10.8)
[2022-06-15] MEDS: FENTANYL 50 MCG/ML 1 ML VIAL SLOW IVP PRN ×8 (02:13→22:18)
[2022-06-15] MEDS: Levothyroxine Sodium 112 MCG TAB PO SCH (05:02)
[2022-06-15] MEDS ORDERED: Insulin NPH Human Isophane 100 UNIT/ML (10 ML VIAL) SC SCH (09:00)
[2022-06-15] MEDS ORDERED: Famotidine 20 MG TAB PO SCH (09:00)
[2022-06-15] MEDS ORDERED: diphenhydrAMINE 25 MG CAP PO SCH (09:00)
[2022-06-15] MEDS ORDERED: predniSONE 20 MG TAB PO SCH (09:00)
[2022-06-15] MEDS: Nadolol 40 MG TAB PO SCH (10:01)
[2022-06-15] MEDS: Midodrine HCl 5 MG TAB PO SCH ×3 (10:01→20:57)
[2022-06-15] MEDS: Transdermal Patch Removal TOP SCH (10:02)
[2022-06-15] MEDS: Sodium Bicarbonate Tab 325 MG TAB PO SCH ×3 (10:02→20:57)
[2022-06-15] MEDS ORDERED: Meropenem 1 GM in Sodium Chloride 0.9% 100 ML IVPB SCH ×2 (10:15→15:00)
[2022-06-15 10:48] LABS: Hemoglobin 9.1 g/dL (14.0-18.0); Mean Corpuscular HGB CONC 31.2 g/dL (32.0-36.0); Mean Corpuscular Hemoglobin 29.7 pg (27.0-31.0); Mean Platelet Volume 8.8 fL (7.4-10.4); Platelet Count 37 10x3/uL (130-400); RBC Distribution Width 17.1 % (11.5-14.5); Red Blood Cell (RBC) Count 3.08 mill/uL (4.70-6.10); White Blood Cell (WBC) Count 10.2 10x3/uL (4.8-10.8)
[2022-06-15] MEDS ORDERED: Lidocaine 1% PF 5 ML VIAL ONE (10:50)
[2022-06-15] MEDS ORDERED: Sodium Bicarbonate 2.5 MEQ/5 ML VIAL ONE (10:50)
[2022-06-15 10:58] LABS: Anion Gap 11 mmol/L (10-20); BUN (Urea Nitrogen) 23 mg/dL (8.4-25.7); Calc. Creatinine Clearance 23 mL/min (70-130); Calcium 8.3 mg/dL (7.8-10.44); Carbon Dioxide 29 mmol/L (23-31); Chloride 100 mmol/L (98-107); Estimated GFR 23; Potassium 3.1 mmol/L (3.5-5.1); Sodium 137 mmol/L (136-145)
[2022-06-15 11:02] LABS: Band 10 % (5-11); Hypochromia SLIGHT = 6-15 cells (100X) (0-5/hpf); Lymphocytes 9 % (21-51); MDiff Complete? YES; Monocytes 9 % (0-10); Neutrophil 69 % (42-75); Ovalocytes SLIGHT = 2-5 cells (100X) (0-1/hpf); Platelet Morphology Comment Appears Decreased; Polychromasia SLIGHT = 2-3 cells (100X) (0-2/hpf); Reactive Lymphocytes 3 % (0-10)
[2022-06-15 11:25] LABS: Glucose 43 mg/dL (80-115)
[2022-06-15] MEDS ORDERED: Albumin 25% 100 ML ONE ×2 (11:54→12:32)
[2022-06-15] MEDS: Albumin 25% 25 GM/100 ML BOT IVPB SCH (12:00)
[2022-06-15] MEDS ORDERED: Albumin 25% 25 GM/100 ML BOT IVPB SCH (12:45)
[2022-06-15] MEDS ORDERED: Heparin 10,000 UNITS/ 10 ML VIAL ONE (14:38)
[2022-06-15] MEDS: Acetaminophen 325 MG TAB PO PRN (19:34)
[2022-06-15] MEDS: Folic Acid/Vit B Comp W-C PO SCH (20:57)
[2022-06-15] MEDS: Lidocaine 5% Patch TD SCH (20:57)
[2022-06-16] MEDS: Meropenem 500 MG in Sodium Chloride 0.9% 100 ML IVPB SCH ×2 (00:32→22:54)
[2022-06-16] MEDS: Albumin 25% 25 GM/100 ML BOT IVPB SCH ×4 (00:35→11:41)
[2022-06-16] MEDS: FENTANYL 50 MCG/ML 1 ML VIAL SLOW IVP PRN ×5 (02:30→23:46)
[2022-06-16 05:27] LABS: Hemoglobin 6.8 g/dL (14.0-18.0); Mean Corpuscular HGB CONC 30.9 g/dL (32.0-36.0); Mean Corpuscular Hemoglobin 29.8 pg (27.0-31.0); Mean Corpuscular Volume 96.3 fl (78.0-98.0); Mean Platelet Volume 9.1 fL (7.4-10.4); Platelet Count 16 10x3/uL (130-400); White Blood Cell (WBC) Count 3.4 10x3/uL (4.8-10.8)
[2022-06-16] MEDS: Levothyroxine Sodium 112 MCG TAB PO SCH (05:29)
[2022-06-16 05:45] LABS: Anion Gap 13 mmol/L (10-20); BUN (Urea Nitrogen) 35 mg/dL (8.4-25.7); Calc. Creatinine Clearance 15 mL/min (70-130); Calcium 8.2 mg/dL (7.8-10.44); Carbon Dioxide 26 mmol/L (23-31); Chloride 100 mmol/L (98-107); Estimated GFR 13; Glucose 58 mg/dL (80-115); Potassium 3.3 mmol/L (3.5-5.1); Sodium 136 mmol/L (136-145)
[2022-06-16] MEDS: Acetaminophen 325 MG TAB PO PRN (05:57)
[2022-06-16 06:01] LABS: #Lymphocytes 0.2 thou/uL (1.20-3.40); #Monocytes 0.5 thou/uL (0.11-0.59); #Neutrophils 2.7 thou/uL (1.40-6.50); %Basophils 0.3 % (0.0-1.0); %Eosinophils 0.1 % (0.0-10.0); %Lymphocytes 5.2 % (21.0-51.0); %Monocytes 14.9 % (0.0-10.0); %Neutrophils 79.6 % (42.0-75.0); Anisocytosis SLIGHT = 6-15 cells (100X) (0-5/hpf); Band 3 % (5-11); Hypochromia SLIGHT = 6-15 cells (100X) (0-5/hpf); Lymphocytes 6 % (21-51); MDiff Complete? YES; Monocytes 11 % (0-10); Neutrophil 80 % (42-75); Platelet Morphology Comment Appears Decreased; Polychromasia SLIGHT = 2-3 cells (100X) (0-2/hpf)
[2022-06-16] MEDS ORDERED: Potassium Chloride 20 MEQ TAB PO SCH (08:15)
[2022-06-16] MEDS: Midodrine HCl 5 MG TAB PO SCH ×3 (09:29→20:30)
[2022-06-16] MEDS: Sodium Bicarbonate Tab 325 MG TAB PO SCH ×3 (09:29→20:30)
[2022-06-16] MEDS: Transdermal Patch Removal TOP SCH (10:11)
[2022-06-16 12:19] LABS: Hemoglobin 6.8 g/dL (14.0-18.0); Mean Corpuscular HGB CONC 31.5 g/dL (32.0-36.0); Mean Corpuscular Hemoglobin 30.1 pg (27.0-31.0); Mean Corpuscular Volume 95.8 fl (78.0-98.0); Platelet Count 17 10x3/uL (130-400); RBC Distribution Width 16.7 % (11.5-14.5); Red Blood Cell (RBC) Count 2.26 mill/uL (4.70-6.10); White Blood Cell (WBC) Count 4.1 10x3/uL (4.8-10.8)
[2022-06-16 12:28] LABS: INR-International Normal Ratio 1.9; Prothrombin Time 22.8 sec (12.0-14.7)
[2022-06-16 12:29] LABS: PTT 37.5 sec (22.9-36.1)
[2022-06-16] MEDS: Cipro 250 MG TAB PO SCH (15:19)
[2022-06-16] MEDS: Lidocaine 5% Patch TD SCH (20:30)
[2022-06-16] MEDS: Folic Acid/Vit B Comp W-C PO SCH (20:30)
[2022-06-16] MEDS: HumaLOG 300 UNITS/3 ML VIAL SC PRN (20:41)
[2022-06-17] MEDS: FENTANYL 50 MCG/ML 1 ML VIAL SLOW IVP PRN ×3 (03:54→15:56)
[2022-06-17 04:27] LABS: Reticulocyte Count 3.8 % (0.5-1.5)
[2022-06-17 04:41] LABS: Platelet Count 20 10x3/uL (130-400)
[2022-06-17 04:51] LABS: ALT (SGPT) 7 U/L (8-55); AST (SGOT) 14 U/L (5-34); Albumin 3.6 g/dL (3.4-4.8); Alkaline Phosphatase 151 U/L (40-110); Anion Gap 16 mmol/L (10-20); BUN (Urea Nitrogen) 46 mg/dL (8.4-25.7); Bilirubin, Total 2.2 mg/dL (0.2-1.2); Calc. Creatinine Clearance 12 mL/min (70-130); Calcium 8.1 mg/dL (7.8-10.44); Carbon Dioxide 23 mmol/L (23-31); Chloride 103 mmol/L (98-107); Estimated GFR 10; Globulin 2.1 g/dL (2.4-3.5); Glucose 213 mg/dL (80-115); Potassium 3.2 mmol/L (3.5-5.1); Protein, Total 5.7 g/dL (5.8-8.1); Sodium 139 mmol/L (136-145)
[2022-06-17 05:20] LABS: INR-International Normal Ratio 1.7; Prothrombin Time 20.5 sec (12.0-14.7)
[2022-06-17 05:21] LABS: Fibrinogen 195 mg/dL (253-463); PTT 37.3 sec (22.9-36.1)
[2022-06-17] MEDS: Levothyroxine Sodium 112 MCG TAB PO SCH (05:40)
[2022-06-17 05:42] LABS: Anisocytosis SLIGHT = 6-15 cells (100X) (0-5/hpf); Band 7 % (5-11); Eosinophils 3 % (0-10); Hemoglobin 7.2 g/dL (14.0-18.0); Lymphocytes 9 % (21-51); MDiff Complete? YES; Mean Corpuscular HGB CONC 32.9 g/dL (32.0-36.0); Mean Corpuscular Hemoglobin 31.9 pg (27.0-31.0); Mean Corpuscular Volume 96.9 fl (78.0-98.0); Mean Platelet Volume 8.7 fL (7.4-10.4); Monocytes 11 % (0-10); Neutrophil 70 % (42-75); Platelet Count 20 10x3/uL (130-400); Platelet Morphology Comment Appears Decreased; RBC Distribution Width 16.8 % (11.5-14.5); Red Blood Cell (RBC) Count 2.27 mill/uL (4.70-6.10); White Blood Cell (WBC) Count 3.1 10x3/uL (4.8-10.8)
[2022-06-17] MEDS: Nadolol 40 MG TAB PO SCH (08:52)
[2022-06-17] MEDS: Midodrine HCl 5 MG TAB PO SCH ×3 (08:52→21:49)
[2022-06-17] MEDS: Sodium Bicarbonate Tab 325 MG TAB PO SCH (08:52)
[2022-06-17] MEDS: Transdermal Patch Removal TOP SCH (08:53)
[2022-06-17] MEDS ORDERED: Potassium Chloride 20 MEQ TAB PO SCH ×2 (09:00→17:00)
[2022-06-17] MEDS ORDERED: Heparin 10,000 UNITS/ 10 ML VIAL ONE (10:43)
[2022-06-17] MEDS: EPOETIN ALFA-EPBX (ESRD) 10,000 UNIT/ML VIAL SC SCH (15:57)
[2022-06-17] MEDS ORDERED: Morphine 2 MG/ML VIAL SLOW IVP PRN (18:36)
[2022-06-17] MEDS: Morphine 4 MG/ML VIAL SLOW IVP PRN (19:48)
[2022-06-17] MEDS: Lidocaine 5% Patch TD SCH (21:49)
[2022-06-17] MEDS: Folic Acid/Vit B Comp W-C PO SCH (21:49)
[2022-06-17] MEDS: HumaLOG 300 UNITS/3 ML VIAL SC PRN (21:50)
[2022-06-18] MEDS: Morphine 4 MG/ML VIAL SLOW IVP PRN ×4 (00:13→18:14)
[2022-06-18] MEDS: Meropenem 500 MG in Sodium Chloride 0.9% 100 ML IVPB SCH ×2 (00:13→23:35)
[2022-06-18] MEDS: traMADol HCl 50 MG TAB PO PRN ×2 (02:44→15:54)
[2022-06-18] MEDS: Levothyroxine Sodium 112 MCG TAB PO SCH (06:26)
[2022-06-18] MEDS: HumaLOG 300 UNITS/3 ML VIAL SC PRN ×3 (06:26→18:15)
[2022-06-18 06:55] LABS: Hemoglobin 8.3 g/dL (14.0-18.0); Mean Corpuscular HGB CONC 31.7 g/dL (32.0-36.0); Mean Corpuscular Hemoglobin 30.6 pg (27.0-31.0); Mean Corpuscular Volume 96.6 fl (78.0-98.0); Mean Platelet Volume 9.7 fL (7.4-10.4); Platelet Count 22 10x3/uL (130-400); RBC Distribution Width 17.7 % (11.5-14.5); White Blood Cell (WBC) Count 3.5 10x3/uL (4.8-10.8)
[2022-06-18 07:15] LABS: Anion Gap 16 mmol/L (10-20); BUN (Urea Nitrogen) 33 mg/dL (8.4-25.7); Calc. Creatinine Clearance 17 mL/min (70-130); Calcium 8.4 mg/dL (7.8-10.44); Carbon Dioxide 24 mmol/L (23-31); Chloride 101 mmol/L (98-107); Estimated GFR 16; Glucose 247 mg/dL (80-115); Magnesium 1.8 mg/dL (1.6-2.6); Potassium 3.7 mmol/L (3.5-5.1); Sodium 137 mmol/L (136-145)
[2022-06-18 08:24] LABS: Band 22 % (5-11); Eosinophils 1 % (0-10); Lymphocytes 4 % (21-51); MDiff Complete? YES; Monocytes 12 % (0-10); Neutrophil 60 % (42-75); Platelet Morphology Comment Appears Decreased; Polychromasia SLIGHT = 2-3 cells (100X) (0-2/hpf); Reactive Lymphocytes 1 % (0-10); Target Cells SLIGHT = 2-5 cells (100X) (0-1/hpf)
[2022-06-18] MEDS ORDERED: EPOETIN ALFA-EPBX (ESRD) 10,000 UNIT/ML VIAL SC SCH (09:00)
[2022-06-18] MEDS: Transdermal Patch Removal TOP SCH (09:28)
[2022-06-18] MEDS: Midodrine HCl 5 MG TAB PO SCH ×3 (09:28→21:07)
[2022-06-18] MEDS: Folic Acid/Vit B Comp W-C PO SCH (21:06)
[2022-06-18] MEDS: Lidocaine 5% Patch TD SCH (21:06)
[2022-06-18] MEDS: Morphine ER 15 MG TAB PO SCH (21:07)
[2022-06-19] MEDS: traMADol HCl 50 MG TAB PO PRN (04:37)
[2022-06-19] MEDS: Levothyroxine Sodium 112 MCG TAB PO SCH (04:38)
[2022-06-19 05:41] LABS: ALT (SGPT) 22 U/L (8-55); AST (SGOT) 35 U/L (5-34); Albumin 3.2 g/dL (3.4-4.8); Alkaline Phosphatase 157 U/L (40-110); Anion Gap 18 mmol/L (10-20); BUN (Urea Nitrogen) 52 mg/dL (8.4-25.7); Bilirubin, Total 5.3 mg/dL (0.2-1.2); Calc. Creatinine Clearance 13 mL/min (70-130); Calcium 8.3 mg/dL (7.8-10.44); Carbon Dioxide 22 mmol/L (23-31); Chloride 98 mmol/L (98-107); Estimated GFR 12; Globulin 2.4 g/dL (2.4-3.5); Glucose 171 mg/dL (80-115); Potassium 3.7 mmol/L (3.5-5.1); Protein, Total 5.6 g/dL (5.8-8.1); Sodium 134 mmol/L (136-145)
[2022-06-19 05:55] LABS: Anisocytosis SLIGHT = 6-15 cells (100X) (0-5/hpf); Band 15 % (5-11); Eosinophils 2 % (0-10); Hemoglobin 8.8 g/dL (14.0-18.0); Lymphocytes 8 % (21-51); MDiff Complete? YES; Mean Corpuscular HGB CONC 32.4 g/dL (32.0-36.0); Mean Corpuscular Hemoglobin 31.5 pg (27.0-31.0); Mean Corpuscular Volume 97.2 fl (78.0-98.0); Mean Platelet Volume 9.2 fL (7.4-10.4); Monocytes 8 % (0-10); Neutrophil 67 % (42-75); Platelet Count 31 10x3/uL (130-400); Platelet Morphology Comment Appears Decreased; RBC Distribution Width 17.8 % (11.5-14.5); Red Blood Cell (RBC) Count 2.81 mill/uL (4.70-6.10); White Blood Cell (WBC) Count 5.6 10x3/uL (4.8-10.8)
[2022-06-19] MEDS: Morphine 4 MG/ML VIAL SLOW IVP PRN ×2 (06:31→15:53)
[2022-06-19] MEDS ORDERED: CEFAZOLIN 2 GM in Sodium Chloride 0.9% 100 ML IVPB SCH (08:30)
[2022-06-19] MEDS: Morphine ER 15 MG TAB PO SCH ×2 (08:58→20:57)
[2022-06-19] MEDS: Midodrine HCl 5 MG TAB PO SCH ×3 (08:58→20:57)
[2022-06-19] MEDS: Transdermal Patch Removal TOP SCH (09:14)
[2022-06-19 17:11] LABS: Hemoglobin 9.1 g/dL (14.0-18.0); Mean Corpuscular HGB CONC 32.6 g/dL (32.0-36.0); Mean Corpuscular Hemoglobin 31.2 pg (27.0-31.0); Mean Platelet Volume 8.9 fL (7.4-10.4); Platelet Count 35 10x3/uL (130-400); RBC Distribution Width 17.8 % (11.5-14.5); Red Blood Cell (RBC) Count 2.92 mill/uL (4.70-6.10)
[2022-06-19] MEDS ORDERED: Famotidine 20 MG TAB PO SCH (18:15)
[2022-06-19] MEDS ORDERED: predniSONE 50 MG TAB PO SCH (18:15)
[2022-06-19] MEDS ORDERED: diphenhydrAMINE 25 MG CAP PO SCH (18:30)
[2022-06-19] MEDS: Lidocaine 5% Patch TD SCH (20:56)
[2022-06-19] MEDS: Folic Acid/Vit B Comp W-C PO SCH (20:56)
[2022-06-19] MEDS: Meropenem 500 MG in Sodium Chloride 0.9% 100 ML IVPB SCH (22:23)
[2022-06-20] MEDS: Levothyroxine Sodium 112 MCG TAB PO SCH (05:25)
[2022-06-20 06:02] LABS: #Lymphocytes 0.2 thou/uL (1.20-3.40); #Monocytes 0.5 thou/uL (0.11-0.59); #Neutrophils 6.7 thou/uL (1.40-6.50); %Basophils 0.5 % (0.0-1.0); %Eosinophils 0.1 % (0.0-10.0); %Lymphocytes 2.5 % (21.0-51.0); %Monocytes 6.2 % (0.0-10.0); %Neutrophils 90.7 % (42.0-75.0); Hemoglobin 8.7 g/dL (14.0-18.0); Mean Corpuscular HGB CONC 31.4 g/dL (32.0-36.0); Mean Corpuscular Hemoglobin 30.5 pg (27.0-31.0); Mean Corpuscular Volume 96.9 fl (78.0-98.0); Mean Platelet Volume 9.4 fL (7.4-10.4); Platelet Count 38 10x3/uL (130-400); RBC Distribution Width 18.1 % (11.5-14.5); Red Blood Cell (RBC) Count 2.87 mill/uL (4.70-6.10); White Blood Cell (WBC) Count 7.4 10x3/uL (4.8-10.8)
[2022-06-20 06:16] LABS: ALT (SGPT) 18 U/L (8-55); AST (SGOT) 29 U/L (5-34); Albumin 3.3 g/dL (3.4-4.8); Alkaline Phosphatase 182 U/L (40-110); Anion Gap 20 mmol/L (10-20); BUN (Urea Nitrogen) 68 mg/dL (8.4-25.7); Bilirubin, Total 5.9 mg/dL (0.2-1.2); Calc. Creatinine Clearance 11 mL/min (70-130); Calcium 8.3 mg/dL (7.8-10.44); Carbon Dioxide 19 mmol/L (23-31); Chloride 94 mmol/L (98-107); Estimated GFR 9; Globulin 2.6 g/dL (2.4-3.5); Glucose 288 mg/dL (80-115); Potassium 4.1 mmol/L (3.5-5.1); Protein, Total 5.9 g/dL (5.8-8.1); Sodium 129 mmol/L (136-145)
[2022-06-20] MEDS ORDERED: diphenhydrAMINE 50 MG CAP PO SCH (08:00)
[2022-06-20] MEDS ORDERED: Famotidine 20 MG TAB PO SCH (08:00)
[2022-06-20] MEDS ORDERED: predniSONE 50 MG TAB PO SCH (08:00)
[2022-06-20] MEDS: Morphine ER 15 MG TAB PO SCH ×2 (08:32→21:11)
[2022-06-20] MEDS: Midodrine HCl 5 MG TAB PO SCH ×3 (08:33→21:11)
[2022-06-20] MEDS ORDERED: Albumin 25% 25 GM/100 ML BOT IVPB SCH (10:19)
[2022-06-20] MEDS ORDERED: Heparin 10,000 UNITS/ 10 ML VIAL ONE (10:23)
[2022-06-20] MEDS ORDERED: Midodrine HCl 5 MG TAB PO SCH (10:30)
[2022-06-20 11:33] LABS: #Lymphocytes 0.3 thou/uL (1.20-3.40); #Monocytes 0.5 thou/uL (0.11-0.59); #Neutrophils 5.9 thou/uL (1.40-6.50); %Lymphocytes 3.8 % (21.0-51.0); %Monocytes 7.7 % (0.0-10.0); %Neutrophils 88.5 % (42.0-75.0); Hemoglobin 8.2 g/dL (14.0-18.0); Mean Corpuscular HGB CONC 31.9 g/dL (32.0-36.0); Mean Corpuscular Hemoglobin 30.6 pg (27.0-31.0); Mean Corpuscular Volume 96.1 fl (78.0-98.0); Mean Platelet Volume 8.4 fL (7.4-10.4); Platelet Count 33 10x3/uL (130-400); RBC Distribution Width 17.9 % (11.5-14.5); Red Blood Cell (RBC) Count 2.67 mill/uL (4.70-6.10); White Blood Cell (WBC) Count 6.7 10x3/uL (4.8-10.8)
[2022-06-20] MEDS: Transdermal Patch Removal TOP SCH (14:16)
[2022-06-20] MEDS ORDERED: Fentanyl 250 MCG/5 ML VIAL ONE (14:31)
[2022-06-20] MEDS ORDERED: CEFAZOLIN 2 GM VIAL ONE (15:26)
[2022-06-20] MEDS ORDERED: Sodium Chloride 0.9% 100 ML ONE (15:26)
[2022-06-20] MEDS ORDERED: ePHEDrine 50 MG/ML VIAL ONE (15:39)
[2022-06-20] MEDS ORDERED: Ondansetron PF 4 MG/2 ML Vial ONE (15:39)
[2022-06-20] MEDS ORDERED: PROPOFOL 200 MG/20 ML VIAL ONE (15:39)
[2022-06-20] MEDS: HumuLIN 70/30 (300 UNITS/3 ML VIAL) SC SCH ×2 (15:52→21:17)
[2022-06-20] MEDS: EPOETIN ALFA-EPBX (ESRD) 10,000 UNIT/ML VIAL SC SCH (15:52)
[2022-06-20] MEDS ORDERED: Promethazine HCl 25 MG/ML VIAL IM PRN (16:40)
[2022-06-20] MEDS ORDERED: Promethazine HCl 25 MG/ML VIAL IVPB PRN (16:40)
[2022-06-20] MEDS ORDERED: Ondansetron HCl/PF 4 MG/2 ML Vial IVP PRN (16:40)
[2022-06-20 17:40] LABS: Hemoglobin 8.1 g/dL (14.0-18.0)
[2022-06-20] MEDS: Folic Acid/Vit B Comp W-C PO SCH (21:12)
[2022-06-20] MEDS: Lidocaine 5% Patch TD SCH (21:12)
[2022-06-20] MEDS: CEFAZOLIN 1 GM in Sodium Chloride 0.9% 100 ML IVPB SCH (23:24)
[2022-06-20] MEDS: Acetaminophen 325 MG TAB PO PRN (23:24)
[2022-06-21] MEDS: Morphine 4 MG/ML VIAL SLOW IVP PRN (01:01)
[2022-06-21] MEDS: Ciprofloxacin 500 MG TAB PO SCH (05:44)
[2022-06-21] MEDS: Levothyroxine Sodium 112 MCG TAB PO SCH (05:44)
[2022-06-21] MEDS ORDERED: Ciprofloxacin 500 MG TAB PO SCH (06:00)
[2022-06-21] MEDS: HumaLOG 300 UNITS/3 ML VIAL SC PRN ×4 (06:25→21:16)
[2022-06-21 06:43] LABS: #Lymphocytes 0.3 thou/uL (1.20-3.40); #Monocytes 0.8 thou/uL (0.11-0.59); #Neutrophils 9.7 thou/uL (1.40-6.50); %Basophils 0.1 % (0.0-1.0); %Eosinophils 0.1 % (0.0-10.0); %Lymphocytes 2.8 % (21.0-51.0); %Monocytes 7.4 % (0.0-10.0); %Neutrophils 89.7 % (42.0-75.0); Hemoglobin 8.6 g/dL (14.0-18.0); Mean Corpuscular HGB CONC 31.9 g/dL (32.0-36.0); Mean Corpuscular Hemoglobin 30.9 pg (27.0-31.0); Mean Platelet Volume 8.4 fL (7.4-10.4); Platelet Count 50 10x3/uL (130-400); RBC Distribution Width 18.4 % (11.5-14.5); Red Blood Cell (RBC) Count 2.79 mill/uL (4.70-6.10); White Blood Cell (WBC) Count 10.8 10x3/uL (4.8-10.8)
[2022-06-21 06:54] LABS: Anion Gap 20 mmol/L (10-20); BUN (Urea Nitrogen) 51 mg/dL (8.4-25.7); Calc. Creatinine Clearance 17 mL/min (70-130); Calcium 8.3 mg/dL (7.8-10.44); Carbon Dioxide 20 mmol/L (23-31); Chloride 97 mmol/L (98-107); Estimated GFR 14; Glucose 237 mg/dL (80-115); Magnesium 2.1 mg/dL (1.6-2.6); Potassium 4.2 mmol/L (3.5-5.1); Sodium 133 mmol/L (136-145)
[2022-06-21] MEDS: Morphine ER 15 MG TAB PO SCH (08:39)
[2022-06-21] MEDS: Midodrine HCl 5 MG TAB PO SCH ×3 (08:39→20:23)
[2022-06-21] MEDS: CEFAZOLIN 1 GM in Sodium Chloride 0.9% 100 ML IVPB SCH ×2 (08:39→15:13)
[2022-06-21] MEDS: Transdermal Patch Removal TOP SCH (08:40)
[2022-06-21] MEDS: HumuLIN 70/30 (300 UNITS/3 ML VIAL) SC SCH ×2 (09:02→20:24)
[2022-06-21] MEDS: Folic Acid/Vit B Comp W-C PO SCH (20:23)
[2022-06-21] MEDS: Lidocaine 5% Patch TD SCH (20:26)
[2022-06-22] MEDS: traMADol HCl 50 MG TAB PO PRN ×2 (02:30→12:42)
[2022-06-22] MEDS: Levothyroxine Sodium 112 MCG TAB PO SCH (05:50)
[2022-06-22] MEDS: Ciprofloxacin 500 MG TAB PO SCH (05:50)
[2022-06-22 06:44] LABS: Hemoglobin 9.1 g/dL (14.0-18.0); Mean Corpuscular Hemoglobin 31.8 pg (27.0-31.0); Mean Corpuscular Volume 96.4 fl (78.0-98.0); Mean Platelet Volume 8.1 fL (7.4-10.4); Platelet Count 46 10x3/uL (130-400); RBC Distribution Width 18.8 % (11.5-14.5); Red Blood Cell (RBC) Count 2.86 mill/uL (4.70-6.10)
[2022-06-22 07:05] LABS: Anisocytosis SLIGHT = 6-15 cells (100X) (0-5/hpf); Band 8 % (5-11); Lymphocytes 1 % (21-51); MDiff Complete? YES; Monocytes 6 % (0-10); Neutrophil 85 % (42-75); Nucleated RBC 2 % (0); Platelet Morphology Comment Appears Decreased; Polychromasia SLIGHT = 2-3 cells (100X) (0-2/hpf); White Blood Cell (WBC) Count 11.9 10x3/uL (4.8-10.8)
[2022-06-22 07:08] LABS: ALT (SGPT) 10 U/L (8-55); AST (SGOT) 36 U/L (5-34); Albumin 3.5 g/dL (3.4-4.8); Alkaline Phosphatase 196 U/L (40-110); Anion Gap 22 mmol/L (10-20); BUN (Urea Nitrogen) 65 mg/dL (8.4-25.7); Bilirubin, Total 4.7 mg/dL (0.2-1.2); Calc. Creatinine Clearance 14 mL/min (70-130); Calcium 8.1 mg/dL (7.8-10.44); Carbon Dioxide 19 mmol/L (23-31); Chloride 97 mmol/L (98-107); Estimated GFR 12; Globulin 2.8 g/dL (2.4-3.5); Glucose 171 mg/dL (80-115); Protein, Total 6.3 g/dL (5.8-8.1); Sodium 134 mmol/L (136-145)
[2022-06-22] MEDS: Midodrine HCl 5 MG TAB PO SCH ×3 (08:18→20:09)
[2022-06-22] MEDS: HumuLIN 70/30 (300 UNITS/3 ML VIAL) SC SCH (08:18)
[2022-06-22] MEDS: Transdermal Patch Removal TOP SCH (08:19)
[2022-06-22] MEDS ORDERED: Heparin 10,000 UNITS/ 10 ML VIAL ONE (08:57)
[2022-06-22] MEDS: EPOETIN ALFA-EPBX (ESRD) 10,000 UNIT/ML VIAL SC SCH (12:43)
[2022-06-22] MEDS: Rifaximin 550 MG TAB PO SCH (20:09)
[2022-06-22] MEDS: Folic Acid/Vit B Comp W-C PO SCH (20:09)
[2022-06-22] MEDS: Lidocaine 5% Patch TD SCH (20:10)
[2022-06-22] MEDS: HumaLOG 300 UNITS/3 ML VIAL SC PRN (21:01)
[2022-06-23] MEDS: traMADol HCl 50 MG TAB PO PRN ×2 (01:49→23:59)
[2022-06-23 05:18] LABS: Hemoglobin 7.9 g/dL (14.0-18.0); Mean Corpuscular HGB CONC 32.4 g/dL (32.0-36.0); Mean Corpuscular Hemoglobin 31.6 pg (27.0-31.0); Mean Corpuscular Volume 97.5 fl (78.0-98.0); Mean Platelet Volume 8.8 fL (7.4-10.4); Platelet Count 26 10x3/uL (130-400); RBC Distribution Width 18.6 % (11.5-14.5); Red Blood Cell (RBC) Count 2.51 mill/uL (4.70-6.10); White Blood Cell (WBC) Count 8.2 10x3/uL (4.8-10.8)
[2022-06-23 05:33] LABS: ALT (SGPT) 12 U/L (8-55); AST (SGOT) 94 U/L (5-34); Albumin 3.2 g/dL (3.4-4.8); Alkaline Phosphatase 244 U/L (40-110); Anion Gap 19 mmol/L (10-20); BUN (Urea Nitrogen) 49 mg/dL (8.4-25.7); Bilirubin, Total 5.2 mg/dL (0.2-1.2); Calc. Creatinine Clearance 17 mL/min (70-130); Calcium 8.2 mg/dL (7.8-10.44); Carbon Dioxide 21 mmol/L (23-31); Chloride 100 mmol/L (98-107); Estimated GFR 15; Globulin 2.7 g/dL (2.4-3.5); Glucose 217 mg/dL (80-115); Potassium 3.6 mmol/L (3.5-5.1); Protein, Total 5.9 g/dL (5.8-8.1); Sodium 136 mmol/L (136-145)
[2022-06-23] MEDS: Ciprofloxacin 500 MG TAB PO SCH (05:57)
[2022-06-23] MEDS: Levothyroxine Sodium 112 MCG TAB PO SCH (05:57)
[2022-06-23] MEDS: HumaLOG 300 UNITS/3 ML VIAL SC PRN ×3 (05:58→16:30)
[2022-06-23 06:12] LABS: Anisocytosis SLIGHT = 6-15 cells (100X) (0-5/hpf); Band 11 % (5-11); Eosinophils 1 % (0-10); Lymphocytes 16 % (21-51); MDiff Complete? YES; Monocytes 1 % (0-10); Neutrophil 71 % (42-75); Ovalocytes SLIGHT = 2-5 cells (100X) (0-1/hpf); Platelet Morphology Comment Appears Decreased
[2022-06-23] MEDS: Rifaximin 550 MG TAB PO SCH ×2 (08:38→23:33)
[2022-06-23] MEDS: Transdermal Patch Removal TOP SCH (08:38)
[2022-06-23] MEDS: Midodrine HCl 5 MG TAB PO SCH ×3 (08:38→23:33)
[2022-06-23] MEDS ORDERED: Heparin 10,000 UNITS/ 10 ML VIAL ONE (12:21)
[2022-06-23] MEDS: Lidocaine 5% Patch TD SCH (21:36)
[2022-06-23] MEDS: Folic Acid/Vit B Comp W-C PO SCH (23:33)
[2022-06-24] MEDS: Levothyroxine Sodium 112 MCG TAB PO SCH (05:56)
[2022-06-24] MEDS: Ciprofloxacin 500 MG TAB PO SCH (05:56)
[2022-06-24] MEDS ORDERED: Sodium Bicarbonate 2.5 MEQ/5 ML VIAL ONE (08:32)
[2022-06-24] MEDS ORDERED: Bacitracin 1 PK ONE (08:32)
[2022-06-24] MEDS ORDERED: Lidocaine 1% PF 5 ML VIAL ONE (08:32)
[2022-06-24] MEDS: Rifaximin 550 MG TAB PO SCH ×2 (08:49→21:08)
[2022-06-24] MEDS: Midodrine HCl 5 MG TAB PO SCH ×3 (08:49→21:09)
[2022-06-24 08:55] LABS: Mean Corpuscular HGB CONC 33.3 g/dL (32.0-36.0); Mean Corpuscular Hemoglobin 32.7 pg (27.0-31.0); Mean Corpuscular Volume 98.1 fl (78.0-98.0); Mean Platelet Volume 8.5 fL (7.4-10.4); Platelet Count 23 10x3/uL (130-400); RBC Distribution Width 20.6 % (11.5-14.5); Red Blood Cell (RBC) Count 2.44 mill/uL (4.70-6.10); White Blood Cell (WBC) Count 7.1 10x3/uL (4.8-10.8)
[2022-06-24] MEDS ORDERED: Albumin 25% 25 GM/100 ML BOT IVPB SCH (09:00)
[2022-06-24 09:14] LABS: #Lymphocytes 0.3 thou/uL (1.20-3.40); #Monocytes 0.7 thou/uL (0.11-0.59); #Neutrophils 6.1 thou/uL (1.40-6.50); %Basophils 0.1 % (0.0-1.0); %Eosinophils 0.5 % (0.0-10.0); %Lymphocytes 4.3 % (21.0-51.0); %Monocytes 9.5 % (0.0-10.0); %Neutrophils 85.6 % (42.0-75.0); ALT (SGPT) 8 U/L (8-55); AST (SGOT) 89 U/L (5-34); Albumin 3.1 g/dL (3.4-4.8); Alkaline Phosphatase 274 U/L (40-110); Anion Gap 19 mmol/L (10-20); BUN (Urea Nitrogen) 38 mg/dL (8.4-25.7); Bilirubin, Total 7.2 mg/dL (0.2-1.2); Calc. Creatinine Clearance 20 mL/min (70-130); Calcium 8.6 mg/dL (7.8-10.44); Carbon Dioxide 21 mmol/L (23-31); Chloride 100 mmol/L (98-107); Estimated GFR 17; Globulin 2.9 g/dL (2.4-3.5); Glucose 239 mg/dL (80-115); Potassium 3.5 mmol/L (3.5-5.1); Sodium 136 mmol/L (136-145)
[2022-06-24 09:15] LABS: Anisocytosis MODERATE=16-30 cells (100X) (0-5/hpf); MDiff Complete? YES; Platelet Morphology Comment Appears Decreased; Polychromasia MODERATE = 3-4 cells (100X) (0-2/hpf)
[2022-06-24] MEDS: Transdermal Patch Removal TOP SCH (12:02)
[2022-06-24] MEDS: EPOETIN ALFA-EPBX (ESRD) 10,000 UNIT/ML VIAL SC SCH (12:28)
[2022-06-24] MEDS: HumaLOG 300 UNITS/3 ML VIAL SC PRN ×2 (12:38→15:48)
[2022-06-24 16:52] LABS: RBC Count-Automated (BF) 9528 /cu.mm; WBC/Nucleated-Auto (BF) 201 /cu.mm
[2022-06-24 17:33] LABS: BF Color Pink; Body Fluid Source Ascites Body Fluid; Clarity Cloudy/Turbid (Clear); Tube # EDTA
[2022-06-24 19:27] LABS: BF Segmented Neutrophils 40 %; Cell Count Non Hematic 46 %; Lymphocytes 14 %
[2022-06-24] MEDS: Lidocaine 5% Patch TD SCH (21:08)
[2022-06-24] MEDS: Folic Acid/Vit B Comp W-C PO SCH (21:08)
[2022-06-25] MEDS: HumaLOG 300 UNITS/3 ML VIAL SC PRN ×2 (02:02→05:56)
[2022-06-25] MEDS: Ciprofloxacin 500 MG TAB PO SCH (05:55)
[2022-06-25] MEDS: Levothyroxine Sodium 112 MCG TAB PO SCH (05:55)
[2022-06-25] MEDS: Morphine 4 MG/ML VIAL SLOW IVP PRN (09:18)
[2022-06-25] MEDS: HumuLIN 70/30 (300 UNITS/3 ML VIAL) SC SCH ×2 (09:51→18:15)
[2022-06-25] MEDS: Transdermal Patch Removal TOP SCH (09:52)
[2022-06-25] MEDS: Rifaximin 550 MG TAB PO SCH ×2 (09:52→21:19)
[2022-06-25] MEDS: Midodrine HCl 5 MG TAB PO SCH ×3 (09:52→21:19)
[2022-06-25] MEDS ORDERED: Megestrol Acetate 40 MG TAB PO SCH (10:00)
[2022-06-25 10:16] LABS: Hemoglobin 7.5 g/dL (14.0-18.0); Mean Corpuscular HGB CONC 33.2 g/dL (32.0-36.0); Mean Corpuscular Hemoglobin 33.5 pg (27.0-31.0); PTT 50.7 sec (22.9-36.1); Prothrombin Time 60.9 sec (12.0-14.7); Red Blood Cell (RBC) Count 2.23 mill/uL (4.70-6.10)
[2022-06-25 10:20] LABS: INR-International Normal Ratio 6.6
[2022-06-25 11:07] LABS: Mean Platelet Volume 8.2 fL (7.4-10.4); Platelet Count 20 10x3/uL (130-400); RBC Distribution Width 22.1 % (11.5-14.5); White Blood Cell (WBC) Count 4.5 10x3/uL (4.8-10.8)
[2022-06-25 11:08] LABS: Anisocytosis SLIGHT = 6-15 cells (100X) (0-5/hpf); Eosinophils 2 % (0-10); Hypochromia SLIGHT = 6-15 cells (100X) (0-5/hpf); Lymphocytes 6 % (21-51); MDiff Complete? YES; Monocytes 6 % (0-10); Neutrophil 86 % (42-75); Platelet Morphology Comment Appears Decreased; Polychromasia SLIGHT = 2-3 cells (100X) (0-2/hpf); Vacuoles SLIGHT
[2022-06-25] MEDS ORDERED: Heparin 10,000 UNITS/ 10 ML VIAL ONE (12:15)
[2022-06-25] MEDS: traMADol HCl 50 MG TAB PO PRN (18:15)
[2022-06-25] MEDS: Lidocaine 5% Patch TD SCH (21:02)
[2022-06-25] MEDS: Folic Acid/Vit B Comp W-C PO SCH (21:19)
[2022-06-26] MEDS: Morphine 4 MG/ML VIAL SLOW IVP PRN ×4 (02:04→21:32)
[2022-06-26] MEDS: Levothyroxine Sodium 112 MCG TAB PO SCH (06:01)
[2022-06-26] MEDS: Ciprofloxacin 500 MG TAB PO SCH (06:01)
[2022-06-26 07:01] LABS: INR-International Normal Ratio 5.3; PTT 51.1 sec (22.9-36.1); Prothrombin Time 50.9 sec (12.0-14.7)
[2022-06-26 07:03] LABS: ALT (SGPT) 7 U/L (8-55); AST (SGOT) 60 U/L (5-34); Albumin 3.3 g/dL (3.4-4.8); Alkaline Phosphatase 361 U/L (40-110); Anion Gap 15 mmol/L (10-20); BUN (Urea Nitrogen) 25 mg/dL (8.4-25.7); Bilirubin, Total 7.6 mg/dL (0.2-1.2); Calc. Creatinine Clearance 19 mL/min (70-130); Calcium 8.2 mg/dL (7.8-10.44); Carbon Dioxide 26 mmol/L (23-31); Chloride 99 mmol/L (98-107); Estimated GFR 19; Globulin 2.6 g/dL (2.4-3.5); Glucose 251 mg/dL (80-115); Potassium 3.2 mmol/L (3.5-5.1); Protein, Total 5.9 g/dL (5.8-8.1); Sodium 137 mmol/L (136-145)
[2022-06-26 07:43] LABS: Anisocytosis MODERATE=16-30 cells (100X) (0-5/hpf); Band 3 % (5-11); Eosinophils 2 % (0-10); Hypochromia SLIGHT = 6-15 cells (100X) (0-5/hpf); Lymphocytes 5 % (21-51); MDiff Complete? YES; Macrocytosis MODERATE=16-30 cells (100X) (0-5/hpf); Mean Corpuscular HGB CONC 32.3 g/dL (32.0-36.0); Mean Platelet Volume 9.5 fL (7.4-10.4); Microcytosis SLIGHT = 6-15 cells (100X) (0-5/hpf); Monocytes 8 % (0-10); Neutrophil 82 % (42-75); Ovalocytes SLIGHT = 2-5 cells (100X) (0-1/hpf); Platelet Count 23 10x3/uL (130-400); Platelet Morphology Comment Appears Decreased; Polychromasia SLIGHT = 2-3 cells (100X) (0-2/hpf); RBC Distribution Width 23.2 % (11.5-14.5); Red Blood Cell (RBC) Count 2.43 mill/uL (4.70-6.10); White Blood Cell (WBC) Count 4.8 10x3/uL (4.8-10.8)
[2022-06-26] MEDS: Rifaximin 550 MG TAB PO SCH ×2 (08:43→21:18)
[2022-06-26] MEDS: Transdermal Patch Removal TOP SCH (08:43)
[2022-06-26] MEDS: HumuLIN 70/30 (300 UNITS/3 ML VIAL) SC SCH ×2 (08:43→17:35)
[2022-06-26] MEDS: Midodrine HCl 5 MG TAB PO SCH ×3 (08:43→21:18)
[2022-06-26] MEDS: Megestrol Acetate 40 MG TAB PO SCH (08:43)
[2022-06-26] MEDS ORDERED: Phytonadione 5 MG TAB PO SCH (09:00)
[2022-06-26] MEDS ORDERED: Potassium Chloride 20 MEQ TAB PO SCH (10:45)
[2022-06-26] MEDS ORDERED: HumuLIN 70/30 (300 UNITS/3 ML VIAL) SC SCH (10:45)
[2022-06-26] MEDS ORDERED: Potassium Bicarbonate/Cit Ac 20 MEQ TAB PO SCH (10:45)
[2022-06-26] MEDS: HumaLOG 300 UNITS/3 ML VIAL SC PRN ×2 (12:19→18:48)
[2022-06-26] MEDS: Folic Acid/Vit B Comp W-C PO SCH (21:18)
[2022-06-26] MEDS: Lidocaine 5% Patch TD SCH (21:19)
[2022-06-27] MEDS: Morphine 4 MG/ML VIAL SLOW IVP PRN ×3 (02:49→20:38)
[2022-06-27] MEDS: Levothyroxine Sodium 112 MCG TAB PO SCH (04:48)
[2022-06-27] MEDS: Ciprofloxacin 500 MG TAB PO SCH (04:48)
[2022-06-27 05:45] LABS: INR-International Normal Ratio 3.5; PTT 45.3 sec (22.9-36.1); Prothrombin Time 36.8 sec (12.0-14.7)
[2022-06-27 06:00] LABS: ALT (SGPT) Less than 7 U/L (8-55); AST (SGOT) 45 U/L (5-34); Albumin 3.2 g/dL (3.4-4.8); Alkaline Phosphatase 334 U/L (40-110); Anion Gap 16 mmol/L (10-20); BUN (Urea Nitrogen) 32 mg/dL (8.4-25.7); Bilirubin, Total 7.7 mg/dL (0.2-1.2); Calc. Creatinine Clearance 16 mL/min (70-130); Calcium 8.2 mg/dL (7.8-10.44); Carbon Dioxide 25 mmol/L (23-31); Chloride 95 mmol/L (98-107); Estimated GFR 15; Globulin 2.7 g/dL (2.4-3.5); Glucose 164 mg/dL (80-115); Potassium 3.7 mmol/L (3.5-5.1); Protein, Total 5.9 g/dL (5.8-8.1); Sodium 132 mmol/L (136-145)
[2022-06-27 06:13] LABS: Band 5 % (5-11); Hemoglobin 8.5 g/dL (14.0-18.0); Hypochromia SLIGHT = 6-15 cells (100X) (0-5/hpf); MDiff Complete? YES; Macrocytosis SLIGHT = 6-15 cells (100X) (0-5/hpf); Mean Corpuscular HGB CONC 31.8 g/dL (32.0-36.0); Mean Corpuscular Hemoglobin 33.1 pg (27.0-31.0); Mean Platelet Volume 8.9 fL (7.4-10.4); Monocytes 16 % (0-10); Neutrophil 79 % (42-75); Platelet Count 30 10x3/uL (130-400); Platelet Morphology Comment Appears Decreased; RBC Distribution Width 23.3 % (11.5-14.5); Red Blood Cell (RBC) Count 2.58 mill/uL (4.70-6.10); White Blood Cell (WBC) Count 6.2 10x3/uL (4.8-10.8)
[2022-06-27] MEDS: HumuLIN 70/30 (300 UNITS/3 ML VIAL) SC SCH ×2 (07:30→18:21)
[2022-06-27] MEDS: Midodrine HCl 5 MG TAB PO SCH ×3 (08:18→20:40)
[2022-06-27] MEDS: Transdermal Patch Removal TOP SCH (08:18)
[2022-06-27] MEDS ORDERED: Heparin 10,000 UNITS/ 10 ML VIAL ONE (12:25)
[2022-06-27] MEDS ORDERED: Midodrine HCl 5 MG TAB PO PRN (16:34)
[2022-06-27] MEDS: Megestrol Acetate 40 MG TAB PO SCH (18:20)
[2022-06-27] MEDS: Rifaximin 550 MG TAB PO SCH ×2 (18:21→20:40)
[2022-06-27] MEDS: Folic Acid/Vit B Comp W-C PO SCH (20:40)
[2022-06-27] MEDS: Lidocaine 5% Patch TD SCH (20:42)
[2022-06-27] MEDS ORDERED: Sodium Chloride 0.9% 500 ML IV SCH (22:15)
[2022-06-27 22:53] LABS: #Lymphocytes 0.3 thou/uL (1.20-3.40); #Monocytes 0.8 thou/uL (0.11-0.59); #Neutrophils 5.7 thou/uL (1.40-6.50); %Basophils 0.2 % (0.0-1.0); %Eosinophils 0.5 % (0.0-10.0); %Lymphocytes 4.3 % (21.0-51.0); %Monocytes 11.2 % (0.0-10.0); %Neutrophils 83.8 % (42.0-75.0); Hemoglobin 8.9 g/dL (14.0-18.0); Mean Corpuscular HGB CONC 31.5 g/dL (32.0-36.0); Mean Corpuscular Hemoglobin 33.3 pg (27.0-31.0); Mean Platelet Volume 8.3 fL (7.4-10.4); Platelet Count 28 10x3/uL (130-400); RBC Distribution Width 23.2 % (11.5-14.5); Red Blood Cell (RBC) Count 2.67 mill/uL (4.70-6.10); White Blood Cell (WBC) Count 6.8 10x3/uL (4.8-10.8)
[2022-06-27 22:59] LABS: Anion Gap 19 mmol/L (10-20); BUN (Urea Nitrogen) 23 mg/dL (8.4-25.7); Calc. Creatinine Clearance 25 mL/min (70-130); Calcium 8.2 mg/dL (7.8-10.44); Carbon Dioxide 22 mmol/L (23-31); Chloride 99 mmol/L (98-107); Estimated GFR 25; Glucose 268 mg/dL (80-115); Sodium 136 mmol/L (136-145)
[2022-06-27] MEDS ORDERED: Metoprolol Tartrate 5 MG/5 ML VIAL IVP SCH (23:45)
[2022-06-27] MEDS ORDERED: Metoprolol Tartrate 5 MG/5 ML VIAL ONE (23:54)
[2022-06-28] MEDS: EPOETIN ALFA-EPBX (ESRD) 10,000 UNIT/ML VIAL SC SCH (00:46)
[2022-06-28] MEDS: Morphine 4 MG/ML VIAL SLOW IVP PRN ×3 (04:14→20:45)
[2022-06-28] MEDS: HumaLOG 300 UNITS/3 ML VIAL SC PRN ×2 (05:40→12:06)
[2022-06-28] MEDS: Levothyroxine Sodium 112 MCG TAB PO SCH (05:40)
[2022-06-28] MEDS: Ciprofloxacin 500 MG TAB PO SCH (05:40)
[2022-06-28 05:55] LABS: INR-International Normal Ratio 3.3; PTT 47.2 sec (22.9-36.1); Prothrombin Time 35.3 sec (12.0-14.7)
[2022-06-28 05:59] LABS: Hemoglobin 8.3 g/dL (14.0-18.0); Mean Corpuscular HGB CONC 30.6 g/dL (32.0-36.0); Mean Corpuscular Hemoglobin 32.4 pg (27.0-31.0); Mean Platelet Volume 9.2 fL (7.4-10.4); Platelet Count 30 10x3/uL (130-400); RBC Distribution Width 23.2 % (11.5-14.5); Red Blood Cell (RBC) Count 2.57 mill/uL (4.70-6.10)
[2022-06-28 06:11] LABS: ALT (SGPT) Less than 7 U/L (8-55); AST (SGOT) 30 U/L (5-34); Albumin 2.8 g/dL (3.4-4.8); Alkaline Phosphatase 292 U/L (40-110); Anion Gap 15 mmol/L (10-20); BUN (Urea Nitrogen) 28 mg/dL (8.4-25.7); Bilirubin, Total 8.9 mg/dL (0.2-1.2); Calc. Creatinine Clearance 22 mL/min (70-130); Calcium 8.1 mg/dL (7.8-10.44); Carbon Dioxide 25 mmol/L (23-31); Chloride 99 mmol/L (98-107); Estimated GFR 20; Globulin 2.8 g/dL (2.4-3.5); Glucose 311 mg/dL (80-115); Potassium 3.8 mmol/L (3.5-5.1); Protein, Total 5.6 g/dL (5.8-8.1); Sodium 135 mmol/L (136-145)
[2022-06-28] MEDS: Rifaximin 550 MG TAB PO SCH ×2 (08:29→20:53)
[2022-06-28] MEDS: Midodrine HCl 5 MG TAB PO SCH ×3 (08:29→20:54)
[2022-06-28] MEDS: Megestrol Acetate 40 MG TAB PO SCH (08:29)
[2022-06-28] MEDS: Transdermal Patch Removal TOP SCH (08:32)
[2022-06-28 09:43] LABS: Anisocytosis MARKED = >30 cells (100X) (0-5/hpf); Band 11 % (5-11); Hypochromia SLIGHT = 6-15 cells (100X) (0-5/hpf); Lymphocytes 2 % (21-51); MDiff Complete? YES; Monocytes 10 % (0-10); Neutrophil 77 % (42-75); Nucleated RBC 2 % (0); Platelet Morphology Comment Appears Decreased; Polychromasia MODERATE = 3-4 cells (100X) (0-2/hpf)
[2022-06-28] MEDS ORDERED: traMADol HCl 50 MG TAB PO PRN (10:16)
[2022-06-28] MEDS: HumuLIN 70/30 (300 UNITS/3 ML VIAL) SC SCH ×2 (12:06→17:17)
[2022-06-28] MEDS: Folic Acid/Vit B Comp W-C PO SCH (20:54)
[2022-06-28] MEDS: Lidocaine 5% Patch TD SCH (20:55)
[2022-06-29] MEDS: Morphine 4 MG/ML VIAL SLOW IVP PRN ×4 (00:29→20:01)
[2022-06-29] MEDS: Levothyroxine Sodium 112 MCG TAB PO SCH (05:22)
[2022-06-29] MEDS: Ciprofloxacin 500 MG TAB PO SCH (05:22)
[2022-06-29] MEDS: Albumin 25% 25 GM/100 ML BOT IVPB SCH ×2 (07:10→13:28)
[2022-06-29] MEDS: HumuLIN 70/30 (300 UNITS/3 ML VIAL) SC SCH ×2 (08:48→16:30)
[2022-06-29] MEDS: Midodrine HCl 5 MG TAB PO SCH ×3 (08:49→20:00)
[2022-06-29] MEDS: Megestrol Acetate 40 MG TAB PO SCH (08:49)
[2022-06-29] MEDS: Rifaximin 550 MG TAB PO SCH ×2 (08:49→20:00)
[2022-06-29] MEDS: Transdermal Patch Removal TOP SCH (09:01)
[2022-06-29] MEDS ORDERED: Heparin 10,000 UNITS/ 10 ML VIAL ONE (12:36)
[2022-06-29] MEDS: EPOETIN ALFA-EPBX (ESRD) 10,000 UNIT/ML VIAL SC SCH (15:55)
[2022-06-29] MEDS ORDERED: Sodium Chloride 0.9% 500 ML IV SCH (19:45)
[2022-06-29] MEDS: Lidocaine 5% Patch TD SCH (19:59)
[2022-06-29] MEDS: Folic Acid/Vit B Comp W-C PO SCH (20:00)
[2022-06-30] MEDS: Morphine 4 MG/ML VIAL SLOW IVP PRN ×5 (00:04→21:51)
[2022-06-30] MEDS: Ciprofloxacin 500 MG TAB PO SCH (06:04)
[2022-06-30] MEDS: Levothyroxine Sodium 112 MCG TAB PO SCH (06:04)
[2022-06-30] MEDS: HumaLOG 300 UNITS/3 ML VIAL SC PRN ×3 (06:44→20:22)
[2022-06-30 07:59] LABS: #Lymphocytes 0.3 thou/uL (1.20-3.40); #Monocytes 0.5 thou/uL (0.11-0.59); #Neutrophils 4.7 thou/uL (1.40-6.50); %Basophils 0.3 % (0.0-1.0); %Eosinophils 0.7 % (0.0-10.0); %Lymphocytes 4.8 % (21.0-51.0); %Monocytes 9.2 % (0.0-10.0); Mean Corpuscular HGB CONC 30.8 g/dL (32.0-36.0); Platelet Count 22 10x3/uL (130-400); RBC Distribution Width 21.8 % (11.5-14.5); Red Blood Cell (RBC) Count 2.43 mill/uL (4.70-6.10); White Blood Cell (WBC) Count 5.6 10x3/uL (4.8-10.8)
[2022-06-30 08:24] LABS: ALT (SGPT) Less than 7 U/L (8-55); AST (SGOT) 24 U/L (5-34); Albumin 3.2 g/dL (3.4-4.8); Alkaline Phosphatase 233 U/L (40-110); Anion Gap 14 mmol/L (10-20); BUN (Urea Nitrogen) 23 mg/dL (8.4-25.7); Bilirubin, Total 8.4 mg/dL (0.2-1.2); Calc. Creatinine Clearance 21 mL/min (70-130); Calcium 8.3 mg/dL (7.8-10.44); Carbon Dioxide 23 mmol/L (23-31); Chloride 98 mmol/L (98-107); Estimated GFR 19; Globulin 2.5 g/dL (2.4-3.5); Glucose 213 mg/dL (80-115); Potassium 3.6 mmol/L (3.5-5.1); Protein, Total 5.7 g/dL (5.8-8.1); Sodium 131 mmol/L (136-145)
[2022-06-30] MEDS: Albumin 25% 25 GM/100 ML BOT IVPB SCH ×3 (10:20→21:51)
[2022-06-30] MEDS: Megestrol Acetate 40 MG TAB PO SCH (10:21)
[2022-06-30] MEDS: Rifaximin 550 MG TAB PO SCH ×2 (10:21→20:12)
[2022-06-30] MEDS: Midodrine HCl 5 MG TAB PO SCH ×3 (10:22→20:12)
[2022-06-30] MEDS: HumuLIN 70/30 (300 UNITS/3 ML VIAL) SC SCH ×2 (10:23→16:55)
[2022-06-30 10:36] LABS: Anisocytosis MODERATE=16-30 cells (100X) (0-5/hpf); Helmet Cells SLIGHT = 2-5 cells (100X) (0-1/hpf); Hypochromia SLIGHT = 6-15 cells (100X) (0-5/hpf); MDiff Complete? YES; Macrocytosis SLIGHT = 6-15 cells (100X) (0-5/hpf); Platelet Morphology Comment Appears Decreased; Polychromasia SLIGHT = 2-3 cells (100X) (0-2/hpf); Target Cells SLIGHT = 2-5 cells (100X) (0-1/hpf)
[2022-06-30] MEDS: Transdermal Patch Removal TOP SCH (10:37)
[2022-06-30] MEDS ORDERED: Albumin 25% 25 GM/100 ML BOT IVPB SCH (13:45)
[2022-06-30] MEDS ORDERED: Lidocaine 1% PF 5 ML VIAL ONE (14:12)
[2022-06-30] MEDS ORDERED: Sodium Bicarbonate 2.5 MEQ/5 ML VIAL ONE (14:12)
[2022-06-30] MEDS: Lidocaine 5% Patch TD SCH (20:11)
[2022-06-30] MEDS: Folic Acid/Vit B Comp W-C PO SCH (20:12)
[2022-07-01] MEDS: Morphine 4 MG/ML VIAL SLOW IVP PRN ×4 (02:12→22:20)
[2022-07-01 05:10] LABS: #Lymphocytes 0.2 thou/uL (1.20-3.40); #Monocytes 0.4 thou/uL (0.11-0.59); #Neutrophils 3.1 thou/uL (1.40-6.50); %Basophils 0.6 % (0.0-1.0); %Eosinophils 0.7 % (0.0-10.0); %Lymphocytes 5.4 % (21.0-51.0); %Monocytes 11.6 % (0.0-10.0); %Neutrophils 81.6 % (42.0-75.0); Hemoglobin 7.6 g/dL (14.0-18.0); Mean Corpuscular HGB CONC 31.8 g/dL (32.0-36.0); Mean Platelet Volume 9.1 fL (7.4-10.4); Platelet Count 18 10x3/uL (130-400); Red Blood Cell (RBC) Count 2.23 mill/uL (4.70-6.10); White Blood Cell (WBC) Count 3.8 10x3/uL (4.8-10.8)
[2022-07-01 05:17] LABS: INR-International Normal Ratio 2.7; Prothrombin Time 29.6 sec (12.0-14.7)
[2022-07-01 05:25] LABS: ALT (SGPT) Less than 7 U/L (8-55); AST (SGOT) 21 U/L (5-34); Albumin 3.6 g/dL (3.4-4.8); Alkaline Phosphatase 208 U/L (40-110); Anion Gap 14 mmol/L (10-20); BUN (Urea Nitrogen) 31 mg/dL (8.4-25.7); Bilirubin, Total 8.5 mg/dL (0.2-1.2); Calc. Creatinine Clearance 18 mL/min (70-130); Calcium 8.4 mg/dL (7.8-10.44); Carbon Dioxide 24 mmol/L (23-31); Chloride 99 mmol/L (98-107); Estimated GFR 15; Globulin 2.3 g/dL (2.4-3.5); Glucose 202 mg/dL (80-115); Potassium 3.4 mmol/L (3.5-5.1); Protein, Total 5.9 g/dL (5.8-8.1); Sodium 134 mmol/L (136-145)
[2022-07-01] MEDS: Levothyroxine Sodium 112 MCG TAB PO SCH (06:11)
[2022-07-01] MEDS: Ciprofloxacin 500 MG TAB PO SCH (06:11)
[2022-07-01] MEDS: HumaLOG 300 UNITS/3 ML VIAL SC PRN (06:11)
[2022-07-01] MEDS ORDERED: Potassium Chloride 20 MEQ TAB PO SCH ×2 (07:00→15:00)
[2022-07-01] MEDS: Midodrine HCl 5 MG TAB PO SCH ×3 (10:03→22:07)
[2022-07-01] MEDS ORDERED: Heparin 10,000 UNITS/ 10 ML VIAL ONE (10:27)
[2022-07-01] MEDS: Rifaximin 550 MG TAB PO SCH ×2 (12:38→22:07)
[2022-07-01] MEDS: HumuLIN 70/30 (300 UNITS/3 ML VIAL) SC SCH ×2 (12:39→16:29)
[2022-07-01] MEDS: Epoetin (ESRD) 10,000 UNITS/ML VIAL SC SCH (12:39)
[2022-07-01] MEDS: Megestrol Acetate 40 MG TAB PO SCH (12:40)
[2022-07-01] MEDS: Transdermal Patch Removal TOP SCH (12:41)
[2022-07-01] MEDS ORDERED: EPINEPHrine 1 MG/ML AMP IVP PRN (18:23)
[2022-07-01] MEDS: Folic Acid/Vit B Comp W-C PO SCH (22:06)
[2022-07-01] MEDS: Lidocaine 5% Patch TD SCH (22:07)
[2022-07-01] MEDS ORDERED: diphenhydrAMINE 50 MG CAP PO SCH (23:00)
[2022-07-02] MEDS: Morphine 4 MG/ML VIAL SLOW IVP PRN ×4 (02:43→21:06)
[2022-07-02] MEDS: Levothyroxine Sodium 112 MCG TAB PO SCH (05:35)
[2022-07-02 06:23] LABS: ALT (SGPT) Less than 7 U/L (8-55); AST (SGOT) 27 U/L (5-34); Albumin 3.4 g/dL (3.4-4.8); Alkaline Phosphatase 259 U/L (40-110); Anion Gap 14 mmol/L (10-20); BUN (Urea Nitrogen) 23 mg/dL (8.4-25.7); Bilirubin, Total 8.2 mg/dL (0.2-1.2); Calc. Creatinine Clearance 23 mL/min (70-130); Calcium 8.3 mg/dL (7.8-10.44); Carbon Dioxide 25 mmol/L (23-31); Chloride 101 mmol/L (98-107); Estimated GFR 21; Globulin 2.6 g/dL (2.4-3.5); Glucose 113 mg/dL (80-115); Potassium 3.8 mmol/L (3.5-5.1); Sodium 136 mmol/L (136-145)
[2022-07-02 07:21] LABS: #Lymphocytes 0.3 thou/uL (1.20-3.40); #Monocytes 0.4 thou/uL (0.11-0.59); #Neutrophils 5.6 thou/uL (1.40-6.50); %Basophils 0.4 % (0.0-1.0); %Eosinophils 0.5 % (0.0-10.0); %Lymphocytes 4.1 % (21.0-51.0); %Monocytes 6.5 % (0.0-10.0); %Neutrophils 88.4 % (42.0-75.0); Hemoglobin 8.3 g/dL (14.0-18.0); Mean Corpuscular Hemoglobin 35.6 pg (27.0-31.0); Mean Platelet Volume 8.8 fL (7.4-10.4); Platelet Count 25 10x3/uL (130-400); RBC Distribution Width 20.7 % (11.5-14.5); Red Blood Cell (RBC) Count 2.34 mill/uL (4.70-6.10); White Blood Cell (WBC) Count 6.4 10x3/uL (4.8-10.8)
[2022-07-02 08:20] LABS: Anisocytosis MODERATE=16-30 cells (100X) (0-5/hpf); MDiff Complete? YES; Macrocytosis SLIGHT = 6-15 cells (100X) (0-5/hpf); Platelet Morphology Comment Appears Decreased
[2022-07-02] MEDS: Megestrol Acetate 40 MG TAB PO SCH (09:07)
[2022-07-02] MEDS: Rifaximin 550 MG TAB PO SCH ×2 (09:07→21:13)
[2022-07-02] MEDS: Midodrine HCl 5 MG TAB PO SCH ×3 (09:07→21:12)
[2022-07-02] MEDS: Transdermal Patch Removal TOP SCH (09:08)
[2022-07-02] MEDS: HumuLIN 70/30 (300 UNITS/3 ML VIAL) SC SCH ×2 (09:08→17:50)
[2022-07-02] MEDS ORDERED: Albumin 25% 25 GM/100 ML BOT IVPB SCH (11:45)
[2022-07-02] MEDS: HumaLOG 300 UNITS/3 ML VIAL SC PRN (12:48)
[2022-07-02] MEDS: Folic Acid/Vit B Comp W-C PO SCH (21:13)
[2022-07-02] MEDS: Lidocaine 5% Patch TD SCH (21:13)
[2022-07-03] MEDS: Morphine 4 MG/ML VIAL SLOW IVP PRN ×4 (04:07→20:04)
[2022-07-03 04:48] LABS: ALT (SGPT) Less than 7 U/L (8-55); AST (SGOT) 22 U/L (5-34); Albumin 3.6 g/dL (3.4-4.8); Alkaline Phosphatase 206 U/L (40-110); Anion Gap 15 mmol/L (10-20); BUN (Urea Nitrogen) 36 mg/dL (8.4-25.7); Bilirubin, Total 6.9 mg/dL (0.2-1.2); Calc. Creatinine Clearance 16 mL/min (70-130); Carbon Dioxide 24 mmol/L (23-31); Chloride 102 mmol/L (98-107); Estimated GFR 15; Globulin 2.3 g/dL (2.4-3.5); Glucose 167 mg/dL (80-115); Potassium 3.7 mmol/L (3.5-5.1); Protein, Total 5.9 g/dL (5.8-8.1); Sodium 137 mmol/L (136-145)
[2022-07-03 05:16] LABS: #Eosinphils 0.1 thou/uL (0.0-0.7); #Lymphocytes 0.3 thou/uL (1.20-3.40); #Monocytes 0.6 thou/uL (0.11-0.59); #Neutrophils 3.6 thou/uL (1.40-6.50); %Basophils 0.3 % (0.0-1.0); %Eosinophils 1.6 % (0.0-10.0); %Lymphocytes 5.5 % (21.0-51.0); %Monocytes 13.6 % (0.0-10.0); Hemoglobin 7.8 g/dL (14.0-18.0); MDiff Complete? YES; Macrocytosis SLIGHT = 6-15 cells (100X) (0-5/hpf); Mean Corpuscular HGB CONC 31.3 g/dL (32.0-36.0); Mean Corpuscular Hemoglobin 33.7 pg (27.0-31.0); Mean Platelet Volume 9.1 fL (7.4-10.4); Platelet Count 22 10x3/uL (130-400); Platelet Morphology Comment Appears Decreased; Red Blood Cell (RBC) Count 2.31 mill/uL (4.70-6.10); White Blood Cell (WBC) Count 4.6 10x3/uL (4.8-10.8)
[2022-07-03] MEDS: Levothyroxine Sodium 112 MCG TAB PO SCH (06:11)
[2022-07-03] MEDS: Rifaximin 550 MG TAB PO SCH ×2 (08:40→19:56)
[2022-07-03] MEDS: Megestrol Acetate 40 MG TAB PO SCH (08:42)
[2022-07-03] MEDS: HumuLIN 70/30 (300 UNITS/3 ML VIAL) SC SCH ×2 (08:42→18:07)
[2022-07-03] MEDS: Transdermal Patch Removal TOP SCH (08:43)
[2022-07-03] MEDS ORDERED: Albumin 25% 25 GM/100 ML BOT IVPB SCH (09:00)
[2022-07-03] MEDS: Midodrine HCl 5 MG TAB PO SCH ×3 (09:59→19:56)
[2022-07-03] MEDS: HumaLOG 300 UNITS/3 ML VIAL SC PRN (18:08)
[2022-07-03] MEDS: Lidocaine 5% Patch TD SCH (19:56)
[2022-07-03] MEDS: Folic Acid/Vit B Comp W-C PO SCH (19:56)
[2022-07-03] MEDS ORDERED: HYDROcodone/Acetaminophen 7.5/325 mg Tablet PO SCH (21:45)
[2022-07-04] MEDS: Morphine 4 MG/ML VIAL SLOW IVP PRN ×4 (00:11→18:06)
[2022-07-04 04:31] LABS: #Eosinphils 0.1 thou/uL (0.0-0.7); #Lymphocytes 0.2 thou/uL (1.20-3.40); #Monocytes 0.5 thou/uL (0.11-0.59); #Neutrophils 3.6 thou/uL (1.40-6.50); %Basophils 0.5 % (0.0-1.0); %Eosinophils 1.3 % (0.0-10.0); %Lymphocytes 5.1 % (21.0-51.0); %Neutrophils 81.1 % (42.0-75.0); Mean Corpuscular HGB CONC 31.7 g/dL (32.0-36.0); Mean Corpuscular Hemoglobin 33.8 pg (27.0-31.0); Mean Platelet Volume 8.9 fL (7.4-10.4); Platelet Count 22 10x3/uL (130-400); RBC Distribution Width 19.5 % (11.5-14.5); Red Blood Cell (RBC) Count 2.36 mill/uL (4.70-6.10); White Blood Cell (WBC) Count 4.4 10x3/uL (4.8-10.8)
[2022-07-04 04:49] LABS: ALT (SGPT) Less than 7 U/L (8-55); AST (SGOT) 21 U/L (5-34); Albumin 3.8 g/dL (3.4-4.8); Alkaline Phosphatase 221 U/L (40-110); Anion Gap 16 mmol/L (10-20); BUN (Urea Nitrogen) 55 mg/dL (8.4-25.7); Bilirubin, Total 6.6 mg/dL (0.2-1.2); Calc. Creatinine Clearance 13 mL/min (70-130); Calcium 8.3 mg/dL (7.8-10.44); Carbon Dioxide 22 mmol/L (23-31); Chloride 101 mmol/L (98-107); Estimated GFR 12; Globulin 2.3 g/dL (2.4-3.5); Glucose 158 mg/dL (80-115); Potassium 3.6 mmol/L (3.5-5.1); Protein, Total 6.1 g/dL (5.8-8.1); Sodium 135 mmol/L (136-145)
[2022-07-04] MEDS: Levothyroxine Sodium 112 MCG TAB PO SCH (04:50)
[2022-07-04] MEDS: Midodrine HCl 5 MG TAB PO SCH ×3 (07:51→21:41)
[2022-07-04] MEDS ORDERED: Midodrine HCl 5 MG TAB PO SCH (10:01)
[2022-07-04] MEDS: HumuLIN 70/30 (300 UNITS/3 ML VIAL) SC SCH ×2 (10:11→16:56)
[2022-07-04] MEDS ORDERED: Heparin 10,000 UNITS/ 10 ML VIAL ONE (10:17)
[2022-07-04] MEDS: Megestrol Acetate 40 MG TAB PO SCH (13:55)
[2022-07-04] MEDS: Rifaximin 550 MG TAB PO SCH ×2 (13:55→21:39)
[2022-07-04] MEDS: Transdermal Patch Removal TOP SCH (13:56)
[2022-07-04] MEDS ORDERED: Ipratropium Oral Inhaler INH PRN (15:30)
[2022-07-04] MEDS ORDERED: Albuterol Sulfate 2.5 mg/3 ml Neb NEB PRN (15:36)
[2022-07-04] MEDS: Epoetin (ESRD) 10,000 UNITS/ML VIAL SC SCH (16:56)
[2022-07-04] MEDS: HumaLOG 300 UNITS/3 ML VIAL SC PRN (16:57)
[2022-07-04] MEDS: Lidocaine 5% Patch TD SCH (21:41)
[2022-07-04] MEDS: Folic Acid/Vit B Comp W-C PO SCH (21:41)
[2022-07-05] MEDS: Morphine 4 MG/ML VIAL SLOW IVP PRN ×4 (02:18→22:29)
[2022-07-05] MEDS: Levothyroxine Sodium 112 MCG TAB PO SCH (05:36)
[2022-07-05] MEDS: HumaLOG 300 UNITS/3 ML VIAL SC PRN (06:01)
[2022-07-05 06:18] LABS: Hemoglobin 8.6 g/dL (14.0-18.0); Mean Corpuscular HGB CONC 31.1 g/dL (32.0-36.0); Mean Corpuscular Hemoglobin 33.5 pg (27.0-31.0); Mean Platelet Volume 8.3 fL (7.4-10.4); Platelet Count 30 10x3/uL (130-400); RBC Distribution Width 19.8 % (11.5-14.5); Red Blood Cell (RBC) Count 2.57 mill/uL (4.70-6.10); White Blood Cell (WBC) Count 5.2 10x3/uL (4.8-10.8)
[2022-07-05 06:34] LABS: ALT (SGPT) Less than 7 U/L (8-55); AST (SGOT) 23 U/L (5-34); Albumin 3.6 g/dL (3.4-4.8); Alkaline Phosphatase 242 U/L (40-110); Anion Gap 15 mmol/L (10-20); BUN (Urea Nitrogen) 38 mg/dL (8.4-25.7); Bilirubin, Total 7.7 mg/dL (0.2-1.2); Calc. Creatinine Clearance 16 mL/min (70-130); Calcium 8.4 mg/dL (7.8-10.44); Carbon Dioxide 25 mmol/L (23-31); Chloride 100 mmol/L (98-107); Estimated GFR 15; Globulin 2.6 g/dL (2.4-3.5); Glucose 252 mg/dL (80-115); Potassium 3.6 mmol/L (3.5-5.1); Protein, Total 6.2 g/dL (5.8-8.1); Sodium 136 mmol/L (136-145)
[2022-07-05 09:41] LABS: Band 6 % (5-11); Hypochromia SLIGHT = 6-15 cells (100X) (0-5/hpf); Lymphocytes 6 % (21-51); MDiff Complete? YES; Monocytes 11 % (0-10); Neutrophil 77 % (42-75); Ovalocytes SLIGHT = 2-5 cells (100X) (0-1/hpf); Platelet Morphology Comment Appears Decreased; Polychromasia SLIGHT = 2-3 cells (100X) (0-2/hpf)
[2022-07-05] MEDS: Megestrol Acetate 40 MG TAB PO SCH (09:41)
[2022-07-05] MEDS: Rifaximin 550 MG TAB PO SCH ×2 (09:41→21:58)
[2022-07-05] MEDS: Midodrine HCl 5 MG TAB PO SCH ×3 (09:42→21:58)
[2022-07-05] MEDS: HumuLIN 70/30 (300 UNITS/3 ML VIAL) SC SCH ×2 (09:43→17:49)
[2022-07-05] MEDS ORDERED: Metoprolol Tartrate 25 MG TAB PO SCH (11:00)
[2022-07-05] MEDS: Transdermal Patch Removal TOP SCH (11:35)
[2022-07-05] MEDS: Albumin 25% 25 GM/100 ML BOT IVPB SCH ×3 (11:35→17:49)
[2022-07-05 12:01] LABS: INR-International Normal Ratio 2.6; Prothrombin Time 29.3 sec (12.0-14.7)
[2022-07-05 12:02] LABS: PTT 42.5 sec (22.9-36.1)
[2022-07-05] MEDS ORDERED: Sodium Bicarbonate 2.5 MEQ/5 ML VIAL ONE (14:59)
[2022-07-05] MEDS ORDERED: Lidocaine 1% PF 5 ML VIAL ONE (14:59)
[2022-07-05 19:33] LABS: RBC Count-Automated (BF) 13188 /cu.mm; WBC/Nucleated-Auto (BF) 230 /cu.mm
[2022-07-05 19:51] LABS: Body Fluid Source Paracentesis Fluid; Clarity Cloudy/Turbid (Clear); Tube # EDTA
[2022-07-05 19:58] VITALS: BMI 25.0
[2022-07-05 20:06] LABS: BF Color Brown
[2022-07-05 20:19] LABS: BF Segmented Neutrophils 49 %; Cell Count Non Hematic 33 %; Lymphocytes 18 %
[2022-07-05] MEDS: Lidocaine 5% Patch TD SCH (21:56)
[2022-07-05] MEDS: Metoprolol Tartrate 25 MG TAB PO SCH (21:58)
[2022-07-05] MEDS: Folic Acid/Vit B Comp W-C PO SCH (21:58)
[2022-07-06] MEDS: Acetaminophen 325 MG TAB PO PRN (02:43)
[2022-07-06] MEDS: Morphine 4 MG/ML VIAL SLOW IVP PRN ×4 (02:44→16:54)
[2022-07-06 05:21] LABS: ALT (SGPT) 7 U/L (8-55); AST (SGOT) 20 U/L (5-34); Albumin 3.6 g/dL (3.4-4.8); Alkaline Phosphatase 181 U/L (40-110); Anion Gap 14 mmol/L (10-20); BUN (Urea Nitrogen) 51 mg/dL (8.4-25.7); Bilirubin, Total 5.8 mg/dL (0.2-1.2); Calc. Creatinine Clearance 14 mL/min (70-130); Calcium 8.3 mg/dL (7.8-10.44); Carbon Dioxide 24 mmol/L (23-31); Chloride 100 mmol/L (98-107); Estimated GFR 13; Globulin 2.3 g/dL (2.4-3.5); Potassium 3.4 mmol/L (3.5-5.1); Protein, Total 5.9 g/dL (5.8-8.1); Sodium 135 mmol/L (136-145)
[2022-07-06 05:28] LABS: Glucose 57 mg/dL (80-115); Hemoglobin 7.8 g/dL (14.0-18.0); Mean Corpuscular HGB CONC 31.3 g/dL (32.0-36.0); Mean Corpuscular Hemoglobin 33.5 pg (27.0-31.0); Mean Platelet Volume 9.4 fL (7.4-10.4); Platelet Count 24 10x3/uL (130-400); RBC Distribution Width 19.2 % (11.5-14.5); Red Blood Cell (RBC) Count 2.31 mill/uL (4.70-6.10); White Blood Cell (WBC) Count 3.9 10x3/uL (4.8-10.8)
[2022-07-06] MEDS: Levothyroxine Sodium 112 MCG TAB PO SCH (05:59)
[2022-07-06 06:27] LABS: Anisocytosis SLIGHT = 6-15 cells (100X) (0-5/hpf); Band 21 % (5-11); Lymphocytes 8 % (21-51); MDiff Complete? YES; Monocytes 6 % (0-10); Neutrophil 64 % (42-75); Platelet Morphology Comment Appears Decreased
[2022-07-06] MEDS: Midodrine HCl 5 MG TAB PO SCH ×3 (08:56→22:04)
[2022-07-06] MEDS: HumuLIN 70/30 (300 UNITS/3 ML VIAL) SC SCH ×2 (09:21→16:52)
[2022-07-06] MEDS: Transdermal Patch Removal TOP SCH (13:00)
[2022-07-06] MEDS: Metoprolol Tartrate 25 MG TAB PO SCH (13:07)
[2022-07-06] MEDS: Rifaximin 550 MG TAB PO SCH ×2 (13:28→22:03)
[2022-07-06] MEDS: Epoetin (ESRD) 10,000 UNITS/ML VIAL SC SCH (13:29)
[2022-07-06] MEDS: Megestrol Acetate 40 MG TAB PO SCH (13:29)
[2022-07-06] MEDS: Lidocaine 5% Patch TD SCH (22:01)
[2022-07-06] MEDS: Folic Acid/Vit B Comp W-C PO SCH (22:03)
[2022-07-07] MEDS: Morphine 4 MG/ML VIAL SLOW IVP PRN ×2 (00:01→10:34)
[2022-07-07 04:20] LABS: ALT (SGPT) 9 U/L (8-55); AST (SGOT) 22 U/L (5-34); Albumin 3.3 g/dL (3.4-4.8); Alkaline Phosphatase 200 U/L (40-110); Anion Gap 14 mmol/L (10-20); BUN (Urea Nitrogen) 34 mg/dL (8.4-25.7); Bilirubin, Total 5.3 mg/dL (0.2-1.2); Calc. Creatinine Clearance 18 mL/min (70-130); Calcium 8.2 mg/dL (7.8-10.44); Carbon Dioxide 26 mmol/L (23-31); Chloride 102 mmol/L (98-107); Estimated GFR 18; Globulin 2.3 g/dL (2.4-3.5); Glucose 216 mg/dL (80-115); Potassium 3.7 mmol/L (3.5-5.1); Protein, Total 5.6 g/dL (5.8-8.1); Sodium 138 mmol/L (136-145)
[2022-07-07 04:28] LABS: Hemoglobin 7.8 g/dL (14.0-18.0); Mean Corpuscular HGB CONC 30.9 g/dL (32.0-36.0); Mean Corpuscular Hemoglobin 33.3 pg (27.0-31.0); Mean Platelet Volume 8.9 fL (7.4-10.4); Platelet Count 20 10x3/uL (130-400); RBC Distribution Width 18.9 % (11.5-14.5); Red Blood Cell (RBC) Count 2.34 mill/uL (4.70-6.10); White Blood Cell (WBC) Count 3.4 10x3/uL (4.8-10.8)
[2022-07-07 04:29] LABS: Anisocytosis SLIGHT = 6-15 cells (100X) (0-5/hpf); Band 5 % (5-11); Eosinophils 2 % (0-10); Hypochromia SLIGHT = 6-15 cells (100X) (0-5/hpf); Lymphocytes 3 % (21-51); MDiff Complete? YES; Macrocytosis SLIGHT = 6-15 cells (100X) (0-5/hpf); Monocytes 10 % (0-10); Neutrophil 80 % (42-75); Platelet Morphology Comment Appears Decreased
[2022-07-07] MEDS: Levothyroxine Sodium 112 MCG TAB PO SCH (06:37)
[2022-07-07] MEDS: HumaLOG 300 UNITS/3 ML VIAL SC PRN (06:38)
[2022-07-07] MEDS: Midodrine HCl 5 MG TAB PO SCH ×3 (10:37→20:21)
[2022-07-07] MEDS: Metoprolol Tartrate 25 MG TAB PO SCH ×2 (10:38→20:21)
[2022-07-07] MEDS: Rifaximin 550 MG TAB PO SCH ×2 (10:39→20:21)
[2022-07-07] MEDS: HumuLIN 70/30 (300 UNITS/3 ML VIAL) SC SCH ×2 (10:40→19:50)
[2022-07-07] MEDS: Transdermal Patch Removal TOP SCH (10:43)
[2022-07-07] MEDS: Megestrol Acetate 40 MG TAB PO SCH (10:46)
[2022-07-07] MEDS ORDERED: diphenhydrAMINE 50 MG/ML VIAL IVP PRN (14:03)
[2022-07-07] MEDS ORDERED: Acetaminophen 325 MG TAB PO PRN (14:03)
[2022-07-07] MEDS: Folic Acid/Vit B Comp W-C PO SCH (20:21)
[2022-07-07 20:42] VITALS: BP 117/50; TEMP 97.8
== END 2022-07-07 21:00 | disposition home or self-care (01) | DRG 673 ==
LOC: ERS 05:21 → ERHOLD 08:04 → 2NO 19:31 → SURG A 06-20 21:46 → IMCU/EMU 06-27 23:44 → T4-A 06-28 20:31 → 2NO 06-29 22:38
PROVIDERS: ADMIT Family Medicine; ATTEND Internal Medicine
PROC: 0JH63XZ Insertion of Tunneled Vascular Access Device into Chest Subcutaneous Tissue and Fascia, Percutaneous Approach (ICD-10-PCS; principal; 2022-06-08)
PROC: 02HV33Z Insertion of Infusion Device into Superior Vena Cava, Percutaneous Approach (ICD-10-PCS; 2022-06-08)
PROC: B518ZZA Fluoroscopy of Superior Vena Cava, Guidance (ICD-10-PCS; 2022-06-08)
PROC: 5A1D70Z Performance of Urinary Filtration, Intermittent, Less than 6 Hours Per Day (ICD-10-PCS; 2022-06-08)
PROC: 0W9G3ZZ Drainage of Peritoneal Cavity, Percutaneous Approach (ICD-10-PCS; 2022-06-09)
PROC: 30233R1 Transfusion of Nonautologous Platelets into Peripheral Vein, Percutaneous Approach (ICD-10-PCS; 2022-06-10)
PROC: 30233N1 Transfusion of Nonautologous Red Blood Cells into Peripheral Vein, Percutaneous Approach (ICD-10-PCS; 2022-06-10)
PROC: 0W9G3ZZ Drainage of Peritoneal Cavity, Percutaneous Approach (ICD-10-PCS; 2022-06-15)
PROC: 0QH736Z Insertion of Intramedullary Internal Fixation Device into Left Upper Femur, Percutaneous Approach (ICD-10-PCS; 2022-06-20)
PROC: 0W9G3ZZ Drainage of Peritoneal Cavity, Percutaneous Approach (ICD-10-PCS; 2022-06-24)
PROC: 0W9G3ZZ Drainage of Peritoneal Cavity, Percutaneous Approach (ICD-10-PCS; 2022-06-30)
PROC: 0W9G3ZZ Drainage of Peritoneal Cavity, Percutaneous Approach (ICD-10-PCS; 2022-07-05)
DX: I12.0 Hypertensive chronic kidney disease with stage 5 chronic kidney disease or end stage renal disease (principal); K76.7 Hepatorenal syndrome; S72.142A Displaced intertrochanteric fracture of left femur, initial encounter for closed fracture; N18.6 End stage renal disease; N17.9 Acute kidney failure, unspecified; C22.8 Malignant neoplasm of liver, primary, unspecified as to type; K76.6 Portal hypertension; E87.20 Acidosis, unspecified; R18.8 Other ascites; D61.818 Other pancytopenia; N39.0 Urinary tract infection, site not specified; E22.2 Syndrome of inappropriate secretion of antidiuretic hormone; I47.1 Supraventricular tachycardia; D68.9 Coagulation defect, unspecified; Z51.5 Encounter for palliative care; Z20.822 Contact with and (suspected) exposure to COVID-19; E11.22 Type 2 diabetes mellitus with diabetic chronic kidney disease; K74.60 Unspecified cirrhosis of liver; B18.2 Chronic viral hepatitis C; E78.5 Hyperlipidemia, unspecified; D63.1 Anemia in chronic kidney disease; E87.5 Hyperkalemia; E87.70 Fluid overload, unspecified; K76.82 Hepatic encephalopathy; Z79.890 Hormone replacement therapy; Z79.4 Long term (current) use of insulin; Z79.899 Other long term (current) drug therapy; Z99.2 Dependence on renal dialysis; R30.0 Dysuria; B96.20 Unspecified Escherichia coli [E. coli] as the cause of diseases classified elsewhere; W01.0XXA Fall on same level from slipping, tripping and stumbling without subsequent striking against object, initial encounter; E87.6 Hypokalemia
CPT/HCPCS: 36415; 36416; 36430; 49083; 71045; 80048; 80053; 81001; 82042; 82140; 82248; 82553; 82668; 83010; 83615; 83735; 83880; 84100; 84484; 85025; 85046; 85049; 85060; 85300; 85362; 85379; 85384; 85610; 85730; 86704; 86850; 86870; 86880; 86900; 86901; 86904; 86905; 86922; 86972; 87070; 87077; 87086; 87186; 87205; 87340; 87522; 87811; 88112; 88305; 89051; 90935; 93005; 93010; 93970; 94640; 99285; C1713; C1751; C1752; G0257; J0690; J0696; J1200; J1644; J1815; J2001; J2185; J2250; J2270; J2405; J2543; J2704; J3010; J3475; J3490; J7030; J7512; J7620; J7999; P9016; P9035; P9047; P9059; Q4081; Q5105; S0179; U0002; U0003; U0005

== ENCOUNTER 2022-07-13 04:47 | Inpatient (IN) | payer BC, MEDICARE ==
[2022-07-13] MEDS ORDERED: NOREPINEPHRINE 8 MG/250 ML-D5W 250 ML ONE (04:57)
[2022-07-13] MEDS ORDERED: Cefepime 2 GM VIAL ONE (05:07)
[2022-07-13 05:46] LABS: PTT 40.9 sec (22.9-36.1)
[2022-07-13 05:47] LABS: INR-International Normal Ratio 4.1; Prothrombin Time 41.7 sec (12.0-14.7)
[2022-07-13 05:48] LABS: Hemoglobin 10.3 g/dL (14.0-18.0); Mean Corpuscular HGB CONC 29.4 g/dL (32.0-36.0); Mean Corpuscular Hemoglobin 32.3 pg (27.0-31.0); Mean Platelet Volume 10.5 fL (7.4-10.4); Platelet Count 38 10x3/uL (130-400); White Blood Cell (WBC) Count 4.7 10x3/uL (4.8-10.8)
[2022-07-13 05:56] LABS: ALT (SGPT) 18 U/L (8-55); AST (SGOT) 39 U/L (5-34); Albumin 3.5 g/dL (3.4-4.8); Alkaline Phosphatase 246 U/L (40-110); Anion Gap 24 mmol/L (10-20); BUN (Urea Nitrogen) 30 mg/dL (8.4-25.7); Bilirubin, Total 7.6 mg/dL (0.2-1.2); CK (CPK) 125 U/L (30-200); Calc. Creatinine Clearance 0 mL/min (70-130); Calcium 8.7 mg/dL (7.8-10.44); Carbon Dioxide 17 mmol/L (23-31); Chloride 103 mmol/L (98-107); Estimated GFR 14; Globulin 2.6 g/dL (2.4-3.5); Glucose 194 mg/dL (80-115); Lipase 4 U/L (8-78); Protein, Total 6.1 g/dL (5.8-8.1); Sodium 140 mmol/L (136-145)
[2022-07-13 06:17] LABS: CKMB 4.5 ng/mL (0-6.6)
[2022-07-13 06:25] LABS: SARS-CoV-2 NAA Rapid Test Not Detected (NotDetected)
[2022-07-13] MEDS ORDERED: Fentanyl 100 MCG/2 ML VIAL ONE (06:31)
[2022-07-13] MEDS ORDERED: Vancomycin 1 GM/200 ML (FROZEN) BAG ONE (06:56)
[2022-07-13] MEDS ORDERED: Iopamidol-370 76% 500 ML 1 ML ONE (08:38)
[2022-07-13] MEDS ORDERED: NOREPINEPHRINE 8 MG/250 ML-D5W 250 ML IVPB SCH (08:45)
[2022-07-13] MEDS ORDERED: Phytonadione 10 MG/ML AMP SC SCH (09:30)
[2022-07-13] MEDS ORDERED: Dextrose 50% Abboject 50 ML SYRINGE IVP PRN (09:45)
[2022-07-13] MEDS ORDERED: HumaLOG 300 UNITS/3 ML VIAL SC PRN ×3 (09:45→12:46)
[2022-07-13] MEDS ORDERED: Phytonadione 10 MG in Sodium Chloride 0.9% 50 ML IVPB SCH (09:45)
[2022-07-13] MEDS ORDERED: Dextrose 5% in Water 1,000 ML IV PRN ×2 (09:45→12:46)
[2022-07-13] MEDS ORDERED: Albumin 25% 25 GM/100 ML BOT IVPB SCH (09:45)
[2022-07-13 09:47] VITALS: BMI 22.0
[2022-07-13] MEDS: Lactated Ringer's 1,000 ML IV SCH ×2 (10:12→20:45)
[2022-07-13] MEDS: Micafungin 100 MG in Sodium Chloride 0.9% 100 ML IVPB SCH (10:16)
[2022-07-13] MEDS ORDERED: Vancomycin Hemodialysis Sliding Scale FS SCH (10:30)
[2022-07-13] MEDS ORDERED: Piperacillin/Tazobactam 3.375 GM in Sodium Chloride 0.9% 100 ML IVPB SCH (11:00)
[2022-07-13] MEDS ORDERED: Pantoprazole 40 MG VIAL IVP SCH (12:00)
[2022-07-13] MEDS ORDERED: Dextrose 50% Abboject 50 ML SYRINGE SLOW IVP PRN (12:46)
[2022-07-13] MEDS ORDERED: Ondansetron ODT 4 MG TAB PO PRN (12:46)
[2022-07-13] MEDS ORDERED: Acetaminophen 500 MG TAB PO PRN (12:46)
[2022-07-13] MEDS ORDERED: Ondansetron PF 4 MG/2 ML Vial IVP PRN (12:46)
[2022-07-13 12:55] LABS: Lactic Acid 12.8 mmol/L (0.5-2.2)
[2022-07-13] MEDS: Sodium Chloride 0.9% 1,000 ML IV SCH ×2 (13:52→21:22)
[2022-07-13] MEDS ORDERED: Piperacillin/Tazobactam 2.25 GM in Sodium Chloride 0.9% 100 ML IVPB SCH (14:00)
[2022-07-13] MEDS: Albumin 25% 25 GM/100 ML BOT IVPB SCH (14:48)
[2022-07-13] MEDS: Piperacillin/Tazobactam 3.375 GM in Sodium Chloride 0.9% 100 ML IVPB SCH (15:15)
[2022-07-13] MEDS ORDERED: Cefepime 1 GM in Sodium Chloride 0.9% 100 ML IVPB SCH ×2 (17:00→21:00)
[2022-07-13 17:37] LABS: Lactic Acid 13.3 mmol/L (0.5-2.2)
[2022-07-13] MEDS ORDERED: Fentanyl 100 MCG/2 ML VIAL SLOW IVP SCH (19:30)
[2022-07-13] MEDS: NOREPINEPHRINE 8 MG/250 ML-D5W 250 ML IVPB SCH (20:46)
[2022-07-13] MEDS ORDERED: Vancomycin 1 GM in Premix Bag 1 BAG IVPB SCH (21:00)
[2022-07-14] MEDS: Piperacillin/Tazobactam 3.375 GM in Sodium Chloride 0.9% 100 ML IVPB SCH (02:32)
[2022-07-14 04:25] LABS: Hemoglobin 8.7 g/dL (14.0-18.0); Mean Corpuscular HGB CONC 29.4 g/dL (32.0-36.0); Mean Corpuscular Hemoglobin 31.9 pg (27.0-31.0); Mean Platelet Volume 9.5 fL (7.4-10.4); Platelet Count 47 10x3/uL (130-400); RBC Distribution Width 18.1 % (11.5-14.5); Red Blood Cell (RBC) Count 2.73 mill/uL (4.70-6.10); White Blood Cell (WBC) Count 8.3 10x3/uL (4.8-10.8)
[2022-07-14 04:29] LABS: Anion Gap 28 mmol/L (10-20); BUN (Urea Nitrogen) 36 mg/dL (8.4-25.7); Calc. Creatinine Clearance 12 mL/min (70-130); Carbon Dioxide 12 mmol/L (23-31); Chloride 101 mmol/L (98-107); Potassium 4.1 mmol/L (3.5-5.1); Sodium 137 mmol/L (136-145)
[2022-07-14 04:30] LABS: ALT (SGPT) 20 U/L (8-55); AST (SGOT) 47 U/L (5-34); Albumin 3.5 g/dL (3.4-4.8); Alkaline Phosphatase 183 U/L (40-110); Calcium 8.9 mg/dL (7.8-10.44); Estimated GFR 12; Globulin 2.2 g/dL (2.4-3.5); Glucose 139 mg/dL (80-115); Protein, Total 5.7 g/dL (5.8-8.1)
[2022-07-14] MEDS: Lactated Ringer's 1,000 ML IV SCH (05:16)
[2022-07-14] MEDS: NOREPINEPHRINE 8 MG/250 ML-D5W 250 ML IVPB SCH (05:16)
[2022-07-14 05:49] LABS: Band 17 % (5-11); Hypochromia SLIGHT = 6-15 cells (100X) (0-5/hpf); Lymphocytes 2 % (21-51); MDiff Complete? YES; Macrocytosis SLIGHT = 6-15 cells (100X) (0-5/hpf); Monocytes 23 % (0-10); Neutrophil 58 % (42-75); Platelet Morphology Comment Appears Decreased
[2022-07-14] MEDS ORDERED: Levothyroxine Sodium 112 MCG TAB PO SCH (06:00)
[2022-07-14] MEDS ORDERED: Sodium Bicarbonate 150 MEQ in Dextrose 5% in Water 1,000 ML IV SCH (07:00)
[2022-07-14 08:04] LABS: Vancomycin, Random 11.5 ug/mL (See Comment)
[2022-07-14] MEDS ORDERED: Meropenem 1 GM in Sodium Chloride 0.9% 100 ML IVPB SCH (08:30)
[2022-07-14] MEDS ORDERED: Pantoprazole 40 MG VIAL IVP SCH ×2 (09:00)
[2022-07-14] MEDS ORDERED: Famotidine/PF 20 mg/2ml Vial SLOW IVP SCH (09:00)
[2022-07-14] MEDS ORDERED: Vancomycin HCl 1 GM in Sodium Chloride 0.9% 250 ML 300 ML IVPB SCH (09:00)
[2022-07-14] MEDS: Albumin 25% 25 GM/100 ML BOT IVPB SCH (09:05)
[2022-07-14] MEDS ORDERED: HYDROmorphone 0.5 MG/0.5 ML SYRINGE SLOW IVP PRN (09:13)
[2022-07-14] MEDS ORDERED: Lorazepam 2 MG/ML VIAL SLOW IVP PRN (09:30)
[2022-07-14 12:09] VITALS: TEMP 97.8
[2022-07-14] MEDS: Micafungin 100 MG in Sodium Chloride 0.9% 100 ML IVPB SCH (12:24)
[2022-07-14] MEDS ORDERED: Naloxone HCl 0.4 mg/ml Vial IV PRN (13:00)
[2022-07-14] MEDS ORDERED: Meropenem 500 MG in Sodium Chloride 0.9% 100 ML IVPB SCH (17:00)
[2022-07-14] MEDS ORDERED: Vancomycin HCl 750 MG in Sodium Chloride 0.9% 250 ML 250 ML IVPB SCH (17:00)
== END 2022-07-14 13:41 | disposition hospice, home (50) | DRG 871 ==
LOC: ERS 04:47 → CCU 07:01
PROVIDERS: ADMIT Internal Medicine; ATTEND Family Medicine
PROC: 06HY33Z Insertion of Infusion Device into Lower Vein, Percutaneous Approach (ICD-10-PCS; principal; 2022-07-13)
PROC: 3E03329 Introduction of Other Anti-infective into Peripheral Vein, Percutaneous Approach (ICD-10-PCS; 2022-07-13)
PROC: 30233J1 Transfusion of Nonautologous Serum Albumin into Peripheral Vein, Percutaneous Approach (ICD-10-PCS; 2022-07-13)
PROC: 5A09357 Assistance with Respiratory Ventilation, Less than 24 Consecutive Hours, Continuous Positive Airway Pressure (ICD-10-PCS; 2022-07-13)
PROC: 3E043XZ Introduction of Vasopressor into Central Vein, Percutaneous Approach (ICD-10-PCS; 2022-07-13)
DX: A41.9 Sepsis, unspecified organism (principal); J15.9 Unspecified bacterial pneumonia; N18.6 End stage renal disease; K76.7 Hepatorenal syndrome; R65.21 Severe sepsis with septic shock; J96.01 Acute respiratory failure with hypoxia; D68.9 Coagulation defect, unspecified; C22.0 Liver cell carcinoma; D61.818 Other pancytopenia; R18.8 Other ascites; E22.2 Syndrome of inappropriate secretion of antidiuretic hormone; N17.9 Acute kidney failure, unspecified; G93.40 Encephalopathy, unspecified; Z51.5 Encounter for palliative care; Z66 Do not resuscitate; R53.81 Other malaise; E03.9 Hypothyroidism, unspecified; E11.9 Type 2 diabetes mellitus without complications; K74.60 Unspecified cirrhosis of liver; D63.1 Anemia in chronic kidney disease; Z20.822 Contact with and (suspected) exposure to COVID-19; Z88.6 Allergy status to analgesic agent; Z83.3 Family history of diabetes mellitus; Z82.49 Family history of ischemic heart disease and other diseases of the circulatory system; Z98.890 Other specified postprocedural states; Z99.2 Dependence on renal dialysis
CPT/HCPCS: 36415; 36416; 71045; 71275; 74177; 80053; 80202; 82550; 82553; 83605; 83690; 83880; 84145; 84443; 84484; 85025; 85610; 85730; 86850; 86870; 86900; 86901; 86922; 87040; 93005; 93306; 94660; C9113; J0692; J1642; J1815; J1956; J2185; J2248; J2543; J3010; J3370-JW; J3430; J3490; J7070; J7120; P9047; Q9967

== ENCOUNTER 2022-07-14 14:07 | Inpatient (IN) | payer OTHER ==
[2022-07-14 15:14] VITALS: TEMP 97.8
[2022-07-14] MEDS ORDERED: Acetaminophen 650 MG Suppository PR PRN (15:31)
[2022-07-14] MEDS ORDERED: Morphine 2 MG/ML VIAL SLOW IVP PRN (15:32)
[2022-07-14] MEDS ORDERED: Morphine 4 MG/ML VIAL SLOW IVP PRN (15:33)
[2022-07-14] MEDS ORDERED: Lorazepam 2 MG/ML VIAL SLOW IVP PRN ×3 (15:34→15:38)
[2022-07-14] MEDS ORDERED: diphenhydrAMINE 50 MG/ML VIAL IVP PRN (15:36)
[2022-07-14] MEDS ORDERED: diphenhydrAMINE 25 MG CAP PO PRN (15:36)
[2022-07-14] MEDS ORDERED: Ondansetron PF 4 MG/2 ML Vial IVP PRN (15:38)
[2022-07-14] MEDS ORDERED: Scopolamine 1.5 mg/72 hour Patch TOP SCH (15:45)
[2022-07-14 18:08] VITALS: BP 50/34
== END 2022-07-14 17:45 | disposition expired | DRG 951 ==
LOC: CCU 14:07 → T4-B 16:23
PROVIDERS: ADMIT Internal Medicine Nephrology; ATTEND Internal Medicine Nephrology
DX: Z51.5 Encounter for palliative care (principal); N18.6 End stage renal disease; A41.9 Sepsis, unspecified organism; R65.21 Severe sepsis with septic shock; J96.01 Acute respiratory failure with hypoxia; J18.9 Pneumonia, unspecified organism; D61.818 Other pancytopenia; C22.0 Liver cell carcinoma; R18.0 Malignant ascites; Z99.2 Dependence on renal dialysis; E03.9 Hypothyroidism, unspecified; E11.9 Type 2 diabetes mellitus without complications; Z79.4 Long term (current) use of insulin; Z79.899 Other long term (current) drug therapy; Z79.890 Hormone replacement therapy; Z88.5 Allergy status to narcotic agent; Z82.49 Family history of ischemic heart disease and other diseases of the circulatory system; Z83.3 Family history of diabetes mellitus